=== PATIENT | female | born 1945 | race Caucasian/White ===

== ENCOUNTER → 2019-12-22 15:22 | Outpatient (BNVA) | payer MEDICARE, MEDICAID, SELFPAY | PROVIDERS: Family Provider Nurse Practitioner; PCP Nurse Practitioner; Visit Provider Family Medicine | DX: J44.9 Chronic obstructive pulmonary disease, unspecified (principal); K21.9 Gastro-esophageal reflux disease without esophagitis; R60.1 Generalized edema; E03.9 Hypothyroidism, unspecified; K59.04 Chronic idiopathic constipation; E78.5 Hyperlipidemia, unspecified | CPT/HCPCS: 36415; 80053 ==

== ENCOUNTER → 2019-12-30 08:58 | Outpatient (BNVA) | payer MEDICARE, MEDICAID, SELFPAY | PROVIDERS: Family Provider Nurse Practitioner; PCP Nurse Practitioner; Visit Provider Nurse Practitioner Psychiatric/Mental Health | DX: F33.3 Major depressive disorder, recurrent, severe with psychotic symptoms (principal); F43.12 Post-traumatic stress disorder, chronic; R41.81 Age-related cognitive decline; F17.210 Nicotine dependence, cigarettes, uncomplicated | CPT/HCPCS: 99214 ==

== ENCOUNTER → 2020-01-13 12:44 | Outpatient (BNVA) | payer MEDICARE, MEDICAID, SELFPAY | PROVIDERS: Family Provider Nurse Practitioner; PCP Nurse Practitioner; Visit Provider Social Worker | DX: F33.3 Major depressive disorder, recurrent, severe with psychotic symptoms (principal); F43.12 Post-traumatic stress disorder, chronic; R41.81 Age-related cognitive decline | CPT/HCPCS: 90834 ==

== ENCOUNTER → 2020-01-20 13:22 | Outpatient (BNVA) | payer MEDICARE, MEDICAID, SELFPAY | PROVIDERS: Family Provider Nurse Practitioner; PCP Family Medicine; Visit Provider Nurse Practitioner | DX: M54.41 Lumbago with sciatica, right side (principal); F17.210 Nicotine dependence, cigarettes, uncomplicated; Z79.891 Long term (current) use of opiate analgesic; Z71.6 Tobacco abuse counseling | CPT/HCPCS: 99213; 99214 ==

== ENCOUNTER → 2020-01-22 08:29 | Outpatient (BNVA) | payer MEDICARE, MEDICAID, SELFPAY | PROVIDERS: Family Provider Nurse Practitioner; PCP Family Medicine; Visit Provider Anesthesiology | DX: G89.29 Other chronic pain (principal); M54.5 Low back pain; M53.3 Sacrococcygeal disorders, not elsewhere classified; Z78.9 Other specified health status; M79.651 Pain in right thigh; M79.652 Pain in left thigh; F17.210 Nicotine dependence, cigarettes, uncomplicated; Z79.891 Long term (current) use of opiate analgesic | CPT/HCPCS: 77003; G0260; J1030; J2001; J3490 ==

== ENCOUNTER → 2020-02-04 09:47 | Outpatient (BNVA) | payer MEDICARE, MEDICAID, SELFPAY | PROVIDERS: Family Provider Nurse Practitioner; PCP Family Medicine; Visit Provider Nurse Practitioner Psychiatric/Mental Health | DX: F43.12 Post-traumatic stress disorder, chronic (principal); F17.219 Nicotine dependence, cigarettes, with unspecified nicotine-induced disorders; R41.81 Age-related cognitive decline; F31.32 Bipolar disorder, current episode depressed, moderate | CPT/HCPCS: 80061; 83036; 99214 ==

== ENCOUNTER → 2020-04-21 07:33 | Outpatient (BNVA) | payer MEDICARE, MEDICAID, SELFPAY ==
[2020-02-10 14:00] VITALS: BP 148/91; BMI 28.0
== END ==
PROVIDERS: Family Provider Nurse Practitioner; PCP Family Medicine; Visit Provider Nurse Practitioner Psychiatric/Mental Health
DX: F33.3 Major depressive disorder, recurrent, severe with psychotic symptoms (principal); F43.12 Post-traumatic stress disorder, chronic; F17.219 Nicotine dependence, cigarettes, with unspecified nicotine-induced disorders; R41.81 Age-related cognitive decline; F41.1 Generalized anxiety disorder
CPT/HCPCS: 99214

== ENCOUNTER → 2020-05-10 10:37 | Outpatient (BNVA) | payer MEDICARE, MEDICAID, SELFPAY ==
[2020-02-10 14:00] VITALS: BP 148/91; BMI 28.0
== END ==
PROVIDERS: Family Provider Nurse Practitioner; PCP Family Medicine; Visit Provider Family Medicine
DX: E87.6 Hypokalemia (principal); I10 Essential (primary) hypertension; F17.219 Nicotine dependence, cigarettes, with unspecified nicotine-induced disorders
CPT/HCPCS: 80048

== ENCOUNTER → 2020-05-17 07:21 | Outpatient (BNVA) | payer MEDICARE, MEDICAID, SELFPAY ==
[2020-02-10 14:00] VITALS: BP 148/91; BMI 28.0
== END ==
PROVIDERS: Family Provider Nurse Practitioner; PCP Family Medicine; Visit Provider Nurse Practitioner Psychiatric/Mental Health
DX: F33.3 Major depressive disorder, recurrent, severe with psychotic symptoms (principal); F43.12 Post-traumatic stress disorder, chronic; F17.219 Nicotine dependence, cigarettes, with unspecified nicotine-induced disorders; R41.81 Age-related cognitive decline
CPT/HCPCS: 99214

== ENCOUNTER → 2020-05-27 09:24 | Outpatient (BNVA) | payer MEDICARE, MEDICAID, SELFPAY ==
[2020-02-10 14:00] VITALS: BP 148/91; BMI 28.0
== END ==
PROVIDERS: Family Provider Nurse Practitioner; PCP Family Medicine; Visit Provider Anesthesiology
DX: M79.18 Myalgia, other site (principal); M79.10 Myalgia, unspecified site; M54.2 Cervicalgia; F17.210 Nicotine dependence, cigarettes, uncomplicated; Z79.891 Long term (current) use of opiate analgesic
CPT/HCPCS: 20553; J1030; J3490

== ENCOUNTER → 2020-06-07 10:24 | Outpatient (BNVA) | payer MEDICARE, MEDICAID, SELFPAY ==
[2020-02-10 14:00] VITALS: BP 148/91; BMI 28.0
== END ==
PROVIDERS: Family Provider Nurse Practitioner; PCP Family Medicine; Visit Provider Family Medicine
DX: I10 Essential (primary) hypertension (principal); N26.1 Atrophy of kidney (terminal); E11.9 Type 2 diabetes mellitus without complications; E78.5 Hyperlipidemia, unspecified; E03.9 Hypothyroidism, unspecified; R30.0 Dysuria
CPT/HCPCS: 80053; 80061; 81000; 82044; 84443; 85025

== ENCOUNTER → 2020-06-08 12:47 | Outpatient (BNVA) | payer MEDICARE, MEDICAID, SELFPAY ==
[2020-02-10 14:00] VITALS: BP 148/91; BMI 28.0
== END ==
PROVIDERS: Family Provider Nurse Practitioner; PCP Family Medicine; Visit Provider Anesthesiology
DX: G89.29 Other chronic pain (principal); M54.41 Lumbago with sciatica, right side; M54.42 Lumbago with sciatica, left side; M54.6 Pain in thoracic spine; M53.3 Sacrococcygeal disorders, not elsewhere classified; M54.2 Cervicalgia; F17.219 Nicotine dependence, cigarettes, with unspecified nicotine-induced disorders; Z79.891 Long term (current) use of opiate analgesic
CPT/HCPCS: 99214

== ENCOUNTER → 2020-06-14 07:40 | Outpatient (BNVA) | payer MEDICARE, MEDICAID, SELFPAY ==
[2020-06-08 13:24] VITALS: BP 148/91; BMI 28.0
== END ==
PROVIDERS: Family Provider Nurse Practitioner; PCP Family Medicine; Visit Provider Nurse Practitioner Psychiatric/Mental Health
DX: F33.3 Major depressive disorder, recurrent, severe with psychotic symptoms (principal); F43.12 Post-traumatic stress disorder, chronic; F17.219 Nicotine dependence, cigarettes, with unspecified nicotine-induced disorders; R41.81 Age-related cognitive decline
CPT/HCPCS: 99214

== ENCOUNTER → 2020-06-29 16:45 | Outpatient (BNVA) | payer MEDICARE, MEDICAID, SELFPAY ==
[2020-06-28 09:22] VITALS: BP 148/91; BMI 28.0
== END ==
PROVIDERS: Family Provider Nurse Practitioner; PCP Family Medicine; Visit Provider Family Medicine
DX: J02.9 Acute pharyngitis, unspecified (principal)
CPT/HCPCS: 87880

== ENCOUNTER → 2020-08-11 07:48 | Outpatient (BNVA) | payer MEDICARE, MEDICAID, SELFPAY ==
[2020-06-28 09:22] VITALS: BP 148/91; BMI 28.0
== END ==
PROVIDERS: Family Provider Nurse Practitioner; PCP Family Medicine; Visit Provider Nurse Practitioner Psychiatric/Mental Health
DX: F33.3 Major depressive disorder, recurrent, severe with psychotic symptoms (principal); F43.12 Post-traumatic stress disorder, chronic; F17.219 Nicotine dependence, cigarettes, with unspecified nicotine-induced disorders; R41.81 Age-related cognitive decline; F41.1 Generalized anxiety disorder
CPT/HCPCS: 99214

== ENCOUNTER 2020-08-17 08:54 | Outpatient (CLI) | payer MEDICARE, MEDICAID, SELFPAY ==
[2020-06-28 09:22] VITALS: BP 148/91; BMI 28.0
--- NOTE | 2020-08-17 09:08 | ECG_ITS ---
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 Interpretive Statements NAME OF STUDY: LEXISCAN SESTAMIBI STRESS TEST INDICATION: [Athrosclerotic Heart Disease, ] Procedure: At the baseline, the blood pressure was 122/73 mmHg,with a heart rate of 74 bpm. The electrocardiogram showed normal sinus rhythm with no significant ST T wave changes. Lexiscan was infused over a period of 20 seconds. A total of 0.4 mg of Lexiscan was infused. Stress phase was continued for a total of 5 minutes. Heart rate at the end of stress phase was 96 bpm. Blood pressure was 142/74 mmHg. The EKG at the peak infusion revealed sinus rhythm with no significant changes. Sestamibi was injected 20 seconds after the Lexiscan infusion. Blood pressure at the end of recovery phase was 139/75 mmHg. Heart rate was 93 bpm Conclusion: 1. Normal EKG response to Lexiscan infusion. 2. No Lexiscan induced chest pain or cardiac arrhythmia. 3. Normal heart rate and blood pressure response. 4. Sestamibi/sestamibi perfusion scan pending; see separate report. Electronically Signed On 08-20-2020 17:12:19 CDT by Fred Silverio M.D. [email or web address]
--- NOTE | 2020-08-17 09:08 | NMCV_ITS ---
NM jose martin perf SPECT r/s* [id number] Prisca Hernandez Age: 75 Gender: F : 1945 Exam Date: 08/17/2020 09:08 Ordering Phys: Fred Silverio M.D ([email or web address]) Technologist: LOUISE Guzman Exam Location: [facility] Indications: CORONARY ARTERY DISEASE STRESS TEST Please see separate stress test report in Ephiphany for full findings IMAGE PROTOCOL Rest/Stress 1 Lexiscan Day Radiopharmaceutical Dose (mCi) Administration Site Administered by Rest: Tc-99m 10.9 IV LOUISE Cordoba Sestamibi Stress:Tc-99m 32.4 IV LOUISE Cordoba Sestamibi Rest: 17-Aug-2020 60 Discovery 630 Stress: 17-Aug-2020 30 Discovery 630 0.4mg Lexiscan. Supine position only as patient was unable to lay prone. SPECT RESULTS Technical Quality: Excellent Raw Data Analysis: Normal Image Corrections: No attenuation or motion correction applied Summed Stress Score: 2 Summed Rest Score: 0 Summed Difference Score: 2 PERFUSION FINDINGS There is small in size, apical reversible defect. FUNCTIONAL RESULTS (calculated via Gated SPECT) Stress Image LV EF (%): 89 Stress EDV (mL):38 TID: 1.42 Stress ESV (mL):4 FUNCTIONAL FINDINGS: There is normal left ventricular systolic function. IMPRESSIONS 1. Small apical perfusion defect is noted at stress. This is consistent with ischemia in the apical [id number]. 2. Normal LV systolic function. Fred Silverio MD (Electronically Signed) Final Date: 18 August 2020 12:38 S
[2020-08-17 09:20] VITALS: BMI 27.6
[2020-08-17] MEDS: regadenoson 0.4 Mg/5 ml Syringe IVP (11:15)
[2020-08-17 11:28] VITALS: BP 139/75; PULSE 94
== END 2020-08-17 08:55 | disposition home or self-care (01) ==
LOC: CDL 09:01
PROVIDERS: PCP Family Medicine; Visit Provider Internal Medicine
DX: I25.10 Atherosclerotic heart disease of native coronary artery without angina pectoris (principal)
CPT/HCPCS: 78452; 93017; A9500; J2785

== ENCOUNTER → 2020-08-20 08:09 | Outpatient (BNVA) | payer MEDICARE, MEDICAID, SELFPAY ==
[2020-06-28 09:22] VITALS: BP 148/91; BMI 28.0
== END ==
PROVIDERS: Family Provider Nurse Practitioner; PCP Family Medicine; Visit Provider Anesthesiology
DX: G89.29 Other chronic pain (principal); M54.41 Lumbago with sciatica, right side; M54.6 Pain in thoracic spine; M53.3 Sacrococcygeal disorders, not elsewhere classified; M54.2 Cervicalgia; F17.219 Nicotine dependence, cigarettes, with unspecified nicotine-induced disorders; Z79.891 Long term (current) use of opiate analgesic
CPT/HCPCS: 99214

== ENCOUNTER 2020-08-27 07:39 | Outpatient (CLI) | payer MEDICARE, MEDICAID, SELFPAY ==
[2020-06-28 09:22] VITALS: BP 148/91; BMI 28.0
== END 2020-08-27 07:40 | disposition home or self-care (01) ==
LOC: LAB 07:44
PROVIDERS: Family Provider Nurse Practitioner; PCP Family Medicine; Visit Provider Internal Medicine
DX: Z20.828 Contact with and (suspected) exposure to other viral communicable diseases (principal)
CPT/HCPCS: 87635

== ENCOUNTER 2020-08-31 13:30 | Observation (INO) | payer MEDICARE, MEDICAID, SELFPAY ==
[2020-06-28 09:22] VITALS: BP 148/91; BMI 28.0
[2020-08-27 08:11] LABS: Basophils # 0.1 10^3/uL (0.0-0.1); Eosinophils # 0.3 10^3/uL (0.0-0.8); Eosinophils % 3.2 %; Hematocrit 48.2 % (37.0-47.0); Hemoglobin 15.8 g/dL (11.5-15.3); Lymphocytes % 22.4 %; Mean Corpuscular HGB Conc 32.8 g/dL (30.0-36.0); Mean Corpuscular Hemoglobin 31.9 pg (28.0-34.0); Mean Corpuscular Volume 97.2 fL (81-99); Mean Platelet Volume 10.6 fL (7.4-10.4); Monocytes # 0.8 10^3/uL (0.2-0.9); Neutrophils # 5.81 10^3/uL (1.8-7.7); Neutrophils % 64.2 %; Nucleated Red Blood Cells % 0 %; Platelet Count 263 10^3/cmm (130-400); Red Blood Count 4.96 10^6/uL (4.1-5.3); Red Cell Distribution Width 12.7 % (12.1-15.1); White Blood Count 9.1 10^3/uL (4.0-10.0)
[2020-08-27 08:35] LABS: INR 0.86 (0.8-1.2)
[2020-08-27 08:51] LABS: Anion Gap 14.7 (5-19); Blood Urea Nitrogen 18 mg/dL (8-23); Calcium 9.8 mg/dL (8.5-10.5); Carbon Dioxide 29 mmol/L (22-29); Chloride 102 mmol/L (98-107); Glucose 106 mg/dL (65-115); Osmolality Calculated 296 mOsm/kg (285-295); Potassium 3.7 mmol/L (3.5-5.1); Sodium 142 mmol/L (136-145)
--- NOTE | 2020-08-31 07:30 | XACV_ITS ---
Exam Room: 1 Ht: 150 cm Wt: 62 kg BSA: 1.63 m2 Gender: Female : 1945 Any Known Allergies: Other Exam Priority: Routine Indication(s): - Abnormal nuclear perfusion study - Angina Procedure(s): Procedure Description: Diagnostic procedure Procedure Description: Left Heart Catheterization Procedure Description: Left ventriculography Procedure Description: Coronary Angiography Diagnostic Cath Status: Elective Diagnostic Findings * CX has 85% distal stenosis. It gives rise to a large first OM branch. This OM gives collaterals to LAD.. * RCA has no significant stenosis. It provides right to left collaterals to apical LAD. Competitive flow can be seen in first OM.. * pLAD: Chronic total occlusion of proximal LAD is noted.RADHA: 0 flow. LAD has good collaterals from both OM1 and RCA. No significant stenosis past the proximal occlusion.. * LM has 0% stenosis. * CIRC AV: Severe 85% stenosis, RADHA: 3 flow. * Coronary angiography shows co-dominance. Conclusions 1. There is severe coronary artery disease with two-vessel disease.. 2. Proximal LAD has a MANAGER BANK. However receives excellent collaterals from both RCA and OM1. 3. Distal left circumflex artery has severe 85% stenosis. 4. Normal left ventricular systolic function. Ejection fraction of 55%. Recommendations * Patient has MANAGER BANK of proximal LAD. However LAD receives excellent collaterals both from her right coronary artery and OM1. Distal left circumflex has severe stenosis. We will try to optimize medical therapy to see if chest pain resolves. If medical therapy fails, distal left circumflex can be stented as LAD territory is unlikely cause for chest discomfort given excellent collaterals. This is a short segment MANAGER BANK. If in future revascularization of LAD is needed, discussion regarding CABG versus attempt at opening chronically occluded vessel percutaneously is appropriate.. * Return to clinic in 4 weeks to discuss further course of action. Interventional RX Recommendation: medical therapy and/or counseling Diagnostic RX Recommendation: medical therapy and/or counseling Ventriculography Ejection Fraction: 55.0 % Pressures Phase:Rest AO : 139 / 104 ( 122 ) @ 7:44:00 AM 109 / 77 ( 92 ) @ 7:51:00 AM 142 / 76 ( 105 ) @ 8:03:00 AM 143 / 68 ( 104 ) @ 8:03:00 AM LV : 139 / -5 / @ 8:01:00 AM 144 / -5 / @ 8:02:00 AM 142 / -5 / @ 8:03:00 AM Valves Phase:DefaultPhase AV : 0.0 @ 1:27:50 PM AV Mean Gradient: 0.0 @ 1:27:50 PM Clinical Evaluation EBL: 5mL-10mL Procedural Details Procedure Consent Obtained. Pre-Procedure Time Out. Identified patient by full name and date of as verbalized by the patient/guarantor. Does the consent match the physician's order: Yes. Accurate & Complete Informed Consent: Yes. Inpatient/Outpatient History & Physical on Chart: Yes. If H&P is completed, is and addenduem needed: No; If yes, is the addendum complete: N/A. Visualize and Verify Site with Patient/Guarantor: N/A. Relevant Radiology Images available: N/A. Pre-op teaching completed and patient verbalized understanding. The risks, benefits, and alternatives of sedation and/or procedure were discussed by physician. The patient agrees to continue. Procedure started. [facility] Clinical Fraility Score: 3: Managing Well. Floor Attendant Indications: Worsening Angina. Chest Pain Symptom Assessment: Atypical Angina. Cardiovascular Instability: No. Correct patient, site and procedure confirmed by cath team. PERRLA. Strong, equal hand communications tech bilaterally. Lungs clear x 5 lobes. IV Site on Arrival: 20 gauge in the right anticubital. IV Fluids: 0.9% NaCl at KVO. 0 mL infused prior to slab puller. Pre Procedural Pulses: bilateral dorsalis pedis was 3+. Pre Procedural Pulses: bilateral posterior tibial was 2+. Pre Procedural Pulses: bilateral radial was 3+. Oxygen started at 2liters/min via nasal canula. right groin was prepped with chloroprep then draped in the usual sterile fashion. right radial was prepped with chloroprep then draped in the usual sterile fashion. Physician notified. Baseline sample Acquired. HR: 78 BPM. Patient's family unavailable due to current Covid-19 restrictions. The patient's daughter, Kendal, was updated via telephone at . Equipment: 6F - Radial. Cardiac Cath Pack. ACIST Manifold Kit Model BT 2000. Heparinized Saline (2 units/mL), 1000 mL bag. Physician arrived. Physician scrubbed in. Immediate Pre-Procedure Time Out. Correct Patient: Yes; Correct Procedure: Yes; Correct Site: Yes; Correct Patient Position: Yes; Correct Supplies: Yes; Dried Flammable Prep: Yes; Blood Products Available: N/A. Lidocaine 1% infiltrated to the right radial. Arterial access obtained. A 5 tur[place] ca[place] islander TIG catheter in over the exchange wire. Exchange wire out. Hand injection performed of the right radial artery. Exchange glidewire in. Exchange glidewire out. Runthrough guidewire in. Runthrough guidewire out. Exchange wire in. Exchange wire out. Exchange glidewire in. Exchange glidewire out. Catheter out. Unable to navigate through radial access d/t anatomy. attempting to gain access in the Femoral artery. Lidocaine 1% infiltrated to the right groin. Added inventory: Micropuncture kit, 6fr femoral sheath. Arterial access obtained with micropuncture set. A 5 [place] islander JL4 catheter in over the exchange wire. Multiple views taken of left coronary artery. Patient's family unavailable due to current Covid-19 restrictions. The patient's daughter, Kendal, was updated via telephone at . Catheter removed over the exchange wire. A 5 [place] islander JR4 catheter in over wire. Multiple views taken of right coronary artery. Catheter removed over the exchange wire. A 5 tur[place] and ca[place] islander Angled Pig catheter in over wire. EDP Sample taken: LV 139/-6,19; HR: 79 BPM; SpO2: 92%. LV gram performed in TORO @ 10 mL/second for a total of 30 mL. EDP Sample taken: LV 144/-6,17; HR: 83 BPM; SpO2: 92%. Pullback taken: LV 142/-6,16; AO 142/76(105); Mean: 0mmHg, Peak to Peak: 0mmHg, SEP: 18sec/min; HR: 81 BPM; SpO2: 93%. Aortogram performed in RUSSIAN @ 20 mL/second for a total of 40 mL. Catheter removed over the exchange wire. Dr. Silverio scrubbed out to review cine. Dr. Silverio scrubbed back in. TR band placed. Hemostasis obtained. Mynx Dread Device was successful obtaining hemostatsis at the Right Femoral artery insertion site. Mynx Closure Device placed without complications. No signs or symptoms of hematoma noted. Sterile dressing applied per usual sterile fashion. LOT # [id number]. Dr. Silverio scrubbed out. Post Procedure: Pulses reassessed and unchanged. PERRLA. Strong, equal hand communications tech bilaterally. No VTE prophylaxis required. Medication's Wasted: Nitro = 49.6 mL. Medication's Wasted: Heparin = 1000 Units. Medication's Wasted: Lidocaine 1% = 6 mL. Total IV fluids: 75 mL. A TR Band was successful obtaining hemostatsis at the Right Radial artery insertion site. Post-op diagnosis: MANAGER BANK of the LAD. Complications: none. Estimated blood loss: 5mL-10mL. Procedure completed. Patient transferred by bed to 1st floor. Vital chart was stopped. Patient's family unavailable due to current [employer] restrictions. The patient's daughter, Kendal, was updated via telephone at by Dr. Silverio. Access Site Site: Right Radial artery Sheath Size: 6 Fr Hemostasis Method: TR Band Hemostasis Success: Successful Site: Right Femoral artery Sheath Size: 6 Fr Hemostasis Method: Hemostasis Patch Hemostasis Success: Successful Procedure Medications Start: 12:21 PM Stop: 12:21 PM Medication: Versed Amount: 1 mg Route: I.V. Start: 12:21 PM Stop: 12:21 PM Medication: Fentanyl Amount: 50 mcg Route: I.V. Start: 12:29 PM Stop: 12:29 PM Medication: Fentanyl Amount: 25 mcg Route: I.V. Start: 12:31 PM Stop: 12:31 PM Medication: Nitrogylcerin Amount: 200 mcg Route: I.A. Start: 12:34 PM Stop: 12:34 PM Medication: Versed Amount: 1 mg Route: I.V. Start: 12:40 PM Stop: 12:40 PM Medication: Fentanyl Amount: 25 mcg Route: I.V. I, the attending physician, have reviewed and verified all procedure medications. Yes, all medications given per verbal order History/Risk Factors Hypertension: Yes Dyslipidemia: Yes Peripheral Arterial Disease (PAD): No Myocardial Infarction (PA): No Obesity: No Renal Disease: No Tobacco Use: Current/Recent(w/in 1 year) Prior Interventions PCI: No CABG: No Valve Surgery: No Report Signatures Finalized by Fred Silverio MD on 09/05/2020 06:58 PM
[2020-08-31] MEDS: diphenhydrAMINE 50 mg Capsule PO (08:45)
[2020-08-31 09:06] VITALS: BP 137/79; PULSE 79; RESP 16; TEMP 36.6; O2SAT 98; BMI 27.6
--- NOTE | 2020-08-31 12:06 | PM.HP ---
Providers/Chief Complaint Primary Care Provider: Kaycee Roque DO Chief Complaint: left heart cath History of Present Illness Prisca Hernandez is a 75 year old female with past medical history of hypertension, tobacco abuse, nonobstructive coronary artery disease and COPD is here for left heart cath with possible intervention for worsening chest pain and abnormal stress test. Lexiscan was recently performed that showed apical reversible defect with TID of 1.42. Chest pain has typical and atypical features. However given the risk factors of hypertension and significant smoking history along with abnormal stress test plan is to undergo invasive procedure. She continues to smoke. She smokes half pack a day. She has not been exercising. Review of Systems Narrative: CONSTITUTIONAL: No fever chills weight loss or gain or night sweats. [] HEENT: Normocephalic, atraumatic.[] RESPIRATORY: No cough, sputum, hemoptysis or wheezing.[] CARDIOVASCULAR: No shortness of breath, chest pain, PND, orthopnea, lower extremity edema, presyncope or syncope. [] GI: no nausea vomiting diarrhea. 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 [] MUSCULOSKELETAL: No knee or joint pain or rashes. [] Medications/Allergies Home Medications Medication Instructions Recorded Confirmed Last Taken Type ceramides 1,3,6-11 1 applic TOPICAL BID gm 11/20/19 08/30/20 08/30/20 10:30 History cholecalciferol (vitamin D3) 50 50 mcg PO ONCE 11/20/19 08/30/20 08/30/20 10:30 History mcg (2,000 unit) capsule multivit with 1 tab PO DAILY 11/20/19 08/30/20 08/30/20 10:30 History qtbnhpgh-noul-AC-lutein 8 mg iron-400 mcg-300 mcg tablet triamcinolone acetonide 0.1 % 1 applic TOPICAL BID 11/20/19 08/30/20 08/30/20 10:30 History topical cream valacyclovir 500 mg tablet 500 mg PO DAILY tab 11/20/19 08/30/20 08/30/20 10:30 History furosemide 20 mg tablet 60 mg PO QAM #90 tab 03/30/20 08/30/20 08/30/20 10:30 Rx omeprazole 20 mg capsule,delayed 20 mg PO BID #180 cap 03/31/20 08/30/20 08/30/20 10:30 Rx release polyethylene glycol 3350 17 17 gm PO QDAY #510 gm 04/08/20 08/30/20 08/30/20 10:30 Rx gram/dose oral powder fluticasone fur. 100 mcg-umeclid 1 inh INHALATION DAILY #60 each 05/31/20 08/30/20 08/30/20 10:30 Rx 62.5 mcg-vilant 25 mcg inhalat.powder amlodipine 5 mg tablet 5 mg PO DAILY #90 tab 06/07/20 08/30/20 08/30/20 10:30 Rx fluticasone propionate 50 1 spray INTRANASAL BID #16 gm 06/07/20 08/30/20 08/30/20 10:30 Rx mcg/actuation nasal spray,suspension atorvastatin 20 mg tablet 20 mg PO QDAY #90 tab 06/08/20 08/30/20 08/30/20 21:30 Rx potassium chloride 10 mEq 10 meq PO BID #180 tab 07/27/20 08/30/20 08/30/20 10:30 Rx tablet,extended release quetiapine 25 mg tablet 25 mg PO BID #60 tab 08/11/20 08/30/20 08/30/20 10:30 Rx venlafaxine 75 mg capsule,extended 75 mg PO QAM #30 cap 08/11/20 08/30/20 08/30/20 10:30 Rx release 24 hr hydrocodone 10 mg-acetaminophen 1 tab PO Q8H PRN 30 Days #90 tab 08/20/20 08/30/20 Unknown Rx 325 mg tablet hydrocodone 10 mg-acetaminophen 1 tab PO TID PRN 30 Days #90 tab 08/20/20 08/30/20 Unknown Rx 325 mg tablet levothyroxine 75 mcg PO DAILY 08/30/20 08/30/20 08/31/20 07:30 History lisinopril 40 mg PO DAILY 08/30/20 08/30/20 08/30/20 10:30 History montelukast [Singulair] 10 mg PO DAILY 08/30/20 08/30/20 08/30/20 10:30 History Allergies Allergy/AdvReac Type Severity Reaction Status Date / Time alprazolam [From Xanax] Allergy nausea and Verified 08/31/20 09:22 vomiting baclofen Allergy Unknown Verified 08/31/20 09:22 ciprofloxacin [From Cipro] Allergy ALGY-Rash Verified 08/31/20 09:22 codeine Allergy nausea & Verified 08/31/20 09:22 vomiting morphine Allergy nausea & Verified 08/31/20 09:22 vomiting naproxen [From Aleve] Allergy ALGY-Hives Verified 08/31/20 09:22 Penicillins Allergy vomiting Verified 08/31/20 09:22 propoxyphene [From Darvon] Allergy nausea Verified 08/31/20 09:22 ranitidine [From Zantac] Allergy nausea & Verified 08/31/20 09:22 vomiting fentanyl AdvReac Unknown rash & Verified 08/31/20 09:22 nausea PFSH Acute PFSH: Medical History Age-related cognitive decline Benign essential HTN CAD (coronary artery disease) Chronic constipation Chronic post-traumatic stress disorder Chronic right SI joint pain Chronic right-sided low back pain with right-sided sciatica Cigarette nicotine dependence Cystocele Dyslipidemia Encounter for long-term opiate analgesic use Enrolled in chronic care management Gastro-esophageal reflux disease without esophagitis Generalized edema Hypothyroidism Low back pain of over 3 months duration Major depressive disorder, recurrent episode with mood-congruent psychotic features Microscopic hematuria Mixed incontinence Moderate COPD (chronic obstructive pulmonary disease) Myalgia Neck pain Opioid contract exists Periodontal disease Spinal stenosis, cervical region Surgical History S/P appendectomy S/P cataract surgery S/P hysterectomy S/P tonsillectomy and adenoidectomy Family History Father CAD (coronary artery disease) Family/Other CAD (coronary artery disease) uncle Cancer maternal aunt & maternal uncle Mother CAD (coronary artery disease) Hypertension Cancer Sister Hypertension Cancer Other Chronic post-traumatic stress disorder Social History Smoking and tobacco status: current every day smoker cigarettes Packs smoked per day: 0.75 Quit status (tobacco): not considering quitting Smoking risk assessment/counseling performed?: No Alcohol intake: never Marital status: Single History of recent travel: No Current gender identity: Female Vitals/I&O/Wt Last Vital Signs Temp 97.9 F 08/31/20 09:06 Pulse 79 08/31/20 09:06 Resp 16 08/31/20 09:06 BP 137/79 08/31/20 09:06 Pulse Ox 98 08/31/20 09:06 Weight last 48 hrs Weight 137 lb Physical Exam Narrative: EXAM NARRATIVE: GENERAL: Patient is alert, awake and oriented x3. [] NECK: No jugular vein distension. [] HEENT: No cyanosis. No icterus. No pallor. [] HEART: Regular S1 and S2. No murmur, rub or gallop. [] LUNGS: Clear to auscultate bilaterally. [] ABDOMEN: Soft, nontender and nondistended. Positive bowel sounds. No guarding, rebound or tenderness. [] CENTRAL NERVOUS SYSTEM: Grossly nonfocal. [] EXTREMITIES: Lower extremities with no edema bilaterally. Pulses palpable in the lower extremities, both dorsalis pedis and posterior tibial. [] Data : 08/27/20 08:00 08/27/20 08:00 A&P Assessment and plan (1) Chest pain: Status: Acute (2) Abnormal stress test: Status: Acute Patient has been having worsening chest pain associated with abnormal stress test. Plan is to undergo coronary angiography with possible percutaneous intervention if needed. Risks and benefits of the procedure have been discussed with patient and she wants to proceed with the procedure. Risks including bleeding, infection, abnormal heart rhythm, kidney function worsening, heart attack stroke and were discussed with the patient. She verbalized understanding. Attestations Medical Necessity Statement*: Care not expected to cross 2 midnights. Coding Level of Care Code Acute [place] for Lori Reed Diagnoses Chest pain R07.9 Abnormal stress test R94.39
[2020-08-31 17:00] VITALS: BP 137/79; PULSE 79; RESP 16; TEMP 36.6; O2SAT 98
--- NOTE | 2020-08-31 18:33 | PC.NURSE ---
1530 TR band removed via protocol patient tolerated well.
--- NOTE | 2020-08-31 19:21 | PC.NURSE ---
VS monitored per protocol during TR Band Removal. BP HR RR 1331: 137/77 73 17 1346: 127/73 84 21 1400: 131/89 82 18 1415: 137/81 79 16 1430: 137/81 79 15 1445: 138/68 80 17 1500: 127/70 80 11 1515: 129/71 78 13 1530: 131/74 73 14 1545: 128/74 74 15 1600: 131/76 72 15 1615: 130/75 73 11
--- NOTE | 2020-09-01 09:46 | PC.RESP ---
SMOKING CESSATION AND PULMONARY REHAB INFORMATION SENT TO PATIENT.
== END 2020-08-31 16:30 | disposition home or self-care (01) ==
LOC: CSU 13:30
PROVIDERS: Admitting Provider Internal Medicine; PCP Family Medicine; Visit Provider Internal Medicine
DX: I25.10 Atherosclerotic heart disease of native coronary artery without angina pectoris (principal); I77.1 Stricture of artery; R94.39 Abnormal result of other cardiovascular function study; R07.89 Other chest pain; I10 Essential (primary) hypertension; F17.210 Nicotine dependence, cigarettes, uncomplicated; E78.5 Hyperlipidemia, unspecified; E03.9 Hypothyroidism, unspecified; Z82.49 Family history of ischemic heart disease and other diseases of the circulatory system
CPT/HCPCS: 12345; 36415; 80048; 85025; 85610; 93452; C1760; C1769; C1887; C1894; G0378; J1644; J2250; J3010; J3490; J7030; Q0163; Q9967

== ENCOUNTER → 2020-09-07 11:27 | Outpatient (BNVA) | payer MEDICARE, MEDICAID, SELFPAY ==
[2020-06-28 09:22] VITALS: BP 148/91; BMI 28.0
== END ==
PROVIDERS: PCP Family Medicine; Visit Provider Nurse Practitioner Family
DX: R07.9 Chest pain, unspecified (principal); I25.10 Atherosclerotic heart disease of native coronary artery without angina pectoris
CPT/HCPCS: 80048

== ENCOUNTER → 2020-09-15 07:38 | Outpatient (BNVA) | payer MEDICARE, MEDICAID, SELFPAY ==
[2020-06-28 09:22] VITALS: BP 148/91; BMI 28.0
== END ==
PROVIDERS: PCP Family Medicine; Visit Provider Nurse Practitioner Psychiatric/Mental Health
DX: F33.3 Major depressive disorder, recurrent, severe with psychotic symptoms (principal); F43.12 Post-traumatic stress disorder, chronic; F17.219 Nicotine dependence, cigarettes, with unspecified nicotine-induced disorders; R41.81 Age-related cognitive decline
CPT/HCPCS: 99214

== ENCOUNTER → 2020-09-16 09:14 | Outpatient (BNVA) | payer MEDICARE, MEDICAID, SELFPAY ==
[2020-06-28 09:22] VITALS: BP 148/91; BMI 28.0
== END ==
PROVIDERS: PCP Family Medicine; Visit Provider Anesthesiology
DX: M79.18 Myalgia, other site (principal); M54.2 Cervicalgia; F17.210 Nicotine dependence, cigarettes, uncomplicated; Z79.891 Long term (current) use of opiate analgesic
CPT/HCPCS: 20553; J1030; J3490

== ENCOUNTER → 2020-10-04 07:41 | Outpatient (BNVA) | payer MEDICARE, MEDICAID, SELFPAY ==
[2020-06-28 09:22] VITALS: BP 148/91; BMI 28.0
== END ==
PROVIDERS: PCP Family Medicine; Visit Provider Nurse Practitioner Psychiatric/Mental Health
DX: F33.3 Major depressive disorder, recurrent, severe with psychotic symptoms (principal); F43.12 Post-traumatic stress disorder, chronic; F17.219 Nicotine dependence, cigarettes, with unspecified nicotine-induced disorders; R41.81 Age-related cognitive decline; F41.1 Generalized anxiety disorder
CPT/HCPCS: 99213

== ENCOUNTER → 2020-10-13 13:36 | Outpatient (BNVA) | payer MEDICARE, MEDICAID, SELFPAY ==
[2020-06-28 09:22] VITALS: BP 148/91; BMI 28.0
== END ==
PROVIDERS: PCP Family Medicine; Visit Provider Anesthesiology
DX: M54.6 Pain in thoracic spine (principal); M54.41 Lumbago with sciatica, right side; M54.2 Cervicalgia; F17.210 Nicotine dependence, cigarettes, uncomplicated; Z79.891 Long term (current) use of opiate analgesic
CPT/HCPCS: 99214

== ENCOUNTER → 2020-11-30 10:22 | Outpatient (BNVA) | payer MEDICARE, MEDICAID, SELFPAY ==
[2020-06-28 09:22] VITALS: BP 148/91; BMI 28.0
== END ==
PROVIDERS: PCP Family Medicine; Visit Provider Family Medicine
DX: E78.5 Hyperlipidemia, unspecified (principal); E03.9 Hypothyroidism, unspecified; J44.9 Chronic obstructive pulmonary disease, unspecified; K21.9 Gastro-esophageal reflux disease without esophagitis
CPT/HCPCS: 80053; 80061; 84443

== ENCOUNTER → 2020-12-09 13:00 | Outpatient (BNVA) | payer MEDICARE, MEDICAID, SELFPAY ==
[2020-06-28 09:22] VITALS: BP 148/91; BMI 28.0
== END ==
PROVIDERS: PCP Family Medicine; Visit Provider Anesthesiology
DX: M54.2 Cervicalgia (principal); M54.41 Lumbago with sciatica, right side; M54.6 Pain in thoracic spine; F17.219 Nicotine dependence, cigarettes, with unspecified nicotine-induced disorders; Z79.891 Long term (current) use of opiate analgesic
CPT/HCPCS: 99213

== ENCOUNTER → 2020-12-20 08:17 | Outpatient (BNVA) | payer MEDICARE, MEDICAID, SELFPAY ==
[2020-12-09 13:24] VITALS: BP 148/91; BMI 28.0
== END ==
PROVIDERS: PCP Family Medicine; Visit Provider Nurse Practitioner Psychiatric/Mental Health
DX: F33.3 Major depressive disorder, recurrent, severe with psychotic symptoms (principal); F43.12 Post-traumatic stress disorder, chronic; F17.219 Nicotine dependence, cigarettes, with unspecified nicotine-induced disorders; R41.81 Age-related cognitive decline
CPT/HCPCS: 99214

== ENCOUNTER → 2020-12-29 08:52 | Outpatient (BNVA) | payer MEDICARE, MEDICAID, SELFPAY ==
[2020-12-09 13:24] VITALS: BP 148/91; BMI 28.0
== END ==
PROVIDERS: PCP Family Medicine; Visit Provider Urology
DX: R30.0 Dysuria (principal)
CPT/HCPCS: 81003

== ENCOUNTER → 2020-12-31 12:49 | Outpatient (BNVA) | payer MEDICARE, MEDICAID, SELFPAY ==
[2020-12-09 13:24] VITALS: BP 148/91; BMI 28.0
== END ==
PROVIDERS: PCP Family Medicine; Visit Provider Surgery
DX: Z20.822 Contact with and (suspected) exposure to COVID-19 (principal)
CPT/HCPCS: 87635

== ENCOUNTER 2021-01-05 06:13 | Day surgery (SDC) | payer MEDICARE, MEDICAID, SELFPAY ==
[2020-12-09 13:24] VITALS: BP 148/91; BMI 28.0
[2021-01-03 14:14] VITALS: BMI 28.3
[2021-01-05 06:25] VITALS: BP 109/73; PULSE 98; RESP 16; TEMP 36.5; O2SAT 95
--- NOTE | 2021-01-05 06:33 | W.PM.OPSUD ---
Surgery/Procedure H&P Update DATE OF PROCEDURE: January 05, 2021 DATE H&P PERFORMED: 09/23/20 H&P UPDATE INFORMATION: I have reviewed H&P completed within last 30 days, I have examined patient prior to procedure and No changes to prior documentation PREOP DIAGNOSIS: Bleeding per rectum PRIMARY INDICATION FOR PROCEDURE: The same PLANNED PROCEDURE: Operation Date: 01/05/21 07:00 Proposed Procedures p EGD [id number] [id number] R10.13 K62.5(Not Applicable) - Andriy Aguilar MD s Colonoscopy(Not Applicable) - Andriy Aguilar MD
[2021-01-05] MEDS: sodium chloride 0.9% 1,000 ML 30 ML IV (06:59)
--- NOTE | 2021-01-05 07:58 | ANES.PREANE2 ---
Pre-Anesthetic Assessment Pre-Anesthetic Assessment: Height/Weight: Height 1.5 m Weight 63.503 kg Temp Pulse Resp BP Pulse Ox 97.7 F 98 16 109/73 95 01/05/21 06:25 01/05/21 06:25 01/05/21 06:25 01/05/21 06:25 01/05/21 06:25 Preop Diagnosis: Bleeding per rectum Proposed Procedure: Operation Date: 01/05/21 07:00 Proposed Procedures p EGD [id number] R10.13 K62.5(Not Applicable) - Andriy Aguilar MD s Colonoscopy(Not Applicable) - Andriy Aguilar MD Last intake: Intake Last Liquid Date 01/04/21 Last Liquid Time 20:00 Last Solid Date 01/03/21 Last Solid Time 19:00 Social: Social History: Tobacco and No alcohol Exam: Pre-Anes Outpt Exam: alert, oriented x 3 and regular rate & rhythm Airway: Submandibular: WNL Cervical ROM: WNL MP: 2 Dentition: False Pulmonary: Pulmonary: COPD CV/HEM: CV/HEM: Angina (Stable), CAD and HTN Metabolic: Metabolic: Thyroid Musc/skel: Musc/skel: Lower Back Pain Anesthetic Plan: ASA status: 3 Anesthesia: MAC Risk of > 500 ml blood loss (7ml/kg in children): No Meds/Allergies Current Medications: Current Medications Generic Name Dose Route Start Last Admin Trade Name Freq PRN Reason Stop Dose Admin Sodium Chloride 1,000 mls @ 30 ml s/hr 01/05/21 06:15 01/05/21 06:59 Sodium Chloride 0.9% IV 01/06/21 06:14 30 mls/hr .Q24H PRECIOUS Administration PFSH Anesthesia PFSH: Medical History Age-related cognitive decline Benign essential HTN CAD (coronary artery disease) Chronic constipation Chronic post-traumatic stress disorder Chronic right SI joint pain Chronic right-sided low back pain with right-sided sciatica Cigarette nicotine dependence Cystocele Dyslipidemia Encounter for long-term opiate analgesic use Gastro-esophageal reflux disease without esophagitis Generalized edema Hypothyroidism Low back pain of over 3 months duration Major depressive disorder, recurrent episode with mood-congruent psychotic features Microscopic hematuria Mixed incontinence Moderate COPD (chronic obstructive pulmonary disease) Myalgia Myalgia Neck pain Opioid contract exists Periodontal disease Rectal Hemorrhage Spinal stenosis, cervical region Surgical History S/P appendectomy S/P cataract surgery S/P hysterectomy S/P tonsillectomy and adenoidectomy Family History Father CAD (coronary artery disease) Family/Other CAD (coronary artery disease) uncle Cancer maternal aunt & maternal uncle Mother CAD (coronary artery disease) Hypertension Cancer Sister Hypertension Cancer Other Chronic post-traumatic stress disorder Social History Smoking and tobacco status: current every day smoker cigarettes Packs smoked per day: 0.50 Quit status (tobacco): not considering quitting Smoking risk assessment/counseling performed?: No Alcohol intake: never Marital status: Single History of recent travel: No Current gender identity: Female Data Anesthesia Cardiac Studies: No Data to Display
[2021-01-05 08:38] VITALS: BP 143/90; PULSE 85; RESP 18; TEMP 36.1; O2SAT 97
--- NOTE | 2021-01-05 08:40 | ANE.PACU2 ---
Inpatient post-anesthesia follow up: Airway intact: Yes Vital signs: Temperature 97 F Pulse Rate 85 Respiratory Rate 18 Blood Pressure 143/90 Pulse Oximetry 97 Oxygen Delivery Me thod Room Air Oxygen Flow Rate Fraction of Inspir ed Oxygen Hydration adequate: Yes Nausea and vomiting: No Pain level: 1 Mental status: Baseline
[2021-01-05 08:52] VITALS: BP 141/90; PULSE 80; RESP 18; O2SAT 97
--- NOTE | 2021-01-05 11:59 | ANE.PACU2 ---
Inpatient post-anesthesia follow up: Airway intact: Yes Vital signs: Temperature 97 F Pulse Rate 80 Respiratory Rate 18 Blood Pressure 141/90 Pulse Oximetry 97 Oxygen Delivery Me thod Room Air Oxygen Flow Rate Fraction of Inspir ed Oxygen Hydration adequate: Yes Nausea and vomiting: No Pain level: 1 Mental status: Baseline
[2021-01-06 06:04] LABS: H. Pylori / CLO Test Negative
== END 2021-01-05 09:12 | disposition home or self-care (01) ==
PROVIDERS: PCP Family Medicine; Visit Provider Surgery
PROC: 0DJ08ZZ Inspection of Upper Intestinal Tract, Via Natural or Artificial Opening Endoscopic (ICD-10-PCS; CPT 43235; principal; 2021-01-05 07:00)
PROC: 0DJD8ZZ Inspection of Lower Intestinal Tract, Via Natural or Artificial Opening Endoscopic (ICD-10-PCS; CPT 45378; 2021-01-05 07:00)
DX: K62.5 Hemorrhage of anus and rectum (principal); K57.30 Diverticulosis of large intestine without perforation or abscess without bleeding; D12.8 Benign neoplasm of rectum; K21.9 Gastro-esophageal reflux disease without esophagitis; K29.70 Gastritis, unspecified, without bleeding; I25.10 Atherosclerotic heart disease of native coronary artery without angina pectoris; I10 Essential (primary) hypertension; E78.5 Hyperlipidemia, unspecified; E03.9 Hypothyroidism, unspecified; F17.210 Nicotine dependence, cigarettes, uncomplicated; J44.9 Chronic obstructive pulmonary disease, unspecified
CPT/HCPCS: 12345; 43239; 45380; 87077; 88305; J2704; J7030

== ENCOUNTER → 2021-01-31 07:45 | Outpatient (BNVA) | payer MEDICARE, MEDICAID, SELFPAY ==
[2020-12-09 13:24] VITALS: BP 148/91; BMI 28.0
== END ==
PROVIDERS: PCP Family Medicine; Visit Provider Nurse Practitioner Psychiatric/Mental Health
DX: F33.3 Major depressive disorder, recurrent, severe with psychotic symptoms (principal); F43.12 Post-traumatic stress disorder, chronic; F17.219 Nicotine dependence, cigarettes, with unspecified nicotine-induced disorders; R41.81 Age-related cognitive decline; Z79.899 Other long term (current) drug therapy
CPT/HCPCS: 99214

== ENCOUNTER → 2021-02-04 10:30 | Outpatient (BNVA) | payer MEDICARE, MEDICAID, SELFPAY ==
[2020-12-09 13:24] VITALS: BP 148/91; BMI 28.0
== END ==
PROVIDERS: PCP Family Medicine; Visit Provider Family Medicine
DX: Z01.818 Encounter for other preprocedural examination (principal); Z13.6 Encounter for screening for cardiovascular disorders; K21.9 Gastro-esophageal reflux disease without esophagitis; I10 Essential (primary) hypertension; J30.9 Allergic rhinitis, unspecified; Z68.28 Body mass index [BMI] 28.0-28.9, adult; F17.219 Nicotine dependence, cigarettes, with unspecified nicotine-induced disorders
CPT/HCPCS: 80053; 85025

== ENCOUNTER 2021-02-11 13:46 | Outpatient (CLI) | payer MEDICARE, MEDICAID, SELFPAY ==
[2020-12-09 13:24] VITALS: BP 148/91; BMI 28.0
--- NOTE | 2021-02-11 13:52 | MM_ITS ---
WS: [id number] BILATERAL DIGITAL SCREENING MAMMOGRAPHY WITH CAD CLINICAL INFORMATION: SCREENING HISTORY: Screening mammogram. No current complaints. COMPARISON: TECHNIQUE: Bilateral CC and MLO views. FINDINGS: Scattered fibroglandular densities bilaterally. No suspicious focal mass, asymmetry, calcifications, or architectural distortion. No evidence of malignancy. MM/[id number] IMPRESSION: BI-RADS: 1-Negative FOLLOW UP: 1 Year Follow-up Recommend return to annual screening mammography.
== END 2021-02-11 13:47 | disposition home or self-care (01) ==
PROVIDERS: PCP Family Medicine; Visit Provider Family Medicine
DX: Z12.31 Encounter for screening mammogram for malignant neoplasm of breast (principal); R07.9 Chest pain, unspecified
CPT/HCPCS: 77067; 87635

== ENCOUNTER 2021-02-17 09:08 | Day surgery (SDC) | payer MEDICARE, MEDICAID, SELFPAY ==
[2020-12-09 13:24] VITALS: BP 148/91; BMI 28.0
[2021-02-11 11:49] LABS: Basophils # 0.1 10^3/uL (0.0-0.1); Eosinophils # 0.2 10^3/uL (0.0-0.8); Eosinophils % 1.9 %; Hematocrit 43.1 % (37.0-47.0); Hemoglobin 13.9 g/dL (11.5-15.3); Lymphocytes # 1.9 10^3/uL (0.8-4.8); Lymphocytes % 22.9 %; Mean Corpuscular HGB Conc 32.3 g/dL (30.0-36.0); Mean Platelet Volume 10.3 fL (7.4-10.4); Monocytes # 0.7 10^3/uL (0.2-0.9); Monocytes % 8.2 %; Neutrophils # 5.44 10^3/uL (1.8-7.7); Neutrophils % 65.8 %; Nucleated Red Blood Cells % 0 %; Platelet Count 221 10^3/cmm (130-400); Red Blood Count 4.49 10^6/uL (4.1-5.3); Red Cell Distribution Width 12.9 % (12.1-15.1); White Blood Count 8.3 10^3/uL (4.0-10.0)
[2021-02-11 11:58] LABS: INR 0.96 (0.8-1.2)
[2021-02-11 12:04] LABS: Anion Gap 14.2 (5-19); Blood Urea Nitrogen 23 mg/dL (8-23); Calcium 9.1 mg/dL (8.5-10.5); Carbon Dioxide 28 mmol/L (22-29); Chloride 101 mmol/L (98-107); Glucose 83 mg/dL (65-115); Osmolality Calculated 291 mOsm/kg (285-295); Potassium 4.2 mmol/L (3.5-5.1); Sodium 139 mmol/L (136-145)
[2021-02-17] VITALS (24 sets, daily range): BP systolic 91–157; BP diastolic 60–95; PULSE 70–82; RESP 9–18; TEMP 36.4–36.9; O2SAT 88–98; BMI 29.0
[2021-02-17] MEDS: diphenhydrAMINE 50 mg Capsule PO (09:58)
--- NOTE | 2021-02-17 09:59 | W.PM.OPSUD ---
Surgery/Procedure H&P Update DATE OF PROCEDURE: February 17, 2021 DATE H&P PERFORMED: 01/27/21 H&P UPDATE INFORMATION: I have reviewed H&P completed within last 30 days, I have examined patient prior to procedure and No changes to prior documentation PREOP DIAGNOSIS: Worsening angina/ severe coronary artery disease PRIMARY INDICATION FOR PROCEDURE: Worsening angina/ severe coronary artery disease PLANNED PROCEDURE: Operation Date: 02/17/21 10:00 Proposed Procedures p Cardiac Catheterization with stent [id number](Left) - Fred Silverio M.D Percutaneous coronary intervention PATIENT REASSESSED PRIOR TO SEDATION, WITH NO CHANGE NOTED: Yes PHYSICAL EXAM: alert, oriented x 3 and clear to auscultation bilaterally AIRWAY EVAL/ANESTHESIA PLAN: ASA III, Risks, benefits & alternatives of sedation and/or procedure discussed and Patient agrees to continue as planned
--- NOTE | 2021-02-17 10:00 | XACV_ITS ---
Exam Room: [facility] Ht: 150 cm Wt: 65 kg BSA: 1.67 m2 Gender: Female : 1945 Any Known Allergies: Other Exam Priority: Routine Procedure(s): Procedure Description: Diagnostic procedure Procedure Description: PCI procedure Procedure Description: Drug Eluting Coronary Stent Procedure Description: PTCA Procedure Description: Miscellaneous Procedure Description: ACT Procedure Description: Coronary Angiography Diagnostic Cath Status: Elective Diagnostic Findings * LM has mild luminal irregularities. * RCA has no significant stenosis. It gives rise to collaterals to LAD. * Proximal LAD has CREATIVE WRITING PROFESSOR. pLAD: Severe 100% stenosis, RADHA: 0 flow. * Distal Circumflex Coronary Artery: Severe 90% stenosis, RADHA: 3 flow. * RPDA to dLAD collateralization. * Coronary angiography shows right dominance. PCI Status: Elective PCI Indication: Other Interventional Findings * Procedure detail: We engaged left main artery using XB 3.5 guide catheter. IV heparin was used to maintain an ACT above 250 seconds. A 0.014 run-through guidewire was used to cross the distal LCx stenosis. We predilated the stenosis with 2.5X12 mm semicompliant balloon. This was followed by placement of 2.30Q53uo resolute Francesca drug-eluting stent. We then briefly attempted to cross the LAD CREATIVE WRITING PROFESSOR but was unsuccessful. At this time final angiogram was performed that showed excellent stent expansion, no residual stenosis and RADHA-3 flow. Guidewire and guide catheter were removed. Anioseal was deployed to achieve the hemostasis. Patient left the Candy Dipper Hand in a stable condition. * Distal Circumflex Coronary Artery: 90% stenosis treated with AB TREK 2.50X12 RX BALLOON and MDT R FRANCESCA 2.75X15 ISAÍAS. 0% residual stenosis, RADHA: 3 flow. Conclusions 1. There is severe coronary artery disease with severe distal LCx stenosis and CREATIVE WRITING PROFESSOR of LAD. 2. Distal Circumflex Coronary Artery was treated with Balloon and Drug Eluting Stent. Recommendations * Transfer to [facility]. * Aspirin and Plavix for atleast 1 year. * High intensity statin therapy. * Outpatient cardiology follow up. Interventional RX Recommendation: PCI w/o planned CABG Diagnostic RX Recommendation: PCI w/o planned CABG Anticoagulation: Heparin Pressures Phase:Rest AO : 173 / 90 ( 126 ) @ 5:21:00 AM 83 / 43 ( 56 ) @ 5:27:00 AM 142 / 79 ( 106 ) @ 5:27:00 AM 138 / 81 ( 102 ) @ 5:31:00 AM 145 / 84 ( 110 ) @ 5:41:00 AM Clinical Evaluation EBL: 5mL-10mL Procedural Details Procedure Consent Obtained. Pre-Procedure Time Out. Identified patient by full name and date of as verbalized by the patient/guarantor. Does the consent match the physician's order: Yes. Accurate & Complete Informed Consent: Yes. Inpatient/Outpatient History & Physical on Chart: Yes. If H&P is completed, is and addenduem needed: No; If yes, is the addendum complete: N/A. Visualize and Verify Site with Patient/Guarantor: N/A. Relevant Radiology Images available: N/A. Pre-op teaching completed and patient verbalized understanding. The risks, benefits, and alternatives of sedation and/or procedure were discussed by physician. The patient agrees to continue. Procedure started. Physician arrived. [facility] Clinical Fraility Score: 3: Managing Well. Candy Dipper Hand Indications: Worsening Angina. Chest Pain Symptom Assessment: Typical Angina Symptoms. Cardiovascular Instability: No. IV Site on Arrival: 20 gauge in the right anticubital. IV Fluids: 0.9% NaCl at KVO. 0 mL infused prior to cath lab tech. Pre Procedural Pulses: bilateral dorsalis pedis was Doppled. Pre Procedural Pulses: bilateral posterior tibial was Doppled. Oxygen started at 2liters/min via nasal canula. bilateral groins was prepped with chloroprep then draped in the usual sterile fashion. Baseline sample Acquired. HR: 72 BPM. Equipment: 6F - Femoral. Physician scrubbed in. Immediate Pre-Procedure Time Out. Correct Patient: Yes; Correct Procedure: Yes; Correct Site: Yes; Correct Patient Position: Yes; Correct Supplies: Yes; Dried Flammable Prep: Yes; Blood Products Available: N/A;. PERRLA. Strong, equal hand steam blocker bilaterally. Lungs clear x 5 lobes. Correct patient, site and procedure confirmed by cath team. Lidocaine 1% infiltrated to the right groin. Cardiac Cath Pack. ACIST Manifold Kit Model BT 2000. Heparinized Saline (2 units/mL), 1000 mL bag. Kit, Micropuncture. Arterial access obtained with micropuncture set. A JJ 6F JL4 100cm Diagnostic Catheter was advanced over the wire and used for Left coronary angiography. Catheter removed over the standard wire. A CRD 6F JR4 100cm Diagnostic Catheter was advanced over the wire and used for Right coronary angiography. Catheter removed over the standard wire. 6 setswana XB 3.5 guide catheter was inserted over the wire. Inventory is [facility] 6 FR XB 3.5 GUIDE. Runthrough guidewire was advanced through the guide catheter to lesion in the distal Circ. Inflation number : 1 A AB TREK 2.50X12 RX BALLOON was prepped and advanced across the Dist CX , then inflated to 8 LAUREN for 0:14 seconds. Inflation number: 2 The AB TREK 2.50X12 RX BALLOON was reinflated across the Dist CX, to 14 LAUREN for 0:37 seconds. Balloon out. Inflation Number : 3 A MDT R FRANCESCA 2.75X15 ISAÍAS -Lot Number# [id number] date 09/21/2022 was prepped and advanced across the Dist CX. The stent was deployed at 12 LAUREN for 0:39 seconds. Stent balloon out over wire. ACT drawn. Results 377 seconds. Therapeutic limits - pre-heparin administration 90-150 seconds and monitoring heparin during a vascular procedure >250 seconds. Runthrough repositioned to mid LAD. Wire out. Guide catheter out. Hand injection through the sheath. A Angio-Seal VIP (Lot # [id number] exp date 11/25/2021) was successful obtaining hemostatsis at the Right Femoral artery insertion site. Physician scrubbed out. Post Procedure: Pulses reassessed and unchanged. PERRLA. Strong, equal hand steam blocker bilaterally. No VTE prophylaxis required. Medication's Wasted: Lidocaine 1% = 18 mL. Medication's Wasted: Heparin = 4000 units. Medication's Wasted: Nitro = 49.8 mg. Total IV fluids: 75 mL. Contrast type used: Omnipaque 300 mgI/mL, 500 mL bottle. Post-op diagnosis: severe distal Circ stenosis. Complications: none. Estimated blood loss: 5mL-10mL. Procedure completed. Patient transferred by bed to 1st floor. Vital chart was stopped. Access Site Site: Right Femoral artery Sheath Size: 6 Fr Hemostasis Method: Angio-Seal VIP ([facility]) Hemostasis Success: Successful Procedure Medications Start: 10:04 AM Stop: 10:04 AM Medication: Versed Amount: 1 mg Route: I.V. Start: 10:18 AM Stop: 10:18 AM Medication: Versed Amount: 1 mg Route: I.V. Start: 10:31 AM Stop: 10:31 AM Medication: Heparin Amount: 7000 units Route: I.V. Start: 10:42 AM Stop: 10:42 AM Medication: Nitrogylcerin Amount: 200 mcg Route: I.C. Start: 10:57 AM Stop: 10:57 AM Medication: Versed Amount: 2 mg Route: I.V. I, the attending physician, have reviewed and verified all procedure medications. Yes, all medications given per verbal order History/Risk Factors Hypertension: Yes Dyslipidemia: Yes Peripheral Arterial Disease (PAD): No Myocardial Infarction (CT): No Obesity: No Renal Disease: No Tobacco Use: Current/Recent(w/in 1 year) Prior Interventions PCI: No CABG: No Valve Surgery: No Report Signatures Finalized by Fred Silverio MD on 03/02/2021 06:18 PM
[2021-02-17] MEDS: potassium chloride ER 10 mEq Tablet PO (17:03)
[2021-02-17] MEDS: quetiapine 25 mg Tablet PO (17:03)
[2021-02-17] MEDS: pantoprazole DR 40 mg Tablet PO (17:04)
[2021-02-17] MEDS: fluticasone nasal spray 16gm Btl 1 SPRAY INTRANASAL (17:04)
[2021-02-17] MEDS: isosorbide mononitrate 20 mg Tablet 40 MG PO (17:04)
--- NOTE | 2021-02-17 18:47 | PC.NURSE ---
call to Dr le with concerns of patient feeling nauseous telephone instructions for zofran 4 mg IVP Q6H for nausea
[2021-02-17] MEDS: ondansetron 2 mg/ML SDV 2 mL 4 MG IVP (20:14)
[2021-02-17] MEDS: alum-mag-hydroxide-sime 30 mL UDC PO (20:56)
--- NOTE | 2021-02-17 20:58 | PC.NURSE ---
Dr. Art notified of patient having heartburn, upper abdominal pain, nausea, no relief from Zofran. Ordered to give Maalox x1. Dr. Art also notified of decreased pulse in right wrist compared to left wrist. Cap refill WNL. Will monitor.
--- NOTE | 2021-02-17 22:31 | PC.NURSE ---
Patient is currently resting with eyes closed. Will monitor.
[2021-02-18 00:05] VITALS: BP 128/75; PULSE 71; RESP 18; O2SAT 94
[2021-02-18] MEDS: ondansetron 2 mg/ML SDV 2 mL 4 MG IVP (01:53)
[2021-02-18 04:40] VITALS: BP 104/70; PULSE 83; RESP 16; TEMP 36.7; O2SAT 94
[2021-02-18 05:20] VITALS: PULSE 74
[2021-02-18 05:22] LABS: Basophils # 0.1 10^3/uL (0.0-0.1); Basophils % 0.7 %; Eosinophils # 0.2 10^3/uL (0.0-0.8); Eosinophils % 3.1 %; Hematocrit 40.9 % (37.0-47.0); Hemoglobin 13.2 g/dL (11.5-15.3); Lymphocytes # 1.8 10^3/uL (0.8-4.8); Mean Corpuscular HGB Conc 32.3 g/dL (30.0-36.0); Mean Corpuscular Hemoglobin 30.9 pg (28.0-34.0); Mean Corpuscular Volume 95.8 fL (81-99); Mean Platelet Volume 10.6 fL (7.4-10.4); Monocytes # 0.8 10^3/uL (0.2-0.9); Monocytes % 10.2 %; Neutrophils # 4.59 10^3/uL (1.8-7.7); Neutrophils % 61.9 %; Nucleated Red Blood Cells % 0 %; Platelet Count 193 10^3/cmm (130-400); Red Blood Count 4.27 10^6/uL (4.1-5.3); Red Cell Distribution Width 13.2 % (12.1-15.1); White Blood Count 7.4 10^3/uL (4.0-10.0)
[2021-02-18 05:44] LABS: Anion Gap 11.9 (5-19); Blood Urea Nitrogen 16 mg/dL (8-23); Calcium 8.5 mg/dL (8.5-10.5); Carbon Dioxide 27 mmol/L (22-29); Chloride 106 mmol/L (98-107); Glucose 101 mg/dL (65-115); Osmolality Calculated 293 mOsm/kg (285-295); Potassium 3.9 mmol/L (3.5-5.1); Sodium 141 mmol/L (136-145)
[2021-02-18] MEDS: FUROsemide 20 mg Tablet 60 MG PO (06:06)
--- NOTE | 2021-02-18 06:18 | PC.NURSE ---
Patient's right groin site and dressing WNL. Patient has ambulated with standby assist. VSS.
[2021-02-18 07:44] VITALS: BP 143/86; PULSE 83; RESP 17; TEMP 36.6; O2SAT 94
[2021-02-18] MEDS: clopidogrel 75 mg Tablet PO (08:06)
[2021-02-18] MEDS: polyethylene glycol 3350 Pkt 17 gm PO (08:06)
[2021-02-18] MEDS: quetiapine 25 mg Tablet PO (08:07)
[2021-02-18] MEDS: cholecalciferol (vitamin D3) 1,000 unit Tablet 2000 UNIT PO (08:07)
[2021-02-18] MEDS: potassium chloride ER 10 mEq Tablet PO (08:07)
[2021-02-18] MEDS: atorvastatin 40 mg Tablet 20 MG PO (08:07)
[2021-02-18] MEDS: isosorbide mononitrate 20 mg Tablet 40 MG PO (08:07)
[2021-02-18] MEDS: amlodipine 5 mg Tablet PO (08:07)
[2021-02-18] MEDS: pantoprazole DR 40 mg Tablet PO (08:07)
[2021-02-18] MEDS: levothyroxine 75 mcg Tablet PO (08:07)
[2021-02-18] MEDS: montelukast sodium 10 mg Tablet PO (08:07)
[2021-02-18] MEDS: venlafaxine ER (24HR) 37.5 mg Capsule PO (08:07)
[2021-02-18] MEDS: HYDROcodone-acetaminophen 10-325 mg Tablet 1 TAB PO (08:14)
[2021-02-18] MEDS: valACYclovir 1,000 mg Tablet 500 MG PO (08:15)
[2021-02-18] MEDS: fluticasone nasal spray 16gm Btl 1 SPRAY INTRANASAL (08:22)
--- NOTE | 2021-02-18 08:36 | P.SS_ITS ---
Short Stay Summary Providers Date of Admit/Discharge: 02/22/21 Attending Provider: Fred Silverio M.D Primary Care Provider: Kaycee Roque DO Chief Complaint: left heart cath HPI History of Present Illness Prisca Hernandez is a 75 year old female 75-year-old female with past medical history of hypertension, tobacco abuse, coronary artery disease and COPD is here for follow-up.Patient underwent coronary angiography in August 2020 that showed CHIEF OF FIELD OPERATIONS of LAD with excellent collaterals from RCA and OM, had severe distal LCx disease that was treated medically. Patient continues to have chest pain. She says that pain limits her everyday activities. She feels it substernally that comes with exertion. She also has noted dyspnea with exertion. Review of Systems Const: Reports: change in weight (Up 3 lbs.); Denies: fever(s) Eyes: Denies: blurry vision ENMT: Reports: nasal discharge Card: Reports: chest pain; Denies: edema Resp: Denies: dyspnea GI: Reports: heartburn (Stable.); Denies: nausea, vomiting or diarrhea Skin/Breast: Denies: rash, new lesions or lesions Neuro: Denies: headache(s) Home Meds/Allergies Home Medications and Allergies Home Medications Medication Instructions Recorded Confirmed Type ceramides 1,3,6-II 1 applic TOPICAL BID gm 11/20/19 02/16/21 History cholecalciferol (vitamin D3) 50 50 mcg PO ONCE 11/20/19 02/16/21 History mcg (2,000 unit) capsule multivit with 1 tab PO DAILY 11/20/19 02/16/21 History xvscskls-kdig-HA-lutein 8 mg iron-400 mcg-300 mcg tablet triamcinolone acetonide 0.1 % 1 applic TOPICAL BID 11/20/19 02/16/21 History topical cream latanoprost 0.005 % eye drops 1 drp OPHTHALMIC (EYE) DAILY 02/04/21 02/16/21 History Allergies Allergy/AdvReac Type Severity Reaction Status Date / Time alprazolam [From Xanax] Allergy nausea and Verified 02/04/21 09:51 vomiting baclofen Allergy Unknown Verified 02/04/21 09:51 ciprofloxacin [From Cipro] Allergy ALGY-Rash Verified 02/04/21 09:51 codeine Allergy nausea & Verified 02/04/21 09:51 vomiting morphine Allergy nausea & Verified 02/04/21 09:51 vomiting naproxen [From Aleve] Allergy ALGY-Hives Verified 02/04/21 09:51 Penicillins Allergy vomiting Verified 02/04/21 09:51 propoxyphene [From Darvon] Allergy nausea Verified 02/04/21 09:51 ranitidine [From Zantac] Allergy nausea & Verified 02/04/21 09:51 vomiting fentanyl AdvReac Unknown rash & Verified 02/04/21 09:51 nausea PFSH Acute PFSH: Medical History Age-related cognitive decline Benign essential HTN CAD (coronary artery disease) Chronic constipation Chronic post-traumatic stress disorder Chronic right SI joint pain Chronic right-sided low back pain with right-sided sciatica Cigarette nicotine dependence Cystocele Dyslipidemia Encounter for long-term opiate analgesic use Gastritis Gastro-esophageal reflux disease without esophagitis Generalized edema GERD (gastroesophageal reflux disease) Hypothyroidism Low back pain of over 3 months duration Major depressive disorder, recurrent episode with mood-congruent psychotic features Microscopic hematuria Mixed incontinence Moderate COPD (chronic obstructive pulmonary disease) Myalgia Myalgia Neck pain Opioid contract exists Periodontal disease Rectal Hemorrhage Spinal stenosis, cervical region Surgical History History of colonoscopy (~2017) History of colonoscopy with polypectomy (~12/2020) History of esophagogastroduodenoscopy (EGD) (~12/2020) S/P appendectomy S/P cataract surgery S/P hysterectomy S/P tonsillectomy and adenoidectomy Family History Father CAD (coronary artery disease) Family/Other CAD (coronary artery disease) uncle Cancer maternal aunt & maternal uncle Mother CAD (coronary artery disease) Hypertension Cancer Sister Hypertension Cancer Other Chronic post-traumatic stress disorder Social History Smoking and tobacco status: current every day smoker cigarettes Packs smoked per day: 0.50 Quit status (tobacco): not considering quitting Smoking risk assessment/counseling performed?: No Alcohol intake: never Marital status: Single History of recent travel: No Current gender identity: Female Vitals/I&O/Wt Last Vital Signs Temp 97.8 F 02/18/21 07:44 Pulse 83 02/18/21 07:44 Resp 17 02/18/21 07:44 BP 143/86 02/18/21 07:44 Pulse Ox 94 02/18/21 07:44 02/17/21 02/18/21 02/18/21 22:59 06:59 14:59 Intake Total 760 / 760 200 / 960 Output Total 500 / 1500 550 / 2050 Balance 260 / -740 -350 / -1090 Weight last 48 hrs Weight 144 lb Physical Exam Narrative: EXAM NARRATIVE: GENERAL: Patient is alert, awake and oriented x3. [] NECK: No jugular vein distension. [] HEENT: No cyanosis. No icterus. No pallor. [] HEART: Regular S1 and S2. No murmur, rub or gallop. [] LUNGS: Clear to auscultate bilaterally. [] ABDOMEN: Soft, nontender and nondistended. Positive bowel sounds. No guarding, rebound or tenderness. [] CENTRAL NERVOUS SYSTEM: Grossly nonfocal. [] EXTREMITIES: Lower extremities with no edema bilaterally. Pulses palpable in the lower extremities, both dorsalis pedis and posterior tibial. [] Hospital Course Hospital Course 75-year-old female with past medical history of hypertension, tobacco abuse, coronary artery disease and COPD is here for follow-up.Patient underwent coronary angiography in August 2020 that showed CHIEF OF FIELD OPERATIONS of LAD with excellent collaterals from RCA and OM, had severe distal LCx disease that was treated medically. Patient continues to have chest pain. She says that pain limits her everyday activities. She feels it substernally that comes with exertion. She also has noted dyspnea with exertion. Patient underwent successful revascularization of distal left circumflex artery. We briefly attempted to open LAD CHIEF OF FIELD OPERATIONS however that was not possible. Was discharged in a stable condition. SSS Data Data Completed and Pending: Pending at discharge Category Date Time Status WINDER TENDER request for service Routin e Exams 02/17/21 10:00 Taken Discharge Plan Discharge Patient Disposition: Home Condition: Stable Prescriptions: New clopidogrel 75 mg Tablet 75 mg PO DAILY Qty: 90 RF: 3 aspirin 81 mg tablet,chewable 1 tab PO DAILY Qty: 90 RF: 3 Continued hydrocodone-acetaminophen 10-325 mg tablet 1 tab PO Q8H PRN (Reason: pain) 30 Days Qty: 90 RF: 0 hydrocodone-acetaminophen 10-325 mg tablet 1 tab PO TID PRN (Reason: pain) 30 Days Qty: 90 RF: 0 Trelegy Ellipta 100-62.5-25 mcg blister with device 1 inh inhalation DAILY Qty: 60 RF: 5 CeraVe Cream 1 applic TOPICAL BID RF: 0 triamcinolone acetonide 0.1 % cream 1 applic TOPICAL BID RF: 0 cholecalciferol (vitamin D3) 50 mcg (2,000 unit) capsule 50 mcg PO ONCE RF: 0 Centrum Silver Women 8 mg iron-400 mcg-300 mcg tablet 1 tab PO DAILY RF: 0 polyethylene glycol 3350 [Miralax] 17 gram/dose powder 17 gm PO QDAY Qty: 510 RF: 2 quetiapine [Seroquel] 25 mg tablet 25 mg PO BID Qty: 60 RF: 6 venlafaxine [Effexor XR] 37.5 mg capsule,extended release 24hr 37.5 mg PO .morning Qty: 30 RF: 6 latanoprost 0.005 % drops 1 drp ophthalmic (eye) DAILY RF: 0 atorvastatin [Lipitor] 20 mg tablet 20 mg PO QDAY Qty: 90 RF: 1 albuterol sulfate [Ventolin HFA] 90 mcg/actuation HFA aerosol inhaler 2 puff inhalation Q6H PRN (Reason: shortness of breath or wheezing) Qty: 8.5 RF: 3 amlodipine 5 mg tablet 5 mg PO DAILY Qty: 90 RF: 1 isosorbide mononitrate 20 mg tablet 40 mg PO BID Qty: 180 RF: 1 levothyroxine 75 mcg capsule 75 mcg PO DAILY Qty: 90 RF: 1 valacyclovir 500 mg tablet 500 mg PO DAILY Qty: 30 RF: 4 lisinopril 40 mg tablet 40 mg PO DAILY Qty: 90 RF: 0 potassium chloride [Klor-Con 10] 10 mEq tablet extended release 10 meq PO BID Qty: 180 RF: 1 furosemide 20 mg tablet 60 mg PO QAM Qty: 90 RF: 1 fluticasone propionate 50 mcg/actuation spray,suspension 1 spray INTRANASAL BID Qty: 16 RF: 3 montelukast [Singulair] 10 mg tablet 10 mg PO DAILY Qty: 30 RF: 5 No Action pantoprazole [Protonix] 40 mg tablet,delayed release (DR/EC) 40 mg PO DAILY Qty: 30 RF: 0 Discharge Orders: Discharge Order (Routine); Ordered 02/18/21 Ordered By: Fred Silverio Referrals: Fred Silverio M.D [Physician] - 1 month (YOU HAVE A FOLLOW UP APPOINTMENT WITH DR. SILVERIO ON February AT 3 PM. IF YOU HAVE ANY QUESTIONS OR NEED TO RESCHEDULE PLEASE CALL [phone].) Genet Castro FNP [Nurse Practitioner] - 7-10 days (YOU HAVE A FOLLOW UP APPOINTMENT WITH [facility] ON SundayFebruary AT 10:15 PM. IF YOU HAVE ANY QUESTIONS OR NEED TO RESCHEDULE PLEASE CALL [phone].) Discharge Diet: Cardiac Patient Instructions: Aspirin (By mouth), Clopidogrel (By mouth), Left Heart Catheterization (DC), Coronary Angioplasty (DC), Post Angiogram Home Care Instructions Activity Restrictions/Additional Instructions: Please do not lift more than 5 pounds of weight for the next 5 days Attestations Medical Necessity Statement*: Care not expected to cross 2 midnights Time Spent in Patient Care*: greater than 30 min Quality Metrics Clinical Quality Measures: During this hospital stay, did patient experience: None Coding Level of Care Code Acute Cell Maker for Lori Reed
[2021-02-18] MEDS: aspirin 81 mg Chew Tablet PO (10:06)
--- NOTE | 2021-02-18 10:22 | PC.NURSE ---
Meds to Bed in here Pt gets her meds at [facility].
[2021-02-18 10:39] VITALS: BP 97/50; PULSE 91; RESP 21; TEMP 36.7; O2SAT 91
--- NOTE | 2021-02-18 11:58 | PC.NURSE ---
Discharge to home Discuss to pt her follow-up appointments schedule. Post angiogram home care instructions discuss to pt. New meds educated to pt with inpt pharmacy. Discharge packet provided to pt.
--- NOTE | 2021-02-18 12:02 | PC.CHAP ---
Pastoral Care Encounter/Spiritual Assessment Type of Contact [] Declined block piler visit [] Patient/Family/Request visit [] Outpatient visit [] Follow-up visit [] Physician referral [] Code/Alert [xx] Routine visit [] Staff referral [] Actively dying [] Patient sleeping [] Family support [] [] Out of room [] Palliative care [] [] Receiving care in room [] Pre-surgical visit [] Trauma [] Long length of stay [] ICU visit [] Other: Relational/Emotional Strength [xx] Patient feels connected with others/family/visitors/staff [] Distress [] Loneliness/isolation [] Abandonment Spirituality of Patient [xx] Person of Susan [] Attends Religious of their Susan [xx] Believes in Prayer [] Reads Bible or Yazidi materials [] There are Spiritual issues to be addressed Health Care Marketing Specialist Interventions [xx] Prayer [xx] Active listening [xx] Non-anxious presence [] Spiritual/emotional support [] Crisis/trauma care [] Spiritual counseling [] Bereavement support [] Provided bereavement packet [] Provided Bible/devotional materials [] Provided toy/stuffed animal, coloring book to patient or family member [] Provided Communion [] Anointing/[place] [] Salvation [xx] Completed spiritual assessment [] Other: Impact on Illness or Injury [] Angry [] Fearful [] Anxious [] Often cries [] Exhaustion [] Unable to work [] Unable to attend anabaptist [] Unable to walk/stand [] Unable to read [] Unable to drive [] Unable to eat/drink [] Unable to sleep [] Unable to be with family [] Patient intubated [] Other: Summary Pt was more concerned about health needs of daughter and daughter's difficulty babysitting for patient's great-grandchildren. Health Care Marketing Specialist prayed accordingly. Time spent with patient 5 minutes
--- NOTE | 2021-02-18 12:02 | PC.NURSE ---
Med related Talked to Dr. Silverio and notified him to do an action on pt's omeprazole. Pt stated she was taking omeprazole 40 mg and her PCP lower the dose to 20 mg. [facility] rec updated and informed Dr. Silverio via phone.
== END 2021-02-18 12:01 | disposition home or self-care (01) ==
LOC: CCL 09:09 → CSU 10:02
PROVIDERS: PCP Family Medicine; Visit Provider Internal Medicine
DX: I25.10 Atherosclerotic heart disease of native coronary artery without angina pectoris (principal); I10 Essential (primary) hypertension; E78.5 Hyperlipidemia, unspecified; J44.9 Chronic obstructive pulmonary disease, unspecified; E03.9 Hypothyroidism, unspecified; Z82.49 Family history of ischemic heart disease and other diseases of the circulatory system; F17.210 Nicotine dependence, cigarettes, uncomplicated
CPT/HCPCS: 36415; 80048; 85025; 85347; 85610; 93454; C1725; C1760; C1769; C1874; C1887; C1894; C9600; J1644; J2250; J2405; J3010; J3490; J7030; Q0163; Q9967

== ENCOUNTER → 2021-02-25 11:02 | Outpatient (BNVA) | payer MEDICARE, MEDICAID, SELFPAY ==
[2020-12-09 13:24] VITALS: BP 148/91; BMI 28.0
== END ==
PROVIDERS: PCP Family Medicine; Visit Provider Nurse Practitioner Family
DX: I25.119 Atherosclerotic heart disease of native coronary artery with unspecified angina pectoris (principal); I10 Essential (primary) hypertension; F17.200 Nicotine dependence, unspecified, uncomplicated
CPT/HCPCS: 80048

== ENCOUNTER → 2021-03-02 12:10 | Outpatient (BNVA) | payer OTHER, SELFPAY ==
[2020-12-09 13:24] VITALS: BP 148/91; BMI 28.0
== END ==
PROVIDERS: PCP Family Medicine; Visit Provider Nurse Practitioner Psychiatric/Mental Health
DX: F31.4 Bipolar disorder, current episode depressed, severe, without psychotic features (principal)
CPT/HCPCS: 80061; 83036

== ENCOUNTER → 2021-03-03 10:51 | Outpatient (BNVA) | payer MEDICARE, MEDICAID, SELFPAY ==
[2020-12-09 13:24] VITALS: BP 148/91; BMI 28.0
== END ==
PROVIDERS: PCP Family Medicine; Visit Provider Nurse Practitioner
DX: G89.29 Other chronic pain (principal); M25.551 Pain in right hip; M54.41 Lumbago with sciatica, right side; M54.2 Cervicalgia; M25.511 Pain in right shoulder; M25.512 Pain in left shoulder; M54.6 Pain in thoracic spine; K59.09 Other constipation; F17.219 Nicotine dependence, cigarettes, with unspecified nicotine-induced disorders; Z79.891 Long term (current) use of opiate analgesic
CPT/HCPCS: 99214

== ENCOUNTER 2021-03-14 11:23 | Outpatient (RCR) | payer MEDICARE, MEDICAID, SELFPAY ==
[2020-12-09 13:24] VITALS: BP 148/91; BMI 28.0
== END 2021-03-25 23:59 | disposition home or self-care (01) ==
LOC: SPT 11:23
PROVIDERS: PCP Family Medicine; Referring Provider Nurse Practitioner; Visit Provider Nurse Practitioner
DX: M54.2 Cervicalgia (principal); M25.519 Pain in unspecified shoulder
CPT/HCPCS: 97161

== ENCOUNTER → 2021-04-04 08:05 | Outpatient (BNVA) | payer MEDICARE, MEDICAID, SELFPAY ==
[2021-03-04 14:49] VITALS: BP 126/79; BMI 28.0
== END ==
PROVIDERS: PCP Family Medicine; Visit Provider Nurse Practitioner Psychiatric/Mental Health
DX: F33.3 Major depressive disorder, recurrent, severe with psychotic symptoms (principal); F43.12 Post-traumatic stress disorder, chronic; F17.219 Nicotine dependence, cigarettes, with unspecified nicotine-induced disorders; R41.81 Age-related cognitive decline
CPT/HCPCS: 99214

== ENCOUNTER → 2021-05-03 10:44 | Outpatient (BNVA) | payer MEDICARE, MEDICAID, SELFPAY ==
[2021-03-04 14:49] VITALS: BP 126/79; BMI 28.0
== END ==
PROVIDERS: PCP Family Medicine; Visit Provider Nurse Practitioner
DX: G89.29 Other chronic pain (principal); M54.41 Lumbago with sciatica, right side; M54.6 Pain in thoracic spine; M53.3 Sacrococcygeal disorders, not elsewhere classified; M48.02 Spinal stenosis, cervical region; F17.219 Nicotine dependence, cigarettes, with unspecified nicotine-induced disorders; Z79.891 Long term (current) use of opiate analgesic
CPT/HCPCS: 99213

== ENCOUNTER → 2021-05-31 10:39 | Outpatient (BNVA) | payer MEDICARE, MEDICAID, SELFPAY ==
[2021-03-04 14:49] VITALS: BP 126/79; BMI 28.0
== END ==
PROVIDERS: PCP Family Medicine; Visit Provider Nurse Practitioner Psychiatric/Mental Health
DX: F33.3 Major depressive disorder, recurrent, severe with psychotic symptoms (principal); F43.12 Post-traumatic stress disorder, chronic; F17.219 Nicotine dependence, cigarettes, with unspecified nicotine-induced disorders; R41.81 Age-related cognitive decline
CPT/HCPCS: 99214

== ENCOUNTER → 2021-06-03 11:50 | Outpatient (BNVA) | payer MEDICARE, MEDICAID, SELFPAY ==
[2021-03-04 14:49] VITALS: BP 126/79; BMI 28.0
== END ==
PROVIDERS: PCP Family Medicine; Visit Provider Family Medicine
DX: K59.04 Chronic idiopathic constipation (principal); E03.9 Hypothyroidism, unspecified; F17.219 Nicotine dependence, cigarettes, with unspecified nicotine-induced disorders
CPT/HCPCS: 84443

== ENCOUNTER → 2021-06-13 13:14 | Outpatient (BNVA) | payer MEDICARE, MEDICAID, SELFPAY ==
[2021-03-04 14:49] VITALS: BP 126/79; BMI 28.0
== END ==
PROVIDERS: PCP Family Medicine; Visit Provider Nurse Practitioner Family
DX: Z20.822 Contact with and (suspected) exposure to COVID-19 (principal)
CPT/HCPCS: 87635

== ENCOUNTER → 2021-07-01 10:29 | Outpatient (BNVA) | payer MEDICARE, MEDICAID, SELFPAY ==
[2021-03-04 14:49] VITALS: BP 126/79; BMI 28.0
== END ==
PROVIDERS: PCP Family Medicine; Visit Provider Nurse Practitioner Psychiatric/Mental Health
DX: F33.3 Major depressive disorder, recurrent, severe with psychotic symptoms (principal); F43.12 Post-traumatic stress disorder, chronic; F17.219 Nicotine dependence, cigarettes, with unspecified nicotine-induced disorders; R41.81 Age-related cognitive decline
CPT/HCPCS: 99214

== ENCOUNTER → 2021-07-19 13:56 | Outpatient (BNVA) | payer MEDICARE, MEDICAID, SELFPAY ==
[2021-03-04 14:49] VITALS: BP 126/79; BMI 28.0
== END ==
PROVIDERS: PCP Family Medicine; Visit Provider Anesthesiology
DX: G89.29 Other chronic pain (principal); M54.41 Lumbago with sciatica, right side; M54.6 Pain in thoracic spine; M48.02 Spinal stenosis, cervical region; F17.219 Nicotine dependence, cigarettes, with unspecified nicotine-induced disorders; Z79.891 Long term (current) use of opiate analgesic
CPT/HCPCS: 99213; 99214

== ENCOUNTER → 2021-08-12 11:05 | Outpatient (BNVA) | payer MEDICARE, MEDICAID, SELFPAY ==
[2021-03-04 14:49] VITALS: BP 126/79; BMI 28.0
== END ==
PROVIDERS: PCP Family Medicine; Visit Provider Nurse Practitioner Psychiatric/Mental Health
DX: F33.3 Major depressive disorder, recurrent, severe with psychotic symptoms (principal); F43.12 Post-traumatic stress disorder, chronic; F17.219 Nicotine dependence, cigarettes, with unspecified nicotine-induced disorders; R41.81 Age-related cognitive decline
CPT/HCPCS: 99214

== ENCOUNTER 2021-09-13 11:53 | Emergency (ER) | payer MEDICARE, MEDICAID, SELFPAY ==
[2021-03-04 14:49] VITALS: BP 126/79; BMI 28.0
[2021-09-13 12:22] VITALS: BP 110/69; PULSE 84; RESP 18; TEMP 36.7; O2SAT 94; BMI 27.1
--- NOTE | 2021-09-13 12:29 | CT_ITS ---
WS: [id number] CT HEAD TECHNIQUE: Noncontrast CT of the head obtained from the skullbase to the vertex. CLINICAL INFORMATION: eval mass COMPARISON: CT 6 DLP: 1447.[address] scans at [facility] use at least one of these dose optimization techniques: automated e xposure control; mA and/or kV adjustment per patient size (includes targeted exams where dose is matc hed to clinical indication); or iterative reconstruction. FINDINGS: No evidence of intracranial hemorrhage or mass effect. Ventricular system and basal cisterns are kirk nt. Moderate small vessel changes with moderate parenchymal volume loss. No extra-axial fluid collect ions. No evidence of mass or mass effect. Normal gardiner-white differentiation. Paranasal sinuses and mastoid air cells are well aerated. .Normal visualized soft tissues. CT/CT head wo con* [id number] IMPRESSION: 1. No evidence of intracranial hemorrhage or mass effect. 2. Moderate small vessel changes. Moderate parenchymal volume loss. 3. No acute intracranial findings.
--- NOTE | 2021-09-13 12:49 | CT_ITS ---
WS: [id number] CT FACIAL BONES TECHNIQUE: Noncontrast facial bones with coronal and sagittal reformatted images. CLINICAL INFORMATION: bruises under R eye COMPARISON: None. DLP: 714.[address] scans at [facility] use at least one of these dose optimization techniques: automated e xposure control; mA and/or kV adjustment per patient size (includes targeted exams where dose is matc hed to clinical indication); or iterative reconstruction. FINDINGS: Paranasal sinuses are well aerated. Mild nasal septal deviation. Mastoid air cells are well aerated. Orbits are normal in appearance. Normal lamina papyracea. Normal right orbit. Normal pterygoid plates . Normal lateral orbits. Inferior orbits are normal. Normal zygoma. No evidence of mandibular fractur e dislocation. CT/CT facial bones wo con* [id number] IMPRESSION: 1. No acute facial fractures. 2. Paranasal sinuses and mastoid air cells well aerated.
--- NOTE | 2021-09-13 12:50 | ECG_ITS ---
[facility] Test Date: 2021-09-13 Pat Name: Prisca Hernandez Department: Room: Gender: Female Senior Speech Pathologist: : 1945 Requested By: Fifi Garcia Order Number: [id number] Reading MD: BRENDA MCMANUS Measurements Intervals Deshler Rate: 85 P: 13 WY: 148 QRS: 17 QRSD: 78 T: 46 QT: 365 QTc: 436 Interpretive Statements SINUS RHYTHM NONSPECIFIC T-WAVE ABNORMALITY Compared to ECG 09/29/2019 20:05:32 No significant changes Electronically Signed On 09-13-2021 22:57:09 CDT by BRENDA MCMANUS [id number]
[2021-09-13 12:55] VITALS: BP 116/80; PULSE 90; RESP 18; TEMP 36.6; O2SAT 96
[2021-09-13] MEDS: acetaminophen 500 mg Tablet 1000 MG PO (12:57)
[2021-09-13 12:58] LABS: Basophils # 0.1 10^3/uL (0.0-0.1); Basophils % 0.5 %; Eosinophils # 0.1 10^3/uL (0.0-0.8); Hematocrit 40.3 % (37.0-47.0); Hemoglobin 13.8 g/dL (11.5-15.3); Lymphocytes % 16.8 %; Mean Corpuscular HGB Conc 34.2 g/dL (30.0-36.0); Mean Corpuscular Hemoglobin 32.6 pg (28.0-34.0); Mean Corpuscular Volume 95.3 fl (81-99); Mean Platelet Volume 10.3 fL (7.4-10.4); Monocytes % 8.4 %; Nucleated Red Blood Cells % 0 %; Platelet Count 246 10^3/cmm (130-400); Red Blood Count 4.23 10^6/uL (4.1-5.3); Red Cell Distribution Width 13.4 % (12.1-15.1); White Blood Count 11.7 10^3/uL (4.0-10.0)
[2021-09-13 13:11] LABS: Blood Urea Nitrogen 16 mg/dL (8-23); Calcium 9.3 mg/dL (8.5-10.5); Carbon Dioxide 28 mmol/L (22-29); Chloride 103 mmol/L (98-107); Glucose 80 mg/dL (65-115); Osmolality Calculated 292 mOsm/kg (285-295); Sodium 141 mmol/L (136-145)
[2021-09-13 13:27] LABS: Troponin(5th) Baseline 10 ng/L (0-10)
[2021-09-13 13:54] LABS: Anion Gap 14.2 (5-19); Potassium 4.2 mmol/L (3.5-5.1)
--- NOTE | 2021-09-13 14:50 | ECG_ITS ---
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
--- NOTE | 2021-09-13 15:20 | W.ED.GENADLT ---
HPI - General Adult General: Chief complaint: Eye Problems Stated complaint: PAINS IN HEAD X 2 WEEKS Time Seen by Provider: 09/13/21 12:42 History of Present Illness: HPI narrative: 76-year-old female history of CAD s/p stent x1, smoking who presents emergency room with 2 weeks of worsening right-sided occipital headache and pain palpation. Patient currently lives at home by herself. Patient denies any fall or injury. According to the son, patient was seen with a bruise right eye last week. Patient denies any injury to the eyes similar. Patient does report blurriness of vision x1 week in the right eye. Patient denies any other focal neurological deficit. Earlier today, patient endorsed mild shortness of breath, denies chest pain, nausea/vomiting, abdominal complaints or complaints at this time. Onset: 2 weeks ago Duration:2 weeks Location:home Severity:moderate Review of Systems Narrative: Constitutional: No fever, no chills. HEENT: +r sided bluriness of vision, +R occpital scalp pain CV: No chest pain, no palpitations PULM: no cough, + mild dyspnea. GI: No abdominal pain, no N/V/D. : No dysuria MSKEL: No muscle pain SKIN: No new rashes, no lesions. NEURO: No headache, no focal weakness. HEME: No visible bruises PSYCH: Normal mood PFSH ED PFSH: Medical History Age-related cognitive decline Benign essential HTN CAD (coronary artery disease) Chronic constipation Chronic post-traumatic stress disorder Chronic right SI joint pain Chronic right-sided low back pain with right-sided sciatica Cigarette nicotine dependence Cystocele Dyslipidemia Encounter for long-term opiate analgesic use Gastritis Gastro-esophageal reflux disease without esophagitis Generalized edema GERD (gastroesophageal reflux disease) Hypothyroidism Low back pain of over 3 months duration Major depressive disorder, recurrent episode with mood-congruent psychotic features Microscopic hematuria Mixed incontinence Moderate COPD (chronic obstructive pulmonary disease) Myalgia Myalgia Neck pain Opioid contract exists Periodontal disease Rectal Hemorrhage Spinal stenosis, cervical region Surgical History History of colonoscopy (~2017) History of colonoscopy with polypectomy (~12/2020) History of esophagogastroduodenoscopy (EGD) (~12/2020) Hx of heart artery stent S/P appendectomy S/P cataract surgery S/P hysterectomy S/P tonsillectomy and adenoidectomy Family History Father CAD (coronary artery disease) Family/Other CAD (coronary artery disease) uncle Cancer maternal aunt & maternal uncle Mother CAD (coronary artery disease) Hypertension Cancer Sister Hypertension Cancer Other Chronic post-traumatic stress disorder Social History Smoking and tobacco status: current every day smoker cigarettes Packs smoked per day: 1 Years cigarettes smoked: 61 Quit status (tobacco): not considering quitting Second hand smoke exposure: Yes Smoking risk assessment/counseling performed?: No Alcohol intake: never Adopted: No Caregiver/support person: No Lives independently: No Household members: family Housing: Manufactured/Mobile home Marital status: Marital status details: since the Number of children: 5 Highest education level completed: Associate Degree: Occupational, Technical, Vocational Program Education level details: Clerical training service: No Current occupational status: disabled Current occupational exposures/hazards: No Pets and animals: Yes Pets & animals: cat(s) and dog(s) History of recent travel: Yes (Went to [place]) Details: took family home Out of state: Yes Out of country: No Leisure activites: music and other Leisure activities details: watch TV, do laundry Sexually active: No Current gender identity: Female Susan/Rastafarian: Holiness Special susan needs: No Agree to transfusion: Yes Financial difficulty paying for basics: Not Very Hard Female Reproductive History: Date of last menstrual period: 02/17/21 Para: 5 Spontaneous abortions: No Physical Exam Narrative: EXAM NARRATIVE: Head: Atraumatic, +R occpital tenderness to palpation (no visible bogginess, fluctuance, or erythema) Eyes: PERRL, conjunctiva without injection, 20/40 R eye, 20/20 L eye ENT: Mucous membrane moist NECK: Supple, ROM intact LUNGS: LCTAB, no crackles/rhonchi CV: RRR ABDOMEN: Soft, nontender in all quadrants EXTREMITY: Normal ROM SKIN: No rash or erythema NEURO: Mental status? Awake, alert, and oriented to self, year, month, location, and situation.? Following simple axial and appendicular commands.? Has appropriate fund of knowledge, comprehension, and insight.? Able to recall and understands pertinent aspects of medical history and current treatment status.? ? Language? Speech is fluent without word-finding difficulties.? Intact naming, expression, medical records receptionist, and repetition.? ? Cranial nerves? 2,3,4,6: PERRL, EOMI with no nystagmus. 5: Intact sensation to light touch, symmetric? 7: Smile symmetrical, no facial droop.? 8: Hearing grossly intact.? 9,10: Normal palate movement.? 11: Normal strength in trapezius bilaterally 12: Tongue protrudes midline.? ? Motor examination? Normal bulk & tone. Strength as follows (R/L): Delts (5/5), Biceps (5/5), Triceps (5/5), Wrist ext (5/5), hip flexors (5/5), plantarflexors (5/5), dorsiflexors (5/5). ? Sensation? Light Touch: Grossly intact and equal in upper and lower extremities bilaterally? Romberg: Negative.? Distal joint position sense intact ? Coordination? Aenvki-vu-vfxr-finger movements intact without dysmetria or past-pointing.? Rapid fingertaps: preserved amplitude without decriment.? No tremor, myoclonus or truncal ataxia.? ? Gait/stance? Steady, normal narrow base gait with appropriate arm swing and turning.? Tandem gait without hesitation or loss of balance. PSYCH: Normal mood and affect Course Vital Signs: Vital signs: Vital Signs Temperature 97.8 F 09/13/21 12:55 Pulse Rate 78 09/13/21 17:04 Respiratory Rate 18 09/13/21 12:55 Blood Pressure 122/78 09/13/21 17:04 Pulse Oximetry 93 09/13/21 17:04 MDM - General Adult MDM Narrative: Medical decision making narrative: Patient is a 76-year-old female presenting to the emergency room with complaints of right scapular painx2 weeks. Patient son was noticed right infraorbital bruise. Patient denies any fall or injuries. Exam, patient is hemodynamically stable without any focal neurological deficit. Vision in the right 20/40 left 20/20. No signs of inferior rectus entrapment. Work-up today includes CT face and CT head did not show any signs of acute injuries or bleed. There is no visualization of any hematoma in the right posterior occipital region. EKG is nonischemic, troponin x2 within normal limit. At the present time, I do not suspect that this is ACS. EKG showing regular sinus rhythm at HT of 70. Normal axis. No ST elevations/depressions to suggest coronary occlusion. Normal [place], QRS, QT intervals. It is unclear why patient is having significant scalp pain. Have given patient follow-up with primary care provider for further evaluation of head pain scalp pain. In terms of dyspnea, doubt ACS/PE or other emergent causes of chest pain. No suspicion for aortic dissection given no tearing chest pain, 2+ upper extremity pulses, or tearing pain. No suspicion for PE given no pleuritic chest pain, recent immobilization or surgery hemoptysis, or other VTE risk factors. EKG is non-ischemic. XR normal. I have given patient follow up with our case management social worker to be seen by our PCP for further evaluation of scalp pain and R eye blurriness. Patient aware of a call from our case management social worker to schedule for appointment(s) and verbalizes understanding of the importance of following up. Disposition: Discharge. Patient counseled regarding diagnostic impression, treatment plan. Patient given ED strict return precautions to return for continuation, worsening, or development of new symptoms. Instructed to f/u w/ PCP regarding symptoms today. Patient verbalized understanding. Lab Data: Labs: Lab Results 09/13/21 09/13/21 09/13/21 12:46 12:46 12:46 WBC 11.7 10^3/uL H 10 ^3/uL (4.0-10.0) RBC 4.23 10^6/uL 10^6 /uL (4.1-5.3) Hgb 13.8 g/dL g/dL (11.5-15.3) Hct 40.3 % % (37.0-47.0) MCV 95.3 fl fl (81-99) MCH 32.6 pg pg (28.0-34.0) MCHC 34.2 g/dL g/dL (30.0-36.0) RDW 13.4 % % (12.1-15.1) Plt Count 246 10^3/cmm 10^3 /cmm (130-400) MPV 10.3 fL fL (7.4-10.4) Neut % (Auto) 73.0 % % Lymph % (Auto) 16.8 % % [place] % (Auto) 8.4 % % Eos % (Auto) 1.0 % % Baso % (Auto) 0.5 % % Neut # (Auto) 8.50 10^3/uL H 10 ^3/uL (1.8-7.7) Lymph # (Auto) 2.0 10^3/uL 10^3/ uL (0.8-4.8) [place] # (Auto) 1.0 10^3/uL H 10^ 3/uL (0.2-0.9) Eos # (Auto) 0.1 10^3/uL 10^3/ uL (0.0-0.8) Baso # (Auto) 0.1 10^3/uL 10^3/ uL (0.0-0.1) Nucleated RBC % (a uto) 0 % % Nucleated RBCs # 0.0 /100WBC /100W BC Sodium 141 mmol/L mmol/L (136-145) Potassium 4.2 mmol/L mmol/L (3.5-5.1) Chloride 103 mmol/L mmol/L (98-107) Carbon Dioxide 28 mmol/L mmol/L (22-29) Anion Gap 14.2 (5-19) BUN 16 mg/dL mg/dL (8-23) Creatinine 0.8 mg/dL mg/dL (0.5-0.9) GFR Calculation Not Reportable Glucose 80 mg/dL mg/dL (65-115) Calculated Osmolal ity 292 mOsm/kg mOsm/ kg (285-295) Calcium 9.3 mg/dL mg/dL (8.5-10.5) Troponin T Baselin e 10 ng/L ng/L (0-10) Troponin T 120 Min [place] Delta Troponin T 09/13/21 15:23 WBC RBC Hgb Hct MCV MCH MCHC RDW Plt Count MPV Neut % (Auto) Lymph % (Auto) [place] % (Auto) Eos % (Auto) Baso % (Auto) Neut # (Auto) Lymph # (Auto) [place] # (Auto) Eos # (Auto) Baso # (Auto) Nucleated RBC % (a uto) Nucleated RBCs # Sodium Potassium Chloride Carbon Dioxide Anion Gap BUN Creatinine GFR Calculation Glucose Calculated Osmolal ity Calcium Troponin T Victorina contreras Troponin T 120 Min [place] 10.08 ng/L H ng/L (0-10) Delta Troponin T 0.08 ABS# ABS# (0-10) Imaging Data^: Other Imaging: My impression: [place] [address] [facility] [address], [place] [address]BS Scan ReportSigned Patient: Prisca Hernandez #: [id number]: [id number]#:[id number]/Sex: 76 / FADM Date: 09/13/21Loc: ERRoom/Bed:Attending Dr: Ordering Provider/Ordering MD: Fifi Garcia MD Date of Service: 09/13/21 Procedure(s): CT facial bones wo con* [id number] Accession Number(s): [id number] Report Number: [id number] WS: [id number] CT FACIAL BONES TECHNIQUE: Noncontrast facial bones with coronal and sagittal reformatted images. CLINICAL INFORMATION: bruises under R eye COMPARISON: None. DLP: 714.[address] scans at [facility] use at least one of these dose optimization techniques: automated exposure control; mA and/or kV adjustment per patient size (includes targeted exams where dose is matched to clinical indication); or iterative reconstruction. FINDINGS: Paranasal sinuses are well aerated. Mild nasal septal deviation. Mastoid air cells are well aerated. Orbits are normal in appearance. Normal lamina papyracea. Normal right orbit. Normal pterygoid plates. Normal lateral orbits. Inferior orbits are normal. Normal zygoma. No evidence of mandibular fracture dislocation. CT/CT facial bones wo con* [id number] IMPRESSION: 1. No acute facial fractures. 2. Paranasal sinuses and mastoid air cells well aerated. Dictated By:Derik Workman MDSigned By:Derik Workman MDSigned Date/Time:09/13/21 1349DD/ [address] [place], [place] [address]CB Scan ReportSigned Patient: Prisca Hernandez #: [id number]: [id number]#:[id number]/Sex: 76 / FADM Date: 09/13/21Loc: ERRoom/Bed:Attending Dr: Ordering Provider/Ordering MD: Fifi Garcia MD Date of Service: 09/13/21 Procedure(s): CT head wo con* [id number] Accession Number(s): [id number] Report Number: [id number] WS: [id number] CT HEAD TECHNIQUE: Noncontrast CT of the head obtained from the skullbase to the vertex. CLINICAL INFORMATION: eval mass COMPARISON: CT 6 DLP: 1447.[address] scans at [facility] use at least one of these dose optimization techniques: automated exposure control; mA and/or kV adjustment per patient size (includes targeted exams where dose is matched to clinical indication); or iterative reconstruction. FINDINGS: No evidence of intracranial hemorrhage or mass effect. Ventricular system and basal cisterns are patent. Moderate small vessel changes with moderate parenchymal volume loss. No extra-axial fluid collections. No evidence of mass or mass effect. Normal gardiner-white differentiation. Paranasal sinuses and mastoid air cells are well aerated. .Normal visualized soft tissues. CT/CT head wo con* [id number] IMPRESSION: 1. No evidence of intracranial hemorrhage or mass effect. 2. Moderate small vessel changes. Moderate parenchymal volume loss. 3. No acute intracranial findings. Dictated By:Derik Workman MDSigned By:Derik Workman MDSigned Date/Time:09/13/21 1345DD/ 134[address] [facility] [place] [id number] ReportSigned Patient: Prisca Hernandez #: [id number]: 6Acct#:[id number]/Sex: 76 / FADM Date: 09/13/21Loc: ERRoom/Bed:Attending Dr: Ordering Provider/Ordering MD: Fifi Garcia MD Date of Service: 09/13/21 Procedure(s): XR chest 1V portable [id number] Accession Number(s): [id number] Report Number: [id number] PROCEDURE INFORMATION: Exam: XR Chest Exam date and time: 09/13/2021 3:43 PM Age: 76 years old Clinical indication: Dyspnea TECHNIQUE: Imaging protocol: XR of the chest. Views: 1 view. COMPARISON: CR Chest 2 views* [id number] 09/29/2019 6:43 PM FINDINGS: Lungs: Unremarkable. No consolidation. Pleural spaces: Unremarkable. No pleural effusion. No pneumothorax. Heart/Mediastinum: Unremarkable. No cardiomegaly. Vasculature: Calcification of the thoracic aorta and/or great vessels consistent with atherosclerotic vessel disease. Bones/joints: Unremarkable. XR/XR chest 1V portable [id number] IMPRESSION: No acute findings. Radiation Dose CTDIVOL = (mGy): DLP = (mGy-cm) Dictated By:Yogesh Huynh MDSigned By:Yogesh Huynh MDSigned Date/Time:09/13/21 1642DD/ 1543 Discharge Plan Discharge Patient Disposition: Home Clinical Impression: Acute dyspnea, Scalp pain Condition: Stable Prescriptions: No Action isosorbide mononitrate 60 mg tablet extended release 24 hr 90 mg PO DAILY Qty: 135 RF: 3 quetiapine [Seroquel] 25 mg tablet 25 mg PO .bedtime Qty: 30 RF: 6 venlafaxine [Effexor XR] 37.5 mg capsule,extended release 24hr 37.5 mg PO .morning Qty: 30 RF: 6 polyethylene glycol 3350 [Miralax] 17 gram/dose powder 17 g PO QDAY PRNRF: 0 CeraVe Cream 1 applic TOPICAL BID RF: 0 triamcinolone acetonide 0.1 % cream 1 applic TOPICAL BID RF: 0 Centrum Silver Women 8 mg iron-400 mcg-300 mcg tablet 1 tab PO DAILY RF: 0 cholecalciferol (vitamin D3) 50 mcg (2,000 unit) capsule 50 mcg PO DAILY RF: 0 latanoprost 0.005 % drops 1 drp ophthalmic (eye) DAILY RF: 0 albuterol sulfate [Ventolin HFA] 90 mcg/actuation HFA aerosol inhaler 2 puff inhalation Q6H PRN (Reason: shortness of breath or wheezing) Qty: 8.5 RF: 3 apple cider vinegar as directed RF: 0 diclofenac sodium [Voltaren] 1 % gel 2 g topical QID PRN (Reason: pain) Qty: 200 RF: 1 hydrocodone-acetaminophen 10-325 mg tablet 1 tab PO TID PRN (Reason: pain) 30 Days Qty: 90 RF: 0 hydrocodone-acetaminophen 10-325 mg tablet 1 tab PO Q8H PRN (Reason: pain) 30 Days Qty: 90 RF: 0 fluticasone propionate 50 mcg/actuation spray,suspension 1 spray INTRANASAL BID Qty: 16 RF: 3 Trelegy Ellipta 100-62.5-25 mcg blister with device 1 inh inhalation DAILY Qty: 60 RF: 5 valacyclovir 500 mg tablet 500 mg PO DAILY Qty: 30 RF: 4 levothyroxine 75 mcg capsule 75 mcg PO DAILY Qty: 90 RF: 1 pantoprazole [Protonix] 40 mg tablet,delayed release (DR/EC) 40 mg PO DAILY Qty: 30 RF: 2 lisinopril 20 mg tablet 20 mg PO DAILY Qty: 90 RF: 0 potassium chloride [Klor-Con 10] 10 mEq tablet extended release 10 meq PO BID Qty: 180 RF: 1 atorvastatin [Lipitor] 20 mg tablet 20 mg PO QDAY Qty: 90 RF: 0 montelukast [Singulair] 10 mg tablet 10 mg PO DAILY Qty: 90 RF: 1 furosemide 20 mg tablet 60 mg PO QAM Qty: 90 RF: 0 amlodipine 5 mg tablet 5 mg PO DAILY Qty: 90 RF: 0 clopidogrel 75 mg Tablet 75 mg PO DAILY Qty: 90 RF: 3 aspirin 81 mg tablet,chewable 1 tab PO DAILY Qty: 90 RF: 3 Discharge Orders: Discharge ED (Routine); Ordered 09/13/21 Ordered By: Fifi Garcia Referrals: Kaycee Roque DO [Primary Care Provider] - Discharge Diet: Advance as tolerated Discharge Activity: Resume usual activity Activity Restrictions/Additional Instructions: Our case management social worker will have you follow-up with PCP in the next few days for your blurriness of vision and scalp pain. You would be expected to have a phone call with our case management social worker who will put you on the schedule. Coding Level of Care Code ED Dermatology Nurse for Lori Reed
--- NOTE | 2021-09-13 15:43 | XRR_ITS ---
PROCEDURE INFORMATION: Exam: XR Chest Exam date and time: 09/13/2021 3:43 PM Age: 76 years old Clinical indication: Dyspnea TECHNIQUE: Imaging protocol: XR of the chest. Views: 1 view. COMPARISON: CR Chest 2 views* [id number] 09/29/2019 6:43 PM FINDINGS: Lungs: Unremarkable. No consolidation. Pleural spaces: Unremarkable. No pleural effusion. No pneumothorax. Heart/Mediastinum: Unremarkable. No cardiomegaly. Vasculature: Calcification of the thoracic aorta and/or great vessels consistent with atherosclerotic vessel disease. Bones/joints: Unremarkable. XR/XR chest 1V portable [id number] IMPRESSION: No acute findings. Radiation Dose CTDIVOL = (mGy): DLP = (mGy-cm)
[2021-09-13 16:07] LABS: Troponin 5 2HR 10.08 ng/L (0-10); Troponin 5 2HR Delta 0.08 ABS# (0-10)
[2021-09-13 17:04] VITALS: BP 122/78; PULSE 78; O2SAT 93
--- NOTE | 2021-09-14 14:56 | DCPLANNER ---
Addendum entered by Orly Canela 12/16/21 15:14: Patient had a follow up appointment scheduled at [facility] - patient did attend appointment. Original Note: manager auto had message to schedule a follow up appointment for patient with her primary care physician. manager auto called [facility], spoke with Kaycee, gave clinic patients information. A follow up appointment was scheduled for Monday, September 20, 2021 at 12:[address] Roque. manager auto called patient and gave patient the appointment information.
== END 2021-09-13 17:04 | disposition home or self-care (01) ==
PROVIDERS: Emergency Provider Emergency Medicine; PCP Family Medicine
DX: R51.9 Headache, unspecified (principal); R06.00 Dyspnea, unspecified; Z79.02 Long term (current) use of antithrombotics/antiplatelets; Z79.82 Long term (current) use of aspirin; I25.10 Atherosclerotic heart disease of native coronary artery without angina pectoris; E78.5 Hyperlipidemia, unspecified; I10 Essential (primary) hypertension; J44.9 Chronic obstructive pulmonary disease, unspecified; F17.210 Nicotine dependence, cigarettes, uncomplicated
CPT/HCPCS: 36415; 70450; 70486; 71045; 80048; 84484; 85025; 93005; 99283

== ENCOUNTER → 2021-09-20 09:11 | Outpatient (BNVA) | payer MEDICARE, MEDICAID, SELFPAY ==
[2021-03-04 14:49] VITALS: BP 126/79; BMI 28.0
== END ==
PROVIDERS: PCP Family Medicine; Visit Provider Anesthesiology
DX: G89.29 Other chronic pain (principal); M54.41 Lumbago with sciatica, right side; M54.6 Pain in thoracic spine; M48.02 Spinal stenosis, cervical region; M25.511 Pain in right shoulder; F17.219 Nicotine dependence, cigarettes, with unspecified nicotine-induced disorders; Z79.891 Long term (current) use of opiate analgesic; Z71.6 Tobacco abuse counseling
CPT/HCPCS: 99214

== ENCOUNTER → 2021-10-04 09:55 | Outpatient (BNVA) | payer MEDICARE, MEDICAID, SELFPAY ==
[2021-03-04 14:49] VITALS: BP 126/79; BMI 28.0
== END ==
PROVIDERS: PCP Family Medicine; Visit Provider Family Medicine
DX: Z20.822 Contact with and (suspected) exposure to COVID-19 (principal); R05.9 Cough, unspecified; R09.89 Other specified symptoms and signs involving the circulatory and respiratory systems; J44.1 Chronic obstructive pulmonary disease with (acute) exacerbation
CPT/HCPCS: 87426

== ENCOUNTER → 2021-10-06 10:05 | Outpatient (BNVA) | payer MEDICARE, MEDICAID, SELFPAY ==
[2021-03-04 14:49] VITALS: BP 126/79; BMI 28.0
== END ==
PROVIDERS: PCP Family Medicine; Visit Provider Nurse Practitioner Psychiatric/Mental Health
DX: F33.3 Major depressive disorder, recurrent, severe with psychotic symptoms (principal); F43.12 Post-traumatic stress disorder, chronic; F17.219 Nicotine dependence, cigarettes, with unspecified nicotine-induced disorders; R41.81 Age-related cognitive decline
CPT/HCPCS: 99214

== ENCOUNTER → 2021-11-07 10:46 | Outpatient (BNVA) | payer MEDICARE, MEDICAID, SELFPAY ==
[2021-03-04 14:49] VITALS: BP 126/79; BMI 28.0
== END ==
PROVIDERS: PCP Family Medicine; Visit Provider Nurse Practitioner Psychiatric/Mental Health
DX: F33.3 Major depressive disorder, recurrent, severe with psychotic symptoms (principal); F43.12 Post-traumatic stress disorder, chronic; F17.219 Nicotine dependence, cigarettes, with unspecified nicotine-induced disorders; R41.81 Age-related cognitive decline
CPT/HCPCS: 99214

== ENCOUNTER → 2021-11-29 10:05 | Outpatient (BNVA) | payer MEDICARE, MEDICAID, SELFPAY ==
[2021-03-04 14:49] VITALS: BP 126/79; BMI 28.0
== END ==
PROVIDERS: PCP Family Medicine; Visit Provider Anesthesiology
DX: G89.29 Other chronic pain (principal); M48.02 Spinal stenosis, cervical region; M25.511 Pain in right shoulder; M54.41 Lumbago with sciatica, right side; M54.6 Pain in thoracic spine; F17.219 Nicotine dependence, cigarettes, with unspecified nicotine-induced disorders; Z79.891 Long term (current) use of opiate analgesic
CPT/HCPCS: 99214

== ENCOUNTER → 2021-12-14 15:34 | Outpatient (BNVA) | payer MEDICARE, MEDICAID, SELFPAY ==
[2021-03-04 14:49] VITALS: BP 126/79; BMI 28.0
== END ==
PROVIDERS: PCP Family Medicine; Visit Provider Nurse Practitioner Family
DX: R31.29 Other microscopic hematuria (principal)
CPT/HCPCS: 81003; 87086

== ENCOUNTER → 2022-01-04 10:40 | Outpatient (BNVA) | payer MEDICARE, MEDICAID, SELFPAY ==
[2021-03-04 14:49] VITALS: BP 126/79; BMI 28.0
== END ==
PROVIDERS: PCP Family Medicine; Visit Provider Nurse Practitioner Family
DX: N30.00 Acute cystitis without hematuria (principal)
CPT/HCPCS: 81003

== ENCOUNTER → 2022-01-18 10:32 | Outpatient (BNVA) | payer MEDICARE, MEDICAID, SELFPAY ==
[2021-03-04 14:49] VITALS: BP 126/79; BMI 28.0
== END ==
PROVIDERS: PCP Family Medicine; Visit Provider Nurse Practitioner Family
DX: N30.00 Acute cystitis without hematuria (principal)
CPT/HCPCS: 81003

== ENCOUNTER → 2022-01-30 10:39 | Outpatient (BNVA) | payer MEDICARE, MEDICAID, SELFPAY ==
[2021-03-04 14:49] VITALS: BP 126/79; BMI 28.0
== END ==
PROVIDERS: PCP Family Medicine; Visit Provider Nurse Practitioner Psychiatric/Mental Health
DX: F33.3 Major depressive disorder, recurrent, severe with psychotic symptoms (principal); F43.12 Post-traumatic stress disorder, chronic; F17.219 Nicotine dependence, cigarettes, with unspecified nicotine-induced disorders; R41.81 Age-related cognitive decline
CPT/HCPCS: 99214

== ENCOUNTER → 2022-01-31 10:41 | Outpatient (BNVA) | payer MEDICARE, MEDICAID, SELFPAY ==
[2021-03-04 14:49] VITALS: BP 126/79; BMI 28.0
== END ==
PROVIDERS: PCP Family Medicine; Visit Provider Anesthesiology Pain Medicine
DX: G89.29 Other chronic pain (principal); M54.16 Radiculopathy, lumbar region; M54.6 Pain in thoracic spine; M54.12 Radiculopathy, cervical region; F17.210 Nicotine dependence, cigarettes, uncomplicated; Z79.891 Long term (current) use of opiate analgesic; M79.18 Myalgia, other site
CPT/HCPCS: 20553; 72110; 99205; 99214; J1030; J3490

== ENCOUNTER → 2022-02-15 11:20 | Outpatient (BNVA) | payer MEDICARE, MEDICAID, SELFPAY ==
[2021-03-04 14:49] VITALS: BP 126/79; BMI 28.0
== END ==
PROVIDERS: PCP Family Medicine; Visit Provider Social Worker
DX: F43.12 Post-traumatic stress disorder, chronic (principal); F33.3 Major depressive disorder, recurrent, severe with psychotic symptoms
CPT/HCPCS: 90837; 90834

== ENCOUNTER → 2022-02-22 13:26 | Outpatient (BNVA) | payer MEDICARE, MEDICAID, SELFPAY ==
[2021-03-04 14:49] VITALS: BP 126/79; BMI 28.0
== END ==
PROVIDERS: PCP Family Medicine; Visit Provider Social Worker
DX: F33.3 Major depressive disorder, recurrent, severe with psychotic symptoms (principal)
CPT/HCPCS: 90837; 90834

== ENCOUNTER → 2022-02-23 14:11 | Outpatient (BNVA) | payer MEDICARE, MEDICAID, SELFPAY ==
[2021-03-04 14:49] VITALS: BP 126/79; BMI 28.0
== END ==
PROVIDERS: PCP Family Medicine; Visit Provider Family Medicine
DX: E03.9 Hypothyroidism, unspecified (principal)
CPT/HCPCS: 84439; 84443

== ENCOUNTER → 2022-03-01 10:15 | Outpatient (BNVA) | payer MEDICARE, MEDICAID, SELFPAY ==
[2021-03-04 14:49] VITALS: BP 126/79; BMI 28.0
== END ==
PROVIDERS: PCP Family Medicine; Visit Provider Nurse Practitioner Psychiatric/Mental Health
DX: F33.3 Major depressive disorder, recurrent, severe with psychotic symptoms (principal); F43.12 Post-traumatic stress disorder, chronic; F17.219 Nicotine dependence, cigarettes, with unspecified nicotine-induced disorders; R41.81 Age-related cognitive decline
CPT/HCPCS: 99214

== ENCOUNTER → 2022-03-02 12:37 | Outpatient (BNVA) | payer MEDICARE, MEDICAID, SELFPAY ==
[2021-03-04 14:49] VITALS: BP 126/79; BMI 28.0
== END ==
PROVIDERS: PCP Family Medicine; Visit Provider Social Worker
DX: F33.3 Major depressive disorder, recurrent, severe with psychotic symptoms (principal)
CPT/HCPCS: 90837; 90834

== ENCOUNTER → 2022-03-13 12:21 | Outpatient (BNVA) | payer MEDICARE, MEDICAID, SELFPAY ==
[2021-03-04 14:49] VITALS: BP 126/79; BMI 28.0
== END ==
PROVIDERS: PCP Family Medicine; Visit Provider Social Worker
DX: F31.4 Bipolar disorder, current episode depressed, severe, without psychotic features (principal); Z79.899 Other long term (current) drug therapy
CPT/HCPCS: 90834; 80061; 83036

== ENCOUNTER → 2022-03-14 09:33 | Outpatient (BNVA) | payer MEDICARE, MEDICAID, SELFPAY ==
[2021-03-04 14:49] VITALS: BP 126/79; BMI 28.0
== END ==
PROVIDERS: PCP Family Medicine; Visit Provider Anesthesiology Pain Medicine
DX: G89.29 Other chronic pain (principal); M48.062 Spinal stenosis, lumbar region with neurogenic claudication; M54.6 Pain in thoracic spine; M54.12 Radiculopathy, cervical region; M79.604 Pain in right leg; M79.605 Pain in left leg; F17.210 Nicotine dependence, cigarettes, uncomplicated; Z79.891 Long term (current) use of opiate analgesic
CPT/HCPCS: 99214

== ENCOUNTER → 2022-03-16 14:10 | Outpatient (BNVA) | payer MEDICARE, MEDICAID, SELFPAY ==
[2022-03-14 11:25] VITALS: BP 121/75; BMI 28.3
== END ==
PROVIDERS: PCP Family Medicine; Visit Provider Internal Medicine
DX: I25.119 Atherosclerotic heart disease of native coronary artery with unspecified angina pectoris (principal); I10 Essential (primary) hypertension; R07.9 Chest pain, unspecified; E78.5 Hyperlipidemia, unspecified; F17.210 Nicotine dependence, cigarettes, uncomplicated; Z79.82 Long term (current) use of aspirin
CPT/HCPCS: 99214

== ENCOUNTER → 2022-03-28 09:48 | Outpatient (BNVA) | payer MEDICARE, MEDICAID, SELFPAY ==
[2022-03-14 11:25] VITALS: BP 121/75; BMI 28.3
== END ==
PROVIDERS: PCP Family Medicine; Visit Provider Social Worker
DX: F33.3 Major depressive disorder, recurrent, severe with psychotic symptoms
CPT/HCPCS: 90834

== ENCOUNTER → 2022-04-11 09:00 | Outpatient (BNVA) | payer MEDICARE, MEDICAID, SELFPAY ==
[2022-03-14 11:25] VITALS: BP 121/75; BMI 28.3
== END ==
PROVIDERS: PCP Family Medicine; Visit Provider Anesthesiology Pain Medicine
DX: F33.3 Major depressive disorder, recurrent, severe with psychotic symptoms (principal); F43.12 Post-traumatic stress disorder, chronic; F17.219 Nicotine dependence, cigarettes, with unspecified nicotine-induced disorders; Z79.899 Other long term (current) drug therapy; R41.81 Age-related cognitive decline
CPT/HCPCS: 80053; 99214

== ENCOUNTER → 2022-04-13 08:19 | Outpatient (BNVA) | payer MEDICARE, MEDICAID, SELFPAY ==
[2022-03-14 11:25] VITALS: BP 121/75; BMI 28.3
== END ==
PROVIDERS: PCP Family Medicine; Visit Provider Anesthesiology Pain Medicine
DX: G89.29 Other chronic pain (principal); M79.18 Myalgia, other site; M54.6 Pain in thoracic spine; M54.2 Cervicalgia; M79.604 Pain in right leg; M79.605 Pain in left leg; F17.210 Nicotine dependence, cigarettes, uncomplicated; Z79.891 Long term (current) use of opiate analgesic
CPT/HCPCS: 20553; 99214; J1030; J3490

== ENCOUNTER → 2022-04-27 10:14 | Outpatient (BNVA) | payer MEDICARE, MEDICAID, SELFPAY ==
[2022-03-14 11:25] VITALS: BP 121/75; BMI 28.3
== END ==
PROVIDERS: PCP Family Medicine; Visit Provider Urology
DX: N30.90 Cystitis, unspecified without hematuria (principal)
CPT/HCPCS: 81003; 99213

== ENCOUNTER → 2022-05-03 11:23 | Outpatient (BNVA) | payer MEDICARE, MEDICAID, SELFPAY ==
[2022-03-14 11:25] VITALS: BP 121/75; BMI 28.3
== END ==
PROVIDERS: PCP Family Medicine; Visit Provider Social Worker
DX: F33.3 Major depressive disorder, recurrent, severe with psychotic symptoms (principal)
CPT/HCPCS: 90837; 90834

== ENCOUNTER → 2022-05-23 11:18 | Outpatient (BNVA) | payer MEDICARE, MEDICAID, SELFPAY ==
[2022-05-11 10:38] VITALS: BP 121/75; BMI 28.3
== END ==
PROVIDERS: PCP Family Medicine; Visit Provider Nurse Practitioner Psychiatric/Mental Health
DX: F33.3 Major depressive disorder, recurrent, severe with psychotic symptoms (principal); F43.12 Post-traumatic stress disorder, chronic; F17.219 Nicotine dependence, cigarettes, with unspecified nicotine-induced disorders; R41.81 Age-related cognitive decline; Z79.899 Other long term (current) drug therapy
CPT/HCPCS: 99214

== ENCOUNTER 2022-06-21 09:11 | Outpatient (CLI) | payer MEDICARE, MEDICAID, SELFPAY ==
[2022-03-14 11:25] VITALS: BP 121/75; BMI 28.3
[2022-06-02 16:13] VITALS: BP 121/75; BMI 28.3
--- NOTE | 2022-06-21 | MR_ITS ---
WS: [id number] MRI CERVICAL SPINE NONCONTRAST TECHNIQUE: Sagittal T1, T2 and STIR imaging. Axial T2, gradient, and fiesta imaging. CLINICAL INFORMATION: M54.12 - Radiculopathy, cervical region COMPARISON: MRI November 2017 FINDINGS: Straightening of the normal cervical lordosis. Mild disc bulging C4-C5 with mild central canal stenos is. Cord signal is normal. Mild endplate edema C4-C5 and C6-C7 vertebral bodies likely degenerative or possibly inflammatory. Mi ld concave compression deformity involving the C7 superior endplate may be posttraumatic or degenerat pedrito. Edema is new since 2018. No evidence of ligamentous injury or edema. No prevertebral or epidura l fluid collections. C2-C3: Normal. C3-C4: Mild LEFT and no RIGHT foraminal narrowing. Mild facet arthropathy. Spinal canal is patent. C4-C5: Disc osteophytic ridging with mild LEFT greater than RIGHT bony foraminal narrowing. Moderate facet arthropathy. Mild central canal stenosis. Mild edema in the RIGHT C4-C5 facets. C5-C6: Disc osteophytic ridging. Mild LEFT and no significant RIGHT foraminal narrowing. Moderate fac et arthropathy. Spinal canal is patent. C6-C7: Disc osteophytic ridging. Mild LEFT greater than RIGHT bony foraminal narrowing. Mild central canal stenosis appears slightly progressed. C7-T1: Normal. Visualized brain stem structures: Normal. Prevertebral soft tissues: Normal. MR/MR cervical spin wo con* [id number] IMPRESSION:Spondylitic changes are progressed since 2018 with slightly more dis c space narrowing at C4-C5 and C5-C6. Central canal stenosis at C4-C5 and C6-C7 appears slightly progressed. 1. Straightening of the normal cervical lordosis. Cord signal is normal. 2. Disc osteophyte complex C4-C5 and C6-C7 with mild central canal stenosis an d slight contact of the cervical cord. This is slightly progressed compared to 2018. 3. Mild bilateral C4-C5 foraminal narrowing LEFT greater than RIGHT with moder ate facet arthropathy. 4. Mild LEFT greater than RIGHT C5-C6 and C6-C7 bony foraminal narrowing with moderate facet arthropathy. 5. Mild endplate edema C4-C7 vertebral bodies progressed compared to 2018 like ly degenerative or possibly inflammatory. Slight compression superior endplate C7 appears new from previous. 6. Mild edema in the articulating RIGHT C4-C5 facets likely degenerative or in flammatory. 7. No other significant changes since 2018
== END 2022-06-21 09:12 | disposition home or self-care (01) ==
LOC: RAD 09:12
PROVIDERS: PCP Family Medicine; Visit Provider Anesthesiology Pain Medicine
DX: M54.12 Radiculopathy, cervical region (principal); M25.78 Osteophyte, vertebrae; R60.0 Localized edema; M47.812 Spondylosis without myelopathy or radiculopathy, cervical region; M48.02 Spinal stenosis, cervical region
CPT/HCPCS: 72141

== ENCOUNTER 2022-06-29 09:50 | Outpatient (CLI) | payer MEDICARE, MEDICAID, SELFPAY ==
[2022-06-02 16:13] VITALS: BP 121/75; BMI 28.3
--- NOTE | 2022-06-29 09:54 | MM_ITS ---
WS: [id number] Bilateral screening 3D tomosynthesis digital mammogram, 06/29/2022 Clinical Data: screening mammogram Comparison: 02/11/2021, 11/13/2019, 09/10/2018, 12/10/2015. Findings: The breast parenchymal pattern shows fibroglandular tissue. No spiculated masses or clustered calcifi cations are seen. There are no secondary signs of carcinoma. There are lymph nodes in both axilla. MM/[place] [id number] Impression: 1. Negative bilateral mammogram unchanged. 2. Recommend annual screening mammograms. BIRADS: 1-Negative FOLLOW UP: 1 Year Follow-up The CAD photo checker was used.
== END 2022-06-29 09:51 | disposition home or self-care (01) ==
PROVIDERS: PCP Family Medicine; Visit Provider Family Medicine
DX: L25.9 Unspecified contact dermatitis, unspecified cause (principal); Z12.31 Encounter for screening mammogram for malignant neoplasm of breast
CPT/HCPCS: 77063; 77067

== ENCOUNTER → 2022-07-13 09:07 | Outpatient (BNVA) | payer MEDICARE, MEDICAID, SELFPAY ==
[2022-06-02 16:13] VITALS: BP 121/75; BMI 28.3
== END ==
PROVIDERS: PCP Family Medicine; Visit Provider Anesthesiology Pain Medicine
DX: M79.604 Pain in right leg (principal); M79.605 Pain in left leg; F17.210 Nicotine dependence, cigarettes, uncomplicated; Z79.891 Long term (current) use of opiate analgesic; G89.29 Other chronic pain; M54.50 Low back pain, unspecified; M54.6 Pain in thoracic spine; M54.2 Cervicalgia
CPT/HCPCS: 99214

== ENCOUNTER → 2022-07-27 08:07 | Outpatient (BNVA) | payer MEDICARE, MEDICAID, SELFPAY ==
[2022-07-18 10:56] VITALS: BP 121/75; BMI 28.3
== END ==
PROVIDERS: PCP Family Medicine; Visit Provider Anesthesiology Pain Medicine
DX: G89.29 Other chronic pain (principal); M79.18 Myalgia, other site; M54.6 Pain in thoracic spine; M54.2 Cervicalgia; M54.50 Low back pain, unspecified; M79.604 Pain in right leg; M79.605 Pain in left leg; F17.210 Nicotine dependence, cigarettes, uncomplicated
CPT/HCPCS: 99214

== ENCOUNTER 2022-08-15 10:41 | Observation (INO) | payer MEDICARE, MEDICAID, SELFPAY ==
[2022-08-15] VITALS (7 sets, daily range): BP systolic 77–93; BP diastolic 66–86; PULSE 64–78; RESP 16–24; TEMP 36.8; O2SAT 95–97; BMI 26.2
--- NOTE | 2022-08-15 10:43 | ECG_ITS ---
[facility] Test Date: 2022-08-15 Pat Name: Prisca Chowdary Department: Room: Gender: Female [employer] Supervisor: : 1945 Requested By: Mark Stanley Order Number: [id number] Aye MD: Kylah Cervantes M.D. Measurements Intervals Lilly Rate: 86 P: 9 TN: 140 QRS: 7 QRSD: 77 T: 55 QT: 369 QTc: 442 Interpretive Statements SINUS RHYTHM No previous ECG available for comparison Electronically Signed On 08-15-2022 20:41:35 CDT by Kylah Cervantes M.D. [id number]
--- NOTE | 2022-08-15 10:43 | XRR_ITS ---
PROCEDURE INFORMATION: Exam: XR Chest Exam date and time: 08/15/2022 10:54 AM Age: 77 years old Clinical indication: Pain; Angina pectoris; Additional info: Chest pain TECHNIQUE: Imaging protocol: Radiologic exam of the chest. Views: 1 view. Total images: 1 COMPARISON: No relevant prior studies available. FINDINGS: Lungs: Nonspecific mild left lung base opacity favors atelectasis or pneumonia. Pleural spaces: Unremarkable. No pleural effusion. No pneumothorax. Heart/Mediastinum: Postsurgical changes noted at the GE junction. Bones/joints: Diffuse osteopenia noted. XR/XR chest 1V portable [id number] IMPRESSION: Nonspecific mild left lung base opacity favors atelectasis or pneumonia.
--- NOTE | 2022-08-15 10:53 | ED_ITS ---
HPI - Chest Pain General: Chief Complaint: Chest Pain Stated Complaint: Chest pain Time Seen by Provider: 08/15/22 10:51 Source: patient Mode of arrival: EMS Limitations: no limitations History of Present Illness: This patient was transported by EMS to the emergency department today. Accordingly her history is that she has been having some exertional discomfort in her upper back neck and at times her chest. She states this has been going on for some time perhaps weeks. She states that she does notice it when she goes out and picks up trash around her apartment complex. She is also has some history of chronic back and musculoskeletal pain and she states that she sees a pain clinic for her and that she is also apparently being considered for nerve ablation because of the symptoms. She is also had some nonproductive cough without fever. She has a history of stents placed within the last 2 years. She states that she has been relatively faithful to all her medications but states that sometimes she gets confused and she has a nurse who comes and assists with sorting out her medication. She does live alone. She denies any known exposure to infectious disease and is current on COVID-19 primary series and booster. She still smokes tobacco. She denies any nausea vomiting or diarrhea. She states that sometimes she gets worsening symptoms when she takes a deep breath. No history of thromboembolic disease. Patient received 324 mg of aspirin prior to arrival given by EMS. MD complaint: chest pain and chest discomfort Pertinent past history: coronary artery disease Timing of current episode: episodic Onset: during exertion Pain radiation: none Quality: aching and sharp Exacerbating factors: exertion Associated symptoms: Deny abdominal pain, dyspnea, fever(s), nausea, palpitations, syncope or vomiting Risk Factors: Coronary artery disease risk factors: smoking history Review of Systems Const: Denies: fever(s) or chills Eyes: Denies: change in vision ENMT: Denies: throat pain, odynophagia, nasal discharge or nasal congestion Card: Reports: chest pain; Denies: palpitations, irregular heart rhythm, edema, lightheadedness or syncope Resp: Reports: non-productive cough; Denies: dyspnea or wheezing GI: Denies: abdominal pain, nausea, vomiting or diarrhea : Denies: flank pain, difficulty voiding, dysuria or urinary frequency Musc: Reports: back pain and joint pain; Denies: extremity pain or extremity swelling Skin/Breast: Denies: rash or erythema Neuro: Denies: headache(s), numbness in extremities, weakness in extremities, dizziness or vertigo Psych: Reports: anxiety and sleeping less Endo: Denies: polyuria or polydipsia Physical Exam Narrative: EXAM NARRATIVE: Patient appears healthy. She makes good eye contact. She is somewhat anxious but is able to communicate in full voice. Const: COMMON NORMALS: average body habitus, patient oriented x3 and healthy appearing HENMT: COMMON NORMALS: normocephalic, Normal nasal mucous membranes and turbi nates present and moist oral mucous membranes HEAD & SCALP: normocephalic FACE & SINUS: normal facial exam and face symmetric NOSE: Normal nasal mucous membranes and turbinates present Eye: COMMON NORMALS: Equal, round and reactive pupils present, EOMs intact bilaterally and conjunctivae normal CONJUNCTIVA: Yes conjunctivae normal PUPIL: Yes Equal, round and reactive pupils present Neck/C-Spine: COMMON NORMALS: full ROM, supple, no JVD and No carotid bruits Chest: COMMONS NORMALS: normal inspection of the chest OTHER: Tenderness left anterior and posterior thoracic region. No rashes. No ecchymosis. No subcutaneous emphysema. Inspiration seems to reproduce some of her subjective symptoms. Resp: COMMON NORMALS: normal respiratory effort, No retractions, No use of accessory muscles and clear to auscultation bilaterally EFFORT & INSPECTION: Yes able to speak in complete sentences AUSCULTATION: clear to auscultation bilaterally Cardio: COMMON NORMALS: no JVD, regular rate, regular rhythm, No murmurs present (Cardio) and Peripheral pulses 2+ throughout RATE: regular rate RHYTHM: regular rhythm PERIPHERAL PULSES: Peripheral pulses 2+ throughout GI: COMMON NORMALS: Normal to inspection, nondistended, normoactive bowel sounds present, Soft to palpation, non-tender and no masses PALPATION: Yes Soft to palpation : COMMON NORMALS: Yes no CVA tenderness BLADDER/KIDNEY EXAM: Yes no CVA tenderness Back/Pelvis: COMMON NORMALS: no CVA tenderness, thoracic and lumbar spine normal to inspection and straight leg raise negative bilaterally Extremity: COMMON NORMALS: normal to inspection, full ROM, capillary refill normal, no calf tenderness and no pedal edema Neuro: COMMON NORMALS: patient oriented x3, moves all extremities, no focal motor deficits and no sensory deficits noted Psych: COMMON NORMALS: mental status grossly normal, cooperative, normal affect and speech normal SPEECH: Yes normal speech Skin: COMMON NORMALS: no rashes or lesions noted and no jaundice GENERAL SKIN EXAM: no rashes or lesions noted Course Reevaluation(s): Reevaluation #1: Patient is comfortable at this time. Pressure is much better after IV fluids. No evidence of other findings suggest other potential worrisome etiologies of her initial low blood pressure. Discussed observation. Time: 14:52 Consultations: Consultation #1: Discussed with Dr. Diane hospitalist who agreed to place the patient in observation and additional work-up. Time: 14:58 Vital Signs: Vital signs: Vital Signs Temperature 98.3 F 08/15/22 10:44 Pulse Rate 78 08/15/22 11:07 Respiratory Rate 17 08/15/22 10:50 Blood Pressure 77/66 08/15/22 11:07 Pulse Oximetry 97 08/15/22 11:07 Oxygen Delivery Me thod 08/15/22 11:07 MDM - Chest Pain Medical Decision Making Patient with known history of coronary disease who has had off and on symptoms of left-sided chest pain over the past 5 to 7 days. History is is somewhat constrained but given her known history of coronary disease new symptoms present recently and her initial troponin elevations albeit a negative delta with no available old records I think observation is reasonable as this may be a unstable angina equivalent.. Lab Data I reviewed the patient's lab results. : 08/15/22 10:30 08/15/22 10:30 Radiology Impressions Chest X-Ray 08/15/22 10:43 IMPRESSION: Nonspecific mild left lung base opacity favors atelectasis or pneumonia. Laboratory Results WBC 8.3 10^3/uL (4.0-10.0) 08/15/22 10:30 RBC 4.81 10^6/uL (4.1-5.3) 08/15/22 10:30 Hgb 15.2 g/dL (11.5-15.3) 08/15/22 10:30 Hct 45.5 % (37.0-47.0) 08/15/22 10:30 MCV 94.6 fl (81-99) 08/15/22 10:30 MCH 31.6 pg (28.0-34.0) 08/15/22 10:30 MCHC 33.4 g/dL (30.0-36.0) 08/15/22 10:30 RDW 13.2 % (12.1-15.1) 08/15/22 10:30 Plt Count 245 10^3/cmm (130-400) 08/15/22 10:30 MPV 10.7 fL (7.4-10.4) H 08/15/22 10:30 Neut % (Auto) 58.6 % 08/15/22 10:30 Lymph % (Auto) 29.6 % 08/15/22 10:30 [place] % (Auto) 8.6 % 08/15/22 10:30 Eos % (Auto) 2.3 % 08/15/22 10:30 Baso % (Auto) 0.7 % 08/15/22 10:30 Neut # (Auto) 4.83 10^3/uL (1.8-7.7) 08/15/22 10:30 Lymph # (Auto) 2.4 10^3/uL (0.8-4.8) 08/15/22 10:30 [place] # (Auto) 0.7 10^3/uL (0.2-0.9) 08/15/22 10:30 Eos # (Auto) 0.2 10^3/uL (0.0-0.8) 08/15/22 10:30 Baso # (Auto) 0.1 10^3/uL (0.0-0.1) 08/15/22 10:30 Nucleated RBC % (auto) 0 % 08/15/22 10:30 Nucleated RBCs # 0.0 /100WBC 08/15/22 10:30 D-Dimer 0.36 ug/mIFEU (0-0.59) 08/15/22 10:30 Sodium 137 mmol/L (136-145) 08/15/22 10:30 Potassium 3.4 mmol/L (3.5-5.1) L 08/15/22 10:30 Chloride 97 mmol/L (98-107) L 08/15/22 10:30 Carbon Dioxide 25 mmol/L (22-29) 08/15/22 10:30 Anion Gap 18.4 (5-19) 08/15/22 10:30 BUN 17 mg/dL (8-23) 08/15/22 10:30 Creatinine 1.1 mg/dL (0.5-0.9) H 08/15/22 10:30 GFR Calculation Not Reportable 08/15/22 10:30 Glucose 126 mg/dL (65-115) H 08/15/22 10:30 Calculated Osmolality 287 mOsm/kg (285-295) 08/15/22 10:30 Calcium 10.0 mg/dL (8.5-10.5) 08/15/22 10:30 Total Bilirubin 0.8 mg/dL (0.15-1.2) 08/15/22 10:30 AST 17 U/L (0-32) 08/15/22 10:30 ALT 15 U/L (0-33) 08/15/22 10:30 Alkaline Phosphatase 84 U/L (35-105) 08/15/22 10:30 Troponin T Baseline 28 ng/L (0-10) H 08/15/22 10:30 Troponin T 120 Minute 20.92 ng/L (0-10) H 08/15/22 12:20 Delta Troponin T -7.08 ABS# (0-10) L 08/15/22 12:20 Total Protein 7.4 g/dL (6.6-8.7) 08/15/22 10:30 Albumin 4.6 g/dL (3.5-5.2) 08/15/22 10:30 Globulin 2.8 g/dL (1.3-4.6) 08/15/22 10:30 EKG Data EKG 1: I personally reviewed and interpreted this EKG as follows: EKG interpretation time: 10:53 Interpretation: Resting EKG reveals a ventricular rate of 86 bpm. Consistent with sinus rhythm. TN QRS interval duration and QTc interval are all within normal range. No acute ST-T wave changes noted or other findings at this time. EKG 2: I personally reviewed and interpreted this EKG as follows: Interpretation: Repeat EKG performed this visit reveals a ventricular rate of 61 bpm consistent with sinus rhythm. She had normal intervals, normal axis, normal QTC interval. No acute ST-T wave changes noted and no change from prior tracing this visit. Discharge Plan Discharge Patient Disposition: Admitted As Inpatient Clinical Impression: Chest pain Condition: Stable Prescriptions: No Action latanoprost 0.005 % drops 1 drp ophthalmic (eye) QPM PRN (Reason: unknown) venlafaxine 37.5 mg capsule,extended release 24hr 37.5 mg PO QAM atorvastatin 20 mg tablet 20 mg PO DAILY lisinopril 20 mg tablet 20 mg PO DAILY potassium chloride 10 mEq tablet extended release 10 meq PO BID amlodipine 5 mg tablet 5 mg PO DAILY valacyclovir 500 mg tablet 500 mg PO DAILY hydrocodone-acetaminophen 10-325 mg tablet 1 tab PO TID PRN (Reason: Pain) aspirin 81 mg tablet,delayed release (DR/EC) 81 mg PO QAM levothyroxine 75 mcg tablet 75 mcg PO QAM isosorbide mononitrate 60 mg tablet extended release 24 hr 90 mg PO QAM pantoprazole 40 mg tablet,delayed release (DR/EC) 40 mg PO DAILY montelukast 10 mg tablet 10 mg PO QAM furosemide 20 mg tablet 60 mg PO QAM albuterol sulfate 90 mcg/actuation HFA aerosol inhaler 2 puff INHALATION Q6H PRN (Reason: Shortness Of Breath) fluticasone propionate 50 mcg/actuation spray,suspension 1 spray INTRANASAL BID PRN (Reason: Allergy Symptoms) pregabalin 50 mg capsule 50 mg PO TID Centrum Women 18-400 mg-mcg Tablet 1 tab PO DAILY Trelegy Ellipta 100-62.5-25 mcg blister with device 1 ea INHALATION DAILY Miralax 17 gram Powder In Packet 17 g PO DAILY PRN (Reason: Constipation) Vitamin D3 50 mcg (2,000 unit) Capsule 50 mcg PO DAILY Coding Level of Care Code ED [place] And Former for Chg Fwd Exam Comprehensive
[2022-08-15 10:55] LABS: Basophils # 0.1 10^3/uL (0.0-0.1); Basophils % 0.7 %; Eosinophils # 0.2 10^3/uL (0.0-0.8); Eosinophils % 2.3 %; Hematocrit 45.5 % (37.0-47.0); Hemoglobin 15.2 g/dL (11.5-15.3); Lymphocytes # 2.4 10^3/uL (0.8-4.8); Lymphocytes % 29.6 %; Mean Corpuscular HGB Conc 33.4 g/dL (30.0-36.0); Mean Corpuscular Hemoglobin 31.6 pg (28.0-34.0); Mean Corpuscular Volume 94.6 fl (81-99); Mean Platelet Volume 10.7 fL (7.4-10.4); Monocytes # 0.7 10^3/uL (0.2-0.9); Monocytes % 8.6 %; Neutrophils # 4.83 10^3/uL (1.8-7.7); Neutrophils % 58.6 %; Nucleated Red Blood Cells % 0 %; Platelet Count 245 10^3/cmm (130-400); Red Blood Count 4.81 10^6/uL (4.1-5.3); Red Cell Distribution Width 13.2 % (12.1-15.1); White Blood Count 8.3 10^3/uL (4.0-10.0)
[2022-08-15 11:17] LABS: Troponin(5th) Baseline 28 ng/L (0-10)
[2022-08-15 11:19] LABS: Alanine Aminotransferase 15 U/L (0-33); Albumin Level 4.6 g/dL (3.5-5.2); Alkaline Phosphatase 84 U/L (35-105); Anion Gap 18.4 (5-19); Aspartate Amino Transferase 17 U/L (0-32); Blood Urea Nitrogen 17 mg/dL (8-23); Carbon Dioxide 25 mmol/L (22-29); Chloride 97 mmol/L (98-107); Globulin 2.8 g/dL (1.3-4.6); Glucose 126 mg/dL (65-115); Osmolality Calculated 287 mOsm/kg (285-295); Potassium 3.4 mmol/L (3.5-5.1); Sodium 137 mmol/L (136-145); Total Bilirubin 0.8 mg/dL (0.15-1.2); Total Protein 7.4 g/dL (6.6-8.7)
[2022-08-15 12:16] LABS: D Dimer 0.36 ug/mIFEU (0-0.59)
--- NOTE | 2022-08-15 12:43 | ECG_ITS ---
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 Measurements Intervals [place] Rate: 61 P: 14 ND: 166 QRS: 4 QRSD: 86 T: 54 QT: 445 QTc: 450 Interpretive Statements SINUS RHYTHM Compared to ECG 08/15/2022 10:50:05 No significant changes Electronically Signed On 08-15-2022 20:48:54 CDT by Kylah Cervantes M.D. [email or web address], [id number]
[2022-08-15] MEDS: sodium chloride 0.9% 1,000 ML 999 ML IV (12:45)
--- NOTE | 2022-08-15 12:47 | PC.PHAR ---
pt has [facility] care [phone]-plavix 75mg daily last filled 11/02/21 90d/s not on med list from [facility] and pt states not taking-
[2022-08-15 12:54] LABS: Troponin 5 2HR 20.92 ng/L (0-10)
[2022-08-15 12:58] LABS: Troponin 5 2HR Delta -7.08 ABS# (0-10)
--- NOTE | 2022-08-15 15:43 | P.HP_ITS ---
Providers/Chief Complaint Admitting Physician: Kate Diane MD Chief Complaint: Chest pain History of Present Illness Prisca Chowdary is a 77 year old female with established history of coronary disease with stent, active smoker smokes 1 pack/day presented with chest discomfort. Patient stating that she woke up around 7 AM and went outside to smoke at that point she felt extremely weak and diaphoretic at that point she started experiencing pain which last for about 3 minutes this pain was intermittent which she describing as pressure and stabbing in nature which gets worse on deep breathing. No recent fever she is endorsing chronic cough no recent fever diarrhea. She is vaccinated for COVID-19. In the ER she has been admitted for community-acquired pneumonia pleuritic pain management and stress test in the morning EKG sinus rhythm without ischemic infarction troponin without signal delta She is experiencing pleuritic chest pain she is stating that she has an appointment to see pain clinic [place] 1:20 PM D-dimer unremarkable Review of Systems Const: Reports: chills, body aches, malaise and diaphoresis Eyes: Denies: change in vision ENMT: Denies: throat pain Card: Reports: chest pain Resp: Denies: dyspnea GI: Denies: abdominal pain : Denies: flank pain Musc: Denies: neck pain Skin/Breast: Denies: rash Neuro: Denies: headache(s) Psych: Denies: anxiety Endo: Denies: polyuria Mundo/Lymph: Denies: easy bruising All/Imm: Denies: urticaria Medications/Allergies Home Medications Medication Instructions Recorded Confirmed Last Taken Type albuterol sulfate 90 mcg/actuation 2 puff inhalation Q6H PRN 08/15/22 08/15/22 Unknown History aerosol inhaler Shortness Of Breath amlodipine 5 mg tablet 5 mg PO DAILY 08/15/22 08/15/22 Unknown History aspirin 81 mg tablet,delayed 81 mg PO QAM 08/15/22 08/15/22 08/15/22 History release atorvastatin 20 mg tablet 20 mg PO DAILY 08/15/22 08/15/22 Unknown History cholecalciferol (vitamin D3) 50 50 mcg PO DAILY 08/15/22 08/15/22 Unknown History mcg (2,000 unit) capsule (Vitamin D3) fluticasone fur. 100 mcg-umeclid 1 ea inhalation DAILY 0908/15/22 08/14/22 History 62.5 mcg-vilant 25 mcg inhalat.powder (Trelegy Ellipta) fluticasone propionate 50 1 spray intranasal BID PRN Allergy 08/15/22 08/15/22 Unknown History mcg/actuation nasal Symptoms spray,suspension furosemide 20 mg tablet 60 mg PO QAM 08/15/22 08/15/22 08/15/22 History hydrocodone 10 mg-acetaminophen 1 tab PO TID PRN Pain 08/15/22 08/15/22 08/15/22 History 325 mg tablet isosorbide mononitrate 60 mg 90 mg PO QAM 08/15/22 08/15/22 08/15/22 History tablet,extended release 24 hr latanoprost 0.005 % eye drops 1 drp ophthalmic (eye) QPM PRN 08/15/22 08/15/22 Unknown History unknown levothyroxine 75 mcg tablet 75 mcg PO QAM 08/15/22 08/15/22 08/15/22 History lisinopril 20 mg tablet 20 mg PO DAILY 08/15/22 08/15/22 Unknown History montelukast 10 mg tablet 10 mg PO QAM 08/15/22 08/15/22 08/15/22 History multivitamin-ferrous 1 tab PO DAILY 08/15/22 08/15/22 Unknown History fumarate-folic acid 18 mg-400 mcg tablet (Centrum Women) pantoprazole 40 mg tablet,delayed 40 mg PO DAILY 08/15/22 08/15/22 Unknown History release polyethylene glycol 3350 17 gram 17 g PO DAILY PRN Constipation 08/15/22 08/15/22 Unknown History oral powder packet (Miralax) potassium chloride 10 mEq 10 meq PO BID 08/15/22 08/15/22 08/15/22 History tablet,extended release pregabalin 50 mg capsule 50 mg PO TID 08/15/22 08/15/22 Unknown History valacyclovir 500 mg tablet 500 mg PO DAILY 08/15/22 08/15/22 Unknown History venlafaxine 37.5 mg 37.5 mg PO QAM 08/15/22 08/15/22 08/15/22 History capsule,extended release 24 hr Allergies Allergy/AdvReac Type Severity Reaction Status Date / Time codeine Allergy Unknown Unknown Verified 08/15/22 12:12 morphine Allergy Unknown Unknown Verified 08/15/22 12:12 naproxen Allergy Unknown Unknown Verified 08/15/22 12:12 Penicillins Allergy Unknown Unknown Verified 08/15/22 12:12 Aleve Allergy Unknown Unknown Uncoded 08/15/22 12:12 Alprazelam Allergy Unknown Unknown Uncoded 08/15/22 12:12 PFSH Acute PFSH: Medical History Back pain Coronary disease Hypertension Surgical History History of appendectomy Stented coronary artery Family History Other CAD (coronary artery disease) Cancer Social History Smoking and tobacco status: current every day smoker cigarettes [ Other cigarette details: 84-[id number] smoking history] Alcohol intake: never Substance/Drug Use: never Housing: House Vitals/I&O/Wt Last Vital Signs Temp 98.3 F 08/15/22 10:44 Pulse 78 08/15/22 11:07 Resp 17 08/15/22 10:50 BP 77/66 08/15/22 11:07 Pulse Ox 97 08/15/22 11:07 O2 Del Method 08/15/22 11:07 Weight last 48 hrs Weight 60.781 kg Physical Exam Narrative: Patient is doing well on room air Pleuritic chest pain S1, S2 Bilateral breath sound without adventitious rhonchi or crackles Lean. female No signs of heart failure EOMI, PERRLA Nonfocal neuro exam Appropriate mood and affect Abdomen soft Data : 08/15/22 10:30 08/15/22 10:30 A&P Assessment and plan (1) Chest pain: Status: Acute (2) Pneumonia: Status: Acute Plan Pleuritic chest pain Most likely is related to community-acquired pneumonia Dense consolidation of left lung base Patient is vaccinated for COVID-19 Not requiring oxygen Active smoker We will do DuoNeb every 4 as needed She is not showing any signs of wheezing I will also do echo and stress test in the morning She does have history of coronary disease with a stent in LAD as per the patient Troponin without significant delta, EKG showing sinus rhythm She is full code Cardiac diet N.p.o. after midnight Back pain, neurogenic pain sciatica continue her antidepressant and gabapentin Continue her opioids I will add bowel regimen Active smoker, she is not think about quitting at this point Attestations Medical Necessity Statement*: Discharge within 48 hours will need evaluation for pleuritic chest pain Time Spent in Patient Care: 40 Coding Level of Care Code Acute [employer] for Lori Reed Diagnoses Chest pain R07.9 Pneumonia J18.9
--- NOTE | 2022-08-15 16:38 | NMCV_ITS ---
NM jose martin perf SPECT r/s* [id number] Prisca Chowdary Age: 77 Gender: F : 1945 Exam Date: 08/16/2022 07:27 Ordering Phys: Bertha Mercado MD Technologist: LOUISE Guzman Exam Location: [facility] Indications: CHEST PAIN STRESS TEST Please see separate stress test report in [facility] for full findings IMAGE PROTOCOL Rest/Stress 1 Lexiscan Day Radiopharmaceutical Dose (mCi) Administration Site Administered by Rest: Tc-99m 10.6 IV LOUISE Cordoba Sestamibi Stress:Tc-99m 32.6 IV LOUISE Cordoba Sestamibi Rest: 16-Aug-2022 60 Discovery 630 Stress: 16-Aug-2022 30 Discovery 630 0.4mg Lexiscan. Images obtained in supine and prone position. SPECT RESULTS Technical Quality: Excellent Raw Data Analysis: Normal Image Corrections: No attenuation or motion correction applied Summed Stress Score: 0 Summed Rest Score: 0 Summed Difference Score: 0 PERFUSION FINDINGS SPECT images demonstrate homogeneous tracer distribution throughout the myocardium. FUNCTIONAL RESULTS (calculated via Gated SPECT) Stress Image LV EF (%): 90 Stress EDV (mL):49 TID: 1.35 Stress ESV (mL):5 FUNCTIONAL FINDINGS: The left ventricle is normal in size. Transient Ischemia Dilatation of 1.35. There is hyperdynamic left ventricular global systolic function. The left ventricular ejection fraction is hyperdynamic with a value of 90%. There is hyperdynamic left ventricular wall thickening. IMPRESSIONS 1. Myocardial perfusion imaging is normal. 2. Overall left ventricular systolic function is hyperdynamic without regional wall motion abnormalities, LVEF=90%. 3. Transient ischemic dilation index of 1.35. This may represent hypertensive response/subendocardial ischemia. 4. No EKG changes with Lexiscan infusion. Refer to separate report for details. Vivian Strauss MD (Electronically Signed) Final Date: 16 August 2022 13:04 S
--- NOTE | 2022-08-15 16:38 | USCV_ITS ---
Prisca Chowdary Age: 77 Gender: F : 1945 Exam Date: 08/15/2022 19:36 Ordering Phys: Bertha Mercado MD Technologist: OSIEL Exam Location: [facility] [place] Indication: Recurrent chest pain since cardiac stenting 2019 BP: 77 / 66 HR: 87 Rhythm: Sinus Technical Quality: Adequate MEASUREMENTS (Male / Female) Normal Values 2D ECHO LV Diastolic Diameter PLAX 3.3 cm 4.2 - 5.9 / 3.9 - 5.3 cm LV Systolic Diameter PLAX 2.0 cm IVS Diastolic Thickness 1.5 cm 0.6 - 1.0 / 0.6 - 0.9 cm IVS Systolic Thickness 2.0 cm LVPW Diastolic Thickness 1.1 cm 0.6 - 1.0 / 0.6 - 0.9 cm LVPW Systolic Thickness 1.5 cm LVOT Diameter 1.8 cm LV Ejection Fraction 2D Teich 70.9 % LV Ejection Fraction MOD 2C 64.8 % LV Ejection Fraction 2C AL 65.4 % LA Diameter 4.1 cm LA Width 4.6 cm LA Height 5.5 cm RA Width 2.4 cm RA Height 4.2 cm Aorta at Sinotubular Diameter 3.0 cm IVC Diameter 1.9 cm M-MODE Aortic Annulus Diameter 3.4 cm LA Ao Ratio MM 1.2 MV E Point Septal Separation 0.1 cm DOPPLER AV Peak Velocity 128.0 cm/s LVOT Peak Velocity 134.0 cm/s AV Area Cont Eq vti 2.6 cm squared AV Area Cont Eq pk 2.8 cm squared MV Peak Velocity 107.0 cm/s MV Area PHT 3.1 cm squared Mitral E to A Ratio 1.1 MV E' Velocity 48.0 cm/s Mitral E to MV E' Ratio 9.4 Mitral E to LV E' Lateral Ratio 10.8 Mitral E to LV E' Septal Ratio 8.3 TR Peak Velocity 229.0 cm/s TR Peak Gradient 21.0 mmHg TV Peak E Velocity 58.0 cm/s Right Atrial Pressure 5.0 mmHg Pulmonary Artery Systolic Pressu 26.0 mmHg PV Peak Velocity 83.0 cm/s RV Acceleration Time 0.2 s RV Ejection Time 0.4 s RV AcT/ET 0.4 FINDINGS Left Ventricle Normal left ventricular size, systolic function and wall thickness, with no regional wall motion abnormalities. Left ventricular ejection fraction is estimated at 70 %. Normal diastolic function. Right Ventricle Normal right ventricular size and systolic function. Right ventricular systolic pressure 29 mmHg. Right Atrium Normal right atrial size. Left Atrium Mildly increased left atrial size. Mitral Valve Structurally normal mitral valve. No mitral valve stenosis. No mitral valve regurgitation. Aortic Valve Mildly thickened trileaflet aortic valve. No aortic valve stenosis. Trace aortic valve regurgitation. Tricuspid Valve Structurally normal tricuspid valve. No tricuspid valve stenosis. Trace tricuspid valve regurgitation. Pulmonic Valve Structurally normal pulmonic valve. No pulmonary valve stenosis. Trace pulmonary valve regurgitation. Pericardium No pericardial effusion. Aorta Normal size aortic root and proximal ascending aorta. IVC Normal IVC dimension. CONCLUSIONS 1. Normal left ventricular size, systolic function and wall thickness, with no regional wall motion abnormalities. Left ventricular ejection fraction is estimated at 70 %. Normal diastolic function. 2. Normal right ventricular size and systolic function. 3. Trace aortic valve regurgitation. 4. Pulmonary artery pressure estimated at 29 mmHg. 5. No prior similar studies to compare. Vivian Strauss MD (Electronically Signed) Final Date: 16 August 2022 10:15 S
--- NOTE | 2022-08-15 16:43 | ECG_ITS ---
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 Measurements Intervals [place] Rate: 59 P: 17 NV: 165 QRS: 7 QRSD: 93 T: 53 QT: 450 QTc: 447 Interpretive Statements SINUS BRADYCARDIA Compared to ECG 08/15/2022 13:25:16 Sinus rhythm no longer present Electronically Signed On 08-15-2022 20:50:32 CDT by Kylah Cervantes M.D. [id number]
[2022-08-15 16:44] LABS: Troponin 5 6HR 21.29 ng/L (0-10)
[2022-08-15 17:02] LABS: Troponin 5 6HR Delta -6.71 ng/L (0-12)
[2022-08-15] MEDS: enoxaparin 40 mg/0.4 mL Syringe SUBCUT (18:33)
[2022-08-15] MEDS: pregabalin 50 mg Capsule PO (20:27)
[2022-08-15] MEDS: HYDROcodone-acetaminophen 10-325 mg Tablet 1 TAB PO (20:30)
[2022-08-15] MEDS: ketorolac 30 mg/mL INJ 15 MG IVP (20:40)
[2022-08-16 01:17] VITALS: BP 121/64; PULSE 71; RESP 16; TEMP 36.8; O2SAT 97
[2022-08-16 02:55] LABS: Basophils # 0.1 10^3/uL (0.0-0.1); Basophils % 0.8 %; Eosinophils # 0.3 10^3/uL (0.0-0.8); Hematocrit 38.3 % (37.0-47.0); Hemoglobin 12.5 g/dL (11.5-15.3); Lymphocytes # 2.4 10^3/uL (0.8-4.8); Lymphocytes % 37.6 %; Mean Corpuscular HGB Conc 32.6 g/dL (30.0-36.0); Mean Corpuscular Hemoglobin 31.5 pg (28.0-34.0); Mean Corpuscular Volume 96.5 fl (81-99); Mean Platelet Volume 11.3 fL (7.4-10.4); Monocytes # 0.7 10^3/uL (0.2-0.9); Monocytes % 10.2 %; Neutrophils # 3.07 10^3/uL (1.8-7.7); Neutrophils % 47.2 %; Nucleated Red Blood Cells % 0 %; Platelet Count 176 10^3/cmm (130-400); Red Blood Count 3.97 10^6/uL (4.1-5.3); Red Cell Distribution Width 13.2 % (12.1-15.1); White Blood Count 6.5 10^3/uL (4.0-10.0)
[2022-08-16 03:24] LABS: Blood Urea Nitrogen 14 mg/dL (8-23); Carbon Dioxide 25 mmol/L (22-29); Chloride 108 mmol/L (98-107); Glucose 124 mg/dL (65-115); Magnesium 2.1 mg/dL (1.7-2.3); Osmolality Calculated 296 mOsm/kg (285-295); Phosphorus 3.6 mg/dL (2.5-4.5); Sodium 142 mmol/L (136-145)
[2022-08-16 03:43] LABS: Anion Gap 12.2 (5-19); Potassium 3.2 mmol/L (3.5-5.1)
[2022-08-16 04:54] VITALS: BP 136/75; PULSE 68; RESP 16; TEMP 36.8; O2SAT 95
[2022-08-16] MEDS: levothyroxine 75 mcg Tablet PO (05:25)
[2022-08-16] MEDS: isosorbide mononitrate ER 60 mg Tablet 90 MG PO (05:25)
[2022-08-16] MEDS: venlafaxine ER (24HR) 37.5 mg Capsule PO (05:25)
[2022-08-16] MEDS: aspirin 81 mg EC Tablet PO (05:26)
[2022-08-16] MEDS: HYDROcodone-acetaminophen 10-325 mg Tablet 1 TAB PO (05:27)
[2022-08-16 05:59] VITALS: PULSE 62
--- NOTE | 2022-08-16 06:51 | ECG_ITS ---
[facility] Test Date: 2022-08-16 Pat Name: Prisca Chowdary Department: Room: 260 Gender: Female Multiple Coil Winder: Vilma Agustin : 1945 Requested By: Bertha Mercado Order Number: [id number] Aye MD: Vivian Strauss M.D. Interpretive Statements NAME OF STUDY: LEXISCAN SESTAMIBI STRESS TEST INDICATION: Chest Pain PROCEDURE: At the baseline, the blood pressure was 110/72 mm Hg with a heart rate of 63 bpm. The electrocardiogram showed sinus rhythm, normal axis and normal ST and T's. The Lexiscan was infused over a period of 20 seconds. A total of 0.4 milligrams of Lexiscan was infused. The stress phase was continued for a total of 5 minutes. Heart rate at the end of the stress phase was 97 bpm with a blood pressure of 168/92 mm Hg. The EKG at the peak infusion revealed sinus rhythm with no significant ST-T wave changes. Sestamibi was injected 20 seconds after the Lexiscan infusion. Blood pressure at the end of the recovery phase was 139/73 mm Hg with a heart rate of 77 beats per minute. CONCLUSION: 1. No significant EKG changes with the LexiScan infusion. 2. No LexiScan induced chest pain or cardiac arrhythmia. 3. Normal blood pressure and heart rate response. 4. Sestamibi/sestamibi perfusion scan pending; see separate report. Electronically Signed On 08-18-2022 16:38:22 CDT by Vivian Strauss M.D. [id number]
[2022-08-16] MEDS: regadenoson 0.4 Mg/5 ml Syringe IVP (07:58)
[2022-08-16] MEDS: ondansetron 2 mg/ML SDV 2 mL 4 MG IVP (08:00)
[2022-08-16 08:10] VITALS: BP 139/73; PULSE 74
[2022-08-16] MEDS: valACYclovir 1,000 mg Tablet 500 MG PO (09:39)
[2022-08-16] MEDS: lisinopril 20 mg Tablet PO (09:40)
[2022-08-16] MEDS: sennosides-docusate Tablet 1 TAB PO (09:40)
[2022-08-16] MEDS: amlodipine 5 mg Tablet PO (09:40)
[2022-08-16] MEDS: pantoprazole DR 40 mg Tablet PO (09:40)
[2022-08-16] MEDS: atorvastatin 40 mg Tablet 20 MG PO (09:40)
[2022-08-16] MEDS: azithromycin 250 mg Tablet 500 MG PO (09:40)
[2022-08-16] MEDS: cefTRIAXone 1,000 MG in sodium chloride 0.9% (plus) 50 ML 100 MG IV (09:41)
[2022-08-16] MEDS: ketorolac 30 mg/mL INJ 15 MG IVP (09:41)
[2022-08-16 11:55] VITALS: BP 120/68; PULSE 74; RESP 14; TEMP 36.8; O2SAT 94
--- NOTE | 2022-08-16 12:11 | PM.DCS ---
Discharge Providers Date of Admission: 08/15/22 15:00 Date of Discharge: August 16, 2022 Attending Provider at Admission: Kate Diane MD Attending Provider at Discharge: Bertha Mercado MD Diagnoses at Discharge Discharge Diagnosis (1) Chest pain: Status: Inactive (2) Pneumonia: Status: Inactive Reason for Visit Reason for Visit: Chest pain Hospital Course Hospital Course 77-year-old female who was admitted for management of chest pain. Her chest pain was pleuritic in nature related to community-acquired pneumonia. She did not require any oxygen. She carries history of COPD, active smoker. EKG without ischemic or infarctive changes, troponin with negative delta. Her hypokalemia was repleted during her hospitalization. D-dimer unremarkable. Echo did not show any regional wall motion abnormality it is preserved ejection fraction. Stress test was requested. She was discharged home on 7-day regimen of Levaquin and albuterol Physical Exam Narrative: Awake and alert Pleuritic chest pain S1, S2 Abdomen soft Currently on room air Nonfocal neuro exam No shortness of breath Hemodynamically stable Discharge Data Studies Completed and Pending Completed Studies During Hospitalization Category Date Time Status Sestamibi Stress Test Request Routine Exams 08/16/22 06:51 Draft XR chest 1V portable [id number] Stat Exams 08/15/22 10:43 Completed CV. echo complete* [id number] Routine Ultrasound 08/15/22 16:38 Completed Pending at discharge Category Date Time Status Sestamibi Stress Test Request Routine Exams 08/15/22 16:38 Stop Req MRSA by PCR Stat Lab 08/15/22 20:45 Received NM jose martin perf SPECT r/s* [id number] Routine Nuc Med 08/15/22 16:38 Taken Radiology Impressions Chest X-Ray 08/15/22 10:43 IMPRESSION: Nonspecific mild left lung base opacity favors atelectasis or pneumonia. Laboratory Results WBC 6.5 10^3/uL (4.0-10.0) 08/16/22 02:28 RBC 3.97 10^6/uL (4.1-5.3) L 08/16/22 02:28 Hgb 12.5 g/dL (11.5-15.3) 08/16/22 02:28 Hct 38.3 % (37.0-47.0) 08/16/22 02:28 MCV 96.5 fl (81-99) 08/16/22 02:28 MCH 31.5 pg (28.0-34.0) 08/16/22 02:28 MCHC 32.6 g/dL (30.0-36.0) 08/16/22 02:28 RDW 13.2 % (12.1-15.1) 08/16/22 02:28 Plt Count 176 10^3/cmm (130-400) 08/16/22 02:28 MPV 11.3 fL (7.4-10.4) H 08/16/22 02:28 Neut % (Auto) 47.2 % 08/16/22 02:28 Lymph % (Auto) 37.6 % 08/16/22 02:28 [place] % (Auto) 10.2 % 08/16/22 02:28 Eos % (Auto) 4.0 % 08/16/22 02:28 Baso % (Auto) 0.8 % 08/16/22 02:28 Neut # (Auto) 3.07 10^3/uL (1.8-7.7) 08/16/22 02:28 Lymph # (Auto) 2.4 10^3/uL (0.8-4.8) 08/16/22 02:28 [place] # (Auto) 0.7 10^3/uL (0.2-0.9) 08/16/22 02:28 Eos # (Auto) 0.3 10^3/uL (0.0-0.8) 08/16/22 02:28 Baso # (Auto) 0.1 10^3/uL (0.0-0.1) 08/16/22 02:28 Nucleated RBC % (auto) 0 % 08/16/22 02:28 Nucleated RBCs # 0.0 /100WBC 08/16/22 02:28 D-Dimer 0.36 ug/mIFEU (0-0.59) 08/15/22 10:30 Sodium 142 mmol/L (136-145) 08/16/22 02:28 Potassium 3.2 mmol/L (3.5-5.1) L 08/16/22 02:28 Chloride 108 mmol/L (98-107) H 08/16/22 02:28 Carbon Dioxide 25 mmol/L (22-29) 08/16/22 02:28 Anion Gap 12.2 (5-19) 08/16/22 02:28 BUN 14 mg/dL (8-23) 08/16/22 02:28 Creatinine 0.8 mg/dL (0.5-0.9) 08/16/22 02:28 GFR Calculation Not Reportable 08/16/22 02:28 Glucose 124 mg/dL (65-115) H 08/16/22 02:28 Calculated Osmolality 296 mOsm/kg (285-295) H 08/16/22 02:28 Calcium 9.0 mg/dL (8.5-10.5) 08/16/22 02:28 Phosphorus 3.6 mg/dL (2.5-4.5) 08/16/22 02:28 Magnesium 2.1 mg/dL (1.7-2.3) 08/16/22 02:28 Total Bilirubin 0.8 mg/dL (0.15-1.2) 08/15/22 10:30 AST 17 U/L (0-32) 08/15/22 10:30 ALT 15 U/L (0-33) 08/15/22 10:30 Alkaline Phosphatase 84 U/L (35-105) 08/15/22 10:30 Troponin T Baseline 28 ng/L (0-10) H 08/15/22 10:30 Troponin T 120 Minute 20.92 ng/L (0-10) H 08/15/22 12:20 Delta Troponin T -7.08 ABS# (0-10) L 08/15/22 12:20 Troponin T Hi Sens 6Hr 21.29 ng/L (0-10) H 08/15/22 16:10 Troponin T Hi Sens 6Hr Delta -6.71 ng/L (0-12) L 08/15/22 16:10 Total Protein 7.4 g/dL (6.6-8.7) 08/15/22 10:30 Albumin 4.6 g/dL (3.5-5.2) 08/15/22 10:30 Globulin 2.8 g/dL (1.3-4.6) 08/15/22 10:30 Vitals Last Vital Signs Temp 98.3 F 08/16/22 11:55 Pulse 74 08/16/22 11:55 Resp 14 08/16/22 11:55 BP 120/68 08/16/22 11:55 Pulse Ox 94 08/16/22 11:55 O2 Del Method 08/16/22 11:55 Discharge Plan Discharge Patient Disposition: Home Condition: Stable Prescriptions: New levofloxacin 750 mg tablet 750 mg PO DAILY 7 Days Qty: 7 0RF albuterol sulfate 90 mcg/actuation HFA aerosol inhaler 2 inh inhalation Q8H PRN (Reason: shortness of breath or wheezing) Qty: 8.5 3RF Continued latanoprost 0.005 % drops 1 drp ophthalmic (eye) QPM PRN (Reason: unknown) venlafaxine 37.5 mg capsule,extended release 24hr 37.5 mg PO QAM atorvastatin 20 mg tablet 20 mg PO DAILY lisinopril 20 mg tablet 20 mg PO DAILY potassium chloride 10 mEq tablet extended release 10 meq PO BID amlodipine 5 mg tablet 5 mg PO DAILY valacyclovir 500 mg tablet 500 mg PO DAILY hydrocodone-acetaminophen 10-325 mg tablet 1 tab PO TID PRN (Reason: Pain) aspirin 81 mg tablet,delayed release (DR/EC) 81 mg PO QAM levothyroxine 75 mcg tablet 75 mcg PO QAM isosorbide mononitrate 60 mg tablet extended release 24 hr 90 mg PO QAM pantoprazole 40 mg tablet,delayed release (DR/EC) 40 mg PO DAILY montelukast 10 mg tablet 10 mg PO QAM furosemide 20 mg tablet 60 mg PO QAM albuterol sulfate 90 mcg/actuation HFA aerosol inhaler 2 puff INHALATION Q6H PRN (Reason: Shortness Of Breath) fluticasone propionate 50 mcg/actuation spray,suspension 1 spray INTRANASAL BID PRN (Reason: Allergy Symptoms) pregabalin 50 mg capsule 50 mg PO TID Centrum Women 18-400 mg-mcg Tablet 1 tab PO DAILY Trelegy Ellipta 100-62.5-25 mcg blister with device 1 ea INHALATION DAILY Miralax 17 gram Powder In Packet 17 g PO DAILY PRN (Reason: Constipation) Vitamin D3 50 mcg (2,000 unit) Capsule 50 mcg PO DAILY Discharge Orders: Discharge Order (Routine); Ordered 08/16/22 Ordered By: Bertha Mercado Referrals: Kaycee Roque DO [Physician] - 08/24/22 9:30 am Discharge Diet: Cardiac Discharge Activity: Increase activity as tolerated Patient Instructions: Albuterol (By breathing), Levofloxacin (By mouth), Pneumonitis (DC), Opioid Safety Discharge Attestations Time Spent in Discharge Care*: less than 30 min Quality Metrics Clinical Quality Measures [ No reported AMI, CVA or VTE this stay] Coding Level of Care Code Acute Chg FW DC note Diagnoses Chest pain R07.9 Pneumonia J18.9
[2022-08-16 14:35] VITALS: BP 120/68; PULSE 74; RESP 14; TEMP 36.8; O2SAT 94
--- NOTE | 2022-08-16 14:36 | PC.NURSE ---
Discharge Note Patient discharged to home via private vehicle accompanied by family. Discharge instructions reviewed with patient and/or printing sales representative. Mobile pharmacy medications and/or prescriptions provided. Belongings/home medications returned.
== END 2022-08-16 14:35 | disposition home or self-care (01) ==
LOC: ER 14:59 → MEDSURG 15:30
PROVIDERS: Family Medicine; Admitting Provider Internal Medicine; Emergency Provider Emergency Medicine; Visit Provider Internal Medicine
DX: J18.9 Pneumonia, unspecified organism (principal); J44.9 Chronic obstructive pulmonary disease, unspecified; F17.210 Nicotine dependence, cigarettes, uncomplicated; I25.10 Atherosclerotic heart disease of native coronary artery without angina pectoris; Z95.5 Presence of coronary angioplasty implant and graft; I10 Essential (primary) hypertension
CPT/HCPCS: 36415; 71045; 78452; 80048; 80053; 83735; 84100; 84484; 85025; 85378; 87641; 93005; 93017; 93306; 94664; 96361; 96365; 96372; 96375; 99285; A9500; G0378; J0696; J1650; J1885; J2405; J2785; J7030; Q0144

== ENCOUNTER → 2022-08-24 09:55 | Outpatient (BNVA) | payer MEDICARE, MEDICAID, SELFPAY ==
[2022-07-18 10:56] VITALS: BP 121/75; BMI 28.3
== END ==
PROVIDERS: PCP Family Medicine; Visit Provider Family Medicine
DX: J44.9 Chronic obstructive pulmonary disease, unspecified (principal); E03.9 Hypothyroidism, unspecified
CPT/HCPCS: 84443

== ENCOUNTER → 2022-09-06 14:31 | Outpatient (BNVA) | payer MEDICARE, MEDICAID, SELFPAY ==
[2022-07-18 10:56] VITALS: BP 121/75; BMI 28.3
== END ==
PROVIDERS: PCP Family Medicine; Visit Provider Anesthesiology Pain Medicine
DX: M47.812 Spondylosis without myelopathy or radiculopathy, cervical region (principal); G89.29 Other chronic pain; M54.9 Dorsalgia, unspecified; F17.210 Nicotine dependence, cigarettes, uncomplicated
CPT/HCPCS: 64490; 64491; J3490

== ENCOUNTER → 2022-09-14 15:03 | Outpatient (BNVA) | payer MEDICARE, MEDICAID, SELFPAY ==
[2022-07-18 10:56] VITALS: BP 121/75; BMI 28.3
== END ==
PROVIDERS: PCP Family Medicine; Visit Provider Internal Medicine
DX: R07.9 Chest pain, unspecified (principal); I25.119 Atherosclerotic heart disease of native coronary artery with unspecified angina pectoris; I10 Essential (primary) hypertension; E78.5 Hyperlipidemia, unspecified; F17.210 Nicotine dependence, cigarettes, uncomplicated
CPT/HCPCS: 99214

== ENCOUNTER → 2022-09-20 13:42 | Outpatient (BNVA) | payer MEDICARE, MEDICAID, SELFPAY ==
[2022-07-18 10:56] VITALS: BP 121/75; BMI 28.3
== END ==
PROVIDERS: PCP Family Medicine; Visit Provider Anesthesiology Pain Medicine
DX: G89.29 Other chronic pain (principal); M54.6 Pain in thoracic spine; M54.2 Cervicalgia; M79.604 Pain in right leg; M79.605 Pain in left leg; M79.601 Pain in right arm; M79.602 Pain in left arm; F17.210 Nicotine dependence, cigarettes, uncomplicated
CPT/HCPCS: 99214

== ENCOUNTER → 2022-11-02 11:04 | Outpatient (BNVA) | payer MEDICARE, MEDICAID, SELFPAY ==
[2022-09-25 11:05] VITALS: BP 121/75; BMI 28.3
== END ==
PROVIDERS: PCP Family Medicine; Visit Provider Urology
DX: N30.90 Cystitis, unspecified without hematuria (principal)
CPT/HCPCS: 81003; 99213

== ENCOUNTER → 2022-12-11 13:35 | Outpatient (BNVA) | payer MEDICARE, MEDICAID, SELFPAY ==
[2022-09-25 11:05] VITALS: BP 121/75; BMI 28.3
== END ==
PROVIDERS: PCP Family Medicine; Visit Provider Anesthesiology Pain Medicine
DX: M47.812 Spondylosis without myelopathy or radiculopathy, cervical region (principal); G89.29 Other chronic pain
CPT/HCPCS: 64490; 64491; 64492; J3490

== ENCOUNTER → 2022-12-18 09:59 | Outpatient (BNVA) | payer MEDICARE, MEDICAID, SELFPAY ==
[2022-09-25 11:05] VITALS: BP 121/75; BMI 28.3
== END ==
PROVIDERS: PCP Family Medicine; Visit Provider Podiatrist Foot & Ankle Surgery
DX: B35.1 Tinea unguium (principal); R60.9 Edema, unspecified; M72.2 Plantar fascial fibromatosis
CPT/HCPCS: 11721; 99203

== ENCOUNTER 2023-01-05 17:05 | Observation (INO) | payer MEDICARE, MEDICAID, SELFPAY ==
[2022-12-29 07:52] VITALS: BP 121/75; BMI 28.3
[2023-01-05] VITALS (8 sets, daily range): BP systolic 99–152; BP diastolic 61–101; PULSE 66–81; RESP 14–18; TEMP 36.4–36.9; O2SAT 94–99
--- NOTE | 2023-01-05 17:22 | CTR_ITS ---
PROCEDURE INFORMATION: Exam: CT Head Without Contrast Exam date and time: 01/05/2023 5:45 PM Age: 77 years old Clinical indication: Altered mental status/memory loss; Confusion or disorientation; Additional info: AMS TECHNIQUE: Imaging protocol: Computed tomography of the head without contrast. Radiation optimization: All CT scans at this facility use at least one of these dose optimization techniques: automated exposure control; mA and/or kV adjustment per patient size (includes targeted exams where dose is matched to clinical indication); or iterative reconstruction. Other protocol: This patient has received [address] and 0 known cardiac nuclear medicine studies in the 12 months prior to the current study. COMPARISON: CT head wo con* [id number] 09/13/2021 1:12 PM RADIATION DOSE METRICS: Total DLP (mGy-cm): 985.08 FINDINGS: Brain: No acute infarct. No hemorrhage. Stable involutional changes of the brain. No mass effect. Cerebral ventricles: No ventriculomegaly. Paranasal sinuses: Visualized sinuses are unremarkable. No fluid levels. Mastoid air cells: Visualized mastoid air cells are well aerated. Bones/joints: Unremarkable. No acute fracture. Soft tissues: Unremarkable. CT/CT head wo con* [id number] IMPRESSION: No acute intracranial abnormality.
--- NOTE | 2023-01-05 17:22 | XRR_ITS ---
PROCEDURE INFORMATION: Exam: XR Chest Exam date and time: 01/05/2023 6:06 PM Age: 77 years old Clinical indication: Other: AMS TECHNIQUE: Imaging protocol: Radiologic exam of the chest. Views: 1 view. COMPARISON: CR XR chest 1V portable [id number] 09/13/2021 3:54 PM FINDINGS: Lungs: Unremarkable. No consolidation. Pleural spaces: Unremarkable. No pleural effusion. No pneumothorax. Heart/Mediastinum: Stable heart size. Bones/joints: Stable bones. XR/XR chest 1V portable [id number] IMPRESSION: No acute findings.
--- NOTE | 2023-01-05 17:22 | PC.NURSE ---
PT ASSESSED FOR POSSIBLE STROKE SYMPTOMS. DR VASQUEZ NOTIFIED. DR VASQUEZ PERFORMED ASSESSMENT AND NIH. DR. VASQUEZ DOES NOT SUSPECT A STROKE.
--- NOTE | 2023-01-05 17:24 | ECG_ITS ---
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 Measurements Intervals [place] Rate: 69 P: 36 CT: 170 QRS: 17 QRSD: 90 T: 60 QT: 429 QTc: 462 Interpretive Statements SINUS RHYTHM NONSPECIFIC T-WAVE ABNORMALITY Compared to ECG 09/13/2021 15:35:27 T-wave abnormality now present Electronically Signed On 01-05-2023 21:56:41 REAL ESTATE ASSISTANT by Fred Silverio M.D. [id number]
--- NOTE | 2023-01-05 17:24 | W.ED.SYNCOPE ---
HPI - Syncope General: Chief Complaint: Syncope Stated Complaint: NEAR SYNCOPE/ DIZZY/ WEAK Time Seen by Provider: 01/05/23 17:09 Limitations: altered mental status History of Present Illness: This patient allegedly was transported from home by EMS. History is limited somewhat by the patient's current clinical condition. She will answer some questions but it takes considerable effort to elicit such answers. She appears to give accurate responses as best as 1 can tell at this point. Allegedly she may have suffered a syncopal episode earlier. She denies any pain at this time. MD complaint: almost passed out and collapsed Prodromal symptoms: lightheaded Context: medication non-compliance Review of Systems General: Reports: ROS unobtainable due to medical condition PFSH ED PFSH: Medical History Abnormal stress test Acute cystitis Age-related cognitive decline Back pain Benign essential HTN CAD (coronary artery disease) Chest pain Chronic constipation Chronic post-traumatic stress disorder Chronic right SI joint pain Chronic right-sided low back pain with right-sided sciatica Cigarette nicotine dependence Coronary disease Cystocele Dyslipidemia Encounter for long-term opiate analgesic use Gastritis Gastro-esophageal reflux disease without esophagitis Generalized edema GERD (gastroesophageal reflux disease) History of herpes genitalis Hypertension Hypothyroidism Low back pain of over 3 months duration Major depressive disorder, recurrent episode with mood-congruent psychotic features Microscopic hematuria Mixed incontinence Moderate COPD (chronic obstructive pulmonary disease) Opioid contract exists Periodontal disease Pneumonia Rectal Hemorrhage Spinal stenosis, cervical region Surgical History History of appendectomy History of colonoscopy (~2017) History of colonoscopy with polypectomy (~12/2020) History of esophagogastroduodenoscopy (EGD) (~12/2020) Hx of heart artery stent S/P appendectomy S/P cataract surgery S/P hysterectomy S/P tonsillectomy and adenoidectomy Stented coronary artery Family History Father , at age 93 CAD (coronary artery disease) Family/Other CAD (coronary artery disease) uncle Cancer maternal aunt & maternal uncle Mother , at age 77 CAD (coronary artery disease) Hypertension Cancer Sister Hypertension Cancer Daughter Diabetes Other Chronic post-traumatic stress disorder Social History Smoking and tobacco status: current every day smoker cigarettes Packs smoked per day: 0.75 Years cigarettes smoked: 61 [ Other cigarette details: 70-[id number] smoking history] Quit status (tobacco): not considering quitting Smoking risk assessment/counseling performed?: No Alcohol intake: current Alcohol intake frequency: holidays/special occasions only Adopted: No Caregiver/support person: No Lives independently: No Household members: family Housing: House Marital status: Marital status details: since the Number of children: 5 Highest education level completed: Associate Degree: Occupational, Technical, Vocational Program Education level details: Clerical training service: No Current occupational status: disabled Current occupational exposures/hazards: No Pets and animals: No History of recent travel: No Leisure activites: music, games and other Leisure activities details: watch TV, bingo, dance, visit with others Sexually active: No Current gender identity: Female Susan/Confucianist: Moravian Special susan needs: No Agree to transfusion: Yes Financial difficulty paying for basics: Not Very Hard Female Reproductive History: Para: 5 Spontaneous abortions: No Physical Exam Narrative: EXAM NARRATIVE: To be no evidence of trauma. She is somnolent but will open eyes to command and answer questions with some effort. Const: GENERAL APPEARANCE: lethargic and appears older than stated age ORIENTATION/CONSCIOUSNESS: Yes lethargic HENMT: COMMON NORMALS: normocephalic, moist oral mucous membranes and oropharynx normal HEAD & SCALP: normocephalic FACE & SINUS: normal facial exam Eye: COMMON NORMALS: EOMs intact bilaterally and conjunctivae normal CONJUNCTIVA: Yes conjunctivae normal PUPIL: Yes Pinpoint pupils Neck/C-Spine: COMMON NORMALS: full ROM, no lymphadenopathy, no meningeal signs and no JVD Chest: COMMONS NORMALS: normal inspection of the chest Resp: COMMON NORMALS: normal respiratory effort, No retractions, No use of accessory muscles and clear to auscultation bilaterally AUSCULTATION: clear to auscultation bilaterally Cardio: COMMON NORMALS: no JVD, regular rate, No murmurs present (Cardio) and Peripheral pulses 2+ throughout RATE: regular rate PERIPHERAL PULSES: Peripheral pulses 2+ throughout GI: COMMON NORMALS: Normal to inspection, nondistended, normoactive bowel sounds present and Soft to palpation PALPATION: Yes Soft to palpation Back/Pelvis: COMMON NORMALS: thoracic and lumbar spine normal to inspection and no thoracic nor lumbar tenderness Extremity: COMMON NORMALS: normal to inspection, full ROM, capillary refill normal and no pedal edema Neuro: COMMON NORMALS: moves all extremities and no focal motor deficits SENSORIUM/ORIENTATION: Yes lethargic and Yes somnolent MENINGEAL SIGNS: Yes no meningeal signs OTHER: Repeat examination after returning to baseline revealed no new or focal findings on neurologic examination. Psych: COMMON NORMALS: mental status grossly normal, Normal thought process present, denies hallucinations, denies homicidal ideation and denies suicidal ideation THOUGHT PROCESS: Normal thought process present Skin: COMMON NORMALS: no rashes or lesions noted and no wounds GENERAL SKIN EXAM: no rashes or lesions noted Course Reevaluation(s): Reevaluation #1: Although she was not displaying any signs of significant respiratory depression she was noted to be somnolent with small diameter pupils with a history of opiate prescriptions so she was given 0.4 mg of Narcan. Her pupils widened somewhat and she seemed to be a bit more responsive. Simultaneously she was given 12-1/2 g of glucose given that her fingerstick blood sugar was 60 mg percent. After these 2 interventions she did display more alertness, motor activity etc. Time: 17:45 Reevaluation #2: Patient was reevaluated. Her family is also present. She is alert, very animated, hungry and thirsty. I discussed the likely etiology of her presentation. We are awaiting a few more of her ancillary studies but at that point we will have a discussion about adherence to medications etc. She denies any thoughts of self-harm and I feel like this was not intentional but likely an inadvertent medication misadventure Time: 20:19 Consultations: Consultation #1: Discussed with Dr. Patel of hospitalist service who agreed to place the patient in observation. Time: 20:51 Vital Signs: Vital signs: Vital Signs Temperature 97.6 F 01/05/23 17:09 Pulse Rate 78 01/05/23 19:00 Respiratory Rate 16 01/05/23 19:00 Blood Pressure 131/75 01/05/23 19:00 Pulse Oximetry 94 01/05/23 19:00 Oxygen Delivery Me thod 01/05/23 18:22 MDM - Syncope Medical Decision Making This patient presented to our emergency department via EMS after she had a near syncopal episode at a local establishment. She arrived in the emergency department somewhat somnolent but arousable with loud verbal verbal stimuli. There is no evidence of trauma by EMS history and based upon her clinical examination. She displayed decreased level of mentation with pinpoint pupils suggesting possible misadventure with opiates. Family who arrived later stated that there was no concerned about intended self-harm and that she has never done in the past. She did respond to Narcan and was also discovered that her blood sugar was borderline at 60 mg percent. She was given IV glucose in addition to her the Narcan. A work-up ensued to ensure that there is no evidence of trauma, or other potential etiologies to her presentation. Ultimately she achieved normal mentation and alertness and was eating and drinking. She still had some unsteadiness on feet and family expressed concern about her going home given her current condition. Because of concern about ongoing hypoglycemia, rebound effect of long-acting opiates etc. she is being placed in observation. No evidence of other concerning findings on her clinical exam to include ACS, acute BUDGET MANAGER hemorrhage, not hemorrhagic stroke etc. at this time. Medical Records I reviewed the patient's medical records. Lab Data I reviewed the patient's lab results. 01/05/23 19:20 01/05/23 19:20 Radiology Impressions Chest X-Ray 01/05/23 17:22 IMPRESSION: No acute findings. Head CT 01/05/23 17:22 IMPRESSION: No acute intracranial abnormality. Laboratory Results WBC 12.2 10^3/uL (4.0-10.0) H 01/05/23 19:20 RBC 4.21 10^6/uL (4.1-5.3) 01/05/23 19:20 Hgb 13.0 g/dL (11.5-15.3) 01/05/23 19:20 Hct 41.1 % (37.0-47.0) 01/05/23 19:20 MCV 97.6 fl (81-99) 01/05/23 19:20 MCH 30.9 pg (28.0-34.0) 01/05/23 19:20 MCHC 31.6 g/dL (30.0-36.0) 01/05/23 19:20 RDW 13.2 % (12.1-15.1) 01/05/23 19:20 Plt Count 191 10^3/cmm (130-400) 01/05/23 19:20 MPV 11.1 fL (7.4-10.4) H 01/05/23 19:20 Neut % (Auto) 77.8 % 01/05/23 19:20 Lymph % (Auto) 13.1 % 01/05/23 19:20 [place] % (Auto) 7.0 % 01/05/23 19:20 Eos % (Auto) 1.1 % 01/05/23 19:20 Baso % (Auto) 0.6 % 01/05/23 19:20 Neut # (Auto) 9.51 10^3/uL (1.8-7.7) H 01/05/23 19:20 Lymph # (Auto) 1.6 10^3/uL (0.8-4.8) 01/05/23 19:20 [place] # (Auto) 0.9 10^3/uL (0.2-0.9) 01/05/23 19:20 Eos # (Auto) 0.1 10^3/uL (0.0-0.8) 01/05/23 19:20 Baso # (Auto) 0.1 10^3/uL (0.0-0.1) 01/05/23 19:20 Nucleated RBC % (auto) 0 % 01/05/23 19: Nucleated RBCs # 0.0 /100WBC 01/05/23 19:20 Specimen Type Arterial 01/05/23 17:31 Sample Site Radial, left 01/05/23 17:31 ABG pH 7.39 (7.35-7.45) 01/05/23 17:31 ABG pCO2 45.9 mmHg (35-45) H 01/05/23 17:31 ABG pO2 60.9 mmHg (80.0-100.0) L 01/05/23 17:31 ABG HCO3 27.4 mmol/L (22-26) H 01/05/23 17:31 ABG O2 Saturation 92.7 01/05/23 17:31 ABG Base Excess 1.8 mmol/L (-2.0-2.0) 01/05/23 17:31 Lino Test Pos 01/05/23 17:31 A-a O2 Gradient 4.5 mmHg (5-10) L 01/05/23 17:31 Hematocrit 39.5 % (37-47) 01/05/23 17:31 Hgb O2 Saturation 87.9 % (95-100) L 01/05/23 17:31 Carboxyhemoglobin 4.6 %THgb (0.4-20.1) 01/05/23 17:31 Methemoglobin 0.6 % (0.4-1.5) 01/05/23 17:31 Total Hemoglobin 12.9 g/dL (12-16) 01/05/23 17:31 Sodium 144.0 mmol/L (131-143) H 01/05/23 17:31 Potassium 2.9 mmol/L (3.5-5.0) L 01/05/23 17:31 Glucose 143.0 mg/dL (70-115) H 01/05/23 17:31 Ionized Calcium 1.2 mmol/L (1.1-1.4) 01/05/23 17:31 O2 Delivery Device Room air 01/05/23 17:31 FiO2 21.0 % 01/05/23 17:31 Swiss Type Screw Machine Operator ID [place] 01/05/23 17:31 Sodium 139 mmol/L (136-145) 01/05/23 19:20 Potassium 4.1 mmol/L (3.5-5.1) 01/05/23 19:20 Chloride 103 mmol/L (98-107) 01/05/23 19:20 Carbon Dioxide 29 mmol/L (22-29) 01/05/23 19:20 Anion Gap 11.1 (5-19) 01/05/23 19:20 BUN 11 mg/dL (8-23) 01/05/23 19:20 Creatinine 0.6 mg/dL (0.5-0.9) 01/05/23 19:20 GFR Calculation Not Reportable 01/05/23 19:20 Glucose 90 mg/dL (65-115) 01/05/23 19:20 POC Glucose 59 mg/dL (70-110) L 01/05/23 18:29 Calculated Osmolality 287 mOsm/kg (285-295) 01/05/23 19:20 Calcium 10.6 mg/dL (8.5-10.5) H 01/05/23 19:20 Total Bilirubin 0.2 mg/dL (0.15-1.2) 01/05/23 19:20 AST 13 U/L (0-32) 01/05/23 19:20 ALT 9 U/L (0-33) 01/05/23 19:20 Alkaline Phosphatase 94 U/L (35-105) 01/05/23 19:20 Troponin T Baseline 9 ng/L (0-10) 01/05/23 19:20 Total Protein 6.2 g/dL (6.6-8.7) L 01/05/23 19:20 Albumin 4.3 g/dL (3.5-5.2) 01/05/23 19:20 Globulin 1.9 g/dL (1.3-4.6) 01/05/23 19:20 TSH 2.27 uIU/mL (0.27-4.20) 01/05/23 19:20 Urine Color Colorless (Yellow) 01/05/23 18:22 Urine Appearance Clear (CLEAR) 01/05/23 18:22 Urine pH 7 (5-7) 01/05/23 18:22 Ur Specific [place] 1.005 (1.005-1.030) 01/05/23 18:22 Urine Protein Neg (Negative) 01/05/23 18:22 Urine Glucose (UA) Norm (Normal) 01/05/23 18:22 Urine Ketones Negative (Negative) 01/05/23 18:22 Urine Blood Neg (Negative) 01/05/23 18:22 Urine Nitrate Negative (Negative) 01/05/23 18:22 Urine Bilirubin Neg (Negative) 01/05/23 18:22 Urine Urobilinogen Neg mg/dL (Negative) 01/05/23 18:22 Ur Leukocyte Esterase Negative (Negative) 01/05/23 18:22 Salicylates < 0.3 mg/dL (3-10) L 01/05/23 19:20 Urine Opiates Screen Positive ng/mL (Negative) H 01/05/23 18:22 Acetaminophen < 5.0 ug/mL (10-30) L 01/05/23 19:20 Ur Barbiturates Screen Negative ng/mL (Negative) 01/05/23 18:22 Ur Phencyclidine Scrn Negative ng/mL (Negative) 01/05/23 18:22 Ur Amphetamines Screen Negative ng/mL (Negative) 01/05/23 18:22 U Benzodiazepines Scrn Positive ng/mL (Negative) H 01/05/23 18:22 Urine Cocaine Screen Negative ng/mL (Negative) 01/05/23 18:22 U Marijuana (THC) Screen Negative ng/mL (Negative) 01/05/23 18:22 Ethyl Alcohol < 10 mg/dL (0-10) 01/05/23 19:20 EKG Data EKG 1: I personally reviewed and interpreted this EKG as follows: Interpretation: Resting EKG reveals a ventricular rate of 69 bpm. Normal intervals, normal axis. Consistent with normal sinus rhythm. No acute ST-T wave changes noted at this time. Discharge Plan Discharge Patient Disposition: Placed in Observation Clinical Impression: Medication adverse effect, Hypoglycemia, Chronic pain Condition: Stable Prescriptions: No Action CeraVe Cream 1 applic topical QID PRN cholecalciferol (vitamin D3) 50 mcg (2,000 unit) capsule 50 mcg PO DAILY albuterol sulfate [Ventolin HFA] 90 mcg/actuation HFA aerosol inhaler 2 puff inhalation Q6H PRN (Reason: shortness of breath or wheezing) Qty: 8.5 3RF methylprednisolone acetate [Depo-Medrol] 40 mg/mL suspension 40 mg intra-articular ONCE Qty: 1 0RF bupivacaine (PF) 0.25 % (2.5 mg/mL) solution 1 ml intra-articular ONCE Qty: 1 0RF sulfamethoxazole-trimethoprim 800-160 mg tablet 1 tab PO BID Qty: 28 1RF venlafaxine [Effexor XR] 37.5 mg capsule,extended release 24hr 37.5 mg PO .morning Qty: 30 6RF Rx Instructions: Take one capsule every morning albuterol sulfate 2.5 mg /3 mL (0.083 %) solution for nebulization 2.5 mg inhalation Q6H PRN (Reason: shortness of breath or wheezing) Qty: 180 0RF bupivacaine (PF) 0.25 % (2.5 mg/mL) solution 1 ml intra-articular ONCE Qty: 1 0RF fluticasone propionate 50 mcg/actuation spray,suspension See Rx Instructions .ROUTE .COMPLEX Qty: 16 3RF Dose Instruction: USE 1 SPRAY IN EACH NOSTRIL TWICE DAILY Rx Instructions: USE 1 SPRAY IN EACH NOSTRIL TWICE DAILY isosorbide mononitrate 60 mg tablet extended release 24 hr 90 mg PO DAILY Qty: 135 3RF Trelegy Ellipta 100-62.5-25 mcg blister with device 1 inh inhalation DAILY Qty: 60 5RF pantoprazole 40 mg tablet,delayed release (DR/EC) See Rx Instructions .ROUTE .COMPLEX Qty: 90 1RF Dose Instruction: TAKE 1 TABLET BY MOUTH EVERY DAY Rx Instructions: TAKE 1 TABLET BY MOUTH EVERY DAY levothyroxine 75 mcg tablet See Rx Instructions .ROUTE .COMPLEX Qty: 90 1RF Dose Instruction: TAKE 1 TABLET BY MOUTH EVERY DAY Rx Instructions: TAKE 1 TABLET BY MOUTH EVERY DAY pregabalin 50 mg capsule 50 mg PO TID Qty: 90 5RF montelukast 10 mg tablet See Rx Instructions .ROUTE .COMPLEX Qty: 90 0RF Dose Instruction: TAKE 1 TABLET BY MOUTH EVERY DAY Rx Instructions: TAKE 1 TABLET BY MOUTH EVERY DAY atorvastatin 20 mg tablet 20 mg PO DAILY Qty: 90 1RF polyethylene glycol 3350 17 gram/dose powder See Rx Instructions .ROUTE .COMPLEX Qty: 510 1RF Dose Instruction: DISSOLVE 17 GRAMS BY MOUTH 1-2 TIMES PER DAY NEEDED FOR CONSTIPATION NEEDED Rx Instructions: DISSOLVE 17 GRAMS BY MOUTH 1-2 TIMES PER DAY NEEDED FOR CONSTIPATION NEEDED guaifenesin [Mucinex] 600 mg tablet extended release 12hr 600 mg PO BID PRN (Reason: congestion) Qty: 20 0RF furosemide 20 mg tablet See Rx Instructions .ROUTE .COMPLEX Qty: 270 0RF Dose Instruction: TAKE 3 TABLETS BY MOUTH EVERY MORNING Rx Instructions: TAKE 3 TABLETS BY MOUTH EVERY MORNING aspirin [Adult Low Dose Aspirin] 81 mg tablet,delayed release (DR/EC) 81 mg PO DAILY Qty: 90 3RF hydrocodone-acetaminophen 10-325 mg tablet 1 tab PO TID PRN (Reason: pain) 30 Days Qty: 90 0RF Rx Instructions: may fill 30 days after previous refill lisinopril 20 mg tablet See Rx Instructions .ROUTE .COMPLEX Qty: 90 0RF Dose Instruction: TAKE 1 TABLET BY MOUTH EVERY DAY Rx Instructions: TAKE 1 TABLET BY MOUTH EVERY DAY amlodipine 5 mg tablet See Rx Instructions .ROUTE .COMPLEX Qty: 90 0RF Dose Instruction: TAKE 1 TABLET BY MOUTH EVERY DAY Rx Instructions: TAKE 1 TABLET BY MOUTH EVERY DAY valacyclovir 500 mg tablet See Rx Instructions .ROUTE .COMPLEX Qty: 90 0RF Dose Instruction: TAKE ONE TABLET BY MOUTH EVERY DAY Rx Instructions: TAKE ONE TABLET BY MOUTH EVERY DAY potassium chloride 10 mEq tablet extended release See Rx Instructions .ROUTE .COMPLEX Qty: 180 0RF Dose Instruction: TAKE ONE TABLET BY MOUTH TWICE DAILY Rx Instructions: TAKE ONE TABLET BY MOUTH TWICE DAILY latanoprost 0.005 % drops 1 drp ophthalmic (eye) QPM PRN (Reason: unknown) Centrum Women 18-400 mg-mcg Tablet 1 tab PO DAILY Vitamin D3 50 mcg (2,000 unit) Capsule 50 mcg PO DAILY albuterol sulfate 90 mcg/actuation HFA aerosol inhaler 2 inh inhalation Q8H PRN (Reason: shortness of breath or wheezing) Qty: 8.5 3RF Referrals: Kaycee Roque DO [Primary Care Provider] - Coding Level of Care Code ED Patch Driller for Lori Reed
[2023-01-05 17:27] LABS: Glucose Point of Care 60 mg/dL (70-110)
[2023-01-05 17:44] LABS: ABG PCO2 45.9 mmHg (35-45); ABG PH Result 7.39 (7.35-7.45); Alveolar-Arterial Oxygen Gradi 4.5 mmHg (5-10); Arterial Blood Gas Hematocrit 39.5 % (37-47); Base Excess ABG 1.8 mmol/L (-2.0-2.0); Blood Gas Allen Test Pos; Blood Gas Operator Identificat MONRO; Blood Gas Sample Site Radial, left; Blood Gas Sample Type Arterial; Carboxyhemoglobin 4.6 %THgb (0.4-20.1); HCO3 ABG 27.4 mmol/L (22-26); HGB O2 Sat 87.9 % (95-100); Ionized Calcium Level - ABG 1.2 mmol/L (1.1-1.4); Methemoglobin 0.6 % (0.4-1.5); Oxygen Device ROOM AIR; Oxygen Saturation ABG 92.7; PO2 ABG 60.9 mmHg (80.0-100.0); Potassium Level - ABG 2.9 mmol/L (3.5-5.0); Total Hemoglobin 12.9 g/dL (12-16)
--- NOTE | 2023-01-05 18:01 | PC.NURSE ---
Dr. Robison pulled Narcan and gave 0.4mg it to patient via IV at 1730.
[2023-01-05] MEDS: dextrose 50% syringe 50 mL 25 ML IVP (18:02)
[2023-01-05 18:32] LABS: Glucose Point of Care 59 mg/dL (70-110)
--- NOTE | 2023-01-05 19:10 | PC.NURSE ---
FEMALE SPECI-CATH USED BY THIS RN TO OBTAIN URINE SPECIMEN ON PATIENT. AFTER CATHETER REMOVED, PT STATED SHE HAD TO VOID. BEDPAN WAS PLACED PT CONTINUES TO FALL ASLEEP AND SLOUCH OVER. PT SATURATED SHEETS - SHEETS CHANGED AND PT CLEANED UP AND PLACED IN GOWN. BELONGINGS PLACED IN CHAIR.
--- NOTE | 2023-01-05 19:24 | ECG_ITS ---
[facility] Test Date: 2023-01-05 Pat Name: Prisca Hernandez Department: Room: Gender: Female Animal Cruelty Investigator: : 1945 Requested By: Arjun Robison Order Number: [id number] Aye MD: Fred Silverio M.D. Measurements Intervals [place] Rate: 72 P: 22 MN: 169 QRS: 8 QRSD: 88 T: 65 QT: 430 QTc: 473 Interpretive Statements SINUS RHYTHM LOW QRS VOLTAGE IN PRECORDIAL LEADS [QRS DEFLECTION < 1.0 mV IN CHEST LEADS] Compared to ECG 01/05/2023 17:36:45 Low QRS voltage now present T-wave abnormality no longer present Electronically Signed On 01-05-2023 21:56:58 HOUSEKEEPING DIRECTOR by Fred Silverio M.D. [id number]
[2023-01-05 19:26] LABS: Add Urine Microscopic? NO
[2023-01-05 19:28] LABS: Charge for UA Resulting for Rev
[2023-01-05 19:38] LABS: Basophils # 0.1 10^3/uL (0.0-0.1); Basophils % 0.6 %; Eosinophils # 0.1 10^3/uL (0.0-0.8); Eosinophils % 1.1 %; Hematocrit 41.1 % (37.0-47.0); Lymphocytes # 1.6 10^3/uL (0.8-4.8); Lymphocytes % 13.1 %; Mean Corpuscular HGB Conc 31.6 g/dL (30.0-36.0); Mean Corpuscular Hemoglobin 30.9 pg (28.0-34.0); Mean Corpuscular Volume 97.6 fl (81-99); Mean Platelet Volume 11.1 fL (7.4-10.4); Monocytes # 0.9 10^3/uL (0.2-0.9); Neutrophils # 9.51 10^3/uL (1.8-7.7); Neutrophils % 77.8 %; Nucleated Red Blood Cells % 0 %; Platelet Count 191 10^3/cmm (130-400); Red Blood Count 4.21 10^6/uL (4.1-5.3); Red Cell Distribution Width 13.2 % (12.1-15.1); White Blood Count 12.2 10^3/uL (4.0-10.0)
[2023-01-05 19:49] LABS: Bilirubin Urine Neg (Negative); Blood Urine Neg (Negative); Glucose Urine UA Norm (Normal); Ketones Urine Negative (Negative); Leukocyte Esterase Urine Negative (Negative); Nitrate Urine Negative (Negative); Protein Urine Neg (Negative); Specific Gravity, Urine 1.005 (1.005-1.030); Urine Appearance Clear (CLEAR); Urine Color Colorless (Yellow); Urobilinogen Urine Neg (Negative); pH Urine 7 (5-7)
[2023-01-05 20:11] LABS: Amphetamines Screen Urine Negative (Negative); Barbiturates Screen Urine Negative (Negative); Benzodiazepines Screen Urine Positive (Negative); Cocaine Screen Urine Negative (Negative); Opiate Screen Urine Positive (Negative); PCP Screen Urine Negative (Negative); THC Screen Urine Negative (Negative)
[2023-01-05 20:12] LABS: Troponin(5th) Baseline 9 ng/L (0-10)
[2023-01-05 20:20] LABS: Alanine Aminotransferase 9 U/L (0-33); Albumin Level 4.3 g/dL (3.5-5.2); Alkaline Phosphatase 94 U/L (35-105); Anion Gap 11.1 (5-19); Aspartate Amino Transferase 13 U/L (0-32); Blood Urea Nitrogen 11 mg/dL (8-23); Calcium 10.6 mg/dL (8.5-10.5); Carbon Dioxide 29 mmol/L (22-29); Chloride 103 mmol/L (98-107); Globulin 1.9 g/dL (1.3-4.6); Glucose 90 mg/dL (65-115); Osmolality Calculated 287 mOsm/kg (285-295); Potassium 4.1 mmol/L (3.5-5.1); Sodium 139 mmol/L (136-145); Thyroid Stimulating Hormone 2.27 uIU/mL (0.27-4.20); Total Bilirubin 0.2 mg/dL (0.15-1.2); Total Protein 6.2 g/dL (6.6-8.7)
[2023-01-05 20:30] LABS: Acetaminophen < 5.0 ug/mL (10-30); Alcohol Level < 10 mg/dL (0-10); Salicylate < 0.3 mg/dL (3-10)
--- NOTE | 2023-01-05 20:34 | PC.NURSE ---
Patient requested to use the bathroom, I ambulated the patient and they needed a moderate one person assist to and from the bathroom as they were very wobbly and easily lost balance, doctor was informed.
[2023-01-05 20:43] LABS: Glucose Point of Care 87 mg/dL (70-110)
--- NOTE | 2023-01-05 23:23 | P.HP_ITS ---
Providers/Chief Complaint Admitting Physician: Anais Patel MD Primary Care Provider: Kaycee Roque DO Chief Complaint: NEAR SYNCOPE/ DIZZY/ WEAK History of Present Illness Prisca Hernandez is a 77 year old female brought to the emergency room for altered mental status. History is obtained mainly by talking to ER physician as patient does not recall events leading up to hospitalization. Reportedly patient was found to have altered mental status by family this evening. When EMS arrived she had pinpoint pupils and was initially hypoglycemic upon ER arrival with a blood sugar of 59. She received pushes of IV dextrose, also received Narcan following which her pupils began to dilate. Patient started become more alert and awake. On reassessment after being given dextrose and Narcan, patient was awake alert oriented. Complains of generalized weakness but denies any recent fever chills. Patient has a home health nurse involved in her care who usually sets up her pillbox, however today nurses found her opiates to be mixed with Imdur, patient does have access to her own medications and accidental overdose on opiates as a possibility. Denies any suicidal ideation. Currently she appears to be back to her baseline. Review of Systems General: Reports: 10 or more systems reviewed and unremarkable except in HPI and below Const: Denies: fever(s), chills or body aches Eyes: Denies: change in vision, blurry vision or photophobia ENMT: Reports: hoarseness; Denies: throat pain, enlarged tonsils, odynophagia or nasal congestion Card: Denies: chest pain, palpitations, irregular heart rhythm, edema, swelling of feet/ankles, lightheadedness, pre-syncope, dyspnea on exertion or orthopnea Resp: Denies: dyspnea, productive cough, non-productive cough, wheezing, stridor, pain on inspiration, change in phlegm color, hemoptysis or chest con gestion GI: Denies: abdominal pain, nausea, vomiting, hematemesis, coffee ground emesis, dysphagia, heartburn, diarrhea, constipation, GI cramping, change in stool character, hematochezia or melena : Denies: flank pain, difficulty voiding, dysuria, urinary frequency, urinary urgency, urinary hesitancy or hematuria Musc: Denies: neck pain, back pain, extremity pain, joint swelling, joint warmth or deformity Neuro: Denies: headache(s), numbness in extremities, weakness in extremities, sensory changes, difficulty walking, frequent falls, dizziness, vertigo, behavioral changes, Slurred speech present or seizure-like activity Psych: Denies: anxiety, depression, suicidal ideation or homicidal ideation Endo: Denies: polyuria, polydipsia, tired all the time, cold intolerance or hot flashes Mundo/Lymph: Denies: easy bruising or easy bleeding Medications/Allergies Home Medications Medication Instructions Recorded Confirmed Last Taken Type cholecalciferol (vitamin D3) 50 50 mcg PO DAILY 03/21/21 12/18/22 Unknown Hist ory mcg (2,000 unit) capsule albuterol sulfate 90 mcg/actuation 2 puff inhalation Q6H PRN 02/23/22 12/18/22 Unknown Rx aerosol inhaler (Ventolin HFA) shortness of breath or wheezing #8.5 grams ceramides 1,3,6-II (CeraVe topical 1 applic topical QID PRN 04/27/22 12/18/22 Unknown History cream) fluticasone propionate 50 See Rx Instructions .Route 05/12/22 12/18/22 Unknown Rx mcg/actuation nasal .COMPLEX #16 grams spray,suspension isosorbide mononitrate 60 mg 90 mg PO DAILY #135 tabs 07/24/22 12/18/22 Unknown Rx tablet,extended release 24 hr fluticasone fur. 100 mcg-umeclid 1 inh inhalation DAILY #60 ea 07/27/22 12/18/22 Unknown Rx 62.5 mcg-vilant 25 mcg inhalat.powder (Trelegy Ellipta) cholecalciferol (vitamin D3) 50 50 mcg PO DAILY 08/15/22 12/18/22 Unknown History mcg (2,000 unit) capsule (Vitamin D3) latanoprost 0.005 % eye drops 1 drp ophthalmic (eye) QPM PRN 08/15/22 12/18/22 Unknown History unknown multivitamin-ferrous 1 tab PO DAILY 08/15/22 12/18/22 Unknown History fumarate-folic acid 18 mg-400 mcg tablet (Centrum Women) pantoprazole 40 mg tablet,delayed See Rx Instructions .Route 08/15/22 12/18/22 Unknown Rx release .COMPLEX #90 tabs albuterol sulfate 90 mcg/actuation 2 inh inhalation Q8H PRN shortness 08/16/22 12/18/22 Unknown Rx aerosol inhaler of breath or wheezing #8.5 grams albuterol sulfate 2.5 mg/3 mL 2.5 mg (3 mL) inhalation Q6H PRN 08/24/22 12/18/22 Unknown Rx (0.083 %) solution for nebulization shortness of breath or wheezing #180 mL levothyroxine 75 mcg tablet See Rx Instructions .Route 09/06/22 12/18/22 Unknown Rx .COMPLEX #90 tabs pregabalin 50 mg capsule 50 mg PO TID #90 caps 09/07/22 12/18/22 Unknown Rx montelukast 10 mg tablet See Rx Instructions .Route 10/20/22 12/18/22 Unknown Rx .COMPLEX #90 tabs sulfamethoxazole 800 1 tab PO BID #28 tabs 11/02/22 12/18/22 Unknown Rx mg-trimethoprim 160 mg tablet atorvastatin 20 mg tablet 20 mg PO DAILY #90 tabs 11/03/22 12/18/22 Unknown Rx polyethylene glycol 3350 17 See Rx Instructions .Route 11/07/22 12/18/22 Unknown Rx gram/dose oral powder .COMPLEX #510 grams guaifenesin 600 mg tablet, 600 mg PO BID PRN congestion #20 11/12/22 12/18/22 U nknown Rx extended release 12 hr (Mucinex) tabs furosemide 20 mg tablet See Rx Instructions .Route 11/29/22 12/18/22 Unknown Rx .COMPLEX #270 tabs aspirin 81 mg tablet,delayed 81 mg PO DAILY #90 tabs 12/04/22 12/18/22 Unknown Rx release (Adult Low Dose Aspirin) hydrocodone 10 mg-acetaminophen 1 tab PO TID PRN pain 30 days #90 12/06/22 12/18/22 Unknown Rx 325 mg tablet tabs lisinopril 20 mg tablet See Rx Instructions .Route 12/08/22 12/18/22 Unknown Rx .COMPLEX #90 tabs venlafaxine 37.5 mg 37.5 mg PO .morning #30 caps 12/14/22 12/18/22 Unknown Rx capsule,extended release 24 hr (Effexor XR) amlodipine 5 mg tablet See Rx Instructions .Route 12/20/22 Unknown Rx .COMPLEX #90 tabs potassium chloride 10 mEq See Rx Instructions .Route 01/05/23 Unknown Rx tablet,extended release .COMPLEX #180 tabs valacyclovir 500 mg tablet See Rx Instructions .Route 01/05/23 Unknown Rx .COMPLEX #90 tabs Allergies Allergy/AdvReac Type Severity Reaction Status Date / Time alprazolam [From Xanax] Allergy nausea and Verified 12/18/22 10:07 vomiting baclofen Allergy Unknown Verified 12/18/22 10:07 ciprofloxacin [From Cipro] Allergy ALGY-Rash Verified 12/18/22 10:07 codeine Allergy nausea & Verified 12/18/22 10:07 vomiting morphine Allergy nausea & Verified 12/18/22 10:07 vomiting naproxen [From Aleve] Allergy ALGY-Hives Verified 12/18/22 10:07 Penicillins Allergy vomiting Verified 12/18/22 10:07 propoxyphene [From Darvon] Allergy nausea Verified 12/18/22 10:07 ranitidine [From Zantac] Allergy nausea & Verified 12/18/22 10:07 vomiting fentanyl AdvReac Unknown rash & Verified 12/18/22 10:07 nausea Aleve Allergy Unknown Unknown Uncoded 12/18/22 10:07 Alprazelam Allergy Unknown Unknown Uncoded 12/18/22 10:07 fentanyl AdvReac lethargic Uncoded 12/18/22 10:07 PFSH Acute PFSH: Medical History Abnormal stress test Acute cystitis Age-related cognitive decline Back pain Benign essential HTN CAD (coronary artery disease) Chest pain Chronic constipation Chronic post-traumatic stress disorder Chronic right SI joint pain Chronic right-sided low back pain with right-sided sciatica Cigarette nicotine dependence Coronary disease Cystocele Dyslipidemia Encounter for long-term opiate analgesic use Gastritis Gastro-esophageal reflux disease without esophagitis Generalized edema GERD (gastroesophageal reflux disease) History of herpes genitalis Hypertension Hypothyroidism Low back pain of over 3 months duration Major depressive disorder, recurrent episode with mood-congruent psychotic features Microscopic hematuria Mixed incontinence Moderate COPD (chronic obstructive pulmonary disease) Opioid contract exists Periodontal disease Pneumonia Rectal Hemorrhage Spinal stenosis, cervical region Surgical History History of appendectomy History of colonoscopy (~2017) History of colonoscopy with polypectomy (~12/2020) History of esophagogastroduodenoscopy (EGD) (~12/2020) Hx of heart artery stent S/P appendectomy S/P cataract surgery S/P hysterectomy S/P tonsillectomy and adenoidectomy Stented coronary artery Family History Father , at age 93 CAD (coronary artery disease) Family/Other CAD (coronary artery disease) uncle Cancer maternal aunt & maternal uncle Mother , at age 77 CAD (coronary artery disease) Hypertension Cancer Sister Hypertension Cancer Daughter Diabetes Other Chronic post-traumatic stress disorder Social History Smoking and tobacco status: current every day smoker cigarettes Packs smoked per day: 0.75 Years cigarettes smoked: 61 [ Other cigarette details: 03-cmwb-alsy smoking history] Quit status (tobacco): not considering quitting Smoking risk assessment/counseling performed?: No Alcohol intake: current Alcohol intake frequency: holidays/special occasions only Adopted: No Caregiver/support person: No Lives independently: No Household members: family Housing: House Marital status: Marital status details: since the Number of children: 5 Highest education level completed: Associate Degree: Occupational, Technical, Vocational Program Education level details: Clerical training service: No Current occupational status: disabled Current occupational exposures/hazards: No Pets and animals: No History of recent travel: No Leisure activites: music, games and other Leisure activities details: watch TV, bingo, dance, visit with others Sexually active: No Current gender identity: Female Susan/Shinto: Faith Special susan needs: No Agree to transfusion: Yes Financial difficulty paying for basics: Not Very Hard Female Reproductive History: Para: 5 Spontaneous abortions: No Vitals/I&O/Wt Last Vital Signs Temp 97.6 F 01/05/23 17:09 Pulse 81 01/05/23 21:00 Resp 16 01/05/23 21:00 BP 109/82 01/05/23 21:00 Pulse Ox 94 01/05/23 21:00 O2 Del Method 01/05/23 21:57 01/05/23 01/05/23 01/06/23 14:59 22:59 06:59 Intake Total 240 / 240 Balance 240 / 240 Physical Exam Narrative: General: No acute distress, AO x3 HEENT: PERRLA, pupils bilaterally equal and reactive, pallors not present Chest: Normal vesicular breath sounds, no added sounds, equal good air entry bilaterally CVS: S1-S2 regular, no murmurs, no tachycardia, no gallops, no rubs Abdomen: Soft, nontender, no organomegaly, bowel sounds present Neuro: No focal deficits, no facial deformity, AO x3, power 5/5 in all limbs Data 01/05/23 19:20 01/05/23 19:20 A&P Assessment and plan (1) Altered mental status: Patient brought to the emergency room with altered mental status, found to have hypoglycemia and pinpoint pupils upon arrival for which she received IV dextrose and Narcan following which her mental status is now appearing to be back to baseline. CT of the head does not show any acute intracranial abnormality. No focal motor deficits, less likely CVA Chest x-ray without any acute findings. TSH is normal ABG on room air within normal range except for PO2 of 60. Electrolytes including sodium and potassium within normal range. Calcium slightly elevated at 10.6, unlikely to explain her altered mental status. U tox positive for opiates and benzodiazepines. Patient may have had her altered mental status related to opiate overdose given improvement with Narcan. She does have home health and her pillboxes mostly set up by the nurse, however today nurse on the floors did find medications mixed with each other. Will check orthostatics plan to monitor overnight for any significant mental status changes Attestations Medical Necessity Statement*: anticipate less than 2 midnight stay for above defined care Coding Level of Care Code Acute Code for Chg Fwd Moderate MDM includes number and complexity of problems actively addressed during encounter and amount and/or complexity of data reviewed/ordered as documented Diagnoses Altered mental status R41.82
--- NOTE | 2023-01-05 23:26 | ECG_ITS ---
[facility] Test Date: 2023-01-05 Pat Name: Prisca Hernandez Department: Room: 253 Gender: Female [employer]: : 1945 Requested By: Arjun Robison Order Number: [id number] Aye MD: Fred Silverio M.D. Measurements Intervals [place] Rate: 81 P: -11 DE: 143 QRS: -21 QRSD: 85 T: 149 QT: 350 QTc: 406 Interpretive Statements SINUS RHYTHM BORDERLINE LEFT AXIS DEVIATION [QRS AXIS < -20] ST DEVIATION AND MODERATE T-WAVE ABNORMALITY, CONSIDER LATERAL ISCHEMIA [-0.1+ mV T-WAVE IN I/aVL/V5/V6] Compared to ECG 01/05/2023 20:00:08 T-wave abnormality now present Possible ischemia now present Electronically Signed On 01-06-2023 4:41:38 APPLIED EXERCISE PHYSIOLOGIST by Fred Silverio M.D. [email or web address]
[2023-01-06] VITALS (9 sets, daily range): BP systolic 119–163; BP diastolic 67–85; PULSE 72–79; RESP 14–18; TEMP 36.1–37.2; O2SAT 92–96
[2023-01-06 01:59] LABS: Basophils # 0.1 10^3/uL (0.0-0.1); Basophils % 0.6 %; Eosinophils # 0.2 10^3/uL (0.0-0.8); Eosinophils % 2.2 %; Hematocrit 40.8 % (37.0-47.0); Hemoglobin 13.4 g/dL (11.5-15.3); Lymphocytes # 2.1 10^3/uL (0.8-4.8); Lymphocytes % 25.7 %; Mean Corpuscular HGB Conc 32.8 g/dL (30.0-36.0); Mean Corpuscular Hemoglobin 30.9 pg (28.0-34.0); Mean Platelet Volume 10.8 fL (7.4-10.4); Monocytes # 0.8 10^3/uL (0.2-0.9); Monocytes % 9.3 %; Neutrophils # 5.09 10^3/uL (1.8-7.7); Neutrophils % 62.1 %; Nucleated Red Blood Cells % 0 %; Platelet Count 207 10^3/cmm (130-400); Red Blood Count 4.34 10^6/uL (4.1-5.3); Red Cell Distribution Width 13.2 % (12.1-15.1); White Blood Count 8.2 10^3/uL (4.0-10.0)
[2023-01-06 02:22] LABS: Alanine Aminotransferase 14 U/L (0-33); Albumin Level 4.4 g/dL (3.5-5.2); Alkaline Phosphatase 74 U/L (35-105); Anion Gap 13.4 (5-19); Aspartate Amino Transferase 16 U/L (0-32); Blood Urea Nitrogen 16 mg/dL (8-23); Calcium 9.2 mg/dL (8.5-10.5); Carbon Dioxide 27 mmol/L (22-29); Chloride 111 mmol/L (98-107); Globulin 1.9 g/dL (1.3-4.6); Glucose 84 mg/dL (65-115); Osmolality Calculated 306 mOsm/kg (285-295); Potassium 3.4 mmol/L (3.5-5.1); Sodium 148 mmol/L (136-145); Total Bilirubin 0.3 mg/dL (0.15-1.2); Total Protein 6.3 g/dL (6.6-8.7)
[2023-01-06] MEDS: levothyroxine 75 mcg Tablet PO (06:38)
[2023-01-06] MEDS: D5-NS 0.45% + KCL 20 mEq 20 MEQ/1,000 ML BAG 75 MEQ IV ×2 (06:39→20:10)
[2023-01-06 06:45] LABS: Glucose Point of Care 100 mg/dL (70-110)
--- NOTE | 2023-01-06 08:48 | PC.PHAR ---
PT UNABLE TO VERIFY- UNABLE TO REACH HOME HEALTH NURSE- VERIFIED BY CALLING PTS PHARMACY AND EXTERNAL MED LIST LAST FILLED
[2023-01-06] MEDS: pantoprazole DR 40 mg Tablet PO (09:34)
[2023-01-06] MEDS: amlodipine 5 mg Tablet PO (09:34)
[2023-01-06] MEDS: isosorbide mononitrate ER 30 mg Tablet 90 MG PO (09:34)
[2023-01-06] MEDS: atorvastatin 40 mg Tablet 20 MG PO (09:34)
[2023-01-06] MEDS: aspirin 81 mg EC Tablet PO (09:34)
--- NOTE | 2023-01-06 14:25 | P.PN_ITS ---
Vitals/I&O/Wt Last Vital Signs Temp 98.6 F 01/06/23 11:54 Pulse 73 01/06/23 11:54 Resp 15 01/06/23 11:54 BP 119/70 01/06/23 11:54 Pulse Ox 95 01/06/23 11:54 O2 Del Method 01/06/23 11:54 01/05/23 01/06/23 01/06/23 22:59 06:59 14:59 Intake Total 240 / 240 120 / 360 480 / 480 Output Total 900 / 900 1500 / 1500 Balance 240 / 240 -780 / -540 -1020 / -1020 Weight last 48 hrs Weight 74.344 kg Physical Exam Narrative: General: No acute distress, AO x3 HEENT: PERRLA, pupils bilaterally equal and reactive, pallors not present Chest: Normal vesicular breath sounds, no added sounds, equal good air entry bilaterally CVS: S1-S2 regular, no murmurs, no tachycardia, no gallops, no rubs Abdomen: Soft, nontender, no organomegaly, bowel sounds present Neuro: No focal deficits, no facial deformity, AO x3, power 5/5 in all limbs Data 01/06/23 01:39 01/06/23 01:39 A&P Assessment and plan (1) Altered mental status: Patient brought to the emergency room with altered mental status, found to have hypoglycemia and pinpoint pupils upon arrival for which she received IV dextrose and Narcan following which her mental status is now appearing to be back to baseline. CT of the head negative for acute abnormality. Unlikely CVA. Does not show any acute intracranial abnormality. No focal motor deficits, less likely CVA Orthostatic negative. Chest x-ray without any acute findings. TSH is normal ABG on room air within normal range except for PO2 of 60. Electrolytes including sodium and potassium within normal range. U tox positive for opiates and benzodiazepines. On review of pillboxes it seems there is medication mixup. Heart blocks of pain pills also has Imdur At and vice versa. Altered mental status on admission most likely secondary to medication mishap in setting of opiate overdose leading to hypoglycemia. Check CPK. (2) Medication adverse effect: As above. Patient states she takes 1 [place] a day for pain. Restart [place] 5 mg to 12 hourly as needed to avoid withdrawals. (3) Hypoglycemia: No history of diabetes mellitus. Check A1c. (4) Moderate COPD (chronic obstructive pulmonary disease): No active exacerbation. DuoNebs every 6 hour, budesonide twice daily. Patient uses Trelegy at home. (5) Major depressive disorder, recurrent episode with mood-congruent psychotic features: Continue home medications including Effexor 37.5 mg daily. Avoid sedating medications. Continue with home pregabalin 50 mg but change it from 3 times daily to twice daily. (6) Opioid contract exists: (7) Hypernatremia: Most likely in setting of dehydration. Start on D5 half NS at 75 cc/h. Recheck BMP in afternoon. Monitor and treat accordingly. Plan Hypertension: Goal blood pressure less than 140 over 90 mmHg with mean over 65. Continue with home dose of amlodipine 5 mg, Imdur 90 mg. Hold off on lisinopril. Will uptitrate or restart as per blood pressures at goal. Check orthostatic. Check CPK, folate level, A1c, lipid panel, TIBC, B12 level. Full code. Protonix for PUD prophylaxis Heparin 5000 every 12 hourly for DVT prophylaxis Discharge planning: Patient lives by herself. Does not have any social support. Does have home health who comes in 3 times a week to set up her medications. Patient admitted this time because of medication mishap. Discussed in detail with patient for possible discharge to SNF for further rehabilitation and safe discharge for a short while. Patient is agreeable. PT evaluation. Case management alerted. Attestations Medical Necessity Statement*: Prisca Hernandez is being changed to inpatient status as stay will now exceed 2 midnights. Ongoing hospital care is necessary for management of hypernatremia secondary to dehydration, altered mental status in setting of medication mishap and hypoglycemia and High Time for a total of 50 minutes, includes reviewing past or interval history, examining/interviewing patient, placing orders, counseling patient/family/other support, updating patient/family/other support, discussing plan of care with staff, communicating with other healthcare providers, documenting encounter and coordinating care Diagnoses Altered mental status R41.82 Medication adverse effect T50.905A Hypoglycemia E16.2 Moderate COPD (chronic obstructive pulmonary disease) J44.9 Major depressive disorder, recurrent episode with mood-congruent psychotic f eatures F33.3 Opioid contract exists Z79.891 Hypernatremia E87.0
[2023-01-06 14:52] LABS: Anion Gap 14.9 (5-19); Blood Urea Nitrogen 14 mg/dL (8-23); Calcium 8.9 mg/dL (8.5-10.5); Carbon Dioxide 22 mmol/L (22-29); Chloride 108 mmol/L (98-107); Glucose 144 mg/dL (65-115); Osmolality Calculated 295 mOsm/kg (285-295); Potassium 3.9 mmol/L (3.5-5.1); Sodium 141 mmol/L (136-145)
[2023-01-06 15:40] LABS: Chol HDL Ratio 3.78 mg/dL (0.0-4.40); Cholesterol 155 mg/dL (0-200); Creatine Phosphokinase 52 U/L (26-192); HDL Cholesterol 41 mg/dL (60-100); Iron 105 ug/dL (37-145); LDL Cholesterol Calculated 72 mg/dL (50-129); Percent Saturation 37.5 % (20-50); Total Iron Binding Capacity 280 mcg/dl; Triglycerides 210 mg/dL (0-150); Unsaturated Iron Binding 175 ug/dL (112-347); VLDL Cholestrol Calculation 42 mg/dL (0-30)
[2023-01-06 15:55] LABS: Procalcitonin 0.02 ng/mL (0-0.5); Vitamin B12 648 pg/mL (232-1245)
[2023-01-06] MEDS: heparin 5,000 unit/mL INJ 1 mL 5000 UNIT SUBCUT (16:21)
[2023-01-06 16:31] LABS: Estmated Average Glucose 117; Hemoglobin A1C 5.7 % (4.0-6.0)
[2023-01-06] MEDS: fluticasone nasal spray 16gm Btl 1 SPRAY INTRANASAL (17:45)
[2023-01-06] MEDS: pregabalin 50 mg Capsule PO (17:45)
[2023-01-06 22:04] LABS: Glucose Point of Care 131 mg/dL (70-110)
[2023-01-07] VITALS: BP 134/77; PULSE 73; RESP 19; TEMP 36.9; O2SAT 97
[2023-01-07] MEDS: heparin 5,000 unit/mL INJ 1 mL 5000 UNIT SUBCUT (02:49)
[2023-01-07 03:14] VITALS: BP 134/77; PULSE 73; RESP 19; TEMP 36.9
[2023-01-07 04:00] VITALS: BP 164/91; PULSE 75; RESP 18; TEMP 36.9; O2SAT 96
[2023-01-07 05:22] LABS: Basophils # 0.1 10^3/uL (0.0-0.1); Basophils % 1.1 %; Eosinophils # 0.3 10^3/uL (0.0-0.8); Hematocrit 43.1 % (37.0-47.0); Hemoglobin 14.1 g/dL (11.5-15.3); Lymphocytes # 2.4 10^3/uL (0.8-4.8); Lymphocytes % 32.9 %; Mean Corpuscular HGB Conc 32.7 g/dL (30.0-36.0); Mean Corpuscular Hemoglobin 31.1 pg (28.0-34.0); Mean Corpuscular Volume 94.9 fl (81-99); Monocytes # 0.9 10^3/uL (0.2-0.9); Monocytes % 12.4 %; Neutrophils % 49.5 %; Nucleated Red Blood Cells % 0 %; Platelet Count 180 10^3/cmm (130-400); Red Blood Count 4.54 10^6/uL (4.1-5.3); Red Cell Distribution Width 13.1 % (12.1-15.1); White Blood Count 7.3 10^3/uL (4.0-10.0)
[2023-01-07 05:49] LABS: Alanine Aminotransferase 14 U/L (0-33); Albumin Level 3.9 g/dL (3.5-5.2); Alkaline Phosphatase 73 U/L (35-105); Blood Urea Nitrogen 17 mg/dL (8-23); Calcium 9.3 mg/dL (8.5-10.5); Carbon Dioxide 24 mmol/L (22-29); Chloride 110 mmol/L (98-107); Globulin 2.4 g/dL (1.3-4.6); Glucose 109 mg/dL (65-115); Osmolality Calculated 302 mOsm/kg (285-295); Sodium 145 mmol/L (136-145); Total Bilirubin 0.3 mg/dL (0.15-1.2); Total Protein 6.3 g/dL (6.6-8.7)
[2023-01-07 05:51] LABS: Anion Gap 14.7 (5-19); Aspartate Amino Transferase 19 U/L (0-32)
[2023-01-07 05:52] LABS: Potassium 3.7 mmol/L (3.5-5.1)
[2023-01-07] MEDS: levothyroxine 75 mcg Tablet PO (06:02)
[2023-01-07 07:37] LABS: Glucose Point of Care 102 mg/dL (70-110)
[2023-01-07 08:00] VITALS: BP 169/96; PULSE 70; PULSE 81; RESP 17; RESP 18; TEMP 37; O2SAT 96; O2SAT 97
--- NOTE | 2023-01-07 09:56 | PM.DCS ---
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 History is obtained mainly by talking to ER physician as patient does not recall events leading up to hospitalization. Reportedly patient was found to have altered mental status by family this evening.? When EMS arrived she had pinpoint pupils and was initially hypoglycemic upon ER arrival with a blood sugar of 59.? She received pushes of IV dextrose, also received Narcan following which her pupils began to dilate.? Patient started become more alert and awake.? On reassessment after being given dextrose and Narcan, patient was awake alert oriented. Complains of generalized weakness but denies any recent fever chills.? Patient has a home health nurse involved in her care who usually sets up her pillbox, however today nurses found her opiates to be mixed with Imdur, patient does have access to her own medications and accidental overdose on opiates as a possibility. Denies any suicidal ideation.? Currently she appears to be back to her baseline. Hospital Course Hospital Course Patient was roomed to the hospital further evaluation and management of altered mental status in setting of medication midstance. She did not have any recurrence of symptoms during hospitalization. Patient was also found to have mild hypernatremia secondary to dehydration for which she was treated with IV hydration and her sodium levels have remained stable. It is believed his symptoms are most likely secondary to overdose of opiates as her other medications and opiate got mixed up. On review of her medication pill it was seen that in her painful box of her pain pills and Imdur and pain pills were out of the boxes as well. Patient states her medication box is set up by nurse who comes in once every week to set up her medications. Safe discharge plan were discussed in detail with patient with possibility of transfer to SNF. Patient was not interested in going to SNF and would like to go home. Patient did well with physical therapy. He has been discharged hemodynamically stable condition to home with home health. Care has been discussed with home health nurse as well and has been advised to put pain pill and other medications in separate boxes. Her dose of amlodipine has been increased to 10 mg oral daily. Pregabalin has been changed to 50 mg twice daily. Lisinopril, Lasix and potassium has been stopped. Physical Exam Narrative: General: No acute distress, AO x3 HEENT: PERRLA, pupils bilaterally equal and reactive, pallors not present Chest: Normal vesicular breath sounds, no added sounds, equal good air entry bilaterally CVS: S1-S2 regular, no murmurs, no tachycardia, no gallops, no rubs Abdomen: Soft, nontender, no organomegaly, bowel sounds present Neuro: No focal deficits, no facial deformity, AO x3, power 5/5 in all limbs Discharge Data Studies Completed and Pending Completed Studies During Hospitalization Category Date Time Status CT head wo con* [id number] Stat Cat Scan 01/05/23 17:22 Completed XR chest 1V portable [id number] Stat Exams 01/05/23 17:22 Completed Radiology Impressions Chest X-Ray 01/05/23 17:22 IMPRESSION: No acute findings. Head CT 01/05/23 17:22 IMPRESSION: No acute intracranial abnormality. Laboratory Results WBC 7.3 10^3/uL (4.0-10.0) 01/07/23 04:40 RBC 4.54 10^6/uL (4.1-5.3) 01/07/23 04:40 Hgb 14.1 g/dL (11.5-15.3) 01/07/23 04:40 Hct 43.1 % (37.0-47.0) 01/07/23 04:40 MCV 94.9 fl (81-99) 01/07/23 04:40 MCH 31.1 pg (28.0-34.0) 01/07/23 04:40 MCHC 32.7 g/dL (30.0-36.0) 01/07/23 04:40 RDW 13.1 % (12.1-15.1) 01/07/23 04:40 Plt Count 180 10^3/cmm (130-400) 01/07/23 04:40 MPV 11.0 fL (7.4-10.4) H 01/07/23 04:40 Neut % (Auto) 49.5 % 01/07/23 04:40 Lymph % (Auto) 32.9 % 01/07/23 04:40 [place] % (Auto) 12.4 % 01/07/23 04:40 Eos % (Auto) 4.0 % 01/07/23 04:40 Baso % (Auto) 1.1 % 01/07/23 04:40 Neut # (Auto) 3.60 10^3/uL (1.8-7.7) 01/07/23 04:40 Lymph # (Auto) 2.4 10^3/uL (0.8-4.8) 01/07/23 04:40 [place] # (Auto) 0.9 10^3/uL (0.2-0.9) 01/07/23 04:40 Eos # (Auto) 0.3 10^3/uL (0.0-0.8) 01/07/23 04:40 Baso # (Auto) 0.1 10^3/uL (0.0-0.1) 01/07/23 04:40 Nucleated RBC % (auto) 0 % 01/07/23 04:40 Nucleated RBCs # 0.0 /100WBC 01/07/23 04:40 Specimen Type Arterial 01/05/23 17:31 Sample Site Radial, left 01/05/23 17:31 ABG pH 7.39 (7.35-7.45) 01/05/23 17:31 ABG pCO2 45.9 mmHg (35-45) H 01/05/23 17:31 ABG pO2 60.9 mmHg (80.0-100.0) L 01/05/23 17:31 ABG HCO3 27.4 mmol/L (22-26) H 01/05/23 17:31 ABG O2 Saturation 92.7 01/05/23 17:31 ABG Base Excess 1.8 mmol/L (-2.0-2.0) 01/05/23 17:31 Lino Test Pos 01/05/23 17:31 A-a O2 Gradient 4.5 mmHg (5-10) L 01/05/23 17:31 Hematocrit 39.5 % (37-47) 01/05/23 17:31 Hgb O2 Saturation 87.9 % (95-100) L 01/05/23 17:31 Carboxyhemoglobin 4.6 %THgb (0.4-20.1) 01/05/23 17:31 Methemoglobin 0.6 % (0.4-1.5) 01/05/23 17:31 Total Hemoglobin 12.9 g/dL (12-16) 01/05/23 17:31 Sodium 144.0 mmol/L (131-143) H 01/05/23 17:31 Potassium 2.9 mmol/L (3.5-5.0) L 01/05/23 17:31 Glucose 143.0 mg/dL (70-115) H 01/05/23 17:31 Ionized Calcium 1.2 mmol/L (1.1-1.4) 01/05/23 17:31 O2 Delivery Device Room air 01/05/23 17:31 FiO2 21.0 % 01/05/23 17:31 Photographic Process Attendant ID [place] 01/05/23 17:31 Sodium 145 mmol/L (136-145) 01/07/23 04:40 Potassium 3.7 mmol/L (3.5-5.1) 01/07/23 04:40 Chloride 110 mmol/L (98-107) H 01/07/23 04:40 Carbon Dioxide 24 mmol/L (22-29) 01/07/23 04:40 Anion Gap 14.7 (5-19) 01/07/23 04:40 BUN 17 mg/dL (8-23) 01/07/23 04:40 Creatinine 0.7 mg/dL (0.5-0.9) 01/07/23 04:40 GFR Calculation Not Reportable 01/07/23 04:40 Glucose 109 mg/dL (65-115) 01/07/23 04:40 POC Glucose 102 mg/dL (70-110) 01/07/23 07:19 Estimat Average Glucose 117 01/06/23 15:21 Hemoglobin A1c 5.7 % (4.0-6.0) 01/06/23 15:21 Calculated Osmolality 302 mOsm/kg (285-295) H 01/07/23 04:40 Calcium 9.3 mg/dL (8.5-10.5) 01/07/23 04:40 Iron 105 ug/dL (37-145) 01/06/23 14:20 TIBC 280 mcg/dl 01/06/23 14:20 % Saturation 37.5 % (20-50) 01/06/23 14:20 Unsat Iron Binding 175 ug/dL (112-347) 01/06/23 14:20 Total Bilirubin 0.3 mg/dL (0.15-1.2) 01/07/23 04:40 AST 19 U/L (0-32) 01/07/23 04:40 ALT 14 U/L (0-33) 01/07/23 04:40 Alkaline Phosphatase 73 U/L (35-105) 01/07/23 04:40 Creatine Kinase 52 U/L (26-192) 01/06/23 14:20 Troponin T Baseline 9 ng/L (0-10) 01/05/23 19:20 Troponin T 120 Minute 9.90 ng/L (0-10) 01/05/23 21:30 Delta Troponin T 0.90 ABS# (0-10) 01/05/23 21:30 Total Protein 6.3 g/dL (6.6-8.7) L 01/07/23 04:40 Albumin 3.9 g/dL (3.5-5.2) 01/07/23 04:40 Globulin 2.4 g/dL (1.3-4.6) 01/07/23 04:40 Triglycerides 210 mg/dL (0-150) H 01/06/23 14:20 Cholesterol 155 mg/dL (0-200) 01/06/23 14:20 LDL Cholesterol, Calc 72 mg/dL (50-129) 01/06/23 14:20 Total VLDL Cholesterol 42 mg/dL (0-30) H 01/06/23 14:20 HDL Cholesterol 41 mg/dL (60-100) L 01/06/23 14:20 Cholesterol/HDL Ratio 3.78 mg/dL (0.0-4.40) 01/06/23 14:20 Vitamin B12 648 pg/mL (232-1245) 01/06/23 14:20 Folate 18.0 ng/mL (4.8-37.3) 01/06/23 15:21 Procalcitonin 0.02 ng/mL (0-0.5) 01/06/23 14:20 TSH 2.27 uIU/mL (0.27-4.20) 01/05/23 19:20 Urine Color Colorless (Yellow) 01/05/23 18:22 Urine Appearance Clear (CLEAR) 01/05/23 18:22 Urine pH 7 (5-7) 01/05/23 18:22 Ur Specific [place] 1.005 (1.005-1.030) 01/05/23 18:22 Urine Protein Neg (Negative) 01/05/23 18:22 Urine Glucose (UA) Norm (Normal) 01/05/23 18:22 Urine Ketones Negative (Negative) 01/05/23 18:22 Urine Blood Neg (Negative) 01/05/23 18:22 Urine Nitrate Negative (Negative) 01/05/23 18:22 Urine Bilirubin Neg (Negative) 01/05/23 18:22 Urine Urobilinogen Neg mg/dL (Negative) 01/05/23 18:22 Ur Leukocyte Esterase Negative (Negative) 01/05/23 18:22 Salicylates < 0.3 mg/dL (3-10) L 01/05/23 19:20 Urine Opiates Screen Positive ng/mL (Negative) H 01/05/23 18:22 Acetaminophen < 5.0 ug/mL (10-30) L 01/05/23 19:20 Ur Barbiturates Screen Negative ng/mL (Negative) 01/05/23 18:22 Ur Phencyclidine Scrn Negative ng/mL (Negative) 01/05/23 18:22 Ur Amphetamines Screen Negative ng/mL (Negative) 01/05/23 18:22 U Benzodiazepines Scrn Positive ng/mL (Negative) H 01/05/23 18:22 Urine Cocaine Screen Negative ng/mL (Negative) 01/05/23 18:22 U Marijuana (THC) Screen Negative ng/mL (Negative) 01/05/23 18:22 Ethyl Alcohol < 10 mg/dL (0-10) 01/05/23 19:20 Vitals Last Vital Signs Temp 98.6 F 01/07/23 08:00 Pulse 81 01/07/23 08:00 Resp 17 01/07/23 08:00 BP 169/96 01/07/23 08:00 Pulse Ox 97 01/07/23 08:00 O2 Del Method 01/07/23 08:00 Discharge Plan Discharge Patient Disposition: Home Health Service Condition: Stable Prescriptions: Continued CeraVe Cream 1 applic topical QID PRN (Reason: Rash) venlafaxine [Effexor XR] 37.5 mg capsule,extended release 24hr 37.5 mg PO .morning Qty: 30 6RF Rx Instructions: Take one capsule every morning albuterol sulfate 2.5 mg /3 mL (0.083 %) solution for nebulization 2.5 mg inhalation Q6H PRN (Reason: shortness of breath or wheezing) Qty: 180 0RF fluticasone propionate 50 mcg/actuation spray,suspension See Rx Instructions .ROUTE .COMPLEX Qty: 16 3RF Dose Instruction: USE 1 SPRAY IN EACH NOSTRIL TWICE DAILY Rx Instructions: USE 1 SPRAY IN EACH NOSTRIL TWICE DAILY isosorbide mononitrate 60 mg tablet extended release 24 hr 90 mg PO DAILY Qty: 135 3RF Trelegy Ellipta 100-62.5-25 mcg blister with device 1 inh inhalation DAILY Qty: 60 5RF pantoprazole 40 mg tablet,delayed release (DR/EC) See Rx Instructions .ROUTE .COMPLEX Qty: 90 1RF Dose Instruction: TAKE 1 TABLET BY MOUTH EVERY DAY Rx Instructions: TAKE 1 TABLET BY MOUTH EVERY DAY levothyroxine 75 mcg tablet See Rx Instructions .ROUTE .COMPLEX Qty: 90 1RF Dose Instruction: TAKE 1 TABLET BY MOUTH EVERY DAY Rx Instructions: TAKE 1 TABLET BY MOUTH EVERY DAY montelukast 10 mg tablet See Rx Instructions .ROUTE .COMPLEX Qty: 90 0RF Dose Instruction: TAKE 1 TABLET BY MOUTH EVERY DAY Rx Instructions: TAKE 1 TABLET BY MOUTH EVERY DAY polyethylene glycol 3350 17 gram/dose powder See Rx Instructions .ROUTE .COMPLEX Qty: 510 1RF Dose Instruction: DISSOLVE 17 GRAMS BY MOUTH 1-2 TIMES PER DAY NEEDED FOR CONSTIPATION NEEDED Rx Instructions: DISSOLVE 17 GRAMS BY MOUTH 1-2 TIMES PER DAY NEEDED FOR CONSTIPATION NEEDED aspirin [Adult Low Dose Aspirin] 81 mg tablet,delayed release (DR/EC) 81 mg PO DAILY Qty: 90 3RF hydrocodone-acetaminophen 10-325 mg tablet 1 tab PO TID PRN (Reason: pain) 30 Days Qty: 90 0RF Rx Instructions: may fill 30 days after previous refill valacyclovir 500 mg tablet See Rx Instructions .ROUTE .COMPLEX Qty: 90 0RF Dose Instruction: TAKE ONE TABLET BY MOUTH EVERY DAY Rx Instructions: TAKE ONE TABLET BY MOUTH EVERY DAY latanoprost 0.005 % drops 1 drp ophthalmic (eye) QPM PRN (Reason: unknown) Centrum Women 18-400 mg-mcg Tablet 1 tab PO DAILY cholecalciferol (vitamin D3) [Vitamin D3] 50 mcg (2,000 unit) Capsule 50 mcg PO DAILY albuterol sulfate 90 mcg/actuation HFA aerosol inhaler 2 inh inhalation Q8H PRN (Reason: shortness of breath or wheezing) Qty: 8.5 3RF Changed atorvastatin 20 mg tablet 40 mg PO DAILY Qty: 90 1RF amlodipine 5 mg tablet 10 mg PO DAILY Qty: 90 0RF Dose Instruction: TAKE 1 TABLET BY MOUTH EVERY DAY pregabalin 50 mg capsule 50 mg PO BID Qty: 90 5RF Discontinued furosemide 20 mg tablet See Rx Instructions .ROUTE .COMPLEX Qty: 270 0RF Dose Instruction: TAKE 3 TABLETS BY MOUTH EVERY MORNING Rx Instructions: TAKE 3 TABLETS BY MOUTH EVERY MORNING lisinopril 20 mg tablet See Rx Instructions .ROUTE .COMPLEX Qty: 90 0RF Dose Instruction: TAKE 1 TABLET BY MOUTH EVERY DAY Rx Instructions: TAKE 1 TABLET BY MOUTH EVERY DAY potassium chloride 10 mEq tablet extended release See Rx Instructions .ROUTE .COMPLEX Qty: 180 0RF Dose Instruction: TAKE ONE TABLET BY MOUTH TWICE DAILY Rx Instructions: TAKE ONE TABLET BY MOUTH TWICE DAILY Discharge Orders: Discharge Order (Routine); Ordered 01/07/23 Ordered By: Benito Hair Referrals: Kaycee Roque DO [Primary Care Provider] - 7-10 days Discharge Diet: Cardiac Discharge Activity: Resume usual activity and Increase activity as tolerated Patient Instructions: Fall Prevention for Older Adults (DC), Hypernatremia (DC), Medication Monitoring at Home (DC), Opioid Safety Activity Restrictions/Additional Instructions: Please follow-up with a primary care provider within next 1 week for repeat BMP. Home dose of Lasix, lisinopril and potassium has been stopped. Dose of amlodipine has been increased to 10 mg oral daily. Discharge Attestations Time Spent in Discharge Care*: greater than 30 min Specific Discharge Activities: educating patient, discussing with pcp/other providers, discussing with nurse outreach case manager/social workers/dc planners, documenting/other paperwork and evaluating patient/reviewing data Status at Discharge: Cognitive status at discharge: mildly impaired cognition, Behavioral status at discharge: cooperative, Functional status at discharge: uses cane/walker, Overall status at discharge: patient is back to baseline Quality Metrics Clinical Quality Measures [ No reported AMI, CVA or VTE this stay] Coding Level of Care Code 66971 Diagnoses Altered mental status R41.82 Medication adverse effect T50.905A Hypoglycemia E16.2 Moderate COPD (chronic obstructive pulmonary disease) J44.9 Major depressive disorder, recurrent episode with mood-congruent psychotic features F33.3 Opioid contract exists Z79.891 Hypernatremia E87.0
[2023-01-07] MEDS: isosorbide mononitrate ER 30 mg Tablet 90 MG PO (10:13)
[2023-01-07] MEDS: pantoprazole DR 40 mg Tablet PO (10:14)
[2023-01-07] MEDS: atorvastatin 40 mg Tablet 20 MG PO (10:14)
[2023-01-07] MEDS: aspirin 81 mg EC Tablet PO (10:14)
[2023-01-07] MEDS: amlodipine 5 mg Tablet PO (10:14)
[2023-01-07] MEDS: pregabalin 50 mg Capsule PO (10:14)
[2023-01-07] MEDS: venlafaxine ER (24HR) 37.5 mg Capsule PO (10:14)
== END 2023-01-07 12:49 | disposition home health service (06) ==
LOC: ER 20:54 → MEDSURG 20:56
PROVIDERS: Admitting Provider Student in an Organized Health Care Education/Training Program; Emergency Provider Emergency Medicine; PCP Family Medicine; Visit Provider Student in an Organized Health Care Education/Training Program
DX: R41.82 Altered mental status, unspecified (principal); T50.905A Adverse effect of unspecified drugs, medicaments and biological substances, initial encounter; E16.2 Hypoglycemia, unspecified; J44.9 Chronic obstructive pulmonary disease, unspecified; F33.3 Major depressive disorder, recurrent, severe with psychotic symptoms; Z79.891 Long term (current) use of opiate analgesic; E87.0 Hyperosmolality and hypernatremia; I10 Essential (primary) hypertension; I25.10 Atherosclerotic heart disease of native coronary artery without angina pectoris; E78.5 Hyperlipidemia, unspecified; E03.9 Hypothyroidism, unspecified; F17.210 Nicotine dependence, cigarettes, uncomplicated
CPT/HCPCS: 36415; 36416; 36600; 70450; 71045; 80048; 80051; 80053; 80061; 80306; 80307; 81003; 82330; 82550; 82607; 82746; 82805; 82962; 83036; 83540; 83550; 84145; 84443; 84484; 85025; 93005; 96372; 97161; 99285; G0378; J1644

== ENCOUNTER → 2023-01-10 10:45 | Outpatient (BNVA) | payer MEDICARE, MEDICAID, SELFPAY ==
[2022-12-29 07:52] VITALS: BP 121/75; BMI 28.3
== END ==
PROVIDERS: PCP Family Medicine; Visit Provider Anesthesiology Pain Medicine
DX: G89.29 Other chronic pain (principal); M54.2 Cervicalgia; M54.50 Low back pain, unspecified; M79.604 Pain in right leg; M79.605 Pain in left leg
CPT/HCPCS: 99214

== ENCOUNTER → 2023-01-29 11:49 | Outpatient (BNVA) | payer MEDICARE, MEDICAID, SELFPAY ==
[2022-12-29 07:52] VITALS: BP 121/75; BMI 28.3
== END ==
PROVIDERS: PCP Family Medicine; Visit Provider Anesthesiology Pain Medicine
DX: M54.12 Radiculopathy, cervical region (principal); G89.29 Other chronic pain
CPT/HCPCS: 64633; 64634; J1030

== ENCOUNTER 2023-02-01 11:32 | Emergency (ER) | payer MEDICARE, MEDICAID, SELFPAY ==
[2022-12-29 07:52] VITALS: BP 121/75; BMI 28.3
[2023-02-01 11:36] VITALS: BP 113/73; PULSE 77; RESP 18; TEMP 36.6; O2SAT 95
--- NOTE | 2023-02-01 12:28 | XR_ITS ---
WS: [id number] Portable AP upright chest, 02/01/2023 Clinical Data: r chest pain, sob, cough Comparison: Portable chest, 01/05/2023 Findings: No nodules, masses or effusions are seen. The heart is normal. The pulmonary vascularity is not increased. No pneumonia or pneumothorax is seen. The aortic arch and descending thoracic aorta s how calcification and tortuosity. XR/XR chest 1V portable [id number] Impression: Atherosclerosis.
[2023-02-01 13:42] VITALS: PULSE 85; RESP 16; O2SAT 92
--- NOTE | 2023-02-01 13:43 | PC.NURSE ---
Pt sleeping in wheelchair in waiting room, awoke easily, denies needs or complaints at this time. Denies chest pain at this time
--- NOTE | 2023-02-01 14:24 | ED_ITS ---
HPI - Chest Pain General: Chief Complaint: Chest Pain Stated Complaint: CHEST PAIN Time Seen by Provider: 02/01/23 14:24 History of Present Illness: Ms. Hernandez is a 77-year-old lady with history of age-related cognitive decline, hypertension, thyroid disorder, CAD, COPD presenting to the emergency department for intermittent chest pressure. She describes 1 week history of intermittent symptoms which are not particularly correlated with exertion. Right parasternal pressure which radiates sometimes to the back. She notes associated shortness of breath with these events. Denies other infectious symptoms. Intensity when present is moderate. Overall course has been intermittent. No other specific changes in health, exacerbating, or alleviating factors identified. Onset (ago): day(s) Timing of current episode: episodic Prior episodes: Yes Onset: during exertion Pain location: substernal and right chest Pain radiation: back Severity: moderate Quality: aching and heaviness Relieving factors: nothing Exacerbating factors: nothing Associated symptoms: Reports dyspnea and nausea Review of Systems General: Reports: 10 or more systems reviewed and unremarkable except in HPI and below Resp: Reports: dyspnea GI: Reports: nausea PFSH ED PFSH: Medical History Abnormal stress test Acute cystitis Age-related cognitive decline Back pain Benign essential HTN CAD (coronary artery disease) Chest pain Chronic constipation Chronic post-traumatic stress disorder Chronic right SI joint pain Chronic right-sided low back pain with right-sided sciatica Cigarette nicotine dependence Coronary disease Cystocele Dyslipidemia Encounter for long-term opiate analgesic use Gastritis Gastro-esophageal reflux disease without esophagitis Generalized edema GERD (gastroesophageal reflux disease) History of herpes genitalis Hypertension Hypothyroidism Low back pain of over 3 months duration Major depressive disorder, recurrent episode with mood-congruent psychotic features Microscopic hematuria Mixed incontinence Moderate COPD (chronic obstructive pulmonary disease) Opioid contract exists Periodontal disease Pneumonia Rectal Hemorrhage Spinal stenosis, cervical region Surgical History History of appendectomy History of colonoscopy (~2017) History of colonoscopy with polypectomy (~12/2020) History of esophagogastroduodenoscopy (EGD) (~12/2020) Hx of heart artery stent S/P appendectomy S/P cataract surgery S/P hysterectomy S/P tonsillectomy and adenoidectomy Stented coronary artery Family History Father , at age 93 CAD (coronary artery disease) Family/Other CAD (coronary artery disease) uncle Cancer maternal aunt & maternal uncle Mother , at age 77 CAD (coronary artery disease) Hypertension Cancer Sister Hypertension Cancer Daughter Diabetes Other Chronic post-traumatic stress disorder Social History Smoking and tobacco status: current every day smoker cigarettes Packs smoked per day: 0.75 Years cigarettes smoked: 61 [ Other cigarette details: [id number] smoking history] Quit status (tobacco): not considering quitting Smoking risk assessment/counseling performed?: No Alcohol intake: current Alcohol intake frequency: holidays/special occasions only Adopted: No Caregiver/support person: No Lives independently: No Household members: family Housing: House Marital status: Marital status details: since the Number of children: 5 Highest education level completed: Associate Degree: Occupational, Technical, Vocational Program Education level details: Clerical training service: No Current occupational status: disabled Current occupational exposures/hazards: No Pets and animals: No Leisure activites: music, games and other Leisure activities details: watch TV, bingo, dance, visit with others Sexually active: No Current gender identity: Female Susan/Jewish: Jehovah'S Witness Special susan needs: No Agree to transfusion: Yes Financial difficulty paying for basics: Not Very Hard Female Reproductive History: Para: 5 Spontaneous abortions: No Physical Exam Const: COMMON NORMALS: patient oriented x3 and alert GENERAL APPEARANCE: cooperative and well developed HENMT: COMMON NORMALS: normocephalic and atraumatic HEAD & SCALP: normocephalic and atraumatic Eye: COMMON NORMALS: conjunctivae normal CONJUNCTIVA: Yes conjunctivae normal SCLERA: sclerae normal Neck/C-Spine: COMMON NORMALS: supple GENERAL: Yes trachea midline Resp: COMMON NORMALS: clear to auscultation bilaterally EFFORT & INSPECTION: Yes able to speak in complete sentences AUSCULTATION: clear to auscultation bilaterally Cardio: COMMON NORMALS: regular rate and regular rhythm RATE: regular rate RHYTHM: regular rhythm GI: COMMON NORMALS: Soft to palpation PALPATION: Yes Soft to palpation and No Tenderness to palpation present (GI) Extremity: GENERAL: Yes normal exam except as noted and No edema Neuro: COMMON NORMALS: patient oriented x3, CN's II-XII intact bilaterally and moves all extremities SENSORIUM/ORIENTATION: Yes alert and No Orientation impaired Psych: COMMON NORMALS: mental status grossly normal and Normal thought process present THOUGHT PROCESS: Normal thought process present Course Vital Signs: Vital signs: Vital Signs Temperature 97.8 F 02/01/23 11:36 Pulse Rate 78 02/01/23 18:25 Respiratory Rate 18 02/01/23 17:59 Blood Pressure 155/81 02/01/23 18:25 Pulse Oximetry 96 02/01/23 18:25 Oxygen Delivery Me thod 02/01/23 13:42 MDM - Chest Pain Medical Decision Making 77-year-old lady presenting due to intermittent chest discomfort. Currently denies symptoms. Patient is nontoxic and exam otherwise as above. EKG notable for sinus rhythm, borderline left axis deviation, normal intervals, no STEMI. Labs with no significant hematologic or metabolic abnormalities. Negative range 2-hour delta troponin. Chest x-ray with no lobar consolidation or pneumothorax. Patient had nuc med study on 08/15/2022 and has had a cardiology visit since that time. I believe given prior work-up and ED evaluation she does not require inpatient cardiac testing at this time. Most likely etiology of symptoms is unspecified chest pain. The results of ED evaluation were discussed with the patient including prescriptions and/or symptomatic cares (if applicable) including appropriate and responsible use, followup plan, and return precautions. The patient verbalized understanding and felt safe for discharge. Medical Records I reviewed the patient's medical records. Lab Data I reviewed the patient's lab results. 02/01/23 15:09 02/01/23 15:09 Radiology Impressions Chest X-Ray 02/01/23 12:28 Impression: Atherosclerosis. Laboratory Results WBC 7.4 10^3/uL (4.0-10.0) 02/01/23 15: RBC 4.64 10^6/uL (4.1-5.3) 02/01/23 15:09 Hgb 14.4 g/dL (11.5-15.3) 02/01/23 15:09 Hct 44.2 % (37.0-47.0) 02/01/23 15:09 MCV 95.3 fl (81-99) 02/01/23 15:09 MCH 31.0 pg (28.0-34.0) 02/01/23 15:09 MCHC 32.6 g/dL (30.0-36.0) 02/01/23 15:09 RDW 13.4 % (12.1-15.1) 02/01/23 15:09 Plt Count 236 10^3/cmm (130-400) 02/01/23 15:09 MPV 10.3 fL (7.4-10.4) 02/01/23 15:09 Neut % (Auto) 60.0 % 02/01/23 15:09 Lymph % (Auto) 27.6 % 02/01/23 15:09 [place] % (Auto) 8.6 % 02/01/23 15:09 Eos % (Auto) 2.7 % 02/01/23 15:09 Baso % (Auto) 1.0 % 02/01/23 15:09 Neut # (Auto) 4.41 10^3/uL (1.8-7.7) 02/01/23 15:09 Lymph # (Auto) 2.0 10^3/uL (0.8-4.8) 02/01/23 15:09 [place] # (Auto) 0.6 10^3/uL (0.2-0.9) 02/01/23 15:09 Eos # (Auto) 0.2 10^3/uL (0.0-0.8) 02/01/23 15:09 Baso # (Auto) 0.1 10^3/uL (0.0-0.1) 02/01/23 15:09 Nucleated RBC % (auto) 0 % 02/01/23 15:09 Nucleated RBCs # 0.0 /100WBC 02/01/23 15:09 Sodium 141 mmol/L (136-145) 02/01/23 15:09 Potassium 3.8 mmol/L (3.5-5.1) 02/01/23 15:09 Chloride 103 mmol/L (98-107) 02/01/23 15:09 Carbon Dioxide 27 mmol/L (22-29) 02/01/23 15:09 Anion Gap 14.8 (5-19) 02/01/23 15:09 BUN 21 mg/dL (8-23) 02/01/23 15:09 Creatinine 0.8 mg/dL (0.5-0.9) 02/01/23 15:09 GFR Calculation Not Reportable 02/01/23 15:09 Glucose 86 mg/dL (65-115) 02/01/23 15:09 Calculated Osmolality 294 mOsm/kg (285-295) 02/01/23 15:09 Calcium 9.4 mg/dL (8.5-10.5) 02/01/23 15:09 Total Bilirubin 0.2 mg/dL (0.15-1.2) 02/01/23 15:09 AST 17 U/L (0-32) 02/01/23 15:09 ALT 17 U/L (0-33) 02/01/23 15:09 Alkaline Phosphatase 85 U/L (35-105) 02/01/23 15:09 Troponin T Baseline 9 ng/L (0-10) 02/01/23 15:09 Troponin T 120 Minute 8.11 ng/L (0-10) 02/01/23 17:15 Delta Troponin T -0.89 ABS# (0-10) L 02/01/23 17:15 NT-Pro-B Natriuret Pep 543 pg/mL (0-450) H 02/01/23 15:09 Total Protein 6.8 g/dL (6.6-8.7) 02/01/23 15:09 Albumin 4.4 g/dL (3.5-5.2) 02/01/23 15:09 Globulin 2.4 g/dL (1.3-4.6) 02/01/23 15:09 Lipase 49 U/L (13-60) 02/01/23 15:09 Discharge Plan Discharge Patient Disposition: Home Clinical Impression: Chest pain Condition: Stable Prescriptions: No Action CeraVe Cream 1 applic topical QID PRN (Reason: Rash) venlafaxine [Effexor XR] 37.5 mg capsule,extended release 24hr 37.5 mg PO .morning Qty: 30 6RF Rx Instructions: Take one capsule every morning albuterol sulfate 2.5 mg /3 mL (0.083 %) solution for nebulization 2.5 mg inhalation Q6H PRN (Reason: shortness of breath or wheezing) Qty: 180 0RF amlodipine 10 mg tablet 10 mg PO DAILY Qty: 90 0RF Dose Instruction: TAKE 1 TABLET BY MOUTH EVERY DAY pantoprazole 40 mg tablet,delayed release (DR/EC) See Rx Instructions .ROUTE .COMPLEX Qty: 90 1RF Dose Instruction: TAKE 1 TABLET BY MOUTH EVERY DAY Rx Instructions: TAKE 1 TABLET BY MOUTH EVERY DAY fluticasone propionate 50 mcg/actuation spray,suspension See Rx Instructions .ROUTE .COMPLEX Qty: 16 3RF Dose Instruction: USE 1 SPRAY IN EACH NOSTRIL TWICE DAILY Rx Instructions: USE 1 SPRAY IN EACH NOSTRIL TWICE DAILY isosorbide mononitrate 60 mg tablet extended release 24 hr 90 mg PO DAILY Qty: 135 3RF polyethylene glycol 3350 17 gram/dose powder See Rx Instructions .ROUTE .COMPLEX Qty: 510 1RF Dose Instruction: DISSOLVE 17 GRAMS BY MOUTH 1-2 TIMES PER DAY NEEDED FOR CONSTIPATION NEEDED Rx Instructions: DISSOLVE 17 GRAMS BY MOUTH 1-2 TIMES PER DAY NEEDED FOR CONSTIPATION NEEDED aspirin [Adult Low Dose Aspirin] 81 mg tablet,delayed release (DR/EC) 81 mg PO DAILY Qty: 90 3RF hydrocodone-acetaminophen 10-325 mg tablet 1 tab PO TID PRN (Reason: pain) 30 Days Qty: 90 0RF Rx Instructions: may fill 30 days after previous refill valacyclovir 500 mg tablet See Rx Instructions .ROUTE .COMPLEX Qty: 90 0RF Dose Instruction: TAKE ONE TABLET BY MOUTH EVERY DAY Rx Instructions: TAKE ONE TABLET BY MOUTH EVERY DAY montelukast 10 mg tablet See Rx Instructions .ROUTE .COMPLEX Qty: 90 0RF Dose Instruction: TAKE ONE TABLET BY MOUTH EVERY DAY Rx Instructions: TAKE ONE TABLET BY MOUTH EVERY DAY Trelegy Ellipta 100-62.5-25 mcg blister with device 1 inh inhalation DAILY Qty: 60 5RF levothyroxine 75 mcg tablet See Rx Instructions .ROUTE .COMPLEX Qty: 90 1RF Dose Instruction: TAKE ONE TABLET BY MOUTH EVERY DAY Rx Instructions: TAKE ONE TABLET BY MOUTH EVERY DAY latanoprost 0.005 % drops 1 drp ophthalmic (eye) QPM PRN (Reason: unknown) Centrum Women 18-400 mg-mcg Tablet 1 tab PO DAILY cholecalciferol (vitamin D3) [Vitamin D3] 50 mcg (2,000 unit) Capsule 50 mcg PO DAILY albuterol sulfate 90 mcg/actuation HFA aerosol inhaler 2 inh inhalation Q8H PRN (Reason: shortness of breath or wheezing) Qty: 8.5 3RF atorvastatin 20 mg tablet 40 mg PO DAILY Qty: 90 1RF pregabalin 50 mg capsule 50 mg PO BID Qty: 90 5RF Discharge Orders: Discharge ED (Routine); Ordered 02/01/23 Ordered By: Gerard Boyd Referrals: Kaycee Roque DO [Primary Care Provider] - Discharge Diet: Usual diet Discharge Activity: Resume usual activity Patient Instructions: Chest Pain (ED) Activity Restrictions/Additional Instructions: Thank you for visiting the emergency department. You were seen and evaluated for chest pain. The exact cause of your symptoms is unclear though based on prior cardiac evaluation within the past year does not appear to need hospitalization at this time. I will message case management for cardiology follow-up. Please follow-up with your primary care provider. Return to the emergency department for anything that you are concerned about and feel needs emergency department evaluation. Coding Level of Care Code ED Flying Teacher for Lori Reed
--- NOTE | 2023-02-01 14:31 | ECG_ITS ---
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 Measurements Intervals [place] Rate: 76 P: 10 TX: 156 QRS: 5 QRSD: 86 T: 51 QT: 378 QTc: 428 Interpretive Statements SINUS RHYTHM Compared to ECG 01/05/2023 23:26:28 T-wave abnormality no longer present Possible ischemia no longer present Electronically Signed On 02-01-2023 23:38:35 SUPERINTENDENT OF SCHOOLS by Kylah Cervantes M.D. [id number] f
[2023-02-01 15:22] LABS: Basophils # 0.1 10^3/uL (0.0-0.1); Eosinophils # 0.2 10^3/uL (0.0-0.8); Eosinophils % 2.7 %; Hematocrit 44.2 % (37.0-47.0); Hemoglobin 14.4 g/dL (11.5-15.3); Lymphocytes % 27.6 %; Mean Corpuscular HGB Conc 32.6 g/dL (30.0-36.0); Mean Corpuscular Volume 95.3 fl (81-99); Mean Platelet Volume 10.3 fL (7.4-10.4); Monocytes # 0.6 10^3/uL (0.2-0.9); Monocytes % 8.6 %; Neutrophils # 4.41 10^3/uL (1.8-7.7); Nucleated Red Blood Cells % 0 %; Platelet Count 236 10^3/cmm (130-400); Red Blood Count 4.64 10^6/uL (4.1-5.3); Red Cell Distribution Width 13.4 % (12.1-15.1); White Blood Count 7.4 10^3/uL (4.0-10.0)
[2023-02-01 15:44] LABS: Troponin(5th) Baseline 9 ng/L (0-10)
[2023-02-01 16:04] LABS: Alanine Aminotransferase 17 U/L (0-33); Albumin Level 4.4 g/dL (3.5-5.2); Alkaline Phosphatase 85 U/L (35-105); Anion Gap 14.8 (5-19); Aspartate Amino Transferase 17 U/L (0-32); Blood Urea Nitrogen 21 mg/dL (8-23); Calcium 9.4 mg/dL (8.5-10.5); Carbon Dioxide 27 mmol/L (22-29); Chloride 103 mmol/L (98-107); Globulin 2.4 g/dL (1.3-4.6); Glucose 86 mg/dL (65-115); Lipase 49 U/L (13-60); NT Pro B Type Natriuretic Pept 543 pg/mL (0-450); Osmolality Calculated 294 mOsm/kg (285-295); Potassium 3.8 mmol/L (3.5-5.1); Sodium 141 mmol/L (136-145); Total Bilirubin 0.2 mg/dL (0.15-1.2); Total Protein 6.8 g/dL (6.6-8.7)
--- NOTE | 2023-02-01 16:48 | ECG_ITS ---
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 Measurements Intervals [place] Rate: P: 0 [place]: 0 QRS: 0 QRSD: 0 T: 0 QT: 0 QTc: 0 Interpretive Statements NO FURTHER INTERPRETATION POSSIBLE ATYPICAL ECG WARNING: DATA QUALITY MAY AFFECT INTERPRETATION Compared to ECG 02/01/2023 11:45:58 Sinus rhythm no longer present Electronically Signed On 02-01-2023 23:55:01 CHILD CARE ATTENDANT by Kylah Cervantes M.D. [id number]
[2023-02-01 17:40] LABS: Troponin 5 2HR 8.11 ng/L (0-10)
[2023-02-01 17:49] LABS: Troponin 5 2HR Delta -0.89 ABS# (0-10)
[2023-02-01 17:59] VITALS: BP 144/84; PULSE 78; RESP 18; O2SAT 96
[2023-02-01 18:25] VITALS: BP 155/81; PULSE 78; O2SAT 96
--- NOTE | 2023-02-02 09:51 | DCPLANNER ---
Addendum entered by Orly Canela 02/23/23 09:35: Patient had a follow up appointment scheduled with [facility] - patient did attend appointment. Addendum entered by Orly Canela 02/05/23 08:02: Patient has a follow up appointment scheduled for January at 9:00 with Genet Castro at [facility]. Clinic will call patient with appointment information. Original Note: manager development had message to schedule a followup appointment for patient with cardiology. manager development sent patients information to the front office staff at [facility]. Patients information will be printed and reviewed. Clinic will call patient with appointment information.
== END 2023-02-01 18:27 | disposition home or self-care (01) ==
PROVIDERS: Emergency Provider Emergency Medicine; PCP Family Medicine
DX: R07.9 Chest pain, unspecified (principal); Z79.82 Long term (current) use of aspirin; I70.90 Unspecified atherosclerosis; F17.210 Nicotine dependence, cigarettes, uncomplicated; I10 Essential (primary) hypertension; I25.10 Atherosclerotic heart disease of native coronary artery without angina pectoris; E78.5 Hyperlipidemia, unspecified; J44.9 Chronic obstructive pulmonary disease, unspecified
CPT/HCPCS: 36415; 71045; 80053; 83690; 83880; 84484; 85025; 93005; 99285

== ENCOUNTER → 2023-02-02 12:18 | Outpatient (BNVA) | payer MEDICARE, MEDICAID, SELFPAY ==
[2022-12-29 07:52] VITALS: BP 121/75; BMI 28.3
== END ==
PROVIDERS: PCP Family Medicine; Visit Provider Family Medicine
DX: Z78.0 Asymptomatic menopausal state (principal); Z11.59 Encounter for screening for other viral diseases; Z13.6 Encounter for screening for cardiovascular disorders
CPT/HCPCS: 82043; 86803

== ENCOUNTER 2023-02-15 12:33 | Outpatient (CLI) | payer MEDICARE, MEDICAID, SELFPAY ==
[2022-12-29 07:52] VITALS: BP 121/75; BMI 28.3
--- NOTE | 2023-02-15 13:00 | XR_ITS ---
WS: [id number] SCREENING DEXA SCAN [place] CLINICAL INFORMATION: post-menopausal COMPARISON: None. FINDINGS: The L1-L4 bone mineral density measures 0.990 g/cm2. This corresponds to a T score score of -1.6 and Z score of 0.2. Left femoral neck bone mineral density measures 0.801 g/cm2. This corresponds to a T score of -1.6 an d Z score of 0.2. Right femoral neck bone mineral density measures 0.808 g/cm2. This corresponds to a T score -1.6of an d Z score of 0.2. Mean femoral neck bone mineral density measures 0.804 g/cm2. This corresponds to a T score of -1.6 an d Z score of 0.2. XR/XR DEXA axial skeleton* [id number] IMPRESSION: Osteopenia lumbar spine. Osteopenia femoral necks. Patient's FRAX calculated 10 year probability for major osteoporotic fracture i s 32.5 % and osteoporotic hip fracture is 24.5%.
== END 2023-02-15 12:34 | disposition home or self-care (01) ==
LOC: RAD 12:34
PROVIDERS: PCP Family Medicine; Visit Provider Family Medicine
DX: Z78.0 Asymptomatic menopausal state (principal); M85.89 Other specified disorders of bone density and structure, multiple sites
CPT/HCPCS: 77080

== ENCOUNTER → 2023-02-19 09:13 | Outpatient (BNVA) | payer MEDICARE, MEDICAID, SELFPAY ==
[2022-12-29 07:52] VITALS: BP 121/75; BMI 28.3
== END ==
PROVIDERS: PCP Family Medicine; Visit Provider Anesthesiology Pain Medicine
DX: G89.29 Other chronic pain (principal); M54.2 Cervicalgia; M54.50 Low back pain, unspecified; M79.604 Pain in right leg; M79.605 Pain in left leg; M79.644 Pain in right finger(s); I73.9 Peripheral vascular disease, unspecified; R60.9 Edema, unspecified; B35.1 Tinea unguium
CPT/HCPCS: 11721; 99214

== ENCOUNTER → 2023-02-21 14:46 | Outpatient (BNVA) | payer MEDICARE, MEDICAID, SELFPAY ==
[2022-12-29 07:52] VITALS: BP 121/75; BMI 28.3
== END ==
PROVIDERS: PCP Family Medicine; Visit Provider Nurse Practitioner Family
DX: I25.119 Atherosclerotic heart disease of native coronary artery with unspecified angina pectoris (principal); I73.9 Peripheral vascular disease, unspecified; I10 Essential (primary) hypertension; F17.210 Nicotine dependence, cigarettes, uncomplicated; Z79.82 Long term (current) use of aspirin
CPT/HCPCS: 99214

== ENCOUNTER → 2023-03-01 08:51 | Outpatient (BNVA) | payer MEDICARE, MEDICAID, SELFPAY ==
[2022-12-29 07:52] VITALS: BP 121/75; BMI 28.3
== END ==
PROVIDERS: PCP Family Medicine; Visit Provider Anesthesiology Pain Medicine
DX: G89.29 Other chronic pain (principal); M54.2 Cervicalgia; M54.50 Low back pain, unspecified; M79.18 Myalgia, other site
CPT/HCPCS: 20553; 99213

== ENCOUNTER → 2023-03-15 14:48 | Outpatient (BNVA) | payer MEDICARE, MEDICAID, SELFPAY ==
[2022-12-29 07:52] VITALS: BP 121/75; BMI 28.3
== END ==
PROVIDERS: PCP Family Medicine; Visit Provider Internal Medicine
DX: R07.9 Chest pain, unspecified (principal); I25.119 Atherosclerotic heart disease of native coronary artery with unspecified angina pectoris; I10 Essential (primary) hypertension; E78.5 Hyperlipidemia, unspecified; F17.210 Nicotine dependence, cigarettes, uncomplicated; Z79.82 Long term (current) use of aspirin
CPT/HCPCS: 36415; 80048; 83880; 99214

== ENCOUNTER → 2023-03-19 11:28 | Outpatient (BNVA) | payer MEDICARE, MEDICAID, SELFPAY ==
[2022-12-29 07:52] VITALS: BP 121/75; BMI 28.3
== END ==
PROVIDERS: PCP Family Medicine; Referring Provider Anesthesiology Pain Medicine; Visit Provider Student in an Organized Health Care Education/Training Program
DX: M65.311 Trigger thumb, right thumb (principal)
CPT/HCPCS: 20600; 20610; 73130; 99203; J3301

== ENCOUNTER → 2023-03-27 11:39 | Outpatient (BNVA) | payer MEDICARE, MEDICAID, SELFPAY ==
[2022-12-29 07:52] VITALS: BP 121/75; BMI 28.3
== END ==
PROVIDERS: PCP Family Medicine; Visit Provider Family Medicine
DX: E78.5 Hyperlipidemia, unspecified (principal); E03.9 Hypothyroidism, unspecified; I10 Essential (primary) hypertension
CPT/HCPCS: 80048; 80061; 83880; 84443

== ENCOUNTER → 2023-03-29 09:26 | Outpatient (BNVA) | payer MEDICARE, MEDICAID, SELFPAY ==
[2022-12-29 07:52] VITALS: BP 121/75; BMI 28.3
== END ==
PROVIDERS: PCP Family Medicine; Visit Provider Anesthesiology Pain Medicine
DX: G89.29 Other chronic pain (principal); M54.2 Cervicalgia; M54.50 Low back pain, unspecified
CPT/HCPCS: 99213; 99214

== ENCOUNTER → 2023-04-26 09:19 | Outpatient (BNVA) | payer MEDICARE, MEDICAID, SELFPAY ==
[2023-04-05 16:44] VITALS: BP 116/68; BMI 28.9
== END ==
PROVIDERS: PCP Family Medicine; Visit Provider Anesthesiology Pain Medicine
DX: G89.29 Other chronic pain (principal); M54.6 Pain in thoracic spine; M54.2 Cervicalgia
CPT/HCPCS: 99214

== ENCOUNTER → 2023-04-27 08:40 | Outpatient (BNVA) | payer MEDICARE, MEDICAID, SELFPAY ==
[2023-04-05 16:44] VITALS: BP 116/68; BMI 28.9
== END ==
PROVIDERS: PCP Family Medicine; Visit Provider Nurse Practitioner Family
DX: I25.119 Atherosclerotic heart disease of native coronary artery with unspecified angina pectoris (principal); I10 Essential (primary) hypertension; I73.9 Peripheral vascular disease, unspecified; F17.210 Nicotine dependence, cigarettes, uncomplicated
CPT/HCPCS: 99214

== ENCOUNTER → 2023-05-10 12:09 | Outpatient (BNVA) | payer MEDICARE, MEDICAID, SELFPAY ==
[2023-04-05 16:44] VITALS: BP 116/68; BMI 28.9
== END ==
PROVIDERS: PCP Family Medicine; Visit Provider Anesthesiology Pain Medicine
DX: G89.29 Other chronic pain (principal); M79.18 Myalgia, other site; M54.2 Cervicalgia; M54.9 Dorsalgia, unspecified
CPT/HCPCS: 20553; J1030; J3490

== ENCOUNTER 2023-05-14 13:35 | Outpatient (CLI) | payer MEDICARE, MEDICAID, SELFPAY ==
[2023-04-05 16:44] VITALS: BP 116/68; BMI 28.9
== END 2023-05-14 13:36 | disposition home or self-care (01) ==
LOC: SPT 13:36
PROVIDERS: PCP Family Medicine; Visit Provider Student in an Organized Health Care Education/Training Program
DX: Z46.89 Encounter for fitting and adjustment of other specified devices (principal); M20.42 Other hammer toe(s) (acquired), left foot; E11.8 Type 2 diabetes mellitus with unspecified complications; M65.311 Trigger thumb, right thumb; M18.11 Unilateral primary osteoarthritis of first carpometacarpal joint, right hand
CPT/HCPCS: 97760; 99213; L3924

== ENCOUNTER → 2023-06-06 10:32 | Outpatient (BNVA) | payer MEDICARE, MEDICAID, SELFPAY ==
[2023-04-05 16:44] VITALS: BP 116/68; BMI 28.9
== END ==
PROVIDERS: PCP Family Medicine; Visit Provider Anesthesiology Pain Medicine
DX: G89.29 Other chronic pain (principal); M54.2 Cervicalgia; M54.50 Low back pain, unspecified; M79.601 Pain in right arm; M79.602 Pain in left arm; M79.604 Pain in right leg; M79.605 Pain in left leg
CPT/HCPCS: 99214

== ENCOUNTER → 2023-06-25 12:05 | Outpatient (BNVA) | payer MEDICARE, MEDICAID, SELFPAY ==
[2023-04-05 16:44] VITALS: BP 116/68; BMI 28.9
== END ==
PROVIDERS: PCP Family Medicine; Visit Provider Podiatrist Foot & Ankle Surgery
DX: B35.1 Tinea unguium (principal); R60.9 Edema, unspecified; I73.9 Peripheral vascular disease, unspecified
CPT/HCPCS: 11721

== ENCOUNTER → 2023-07-09 13:32 | Outpatient (BNVA) | payer MEDICARE, MEDICAID, SELFPAY ==
[2023-04-05 16:44] VITALS: BP 116/68; BMI 28.9
== END ==
PROVIDERS: PCP Family Medicine; Visit Provider Anesthesiology Pain Medicine
DX: M54.16 Radiculopathy, lumbar region (principal); M54.2 Cervicalgia; G89.29 Other chronic pain
CPT/HCPCS: 64483; 64484; J1100; J3490

== ENCOUNTER → 2023-07-18 13:36 | Outpatient (BNVA) | payer MEDICARE, MEDICAID, OTHER, SELFPAY ==
[2023-04-05 16:44] VITALS: BP 116/68; BMI 28.9
== END ==
PROVIDERS: PCP Family Medicine; Visit Provider Anesthesiology Pain Medicine
DX: M54.16 Radiculopathy, lumbar region (principal); M54.2 Cervicalgia; G89.29 Other chronic pain
CPT/HCPCS: 64483; 64484; J1100; J3490

== ENCOUNTER 2023-07-30 15:08 | Emergency (ER) | payer MEDICARE, MEDICAID, SELFPAY ==
[2023-07-25 09:29] VITALS: BP 116/68; BMI 28.9
[2023-07-30 15:10] VITALS: BP 118/81; PULSE 90; RESP 20; TEMP 36.2; O2SAT 98
--- NOTE | 2023-07-30 15:10 | XRR_ITS ---
PROCEDURE INFORMATION: Exam: XR Right Hip Exam date and time: 07/30/2023 3:13 PM Age: 77 years old Clinical indication: Hip pain; Right hip; Additional info: Pain no recent trauma TECHNIQUE: Imaging protocol: Radiologic exam of the right hip. Views: 1 view hip with pelvis when performed. COMPARISON: CT abdomen pelvis wo/w [id number] 09/23/2019 3:38 PM FINDINGS: Bones/joints: Mild degenerative changes right hip joint consisting of mild joint space narrowing and subchondral sclerosis. No fracture or malalignment. Degenerative changes at the pubic symphysis partially visualized, chronic. Soft tissues: Unremarkable. XR/XR hip RT 2-3V wo/w pel* [id number] IMPRESSION: Mild degenerative changes right hip joint. No acute bony abnormalities.
--- NOTE | 2023-07-30 15:41 | CTR_ITS ---
PROCEDURE INFORMATION: Exam: CT Lumbar Spine Without Contrast Exam date and time: 07/30/2023 3:53 PM Age: 77 years old Clinical indication: Low back pain TECHNIQUE: Imaging protocol: Computed tomography of the lumbar spine without contrast. Radiation optimization: All CT scans at this facility use at least one of these dose optimization techniques: automated exposure control; mA and/or kV adjustment per patient size (includes targeted exams where dose is matched to clinical indication); or iterative reconstruction. REPORTING DATA: Count of CT and Cardiac NM exams in prior 12 months: This patient has received 2 known CTs and 0 known cardiac nuclear medicine studies in the 12 months prior to the current study. COMPARISON: CR XR lumbar spine min 4V [id number] 01/31/2022 1:15 PM RADIATION DOSE METRICS: Total DLP (mGy-cm): 581.82 FINDINGS: Bones/joints: Lumbar curvature and alignment is unremarkable. There is a severe chronic wedge compression fracture of T12 with mild retropulsion of the posterior vertebral margin that was evident on earlier plain film. Lumbar vertebral bodies are intact. No acute fracture, spondylolysis or spondylolisthesis. Disc heights are maintained. Mild degenerative facet joint changes lower lumbar spine most pronounced at L5-S1. No significant bony stenosis of the spinal canal or neural foramina. No obvious disc herniation. Soft tissues: No prevertebral or paraspinal soft tissues swelling. Abdominal aorta is diffusely calcified. CT/CT lumbar spine wo con* [id number] IMPRESSION: Severe chronic compression fracture T12, stable. No acute bony abnormalities.
[2023-07-30 16:31] LABS: Basophils # 0.1 10^3/uL (0.0-0.1); Basophils % 0.6 %; Eosinophils # 0.1 10^3/uL (0.0-0.8); Eosinophils % 0.9 %; Hematocrit 37.7 % (36-47); Lymphocytes # 1.7 10^3/uL (0.8-4.8); Lymphocytes % 12.7 %; Mean Corpuscular Hemoglobin 31.1 pg (27-33); Mean Corpuscular Volume 91.7 fl (85-98); Mean Platelet Volume 10.3 fL (7.4-10.4); Monocytes % 7.5 %; Neutrophils # 10.72 10^3/uL (1.8-7.7); Neutrophils % 77.9 %; Nucleated Red Blood Cells % 0 %; Platelet Count 258 10^3/cmm (157-399); Red Blood Count 4.11 10^6/uL (3.85-5.65); Red Cell Distribution Width 13.4 % (12.1-15.1); White Blood Count 13.74 10^3/uL (3.29-11.43)
[2023-07-30] MEDS: orphenadrine 30 mg/mL Inj 2 mL 60 MG IVP (16:38)
[2023-07-30] MEDS: promethazine 25 mg/mL SDV 1 mL IM (16:39)
[2023-07-30] MEDS: ketorolac 30 mg/mL INJ IVP (16:39)
[2023-07-30] MEDS: morphine 4 mg/mL SDV 1 mL 2 MG IVP (16:39)
[2023-07-30] MEDS: dexamethasone 10 mg/mL INJ IVP (16:39)
--- NOTE | 2023-07-30 16:41 | W.ED.EXTPRO ---
HPI - Extremity Problem General: Chief complaint: Extremity Problem,Nontraumatic Stated complaint: hip pain right Time Seen by Provider: 07/30/23 15:10 Source: patient Mode of arrival: EMS History of Present Illness: 77-year-old female presents emergency room via EMS with complaints of pain in her right hip radiating down her leg. She is sees the pain clinic for chronic back pain and has had procedures at [place] within the last 10 days. Multiple allergies. She has osteoporosis. Pain is irregular in nature spasm point. MD Complaint: extremity pain Onset (ago): day(s) Pain Consistency: constant Location: right and lower extremity Quality: sharp Relieving factors: rest Exacerbating factors: range of motion and walking Associated symptoms: Deny arthralgias, chest pain, fever(s), myalgias, rash or short of breath Review of Systems Const: Denies: fever(s) or chills ENMT: Denies: throat pain, ear or mastoid pain, nasal discharge or nasal congestion Card: Denies: chest pain Resp: Denies: dyspnea, productive cough or non-productive cough GI: Denies: abdominal pain, nausea, vomiting, hematemesis, coffee ground emesis, diarrhea, constipation, bloating, hematochezia or melena : Denies: flank pain, difficulty voiding, dysuria, urinary frequency or urinary urgency Skin/Breast: Denies: rash PFSH ED PFSH: Medical History Abnormal stress test Acute cystitis Age-related cognitive decline Back pain Benign essential HTN CAD (coronary artery disease) Chest pain Chronic constipation Chronic post-traumatic stress disorder Chronic right SI joint pain Chronic right-sided low back pain with right-sided sciatica Cigarette nicotine dependence Coronary disease Cystocele Dyslipidemia Encounter for long-term opiate analgesic use Gastritis Gastro-esophageal reflux disease without esophagitis Generalized edema GERD (gastroesophageal reflux disease) History of herpes genitalis Hypertension Hypothyroidism Low back pain of over 3 months duration Major depressive disorder, recurrent episode with mood-congruent psychotic features Microscopic hematuria Mixed incontinence Moderate COPD (chronic obstructive pulmonary disease) Opioid contract exists Periodontal disease Pneumonia Rectal Hemorrhage Spinal stenosis, cervical region Surgical History History of appendectomy History of colonoscopy (~2017) History of colonoscopy with polypectomy (~12/2020) History of esophagogastroduodenoscopy (EGD) (~12/2020) Hx of heart artery stent S/P appendectomy S/P cataract surgery S/P hysterectomy S/P tonsillectomy and adenoidectomy Stented coronary artery Family History Father , at age 93 CAD (coronary artery disease) Family/Other CAD (coronary artery disease) uncle Cancer maternal aunt & maternal uncle Mother , at age 77 CAD (coronary artery disease) Hypertension Cancer Sister Hypertension Cancer Daughter Diabetes Other Chronic post-traumatic stress disorder Social History Smoking and tobacco status: current every day smoker cigarettes Packs smoked per day: 0.75 Years cigarettes smoked: 61 [ Other cigarette details: 11-rpoa-ijwj smoking history] Quit status (tobacco): not considering quitting Smoking risk assessment/counseling performed?: No Alcohol intake: current Alcohol intake frequency: holidays/special occasions only Substance/Drug Use: never Adopted: No Caregiver/support person: No Lives independently: No Household members: family Housing: House Marital status: Marital status details: since the Number of children: 5 Highest education level completed: Associate Degree: Occupational, Technical, Vocational Program Education level details: Clerical training service: No Current occupational status: disabled Current occupational exposures/hazards: No Pets and animals: No Leisure activites: music, games and other Leisure activities details: watch TV, bingo, dance, visit with others Sexually active: No Do you think of yourself as: Straight/Heterosexual Current gender identity: Female Susan/Taoism: Mu-Ism Special susan needs: No Agree to transfusion: Yes Financial difficulty paying for basics: Not Very Hard Female Reproductive History: Para: 5 Spontaneous abortions: No Physical Exam Const: ORIENTATION/CONSCIOUSNESS: Yes awake, Yes oriented to person, Yes oriented to place and Yes oriented to time HENMT: COMMON NORMALS: normocephalic, atraumatic and hearing grossly normal bilaterally HEAD & SCALP: normocephalic and atraumatic Resp: COMMON NORMALS: normal respiratory effort, No retractions, No use of accessory muscles and clear to auscultation bilaterally AUSCULTATION: clear to auscultation bilaterally Cardio: COMMON NORMALS: regular rate, regular rhythm and No murmurs present (Cardio) RATE: regular rate RHYTHM: regular rhythm GI: COMMON NORMALS: Soft to palpation and No hepatosplenomegaly present AUSCULTATION: Yes normoactive bowel sounds PALPATION: Yes Soft to palpation, No Tenderness to palpation present (GI), No Guarding due to palpation present (GI) and Yes No hepatosplenomegaly present Extremity: COMMON NORMALS: normal to inspection, capillary refill normal, no clubbing, cyanosis or edema, no calf tenderness and no pedal edema OTHER: Straight leg raising positive on the right deep tendon reflexes +1 of 4 bilaterally patellar tendons dorsal and plantar flex strength 5 of 5 on the left dorsiflexion is slightly diminished on the right compared to the left plantarflexion is 5 of 5 on the right sensation lower extremities equal bilaterally no swelling in the lower extremities Neuro: SENSORIUM/ORIENTATION: Yes oriented to person, Yes oriented to place and Yes oriented to time Skin: COMMON NORMALS: no rashes or lesions noted GENERAL SKIN EXAM: no rashes or lesions noted Course Vital Signs: Vital signs: Vital Signs Temperature 97.2 F L 07/30/23 15:10 Pulse Rate 82 07/30/23 16:48 Respiratory Rate 18 07/30/23 16:48 Blood Pressure 123/70 07/30/23 16:48 Pulse Oximetry 95 07/30/23 16:48 Oxygen Delivery Me thod Room Air 07/30/23 16:48 MDM - Extremity (Nontraumatic) Medical Decision Making Patient has chronic back pain recently had a procedure with pain clinic. No red flag symptoms at this time. We will increase her tizanidine started on prednisone and change her to a stronger anti-inflammatory. Follow-up with Dr. Leon or primary care doctor. Medical Records I reviewed the patient's medical records. Lab Data I reviewed the patient's lab results. 07/30/23 16:22 07/30/23 16:22 Radiology Impressions Hip/Pelvis X-Ray 07/30/23 15:10 IMPRESSION: Mild degenerative changes right hip joint. No acute bony abnormalities. Lumbar Spine CT 07/30/23 15:41 IMPRESSION: Severe chronic compression fracture T12, stable. No acute bony abnormalities. Laboratory Results WBC 13.74 10^3/uL (3.29-11.43) H 07/30/23 16:22 RBC 4.11 10^6/uL (3.85-5.65) 07/30/23 16:22 Hgb 12.80 g/dL (11.27-16.99) 07/30/23 16:22 Hct 37.7 % (36-47) 07/30/23 16:22 MCV 91.7 fl (85-98) 07/30/23 16:22 MCH 31.1 pg (27-33) 07/30/23 16:22 MCHC 34.0 g/dL (30-55) 07/30/23 16:22 RDW 13.4 % (12.1-15.1) 07/30/23 16:22 Plt Count 258 10^3/cmm (157-399) 07/30/23 16:22 MPV 10.3 fL (7.4-10.4) 07/30/23 16:22 Neut % (Auto) 77.9 % 07/30/23 16:22 Lymph % (Auto) 12.7 % 07/30/23 16:22 [place] % (Auto) 7.5 % 07/30/23 16:22 Eos % (Auto) 0.9 % 07/30/23 16:22 Baso % (Auto) 0.6 % 07/30/23 16:22 Neut # (Auto) 10.72 10^3/uL (1.8-7.7) H 07/30/23 16:22 Lymph # (Auto) 1.7 10^3/uL (0.8-4.8) 07/30/23 16:22 [place] # (Auto) 1.0 10^3/uL (0.2-0.9) H 07/30/23 16:22 Eos # (Auto) 0.1 10^3/uL (0.0-0.8) 07/30/23 16:22 Baso # (Auto) 0.1 10^3/uL (0.0-0.1) 07/30/23 16:22 Nucleated RBC % (auto) 0 % 07/30/23 16:22 Nucleated RBCs # 0.0 /100WBC 07/30/23 16:22 Sodium 140 mmol/L (136-145) 07/30/23 16:22 Potassium 3.4 mmol/L (3.5-5.1) L 07/30/23 16:22 Chloride 105 mmol/L (98-107) 07/30/23 16:22 Carbon Dioxide 24 mmol/L (22-29) 07/30/23 16:22 Anion Gap 14.4 (5-19) 07/30/23 16:22 BUN 16 mg/dL (8-23) 07/30/23 16:22 Creatinine 0.8 mg/dL (0.5-0.9) 07/30/23 16:22 GFR Calculation Not Reportable 07/30/23 16:22 Glucose 117 mg/dL (65-115) H 07/30/23 16:22 Calculated Osmolality 292 mOsm/kg (285-295) 07/30/23 16:22 Calcium 9.0 mg/dL (8.5-10.5) 07/30/23 16:22 Total Bilirubin 0.4 mg/dL (0.15-1.2) 07/30/23 16:22 AST 14 U/L (0-32) 07/30/23 16:22 ALT 13 U/L (0-33) 07/30/23 16:22 Alkaline Phosphatase 87 U/L (35-105) 07/30/23 16:22 Total Protein 6.7 g/dL (6.6-8.7) 07/30/23 16:22 Albumin 4.2 g/dL (3.5-5.2) 07/30/23 16:22 Globulin 2.5 g/dL (1.3-4.6) 07/30/23 16:22 Discharge Plan Discharge Patient Disposition: Home Clinical Impression: Back pain, chronic, Compression fracture of T12 vertebra Condition: Stable Prescriptions: New tizanidine 4 mg tablet 4 mg PO Q6H PRN (Reason: muscle spasticity) Qty: 20 0RF Rx Instructions: do not exceed 3 doses per 24 hrs prednisone 20 mg tablet 20 mg PO TID Qty: 15 0RF Rx Instructions: 1 p.o. 3 times daily x3 days, 1 p.o. twice daily x2 days, 1 p.o. daily x2 days diclofenac sodium 75 mg tablet,delayed release (DR/EC) 75 mg PO Q12H PRN (Reason: pain) Qty: 20 0RF Discontinued pregabalin 50 mg capsule 50 mg PO BID Qty: 60 2RF No Action CeraVe Cream 1 applic topical QID PRN (Reason: Rash) methylprednisolone acetate [Depo-Medrol] 40 mg/mL suspension 40 mg intra-articular ONCE Qty: 1 0RF bupivacaine (PF) 0.25 % (2.5 mg/mL) solution 9 ml intra-articular ONCE Qty: 1 0RF (DME) [facility] Thumb Brace See Rx Instructions .Route .MEDSUPPLY Qty: 1 0RF Rx Instructions: As directed tizanidine 2 mg tablet 2 mg PO BID PRN (Reason: muscle spasticity) Qty: 60 0RF venlafaxine [Effexor XR] 37.5 mg capsule,extended release 24hr 37.5 mg PO .morning Qty: 30 6RF Rx Instructions: Take one capsule every morning (DME) rolling walker with seat See Rx Instructions .Route .MEDSUPPLY Qty: 1 0RF Rx Instructions: As directed albuterol sulfate 2.5 mg /3 mL (0.083 %) solution for nebulization 2.5 mg inhalation Q6H PRN (Reason: shortness of breath or wheezing) Qty: 180 0RF pantoprazole 40 mg tablet,delayed release (DR/EC) See Rx Instructions .ROUTE .COMPLEX Qty: 90 1RF Dose Instruction: TAKE 1 TABLET BY MOUTH EVERY DAY Rx Instructions: TAKE 1 TABLET BY MOUTH EVERY DAY amlodipine 10 mg tablet 10 mg PO DAILY Qty: 90 1RF Dose Instruction: TAKE 1 TABLET BY MOUTH EVERY DAY furosemide 20 mg tablet 20 mg PO DAILY Qty: 90 2RF polyethylene glycol 3350 17 gram/dose powder See Rx Instructions .ROUTE .COMPLEX Qty: 510 1RF Dose Instruction: DISSOLVE 17 GRAMS BY MOUTH 1-2 TIMES PER DAY NEEDED FOR CONSTIPATION NEEDED Rx Instructions: DISSOLVE 17 GRAMS BY MOUTH 1-2 TIMES PER DAY NEEDED FOR CONSTIPATION NEEDED aspirin [Adult Low Dose Aspirin] 81 mg tablet,delayed release (DR/EC) 81 mg PO DAILY Qty: 90 3RF levothyroxine 75 mcg tablet See Rx Instructions .ROUTE .COMPLEX Qty: 90 1RF Dose Instruction: TAKE ONE TABLET BY MOUTH EVERY DAY Rx Instructions: TAKE ONE TABLET BY MOUTH EVERY DAY valacyclovir 500 mg tablet See Rx Instructions .ROUTE .COMPLEX Qty: 90 0RF Dose Instruction: TAKE ONE TABLET BY MOUTH EVERY DAY Rx Instructions: TAKE ONE TABLET BY MOUTH EVERY DAY isosorbide mononitrate 60 mg tablet extended release 24 hr See Rx Instructions .ROUTE .COMPLEX Qty: 135 3RF Dose Instruction: TAKE ONE AND ONE-HALF TABLET BY MOUTH DAILY Rx Instructions: TAKE ONE AND ONE-HALF TABLET BY MOUTH DAILY alendronate 70 mg tablet See Rx Instructions .ROUTE .COMPLEX Qty: 10 0RF Dose Instruction: TAKE 1 TABLET BY MOUTH every week Rx Instructions: TAKE 1 TABLET BY MOUTH every week hydrocodone-acetaminophen 10-325 mg tablet 1 tab PO TID PRN (Reason: pain) 30 Days Qty: 90 0RF Rx Instructions: may fill 30 days after previous refill Trelegy Ellipta 100-62.5-25 mcg blister with device 1 inh inhalation DAILY Qty: 60 5RF fluticasone propionate 50 mcg/actuation spray,suspension See Rx Instructions .ROUTE .COMPLEX Qty: 16 3RF Dose Instruction: USE 1 SPRAY IN EACH NOSTRIL TWICE DAILY Rx Instructions: USE 1 SPRAY IN EACH NOSTRIL TWICE DAILY montelukast 10 mg tablet See Rx Instructions .ROUTE .COMPLEX Qty: 90 3RF Dose Instruction: TAKE ONE TABLET BY MOUTH EVERY DAY Rx Instructions: TAKE ONE TABLET BY MOUTH EVERY DAY guaifenesin [Mucinex] 600 mg tablet extended release 12hr 600 mg PO Q12H PRN (Reason: congestion) Qty: 20 0RF latanoprost 0.005 % drops 1 drp ophthalmic (eye) QPM PRN (Reason: unknown) Centrum Women 18-400 mg-mcg Tablet 1 tab PO DAILY cholecalciferol (vitamin D3) [Vitamin D3] 50 mcg (2,000 unit) Capsule 50 mcg PO DAILY albuterol sulfate 90 mcg/actuation HFA aerosol inhaler 2 inh inhalation Q8H PRN (Reason: shortness of breath or wheezing) Qty: 8.5 3RF atorvastatin 40 mg tablet 40 mg PO DAILY Qty: 90 3RF Discharge Orders: Discharge ED (Routine); Ordered 07/30/23 Ordered By: Mark Henderson Referrals: Kaycee Roque DO [Primary Care Provider] - Discharge Diet: Usual diet Discharge Activity: Increase activity as tolerated Patient Instructions: Opioid Safety, Pain Management Activity Restrictions/Additional Instructions: Follow-up with your primary care doctor or pain management as previously scheduled. Coding Level of Care Code ED [facility] Tender for Lori Reed
[2023-07-30 16:48] VITALS: BP 123/70; PULSE 82; RESP 18; O2SAT 95
[2023-07-30 16:49] LABS: Alanine Aminotransferase 13 U/L (0-33); Albumin Level 4.2 g/dL (3.5-5.2); Alkaline Phosphatase 87 U/L (35-105); Anion Gap 14.4 (5-19); Aspartate Amino Transferase 14 U/L (0-32); Blood Urea Nitrogen 16 mg/dL (8-23); Carbon Dioxide 24 mmol/L (22-29); Chloride 105 mmol/L (98-107); Globulin 2.5 g/dL (1.3-4.6); Glucose 117 mg/dL (65-115); Osmolality Calculated 292 mOsm/kg (285-295); Potassium 3.4 mmol/L (3.5-5.1); Sodium 140 mmol/L (136-145); Total Bilirubin 0.4 mg/dL (0.15-1.2); Total Protein 6.7 g/dL (6.6-8.7)
== END 2023-07-30 17:41 | disposition home or self-care (01) ==
PROVIDERS: Emergency Provider Family Medicine; PCP Family Medicine
DX: G89.29 Other chronic pain (principal); M54.6 Pain in thoracic spine; S22.080A Wedge compression fracture of T11-T12 vertebra, initial encounter for closed fracture; Z79.82 Long term (current) use of aspirin; F17.210 Nicotine dependence, cigarettes, uncomplicated; I25.10 Atherosclerotic heart disease of native coronary artery without angina pectoris; I10 Essential (primary) hypertension; E78.5 Hyperlipidemia, unspecified; J44.9 Chronic obstructive pulmonary disease, unspecified; X58.XXXA Exposure to other specified factors, initial encounter
CPT/HCPCS: 72131; 73502; 80053; 85025; 96372; 96374; 96375; 99285; J1100; J1885; J2270; J2360; J2550

== ENCOUNTER 2023-08-01 11:39 | Outpatient (CLI) | payer MEDICARE, MEDICAID, SELFPAY ==
[2023-04-05 16:44] VITALS: BP 116/68; BMI 28.9
[2023-07-25 09:29] VITALS: BP 116/68; BMI 28.9
--- NOTE | 2023-08-01 11:50 | MM_ITS ---
WS: [id number] Bilateral screening 3D tomosynthesis digital mammogram, 08/01/2023 Clinical Data: screening mammogram Comparison: 06/29/2022, 02/11/2021, 11/13/2019, 09/10/2018, 12/10/2015. Findings: The breast parenchymal pattern shows fibroglandular tissue. No spiculated masses or clustered calcifi cations are seen. There are no secondary signs of carcinoma. Impression: 1. Negative bilateral mammogram unchanged. 2. Recommend annual screening mammograms. MM/[place] [id number] BIRADS: 1-Negative FOLLOW UP: 1 Year Follow-up The CAD sample checker was used.
== END 2023-08-01 11:40 | disposition home or self-care (01) ==
PROVIDERS: PCP Family Medicine; Visit Provider Family Medicine
DX: Z12.31 Encounter for screening mammogram for malignant neoplasm of breast (principal); G89.29 Other chronic pain; M54.50 Low back pain, unspecified; M54.2 Cervicalgia
CPT/HCPCS: 77063; 77067; 99214

== ENCOUNTER 2023-09-01 00:22 | Emergency (ER) | payer MEDICARE, MEDICAID, SELFPAY ==
[2023-08-02 11:25] VITALS: BP 116/68; BMI 28.9
[2023-09-01 00:27] VITALS: BP 141/78; PULSE 83; RESP 18; TEMP 36.6; O2SAT 95; BMI 35.2
--- NOTE | 2023-09-01 00:59 | CTR_ITS ---
PROCEDURE INFORMATION: Exam: CT Abdomen And Pelvis Without Contrast Exam date and time: 09/01/2023 1:07 AM Age: 78 years old Clinical indication: Abdominal pain; Localized; Prior surgery; Surgery date: 6+ months; Surgery type: Coronary stent. Appy. Hysterecomy; Patient HX: Lower abd pain with hematuria. History of t12 compression fracture. ; Additional info: Abdominal pain hematuria TECHNIQUE: Imaging protocol: Computed tomography of the abdomen and pelvis without contrast. Radiation optimization: All CT scans at this facility use at least one of these dose optimization techniques: automated exposure control; mA and/or kV adjustment per patient size (includes targeted exams where dose is matched to clinical indication); or iterative reconstruction. REPORTING DATA: Count of CT and Cardiac NM exams in prior 12 months: This patient has received 2 known CTs and 0 known cardiac nuclear medicine studies in the 12 months prior to the current study. COMPARISON: 1. CT abdomen pelvis wo/w 09/23/2019 3:[address] lumbar spine wo con 07/30/2023 3:53 PM RADIATION DOSE METRICS: Total DLP (mGy-cm): 457.16 FINDINGS: Lungs: small calcified granuloma in the right lower lobe. Lung bases are otherwise clear. Liver: Normal liver. Gallbladder and bile ducts: Normal gallbladder. No calcified stones. No ductal dilation. Pancreas: Normal pancreas. No ductal dilation. Spleen: A few small calcified granulomas in the spleen. No splenomegaly. Adrenal glands: Adrenal glands are normal. Kidneys and ureters: No hydronephrosis or obstructive calculus. A punctate nonobstructive right renal calculus. Stomach and bowel: No acute bowel abnormality. No obstruction. No mucosal thickening. Appendix: Status post appendectomy. Intraperitoneal space: Surgical clips in the epigastric region. No free fluid or free air. Vasculature: Slight ectasia of the infrarenal abdominal aorta, but no significant aneurysm. Extensive atherosclerotic calcifications. Lymph nodes: No adenopathy. Urinary bladder: Urinary bladder is partially decompressed, limiting evaluation. Questionable mild bladder wall thickening. Reproductive: Status post hysterectomy. A 3.8 cm left adnexal cyst. Bones/joints: Stable old severe T12 compression fracture. No acute fracture. Soft tissues: Small fat containing umbilical and bilateral inguinal hernias. CT/CT kidney stone [id number] IMPRESSION: 1. Questionable mild bladder wall thickening, though the urinary bladder is partially decompressed, limiting evaluation. Could represent cystitis. 2. No hydronephrosis or obstructive calculus. 3. A punctate nonobstructive right renal calculus. 4. Surgical clips in the epigastric region. Correlate with surgical history. 5. Status post appendectomy. 6. Status post hysterectomy. 7. A 3.8 cm left adnexal cyst. Mildly increased in comparison to 2019, when it measured about 3 cm, but still most likely a benign finding. Consider ultrasound follow-up in 6-12 months. (Reference: [employer]qu[employer]) 8. Small fat containing umbilical and bilateral inguinal hernias. 9. Stable old severe T12 compression fracture. REFERENCES: Taqueria et al. Management of Incidental Adnexal Findings on CT and MRI: A White Paper of the ACR Incidental Findings Committee, J Am [employer]el Radiol. 2020 b;17(2):248-254.
--- NOTE | 2023-09-01 01:13 | W.ED.FEMALGU ---
HPI - Female Genitourinary General: Chief complaint: Urogenital-Female Stated complaint: ABD PAIN Time Seen by Provider: 09/01/23 00:28 Source: patient History of Present Illness: 78-year-old female complaining of suprapubic abdominal pain, nausea, and blood in her urine. She believes this happened 1 time previously a few years ago. She denies fever. She does have some chills. No vomiting. She is not bleeding from any other area. She does not take anticoagulants. MD elicited complaint: dysuria Associated symptoms: Reports abdominal pain and nausea Review of Systems Const: Reports: chills; Denies: fever(s) Card: Denies: chest pain Resp: Denies: dyspnea GI: Reports: abdominal pain and nausea; Denies: vomiting, diarrhea or hematochezia : Reports: difficulty voiding, dysuria and hematuria Musc: Reports: back pain PFSH ED PFSH: Medical History Abnormal stress test Age-related cognitive decline Back pain Benign essential HTN CAD (coronary artery disease) Chest pain Chronic constipation Chronic post-traumatic stress disorder Chronic right SI joint pain Chronic right-sided low back pain with right-sided sciatica Cigarette nicotine dependence Coronary disease Cystocele Dyslipidemia Encounter for long-term opiate analgesic use Gastritis Gastro-esophageal reflux disease without esophagitis Generalized edema GERD (gastroesophageal reflux disease) History of herpes genitalis Hypertension Hypothyroidism Low back pain of over 3 months duration Major depressive disorder, recurrent episode with mood-congruent psychotic features Microscopic hematuria Mixed incontinence Moderate COPD (chronic obstructive pulmonary disease) Opioid contract exists Periodontal disease Pneumonia Rectal Hemorrhage Spinal stenosis, cervical region Surgical History History of appendectomy History of colonoscopy (~2017) History of colonoscopy with polypectomy (~12/2020) History of esophagogastroduodenoscopy (EGD) (~12/2020) Hx of heart artery stent S/P appendectomy S/P cataract surgery S/P hysterectomy S/P tonsillectomy and adenoidectomy Stented coronary artery Family History Father , at age 93 CAD (coronary artery disease) Family/Other CAD (coronary artery disease) uncle Cancer maternal aunt & maternal uncle Mother , at age 77 CAD (coronary artery disease) Hypertension Cancer Sister Hypertension Cancer Daughter Diabetes Other Chronic post-traumatic stress disorder Social History Smoking and tobacco status: current every day smoker cigarettes Packs smoked per day: 0.75 Years cigarettes smoked: 61 [ Other cigarette details: 52-[id number] smoking history] Quit status (tobacco): not considering quitting Smoking risk assessment/counseling performed?: No Alcohol intake: former Former alcohol use details: occasionally Substance/Drug Use: never Adopted: No Caregiver/support person: Yes (5 days a week- OIL) Lives independently: No Household members: none Housing: House Marital status: Marital status details: since the Number of children: 5 Highest education level completed: Associate Degree: Occupational, Technical, Vocational Program Education level details: Clerical training service: No Current occupational status: disabled Current occupational exposures/hazards: No Pets and animals: No Leisure activites: music, games and other Leisure activities details: watch TV, bingo, dance, visit with others, pickler 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 trash and clean Sexually active: No Do you think of yourself as: Straight/Heterosexual Current gender identity: Female Susan/Jain: Confucianist Special susan needs: No Agree to transfusion: Yes Financial difficulty paying for basics: Not Very Hard Female Reproductive History: Para: 5 Spontaneous abortions: No Physical Exam Const: COMMON NORMALS: no acute distress GENERAL APPEARANCE: cooperative; not frail appearing HENMT: COMMON NORMALS: normocephalic, atraumatic and Normal external nose present HEAD & SCALP: normocephalic and atraumatic FACE & SINUS: normal facial exam and face symmetric NOSE: Normal external nose present Eye: COMMON NORMALS: Equal, round and reactive pupils present and EOMs intact bilaterally PUPIL: Yes Equal, round and reactive pupils present Neck/C-Spine: GENERAL: Yes trachea midline Chest: CHEST: Yes Symmetrical chest wall rise Resp: COMMON NORMALS: normal respiratory effort, No retractions, No use of accessory muscles and clear to auscultation bilaterally AUSCULTATION: clear to auscultation bilaterally Cardio: COMMON NORMALS: regular rate and regular rhythm RATE: regular rate RHYTHM: regular rhythm GI: COMMON NORMALS: Normal to inspection, nondistended, normoactive bowel sounds present PALPATION: Yes Tenderness to palpation present (GI) (Suprapubic) Extremity: COMMON NORMALS: no pedal edema Neuro: JEAN CLAUDE COMA SCALE: document GCS findings [place] coma scale eye opening: Spontaneous [place] coma scale verbal response: Orientated [place] coma scale motor response: Obey commands Jean Claude coma scale total score: 15 SENSORY EXAM: Yes extremities (intact) Psych: COMMON NORMALS: speech normal SPEECH: Yes normal speech Skin: COMMON NORMALS: no rashes or lesions noted GENERAL SKIN EXAM: no rashes or lesions noted Course Vital Signs: Vital signs: Vital Signs Temperature 98 F 09/01/23 00:27 Pulse Rate 90 09/01/23 03:38 Respiratory Rate 18 09/01/23 00:27 Blood Pressure 146/87 09/01/23 03:38 Pulse Oximetry 93 09/01/23 03:38 Oxygen Delivery Me thod Room Air 09/01/23 03:38 MDM - Female Medical Decision Making 78-year-old female with abdominal pain and hematuria. Pain is improved after bladder decompression with Esquivel catheter. She has passed 800 mL of bloody urine. No large clots. White blood cell count is 9.9. Potassium is 3.0 and is repleted. Creatinine is 1. Lactic acid is 1.1. Patient has a 2+ leukocyte esterase urinalysis with 40-55 white blood cells, and many red blood cells. She is not anticoagulated. She will be given antibiotics for hemorrhagic urinary tract infection. She will keep the Esquivel for at least 48 hours for bladder decompression. To be pulled as an outpatient. To return for worsening symptoms. Lab Data 09/01/23 01:55 09/01/23 01:55 Radiology Impressions Abdomen/Pelvis CT 09/01/23 00:59 IMPRESSION: 1. Questionable mild bladder wall thickening, though the urinary bladder is partially decompressed, limiting evaluation. Could represent cystitis. 2. No hydronephrosis or obstructive calculus. 3. A punctate nonobstructive right renal calculus. 4. Surgical clips in the epigastric region. Correlate with surgical history. 5. Status post appendectomy. 6. Status post hysterectomy. 7. A 3.8 cm left adnexal cyst. Mildly increased in comparison to 2019, when it measured about 3 cm, but still most likely a benign finding. Consider ultrasound follow-up in 6-12 months. (Reference: Taqueria) 8. Small fat containing umbilical and bilateral inguinal hernias. 9. Stable old severe T12 compression fracture. REFERENCES: Taqueria et al. Management of Incidental Adnexal Findings on CT and MRI: A White Paper of the ACR Incidental Findings Committee, J Am Jewel Radiol. 2019;17(2):248-254. Laboratory Results WBC 9.87 10^3/uL (3.29-11.43) 09/01/23 01:55 RBC 4.55 10^6/uL (3.85-5.65) 09/01/23 01:55 Hgb 14.10 g/dL (11.27-16.99) 09/01/23 01:55 Hct 42.4 % (36-47) 09/01/23 01:55 MCV 93.2 fl (85-98) 09/01/23 01:55 MCH 31.0 pg (27-33) 09/01/23 01:55 MCHC 33.3 g/dL (30-55) 09/01/23 01:55 RDW 13.7 % (12.1-15.1) 09/01/23 01:55 Plt Count 237 10^3/cmm (157-399) 09/01/23 01:55 MPV 9.9 fL (7.4-10.4) 09/01/23 01:55 Neut % (Auto) 79.8 % 09/01/23 01:55 Lymph % (Auto) 8.7 % 09/01/23 01:55 Bryan % (Auto) 8.7 % 09/01/23 01:55 Eos % (Auto) 1.9 % 09/01/23 01:55 Baso % (Auto) 0.6 % 09/01/23 01:55 Neut # (Auto) 7.87 10^3/uL (1.8-7.7) H 09/01/23 01:55 Lymph # (Auto) 0.9 10^3/uL (0.8-4.8) 09/01/23 01:55 Bryan # (Auto) 0.9 10^3/uL (0.2-0.9) 09/01/23 01:55 Eos # (Auto) 0.2 10^3/uL (0.0-0.8) 09/01/23 01:55 Baso # (Auto) 0.1 10^3/uL (0.0-0.1) 09/01/23 01:55 Nucleated RBC % (auto) 0 % 09/01/23 01:55 Nucleated RBCs # 0.0 /100WBC 09/01/23 01:55 Sodium 142 mmol/L (136-145) 09/01/23 01:55 Potassium 3.0 mmol/L (3.5-5.1) L 09/01/23 01:55 Chloride 102 mmol/L (98-107) 09/01/23 01:55 Carbon Dioxide 27 mmol/L (22-29) 09/01/23 01:55 Anion Gap 16.0 (5-19) 09/01/23 01:55 BUN 20 mg/dL (8-23) 09/01/23 01:55 Creatinine 1.0 mg/dL (0.5-0.9) H 09/01/23 01:55 GFR Calculation Not Reportable 09/01/23 01:55 Glucose 101 mg/dL (65-115) 09/01/23 01:55 Calculated Osmolality 297 mOsm/kg (285-295) H 09/01/23 01:55 Lactic Acid 1.1 mmol/L (0.5-2.2) 09/01/23 01:55 Calcium 9.3 mg/dL (8.5-10.5) 09/01/23 01:55 Total Bilirubin 0.5 mg/dL (0.15-1.2) 09/01/23 01:55 AST 15 U/L (0-32) 09/01/23 01:55 ALT 15 U/L (0-33) 09/01/23 01:55 Alkaline Phosphatase 89 U/L (35-105) 09/01/23 01:55 C-Reactive Protein 10.2 mg/L (0.0-4.9) H 09/01/23 01:55 Total Protein 7.2 g/dL (6.6-8.7) 09/01/23 01:55 Albumin 4.5 g/dL (3.5-5.2) 09/01/23 01:55 Globulin 2.7 g/dL (1.3-4.6) 09/01/23 01:55 Lipase 30 U/L (13-60) 09/01/23 01:55 Urine Color Red (Yellow) A 09/01/23 00:44 Urine Appearance Turbid (CLEAR) A 09/01/23 00:44 Urine pH 6 (5-7) 09/01/23 00:44 Ur Specific [place] 1.020 (1.005-1.030) 09/01/23 00:44 Urine Protein 3+ (Negative) H 09/01/23 00:44 Urine Glucose (UA) Norm (Normal) 09/01/23 00:44 Urine Ketones Negative (Negative) 09/01/23 00:44 Urine Blood 3+ (Negative) H 09/01/23 00:44 Urine Nitrate Negative (Negative) 09/01/23 00:44 Urine Bilirubin Neg (Negative) 09/01/23 00:44 Urine Urobilinogen Neg mg/dL (Negative) 09/01/23 00:44 Ur Leukocyte Esterase 2+ (Negative) H 09/01/23 00:44 Urine RBC Too numerous to cnt /hpf (0-2) H 09/01/23 00:44 Urine WBC 40-55 /hpf (0-5) H 09/01/23 00:44 Ur Squamous Epith Cells 0-4 /hpf (0-5) H 09/01/23 00:44 Amorphous Sediment Not Reportable 09/01/23 00:44 Urine Bacteria 2+ /hpf (NONE) H 09/01/23 00:44 All radiology interpretation(s) finalized by discharge Discharge Plan Discharge Patient Disposition: Home Clinical Impression: Urinary tract infection, Acute urinary retention, Hematuria due to acute cystitis Condition: Stable Prescriptions: New cefdinir 300 mg capsule 300 mg PO BID 10 Days Qty: 20 0RF No Action CeraVe Cream 1 applic topical QID PRN (Reason: Rash) methylprednisolone acetate [Depo-Medrol] 40 mg/mL suspension 40 mg intra-articular ONCE Qty: 1 0RF bupivacaine (PF) 0.25 % (2.5 mg/mL) solution 9 ml intra-articular ONCE Qty: 1 0RF (DME) [facility] Thumb Brace See Rx Instructions .Route .MEDSUPPLY Qty: 1 0RF Rx Instructions: As directed venlafaxine [Effexor XR] 37.5 mg capsule,extended release 24hr 37.5 mg PO .morning Qty: 30 6RF Rx Instructions: Take one capsule every morning (DME) rolling walker with seat See Rx Instructions .Route .MEDSUPPLY Qty: 1 0RF Rx Instructions: As directed pregabalin 50 mg capsule 50 mg PO BID amlodipine 10 mg tablet 10 mg PO DAILY Qty: 90 1RF Dose Instruction: TAKE 1 TABLET BY MOUTH EVERY DAY isosorbide mononitrate 60 mg tablet extended release 24 hr See Rx Instructions .ROUTE .COMPLEX Qty: 135 3RF Dose Instruction: TAKE ONE AND ONE-HALF TABLET BY MOUTH DAILY Rx Instructions: TAKE ONE AND ONE-HALF TABLET BY MOUTH DAILY alendronate 70 mg tablet See Rx Instructions .ROUTE .COMPLEX Qty: 12 1RF Dose Instruction: TAKE 1 TABLET BY MOUTH every week Rx Instructions: TAKE 1 TABLET BY MOUTH every week pantoprazole 40 mg tablet,delayed release (DR/EC) See Rx Instructions .ROUTE .COMPLEX Qty: 90 1RF Dose Instruction: TAKE 1 TABLET BY MOUTH EVERY DAY Rx Instructions: TAKE 1 TABLET BY MOUTH EVERY DAY albuterol sulfate 2.5 mg /3 mL (0.083 %) solution for nebulization 2.5 mg inhalation Q6H PRN (Reason: shortness of breath or wheezing) Qty: 180 0RF furosemide 20 mg tablet 20 mg PO DAILY Qty: 90 2RF polyethylene glycol 3350 17 gram/dose powder See Rx Instructions .ROUTE .COMPLEX Qty: 510 1RF Dose Instruction: DISSOLVE 17 GRAMS BY MOUTH 1-2 TIMES PER DAY NEEDED FOR CONSTIPATION NEEDED Rx Instructions: DISSOLVE 17 GRAMS BY MOUTH 1-2 TIMES PER DAY NEEDED FOR CONSTIPATION NEEDED aspirin [Adult Low Dose Aspirin] 81 mg tablet,delayed release (DR/EC) 81 mg PO DAILY Qty: 90 3RF hydrocodone-acetaminophen 10-325 mg tablet 1 tab PO TID PRN (Reason: pain) 30 Days Qty: 90 0RF Rx Instructions: may fill 30 days after previous refill fluticasone propionate 50 mcg/actuation spray,suspension See Rx Instructions .ROUTE .COMPLEX Qty: 16 3RF Dose Instruction: USE 1 SPRAY IN EACH NOSTRIL TWICE DAILY Rx Instructions: USE 1 SPRAY IN EACH NOSTRIL TWICE DAILY montelukast 10 mg tablet See Rx Instructions .ROUTE .COMPLEX Qty: 90 3RF Dose Instruction: TAKE ONE TABLET BY MOUTH EVERY DAY Rx Instructions: TAKE ONE TABLET BY MOUTH EVERY DAY levothyroxine 75 mcg tablet See Rx Instructions .ROUTE .COMPLEX Qty: 90 0RF Dose Instruction: TAKE 1 TABLET BY MOUTH EVERY DAY Rx Instructions: TAKE 1 TABLET BY MOUTH EVERY DAY valacyclovir 500 mg tablet See Rx Instructions .ROUTE .COMPLEX Qty: 90 0RF Dose Instruction: TAKE ONE TABLET BY MOUTH EVERY DAY Rx Instructions: TAKE ONE TABLET BY MOUTH EVERY DAY Joaquin Ellipta 100-62.5-25 mcg blister with device 1 inh inhalation DAILY Qty: 60 5RF tizanidine 4 mg tablet 4 mg PO Q6H PRN (Reason: muscle spasticity) Qty: 20 0RF Rx Instructions: do not exceed 3 doses per 24 hrs diclofenac sodium 75 mg tablet,delayed release (DR/EC) 75 mg PO Q12H PRN (Reason: pain) Qty: 20 0RF latanoprost 0.005 % drops 1 drp ophthalmic (eye) QPM PRN (Reason: unknown) Centrum Women 18-400 mg-mcg Tablet 1 tab PO DAILY cholecalciferol (vitamin D3) [Vitamin D3] 50 mcg (2,000 unit) Capsule 50 mcg PO DAILY albuterol sulfate 90 mcg/actuation HFA aerosol inhaler 2 inh inhalation Q8H PRN (Reason: shortness of breath or wheezing) Qty: 8.5 3RF atorvastatin 40 mg tablet 40 mg PO DAILY Qty: 90 3RF Discharge Orders: Discharge ED (Routine); Ordered 09/01/23 Ordered By: Brandon Escobar Referrals: Kaycee Roque DO [Primary Care Provider] - 1-3 days Patient Instructions: Esquivel Catheter Placement and Care (ED), Hematuria (ED), Urinary Tract Infection in Older Adults (ED) Activity Restrictions/Additional Instructions: Keep the catheter in for least 48 hours. See your doctor at the beginning of the week, and this can be removed there as long as bleeding is clearing up significantly. Return for fever despite 2-3 doses of antibiotics, worsening pain, worsening blood in the urine with passage of blood clots, other concerning symptoms. Coding Level of Care Code ED Environmental Analyst for Lori Reed
[2023-09-01 01:27] LABS: Urine Appearance Turbid (CLEAR); Urine Color Red (Yellow)
[2023-09-01 01:28] LABS: Add Urine Microscopic? YES; Bilirubin Urine Neg (Negative); Blood Urine 3+ (Negative); Glucose Urine UA Norm (Normal); Ketones Urine Negative (Negative); Leukocyte Esterase Urine 2+ (Negative); Nitrate Urine Negative (Negative); Protein Urine 3+ (Negative); RBC Urine TOO NUMEROUS TO CNT /hpf (0-2); Squamous Epithelial Cell Urine 0-4 /hpf (0-5); Urobilinogen Urine Neg (Negative); WBC Urine 40-55 /hpf (0-5); pH Urine 6 (5-7)
[2023-09-01 01:29] LABS: Add Urine Culture? Yes; Bacteria Urine 2+ /hpf
[2023-09-01 02:06] LABS: Basophils # 0.1 10^3/uL (0.0-0.1); Basophils % 0.6 %; Eosinophils # 0.2 10^3/uL (0.0-0.8); Eosinophils % 1.9 %; Hematocrit 42.4 % (36-47); Lymphocytes # 0.9 10^3/uL (0.8-4.8); Lymphocytes % 8.7 %; Mean Corpuscular HGB Conc 33.3 g/dL (30-55); Mean Corpuscular Volume 93.2 fl (85-98); Mean Platelet Volume 9.9 fL (7.4-10.4); Monocytes # 0.9 10^3/uL (0.2-0.9); Monocytes % 8.7 %; Neutrophils # 7.87 10^3/uL (1.8-7.7); Neutrophils % 79.8 %; Nucleated Red Blood Cells % 0 %; Platelet Count 237 10^3/cmm (157-399); Red Blood Count 4.55 10^6/uL (3.85-5.65); Red Cell Distribution Width 13.7 % (12.1-15.1); White Blood Count 9.87 10^3/uL (3.29-11.43)
[2023-09-01 02:20] LABS: Alanine Aminotransferase 15 U/L (0-33); Albumin Level 4.5 g/dL (3.5-5.2); Alkaline Phosphatase 89 U/L (35-105); Aspartate Amino Transferase 15 U/L (0-32); Blood Urea Nitrogen 20 mg/dL (8-23); C Reactive Protein 10.2 mg/L (0.0-4.9); Calcium 9.3 mg/dL (8.5-10.5); Carbon Dioxide 27 mmol/L (22-29); Chloride 102 mmol/L (98-107); Globulin 2.7 g/dL (1.3-4.6); Glucose 101 mg/dL (65-115); Lipase 30 U/L (13-60); Osmolality Calculated 297 mOsm/kg (285-295); Sodium 142 mmol/L (136-145); Total Bilirubin 0.5 mg/dL (0.15-1.2); Total Protein 7.2 g/dL (6.6-8.7)
[2023-09-01 02:21] LABS: Lactic Sepsis W/Reflex 1.1 mmol/L (0.5-2.2)
[2023-09-01] MEDS: cefdinir 300 MG CAPSULE PO (03:31)
[2023-09-01] MEDS: potassium chloride oral liq 20 mEq/15 mL UDC 40 MEQ PO (03:32)
[2023-09-01 03:38] VITALS: BP 146/87; PULSE 90; O2SAT 93
== END 2023-09-01 03:53 | disposition home or self-care (01) ==
PROVIDERS: Emergency Provider Emergency Medicine; PCP Family Medicine
DX: N30.01 Acute cystitis with hematuria (principal); R33.9 Retention of urine, unspecified; Z79.82 Long term (current) use of aspirin; N20.0 Calculus of kidney; K40.20 Bilateral inguinal hernia, without obstruction or gangrene, not specified as recurrent; K42.9 Umbilical hernia without obstruction or gangrene; F17.210 Nicotine dependence, cigarettes, uncomplicated; I25.10 Atherosclerotic heart disease of native coronary artery without angina pectoris; E78.5 Hyperlipidemia, unspecified; I10 Essential (primary) hypertension; J44.9 Chronic obstructive pulmonary disease, unspecified
CPT/HCPCS: 36415; 51702; 74176; 80053; 81001; 83605; 83690; 85025; 86140; 87077; 87086; 87186; 99284

== ENCOUNTER 2023-09-04 22:38 | Emergency (ER) | payer MEDICARE, MEDICAID, SELFPAY ==
[2023-08-02 11:25] VITALS: BP 116/68; BMI 28.9
[2023-09-04 23:03] VITALS: BP 131/84; PULSE 83; RESP 18; TEMP 37.1; O2SAT 97; BMI 28.3
--- NOTE | 2023-09-04 23:13 | W.ED.FEMALGU ---
HPI - Female Genitourinary General: Chief complaint: Urogenital-Female Stated complaint: Cath issue Time Seen by Provider: 09/04/23 22:58 History of Present Illness: Patient presents here to have a Esquivel catheter removed. This catheter was placed in this ER about 2 days ago for urinary retention. Patient's not had any problems since then she is putting out clear urine today and could not make an appointment with her family doc so she decided to come here for removal. Patient has no complaints at this time. Review of Systems General: Reports: 10 or more systems reviewed and unremarkable except in HPI and below PFSH ED PFSH: Medical History Abnormal stress test Age-related cognitive decline Back pain Benign essential HTN CAD (coronary artery disease) Chest pain Chronic constipation Chronic post-traumatic stress disorder Chronic right SI joint pain Chronic right-sided low back pain with right-sided sciatica Cigarette nicotine dependence Coronary disease Cystocele Dyslipidemia Encounter for long-term opiate analgesic use Gastritis Gastro-esophageal reflux disease without esophagitis Generalized edema GERD (gastroesophageal reflux disease) History of herpes genitalis Hypertension Hypothyroidism Low back pain of over 3 months duration Major depressive disorder, recurrent episode with mood-congruent psychotic features Microscopic hematuria Mixed incontinence Moderate COPD (chronic obstructive pulmonary disease) Opioid contract exists Periodontal disease Pneumonia Rectal Hemorrhage Spinal stenosis, cervical region Surgical History History of appendectomy History of colonoscopy (~2017) History of colonoscopy with polypectomy (~12/2020) History of esophagogastroduodenoscopy (EGD) (~12/2020) Hx of heart artery stent S/P appendectomy S/P cataract surgery S/P hysterectomy S/P tonsillectomy and adenoidectomy Stented coronary artery Family History Father , at age 93 CAD (coronary artery disease) Family/Other CAD (coronary artery disease) uncle Cancer maternal aunt & maternal uncle Mother , at age 77 CAD (coronary artery disease) Hypertension Cancer Sister Hypertension Cancer Daughter Diabetes Other Chronic post-traumatic stress disorder Social History Smoking and tobacco status: current every day smoker cigarettes Packs smoked per day: 0.75 Years cigarettes smoked: 61 [ Other cigarette details: 87-[id number] smoking history] Quit status (tobacco): not considering quitting Smoking risk assessment/counseling performed?: No Alcohol intake: former Former alcohol use details: occasionally Substance/Drug Use: never Adopted: No Caregiver/support person: Yes (5 days a week- OIL) Lives independently: No Household members: none Housing: House Marital status: Marital status details: since the ' Number of children: 5 Highest education level completed: Associate Degree: Occupational, Technical, Vocational Program Education level details: Clerical training service: No Current occupational status: disabled Current occupational exposures/hazards: No Pets and animals: No Leisure activites: music, games and other Leisure activities details: watch TV, bingo, dance, visit with others, belt picker trash and clean Sexually active: No Do you think of yourself as: Straight/Heterosexual Current gender identity: Female Susan/Nondenominational: Restorationism Special susan needs: No Agree to transfusion: Yes Financial difficulty paying for basics: Not Very Hard Female Reproductive History: Para: 5 Spontaneous abortions: No Physical Exam Const: COMMON NORMALS: no acute distress, patient oriented x3, no limitations, healthy appearing, alert and well nourished Neck/C-Spine: COMMON NORMALS: no JVD Chest: COMMONS NORMALS: normal inspection of the chest and normal palpation of entire chest wall Resp: COMMON NORMALS: normal respiratory effort, No retractions, No use of accessory muscles and clear to auscultation bilaterally AUSCULTATION: clear to auscultation bilaterally Cardio: COMMON NORMALS: no JVD, regular rate, regular rhythm, S1 normal heart sound present, S2 normal heart sound present, No gallops present (Cardio), No clicks present (Cardio), No murmurs present (Cardio) and No rub (Cardio) RATE: regular rate RHYTHM: regular rhythm HEART SOUNDS: S1 normal heart sound present and S2 normal heart sound present GI: COMMON NORMALS: Normal to inspection, nondistended, normoactive bowel sounds present, Soft to palpation, non-tender, No hepatosplenomegaly present and no masses PALPATION: Yes Soft to palpation and Yes No hepatosplenomegaly present Neuro: COMMON NORMALS: patient oriented x3 SENSORIUM/ORIENTATION: Yes alert Course Vital Signs: Vital signs: Vital Signs Temperature 98.7 F 09/04/23 23:03 Pulse Rate 83 09/04/23 23:03 Respiratory Rate 18 09/04/23 23:03 Blood Pressure 131/84 09/04/23 23:03 Pulse Oximetry 97 09/04/23 23:03 MDM - Female Medical Decision Making Patient presents to the ER to have her Esquivel cath removed because she could not get in with her family doctor. Patient has no otherwise complaints. Patient is Esquivel catheter will be removed and will be discharged home. Differential Diagnosis Unlikely abdominal pain, acute appendicitis, calculus of kidney, constipation, diverticulitis, endometriosis, gastroenteritis, pancreatitis or small bowel obstruction Medical Records I reviewed the patient's medical records. Lab Data I reviewed the patient's lab results. No radiology studies performed this visit Discharge Plan Discharge Patient Disposition: Home Clinical Impression: Encounter for Esquivel catheter removal Condition: Stable Prescriptions: No Action CeraVe Cream 1 applic topical QID PRN (Reason: Rash) methylprednisolone acetate [Depo-Medrol] 40 mg/mL suspension 40 mg intra-articular ONCE Qty: 1 0RF bupivacaine (PF) 0.25 % (2.5 mg/mL) solution 9 ml intra-articular ONCE Qty: 1 0RF (DME) [facility] Thumb Brace See Rx Instructions .Route .MEDSUPPLY Qty: 1 0RF Rx Instructions: As directed venlafaxine [Effexor XR] 37.5 mg capsule,extended release 24hr 37.5 mg PO .morning Qty: 30 6RF Rx Instructions: Take one capsule every morning (DME) rolling walker with seat See Rx Instructions .Route .MEDSUPPLY Qty: 1 0RF Rx Instructions: As directed pregabalin 50 mg capsule 50 mg PO BID amlodipine 10 mg tablet 10 mg PO DAILY Qty: 90 1RF Dose Instruction: TAKE 1 TABLET BY MOUTH EVERY DAY isosorbide mononitrate 60 mg tablet extended release 24 hr See Rx Instructions .ROUTE .COMPLEX Qty: 135 3RF Dose Instruction: TAKE ONE AND ONE-HALF TABLET BY MOUTH DAILY Rx Instructions: TAKE ONE AND ONE-HALF TABLET BY MOUTH DAILY alendronate 70 mg tablet See Rx Instructions .ROUTE .COMPLEX Qty: 12 1RF Dose Instruction: TAKE 1 TABLET BY MOUTH every week Rx Instructions: TAKE 1 TABLET BY MOUTH every week pantoprazole 40 mg tablet,delayed release (DR/EC) See Rx Instructions .ROUTE .COMPLEX Qty: 90 1RF Dose Instruction: TAKE 1 TABLET BY MOUTH EVERY DAY Rx Instructions: TAKE 1 TABLET BY MOUTH EVERY DAY albuterol sulfate 2.5 mg /3 mL (0.083 %) solution for nebulization 2.5 mg inhalation Q6H PRN (Reason: shortness of breath or wheezing) Qty: 180 0RF furosemide 20 mg tablet 20 mg PO DAILY Qty: 90 2RF polyethylene glycol 3350 17 gram/dose powder See Rx Instructions .ROUTE .COMPLEX Qty: 510 1RF Dose Instruction: DISSOLVE 17 GRAMS BY MOUTH 1-2 TIMES PER DAY NEEDED FOR CONSTIPATION NEEDED Rx Instructions: DISSOLVE 17 GRAMS BY MOUTH 1-2 TIMES PER DAY NEEDED FOR CONSTIPATION NEEDED aspirin [Adult Low Dose Aspirin] 81 mg tablet,delayed release (DR/EC) 81 mg PO DAILY Qty: 90 3RF hydrocodone-acetaminophen 10-325 mg tablet 1 tab PO TID PRN (Reason: pain) 30 Days Qty: 90 0RF Rx Instructions: may fill 30 days after previous refill fluticasone propionate 50 mcg/actuation spray,suspension See Rx Instructions .ROUTE .COMPLEX Qty: 16 3RF Dose Instruction: USE 1 SPRAY IN EACH NOSTRIL TWICE DAILY Rx Instructions: USE 1 SPRAY IN EACH NOSTRIL TWICE DAILY montelukast 10 mg tablet See Rx Instructions .ROUTE .COMPLEX Qty: 90 3RF Dose Instruction: TAKE ONE TABLET BY MOUTH EVERY DAY Rx Instructions: TAKE ONE TABLET BY MOUTH EVERY DAY levothyroxine 75 mcg tablet See Rx Instructions .ROUTE .COMPLEX Qty: 90 0RF Dose Instruction: TAKE 1 TABLET BY MOUTH EVERY DAY Rx Instructions: TAKE 1 TABLET BY MOUTH EVERY DAY valacyclovir 500 mg tablet See Rx Instructions .ROUTE .COMPLEX Qty: 90 0RF Dose Instruction: TAKE ONE TABLET BY MOUTH EVERY DAY Rx Instructions: TAKE ONE TABLET BY MOUTH EVERY DAY Trelegy Ellipta 100-62.5-25 mcg blister with device 1 inh inhalation DAILY Qty: 60 5RF tizanidine 4 mg tablet 4 mg PO Q6H PRN (Reason: muscle spasticity) Qty: 20 0RF Rx Instructions: do not exceed 3 doses per 24 hrs diclofenac sodium 75 mg tablet,delayed release (DR/EC) 75 mg PO Q12H PRN (Reason: pain) Qty: 20 0RF cefdinir 300 mg capsule 300 mg PO BID 10 Days Qty: 20 0RF latanoprost 0.005 % drops 1 drp ophthalmic (eye) QPM PRN (Reason: unknown) Centrum Women 18-400 mg-mcg Tablet 1 tab PO DAILY cholecalciferol (vitamin D3) [Vitamin D3] 50 mcg (2,000 unit) Capsule 50 mcg PO DAILY albuterol sulfate 90 mcg/actuation HFA aerosol inhaler 2 inh inhalation Q8H PRN (Reason: shortness of breath or wheezing) Qty: 8.5 3RF atorvastatin 40 mg tablet 40 mg PO DAILY Qty: 90 3RF Discharge Orders: Discharge ED (Routine); Ordered 09/04/23 Ordered By: Jace Miller Referrals: Kaycee Roque DO [Primary Care Provider] - 1 week Patient Instructions: Esquivel Catheter Removal (DC) Coding Level of Care Code ED Varnish Blender for Lori Reed
[2023-09-04 23:32] VITALS: BP 131/84; PULSE 83; RESP 18; TEMP 37.1; O2SAT 97
== END 2023-09-04 23:33 | disposition home or self-care (01) ==
PROVIDERS: Emergency Provider Emergency Medicine; PCP Family Medicine
DX: Z46.6 Encounter for fitting and adjustment of urinary device (principal); Z79.82 Long term (current) use of aspirin; I25.10 Atherosclerotic heart disease of native coronary artery without angina pectoris; E78.5 Hyperlipidemia, unspecified; I10 Essential (primary) hypertension; J44.9 Chronic obstructive pulmonary disease, unspecified; F17.210 Nicotine dependence, cigarettes, uncomplicated
CPT/HCPCS: 99282

== ENCOUNTER → 2023-09-10 11:30 | Outpatient (BNVA) | payer MEDICARE, MEDICAID, SELFPAY ==
[2023-08-02 11:25] VITALS: BP 116/68; BMI 28.9
== END ==
PROVIDERS: PCP Family Medicine; Visit Provider Anesthesiology Pain Medicine
DX: M54.6 Pain in thoracic spine (principal); G89.29 Other chronic pain; M54.2 Cervicalgia
CPT/HCPCS: 72072; 99214

== ENCOUNTER → 2023-09-18 09:10 | Outpatient (BNVA) | payer MEDICARE, MEDICAID, SELFPAY ==
[2023-09-14 07:45] VITALS: BP 116/68; BMI 28.9
== END ==
PROVIDERS: PCP Family Medicine; Visit Provider Podiatrist Foot & Ankle Surgery
DX: B35.1 Tinea unguium (principal); R60.9 Edema, unspecified; I73.9 Peripheral vascular disease, unspecified
CPT/HCPCS: 11721

== ENCOUNTER → 2023-09-20 14:09 | Outpatient (BNVA) | payer MEDICARE, MEDICAID, SELFPAY ==
[2023-09-14 07:45] VITALS: BP 116/68; BMI 28.9
== END ==
PROVIDERS: PCP Family Medicine; Visit Provider Internal Medicine
DX: I25.119 Atherosclerotic heart disease of native coronary artery with unspecified angina pectoris (principal); I10 Essential (primary) hypertension; E78.5 Hyperlipidemia, unspecified; F17.210 Nicotine dependence, cigarettes, uncomplicated
CPT/HCPCS: 99214

== ENCOUNTER → 2023-10-12 11:54 | Outpatient (BNVA) | payer MEDICARE, MEDICAID, SELFPAY ==
[2023-09-14 07:45] VITALS: BP 116/68; BMI 28.9
== END ==
PROVIDERS: PCP Family Medicine; Visit Provider Family Medicine
DX: I10 Essential (primary) hypertension (principal); M48.02 Spinal stenosis, cervical region; E03.9 Hypothyroidism, unspecified; R39.9 Unspecified symptoms and signs involving the genitourinary system
CPT/HCPCS: 81000; 84443

== ENCOUNTER → 2023-11-07 10:43 | Outpatient (BNVA) | payer MEDICARE, MEDICAID, SELFPAY ==
[2023-09-14 07:45] VITALS: BP 116/68; BMI 28.9
== END ==
PROVIDERS: PCP Family Medicine; Visit Provider Anesthesiology Pain Medicine
DX: M79.18 Myalgia, other site (principal); G89.29 Other chronic pain; M48.02 Spinal stenosis, cervical region; M47.812 Spondylosis without myelopathy or radiculopathy, cervical region; M51.36 Other intervertebral disc degeneration, lumbar region; S22.000A Wedge compression fracture of unspecified thoracic vertebra, initial encounter for closed fracture; X58.XXXA Exposure to other specified factors, initial encounter
CPT/HCPCS: 20553; 99213; J1030; J3490

== ENCOUNTER 2023-11-22 13:23 | Outpatient (CLI) | payer MEDICARE, MEDICAID, SELFPAY ==
[2023-09-14 07:45] VITALS: BP 116/68; BMI 28.9
--- NOTE | 2023-11-22 | USR_ITS ---
PROCEDURE INFORMATION: Exam: US Retroperitoneal; Complete; Kidneys and Bladder Exam date and time: 11/22/2023 2:03 PM Age: 78 years old Clinical indication: Abnormal findings; Abnormal lab test; Other: Hematuria; Additional info: Microscopic hematuria TECHNIQUE: Imaging protocol: Real-time ultrasound of the retroperitoneum with image documentation. Complete exam focused on the kidneys and bladder. COMPARISON: CT kidney stone [id number] 09/01/2023 1:07 AM FINDINGS: Right kidney: Normal. No stones. No hydronephrosis. Echogenic nonshadowing structures probably represent vessels. Left kidney: Normal. No stones. No hydronephrosis. Echogenic nonshadowing structures probably represent vessels. Presents true Urinary bladder: Unremarkable. US/US renal BI* [id number] IMPRESSION: Unremarkable kidneys and bladder.
== END 2023-11-22 13:24 | disposition home or self-care (01) ==
LOC: RAD 13:23
PROVIDERS: PCP Family Medicine; Visit Provider Family Medicine
DX: R31.29 Other microscopic hematuria (principal)
CPT/HCPCS: 76770

== ENCOUNTER → 2024-01-11 09:13 | Outpatient (BNVA) | payer MEDICARE, MEDICAID, SELFPAY ==
[2023-09-14 07:45] VITALS: BP 116/68; BMI 28.9
== END ==
PROVIDERS: PCP Family Medicine; Visit Provider Podiatrist Foot & Ankle Surgery
DX: B35.1 Tinea unguium (principal); R60.9 Edema, unspecified; I73.9 Peripheral vascular disease, unspecified
CPT/HCPCS: 11721

== ENCOUNTER → 2024-01-29 09:44 | Outpatient (BNVA) | payer MEDICARE, MEDICAID, SELFPAY ==
[2023-09-14 07:45] VITALS: BP 116/68; BMI 28.9
== END ==
PROVIDERS: PCP Family Medicine; Visit Provider Anesthesiology Pain Medicine
DX: M54.6 Pain in thoracic spine (principal); G89.29 Other chronic pain; S22.000A Wedge compression fracture of unspecified thoracic vertebra, initial encounter for closed fracture; M48.02 Spinal stenosis, cervical region; M47.812 Spondylosis without myelopathy or radiculopathy, cervical region; X58.XXXA Exposure to other specified factors, initial encounter; M54.50 Low back pain, unspecified
CPT/HCPCS: 99213; 99214

== ENCOUNTER → 2024-02-12 10:29 | Outpatient (BNVA) | payer MEDICARE, OTHER, SELFPAY ==
[2023-09-14 07:45] VITALS: BP 116/68; BMI 28.9
== END ==
PROVIDERS: PCP Family Medicine; Visit Provider Nurse Practitioner Psychiatric/Mental Health
DX: F31.4 Bipolar disorder, current episode depressed, severe, without psychotic features (principal); Z79.899 Other long term (current) drug therapy
CPT/HCPCS: 80061; 83036

== ENCOUNTER → 2024-02-28 12:46 | Outpatient (BNVA) | payer MEDICARE, MEDICAID, SELFPAY ==
[2024-02-15 15:43] VITALS: BP 105/65; BMI 31.4
== END ==
PROVIDERS: PCP Family Medicine; Visit Provider Anesthesiology Pain Medicine
DX: M79.18 Myalgia, other site (principal)
CPT/HCPCS: 20553; 99214; J1010; J3490

== ENCOUNTER → 2024-03-14 09:46 | Outpatient (BNVA) | payer MEDICARE, MEDICAID, SELFPAY ==
[2024-02-15 15:43] VITALS: BP 105/65; BMI 31.4
== END ==
PROVIDERS: PCP Family Medicine; Visit Provider Podiatrist Foot & Ankle Surgery
DX: B35.1 Tinea unguium (principal); M79.671 Pain in right foot; M79.672 Pain in left foot; R60.9 Edema, unspecified; I73.9 Peripheral vascular disease, unspecified
CPT/HCPCS: 11721

== ENCOUNTER → 2024-03-20 10:40 | Outpatient (BNVA) | payer MEDICARE, MEDICAID, SELFPAY ==
[2024-02-15 15:43] VITALS: BP 105/65; BMI 31.4
== END ==
PROVIDERS: PCP Family Medicine; Visit Provider Nurse Practitioner Family
DX: I25.119 Atherosclerotic heart disease of native coronary artery with unspecified angina pectoris (principal); I10 Essential (primary) hypertension; F17.210 Nicotine dependence, cigarettes, uncomplicated
CPT/HCPCS: 99214

== ENCOUNTER → 2024-04-07 13:44 | Outpatient (BNVA) | payer MEDICARE, MEDICAID, SELFPAY ==
[2024-03-31 07:52] VITALS: BP 105/65; BMI 31.4
== END ==
PROVIDERS: PCP Family Medicine; Visit Provider Anesthesiology Pain Medicine
DX: M79.18 Myalgia, other site (principal); G89.29 Other chronic pain; M54.6 Pain in thoracic spine; M48.02 Spinal stenosis, cervical region; M54.50 Low back pain, unspecified; S22.000A Wedge compression fracture of unspecified thoracic vertebra, initial encounter for closed fracture; X58.XXXA Exposure to other specified factors, initial encounter
CPT/HCPCS: 20553; 99214; J1010; J3490

== ENCOUNTER → 2024-04-24 13:13 | Outpatient (BNVA) | payer SELFPAY ==
[2024-03-31 07:52] VITALS: BP 105/65; BMI 31.4
== END ==
PROVIDERS: PCP Family Medicine; Visit Provider Family Medicine
DX: I10 Essential (primary) hypertension (principal); E03.9 Hypothyroidism, unspecified
CPT/HCPCS: 80053; 84443

== ENCOUNTER 2024-06-03 09:36 | Outpatient (CLI) | payer MEDICARE, MEDICAID, SELFPAY ==
[2024-03-31 07:52] VITALS: BP 105/65; BMI 31.4
--- NOTE | 2024-06-03 10:15 | USCV_ITS ---
Prisca Hernandez Age: 78 Gender: F : 1945 Exam Date: 06/03/2024 09:58 Ordering Phys: Fred Silverio M.D ([email or web address]) Technologist: [place] [facility] [place]: sob,copd BP: 124 / 70 HR: 77 Rhythm: Sinus Technical Quality: Adequate MEASUREMENTS (Male / Female) Normal Values 2D ECHO LVOT Diameter 2.0 cm LV Ejection Fraction MOD 4C 63.2 % LV Ejection Fraction MOD 2C 58.8 % LV Ejection Fraction 2C AL 59.1 % LA Diameter 3.9 cm RA Systolic Volume 4C AL 16.0 ml RA Systolic Volume 4C MOD 16.2 ml LA Sys Volume AL 37.5 cm cubed LA Sys Volume Index AL 22.2 cm cubed/m squared Aorta at Sinotubular Diameter 2.2 cm IVC Diameter 2.2 cm M-MODE LA Ao Ratio MM 1.3 AV Cusp Separation MM 2.3 cm DOPPLER AV Peak Velocity 141.0 cm/s LVOT Peak Velocity 123.0 cm/s AV Area Cont Eq vti 2.9 cm squared AV Area Cont Eq pk 2.8 cm squared MV Peak Velocity 106.0 cm/s MV Area PHT 3.3 cm squared Mitral E to A Ratio 0.8 TV Peak Velocity 229.5 cm/s TR Peak Velocity 251.0 cm/s TR Peak Gradient 25.2 mmHg TV Peak E Velocity 82.0 cm/s Right Atrial Pressure 3.0 mmHg Pulmonary Artery Systolic Pressu 28.2 mmHg PV Peak Velocity 98.0 cm/s FINDINGS Left Ventricle Left ventricle is normal in size. LV systolic function is normal with EF of 55 to 60%. No regional wall motion abnormalities are seen. Grade 1 diastolic dysfunction. Right Ventricle Normal in size and function Right Atrium Nromal in size Left Atrium Normal in size Mitral Valve Mild mitral annular calcification. Mild mitral regurgitation. Aortic Valve Aortic valve is thickened. No significant stenosis or regurgitation. Tricuspid Valve Mild tricuspid regurgitation. Insufficient TR jet to calculate RVSP Pulmonic Valve Not well visualized Pericardium Normal Aorta Normal in size IVC Not well visualized CONCLUSIONS LV systolic function is normal with EF of 55 to 60%. Grade 1 diastolic dysfunction. Mild mitral regurgitation. Mild tricuspid regurgitation Compared to prior echocardiogram from 2022, no significant changes are seen Fred Silverio MD (Electronically Signed) Final Date: 19 June 2024 08:02 S
== END 2024-06-03 09:37 | disposition home or self-care (01) ==
LOC: RAD 09:37
PROVIDERS: PCP Family Medicine; Visit Provider Internal Medicine
DX: I08.1 Rheumatic disorders of both mitral and tricuspid valves (principal); R06.02 Shortness of breath
CPT/HCPCS: 93306

== ENCOUNTER → 2024-06-06 09:42 | Outpatient (BNVA) | payer MEDICARE, MEDICAID, SELFPAY ==
[2024-03-31 07:52] VITALS: BP 105/65; BMI 31.4
== END ==
PROVIDERS: PCP Family Medicine; Visit Provider Podiatrist Foot & Ankle Surgery
DX: B35.1 Tinea unguium (principal); M79.671 Pain in right foot; M79.672 Pain in left foot; R60.9 Edema, unspecified; I73.9 Peripheral vascular disease, unspecified
CPT/HCPCS: 11721

== ENCOUNTER → 2024-06-20 10:47 | Outpatient (BNVA) | payer MEDICAID, SELFPAY ==
[2024-03-31 07:52] VITALS: BP 105/65; BMI 31.4
== END ==
PROVIDERS: PCP Family Medicine; Visit Provider Family Medicine Adult Medicine
DX: I10 Essential (primary) hypertension (principal); E78.5 Hyperlipidemia, unspecified; I25.119 Atherosclerotic heart disease of native coronary artery with unspecified angina pectoris
CPT/HCPCS: 80053; 80061; 84443; 85025

== ENCOUNTER 2024-07-17 13:35 | Emergency (ER) | payer MEDICARE, MEDICAID, SELFPAY ==
[2024-03-31 07:52] VITALS: BP 105/65; BMI 31.4
--- NOTE | 2024-07-17 13:41 | XR_ITS ---
WS: [id number] Portable AP upright chest, 07/17/2024 Clinical Data: Shortness of breath Comparison: Portable chest, 02/01/2023 Findings: No nodules, masses or effusions are seen. The heart is normal. The pulmonary vascularity is not increased. No pneumonia or pneumothorax is seen. The aortic arch and descending thoracic aorta s how calcification and tortuosity. XR/XR chest 1V portable [id number] Impression: Atherosclerosis.
[2024-07-17 13:44] VITALS: BP 92/66; PULSE 81; RESP 18; TEMP 36.5; O2SAT 95
[2024-07-17 14:06] LABS: Basophils # 0.1 10^3/uL (0.0-0.1); Basophils % 1.1 %; Eosinophils # 0.1 10^3/uL (0.0-0.8); Eosinophils % 1.8 %; Hematocrit 37.6 % (36-47); Lymphocytes # 1.9 10^3/uL (0.8-4.8); Lymphocytes % 26.8 %; Mean Corpuscular HGB Conc 33.5 g/dL (30-55); Mean Corpuscular Hemoglobin 32.1 pg (27-33); Mean Corpuscular Volume 95.7 fl (85-98); Mean Platelet Volume 10.5 fL (7.4-10.4); Monocytes # 0.7 10^3/uL (0.2-0.9); Monocytes % 10.4 %; Neutrophils # 4.24 10^3/uL (1.8-7.7); Neutrophils % 59.6 %; Nucleated Red Blood Cells % 0 %; Platelet Count 215 10^3/cmm (157-399); Red Blood Count 3.93 10^6/uL (3.85-5.65); Red Cell Distribution Width 13.8 % (12.1-15.1); White Blood Count 7.12 10^3/uL (3.29-11.43)
--- NOTE | 2024-07-17 14:10 | W.ED.WEAKNES ---
HPI - Weakness General: Chief complaint: Weakness Stated complaint: weakness Time Seen by Provider: 07/17/24 13:38 History of Present Illness: 78-year-old female with a history of dementia, tobacco dependence, COPD hypertension, depression and coronary artery disease who presents to the emergency room by ambulance from an assisted living with weakness and some slight confusion. Apparently she was sitting out in front of her apartment and neighbors felt she seemed confused compared to her baseline. At this point she is fairly alert and oriented. She says she does feel very weak. No known fevers. No nausea or vomiting. No abdominal pain. No chest pain. No focal motor deficits. Review of Systems Narrative: Constitutional symptoms: Negative except as documented in HPI. Skin symptoms: Negative except as documented in HPI. Eye symptoms: Negative except as documented in HPI. ENMT symptoms: Negative except as documented in HPI. Respiratory symptoms: Negative except as documented in HPI. Cardiovascular symptoms: Negative except as documented in HPI. Gastrointestinal symptoms: Negative except as documented in HPI. Genitourinary symptoms: Negative except as documented in HPI. Musculoskeletal symptoms: Negative except as documented in HPI. Neurologic symptoms: Negative except as documented in HPI. Psychiatric symptoms: Negative except as documented in HPI. Endocrine symptoms: Negative except as documented in HPI. PFSH ED PFSH: Medical History Bereavement Loss of youngest son, who was caregiver to Prisca, on 10/26/23 Psychiatric care Alzheimer's dementia Hypertension History of herpes genitalis Opioid contract exists Cigarette nicotine dependence Age-related cognitive decline Chronic post-traumatic stress disorder Major depressive disorder, recurrent episode with mood-congruent psychotic features Benign essential HTN Gastro-esophageal reflux disease without esophagitis Hypothyroidism CAD (coronary artery disease) Cystocele Moderate COPD (chronic obstructive pulmonary disease) Surgical History Stented coronary artery History of appendectomy Hx of heart artery stent History of colonoscopy (~2017) History of colonoscopy with polypectomy (~12/2020) History of esophagogastroduodenoscopy (EGD) (~12/2020) S/P tonsillectomy and adenoidectomy S/P appendectomy S/P hysterectomy S/P cataract surgery Family History Father , at age 93 CAD (coronary artery disease) Family/Other CAD (coronary artery disease) uncle Cancer maternal aunt & maternal uncle Mother , at age 77 CAD (coronary artery disease) Hypertension Cancer Sister Hypertension Cancer Daughter Diabetes Other Chronic post-traumatic stress disorder Social History Smoking and tobacco/nicotine status: current every day tobacco/nicotine user cigarettes Packs smoked per day: 0.75 Years cigarettes smoked: 61 [ Other cigarette details: [id number] smoking history] Quit status (tobacco/nicotine): not considering quitting Alcohol intake: former Former alcohol use details: occasionally Substance/Drug Use: never Adopted: No Caregiver/support person: Yes (5 days a week- OIL) Lives independently: No Household members: none Housing: House Marital status: Marital status details: since the Number of children: 5 Highest education level completed: Associate Degree: Occupational, Technical, Vocational Program Education level details: Clerical training service: No Current occupational status: disabled Current occupational exposures/hazards: No Pets and animals: No Leisure activites: music, games and other Leisure activities details: watch TV, bingo, dance, visit with others, package pick up trash and clean Sexually active: No Do you think of yourself as: Straight/Heterosexual Current gender identity: Female Susan/Lutheran: Baptism Special susan needs: No Agree to transfusion: Yes Female Reproductive History: Para: 5 Spontaneous abortions: No Physical Exam Narrative: EXAM NARRATIVE: General: Alert, no acute distress. Skin: Warm, dry. Head: Normocephalic, atraumatic. Neck: Supple, trachea midline. Eye: Extraocular movements are intact. Ears, nose, mouth and throat: mucosa moist. Cardiovascular: Regular, Normal peripheral perfusion. Respiratory: Lungs are clear to auscultation, respirations are non-labored, breath sounds are equal, Symmetrical chest wall expansion. Gastrointestinal: Soft, Nontender, Non distended Musculoskeletal: Normal ROM, no deformity. Neurological: Alert and oriented, No focal neurological deficit observed. Psychiatric: Cooperative, appropriate mood & affect. Course Vital Signs: Vital signs: Vital Signs Temperature 97.7 F 07/17/24 13:44 Pulse Rate 74 07/17/24 14:49 Respiratory Rate 12 07/17/24 14:49 Blood Pressure 113/74 08/22/24 14:49 Pulse Oximetry 96 07/17/24 14:49 Oxygen Delivery Me thod Room Air 07/17/24 14:49 MDM - Weakness Medical Decision Making Medical decision making: Differential diagnosis for patient presenting with generalized weakness including but not limited to and based on the above HPI, review of systems and physical exam: Sepsis. Dehydration. Renal failure. Electrolyte abnormalities. Anemia. Congestive heart failure. Hypotension. Coronary syndrome. Hepatitis. Cirrhosis. Infections such as pneumonia, urinary tract infection, Tick bourne illness, Cellulitis, Viral infections including influenza and Covid-19. Workup: labwork and lab/exam driven imaging ordered to evaluate, rule in and rule out above pathologies. Chest x-ray: No acute process. No infiltrate. No pneumothorax. This was reviewed and interpreted by myself the ER physician. Lab Review: Laboratory results were reviewed and interpreted by myself the emergency room physician. Lab work is fairly unremarkable. Her BUN is slightly elevated with a normal creatinine. This might indicate some dehydration and she is borderline hypotensive so fluids are being given. No evidence of infection. No leukocytosis. No urinary tract infection. Chest x-ray is negative for pneumonia. I reviewed the patient's medical record. Reexamination: Patient remained stable. No increased work of breathing. No altered mental status. No focal motor deficits. Assessment and plan: Weakness Dehydration Dementia ?Fluids given in the emergency room. - Discharged home - Discussed findings and plan with patient. Answered any questions. - All laboratory values were reviewed and interpreted personally by myself, the ER physician - All imaging was reviewed and interpreted personally by myself, the ER physician. - Evaluation and treatment of this problem were appropriate in the emergency setting Lab Data 07/17/24 13:52 07/17/24 13:52 Radiology Impressions Chest X-Ray 07/17/24 13:41 Impression: Atherosclerosis. Laboratory Results WBC 7.12 10^3/uL (3.29-11.43) 07/17/24 13:52 RBC 3.93 10^6/uL (3.85-5.65) 07/17/24 13:52 Hgb 12.60 g/dL (11.27-16.99) 07/17/24 13:52 Hct 37.6 % (36-47) 07/17/24 13:52 MCV 95.7 fl (85-98) 07/17/24 13:52 MCH 32.1 pg (27-33) 07/17/24 13:52 MCHC 33.5 g/dL (30-55) 07/17/24 13:52 RDW 13.8 % (12.1-15.1) 07/17/24 13:52 Plt Count 215 10^3/cmm (157-399) 07/17/24 13:52 MPV 10.5 fL (7.4-10.4) H 07/17/24 13:52 Neut % (Auto) 59.6 % 07/17/24 13:52 Lymph % (Auto) 26.8 % 07/17/24 13:52 [place] % (Auto) 10.4 % 07/17/24 13:52 Eos % (Auto) 1.8 % 07/17/24 13:52 Baso % (Auto) 1.1 % 07/17/24 13:52 Neut # (Auto) 4.24 10^3/uL (1.8-7.7) 07/17/24 13:52 Lymph # (Auto) 1.9 10^3/uL (0.8-4.8) 07/17/24 13:52 [place] # (Auto) 0.7 10^3/uL (0.2-0.9) 07/17/24 13:52 Eos # (Auto) 0.1 10^3/uL (0.0-0.8) 07/17/24 13:52 Baso # (Auto) 0.1 10^3/uL (0.0-0.1) 07/17/24 13:52 Nucleated RBC % (auto) 0 % 07/17/24 13:52 Nucleated RBCs # 0.0 /100WBC 07/17/24 13:52 Sodium 141 mmol/L (136-145) 07/17/24 13:52 Potassium 3.5 mmol/L (3.5-5.1) 07/17/24 13:52 Chloride 105 mmol/L (98-107) 07/17/24 13:52 Carbon Dioxide 22 mmol/L (22-29) 07/17/24 13:52 Anion Gap 17.5 (5-19) 07/17/24 13:52 BUN 22 mg/dL (8-23) 07/17/24 13:52 Creatinine 0.8 mg/dL (0.5-0.9) 07/17/24 13:52 GFR Calculation Not Reportable 07/17/24 13:52 Glucose 100 mg/dL (65-115) 07/17/24 13:52 Calculated Osmolality 295 mOsm/kg (285-295) 07/17/24 13:52 Lactic Acid 1.2 mmol/L (0.5-2.2) 07/17/24 13:52 Calcium 9.2 mg/dL (8.5-10.5) 07/17/24 13:52 Total Bilirubin 0.3 mg/dL (0.15-1.2) 07/17/24 13:52 AST 20 U/L (0-32) 07/17/24 13:52 ALT 20 U/L (0-33) 07/17/24 13:52 Alkaline Phosphatase 80 U/L (35-105) 07/17/24 13:52 Ammonia 31 umol/L (11-51) 07/17/24 13:52 C-Reactive Protein 10.8 mg/L (0.0-4.9) H 07/17/24 13:52 Total Protein 6.6 g/dL (6.6-8.7) 07/17/24 13:52 Albumin 4.1 g/dL (3.5-5.2) 07/17/24 13:52 Globulin 2.5 g/dL (1.3-4.6) 07/17/24 13:52 Urine Color Yellow (Yellow) 07/17/24 14:01 Urine Appearance Clear (CLEAR) 07/17/24 14:01 Urine pH 5.5 (5-7) 07/17/24 14:01 Ur Specific [place] 1.008 (1.005-1.030) 07/17/24 14:01 Urine Protein Negative (Negative) 07/17/24 14:01 Urine Glucose (UA) Negative (Normal) 07/17/24 14:01 Urine Ketones Negative (Negative) 07/17/24 14:01 Urine Blood Negative (Negative) 07/17/24 14:01 Urine Nitrate Negative (Negative) 07/17/24 14:01 Urine Bilirubin Negative (Negative) 07/17/24 14:01 Urine Urobilinogen 0.2 mg/dL (Negative) 07/17/24 14:01 Ur Leukocyte Esterase Negative (Negative) 07/17/24 14:01 Urine RBC 0-2 /hpf (0-2) 07/17/24 14:01 Urine WBC 0-5 /hpf (0-5) 07/17/24 14:01 Ur Squamous Epith Cells 0-5 /hpf (0-5) 07/17/24 14:01 Amorphous Sediment Not Reportable 07/17/24 14:01 Urine Bacteria None seen /hpf (NONE) 07/17/24 14:01 Hyaline Casts 2.05 /lpf 07/17/24 14:01 Ethyl Alcohol < 10 mg/dL (0-10) 07/17/24 13:52 SARS-CoV-2 Ag (Rapid) Negative (Negative) 07/17/24 13:55 All radiology interpretation(s) finalized by discharge Discharge Plan Discharge Patient Disposition: Home Clinical Impression: Dehydration, Dementia Condition: Stable Prescriptions: No Action CeraVe Cream 1 applic topical QID PRN (Reason: Rash) (DME) [facility] Thumb Brace See Rx Instructions .Route .MEDSUPPLY Qty: 1 0RF Rx Instructions: As directed (DME) rolling walker with seat See Rx Instructions .Route .MEDSUPPLY Qty: 1 0RF Rx Instructions: As directed valacyclovir 500 mg tablet See Rx Instructions .ROUTE .COMPLEX Qty: 90 3RF Dose Instruction: TAKE ONE TABLET BY MOUTH EVERY DAY Rx Instructions: TAKE ONE TABLET BY MOUTH EVERY DAY isosorbide mononitrate 60 mg tablet extended release 24 hr See Rx Instructions .ROUTE .COMPLEX Qty: 135 3RF Dose Instruction: TAKE ONE AND ONE-HALF TABLET BY MOUTH DAILY Rx Instructions: TAKE ONE AND ONE-HALF TABLET BY MOUTH DAILY aspirin [Adult Low Dose Aspirin] 81 mg tablet,delayed release (DR/EC) 81 mg PO DAILY Qty: 90 3RF diclofenac sodium 3 % gel 1 applic topical BID PRN (Reason: for hand pain) Qty: 100 0RF Rx Instructions: To bilateral hands Trelegy Ellipta 100-62.5-25 mcg blister with device 1 inh inhalation DAILY Qty: 60 5RF albuterol sulfate 90 mcg/actuation HFA aerosol inhaler 2 inh inhalation Q8H PRN (Reason: shortness of breath or wheezing) Qty: 8.5 3RF amlodipine 10 mg tablet 10 mg PO DAILY Qty: 90 1RF Dose Instruction: TAKE 1 TABLET BY MOUTH EVERY DAY venlafaxine [Effexor XR] 150 mg capsule,extended release 24hr 150 mg PO QAM Qty: 30 6RF Rx Instructions: Take one capsule every morning albuterol sulfate 2.5 mg /3 mL (0.083 %) solution for nebulization 2.5 mg inhalation Q6H PRN (Reason: shortness of breath or wheezing) Qty: 180 0RF hydrocodone-acetaminophen 10-325 mg tablet 1 tab PO TID PRN (Reason: pain) 30 Days Qty: 90 0RF Rx Instructions: may fill 30 days after previous refill ferrous sulfate 325 mg (65 mg iron) tablet 650 mg PO DAILY memantine 5 mg tablet 5 mg PO BID Qty: 60 3RF Rx Instructions: Take one tablet twice per day levothyroxine 100 mcg tablet 100 mcg PO DAILY Qty: 90 0RF montelukast 10 mg tablet See Rx Instructions .ROUTE .COMPLEX Qty: 90 3RF Dose Instruction: TAKE ONE TABLET BY MOUTH EVERY DAY Rx Instructions: TAKE ONE TABLET BY MOUTH EVERY DAY alendronate 70 mg tablet See Rx Instructions .ROUTE .COMPLEX Qty: 12 1RF Dose Instruction: TAKE 1 TABLET BY MOUTH every week Rx Instructions: TAKE 1 TABLET BY MOUTH every week pantoprazole 40 mg tablet,delayed release (DR/EC) See Rx Instructions .ROUTE .COMPLEX Qty: 90 1RF Dose Instruction: TAKE ONE TABLET BY MOUTH EVERY DAY Rx Instructions: TAKE ONE TABLET BY MOUTH EVERY DAY fluticasone propionate 50 mcg/actuation spray,suspension See Rx Instructions .ROUTE .COMPLEX Qty: 16 3RF Dose Instruction: USE 1 SPRAY IN EACH NOSTRIL TWICE DAILY Rx Instructions: USE 1 SPRAY IN EACH NOSTRIL TWICE DAILY pregabalin 50 mg capsule 50 mg PO BID Qty: 60 2RF furosemide 20 mg tablet 20 mg PO DAILY Qty: 90 2RF latanoprost 0.005 % drops 1 drp ophthalmic (eye) QPM PRN (Reason: unknown) Centrum Women 18-400 mg-mcg Tablet 1 tab PO DAILY cholecalciferol (vitamin D3) [Vitamin D3] 50 mcg (2,000 unit) Capsule 50 mcg PO DAILY atorvastatin 40 mg tablet 40 mg PO DAILY Qty: 90 3RF Discharge Orders: Discharge ED (Routine); Ordered 07/17/24 Ordered By: Rae Martinez Referrals: David Zimmerman MD [Primary Care Provider] - Discharge Diet: Usual diet Discharge Activity: Increase activity as tolerated Patient Instructions: Dehydration (ED) Activity Restrictions/Additional Instructions: Thank you for choosing [facility] for your healthcare needs today. Please realize this is an emergency room and that we are providing you with a medical screening exam and this may not be complete and all inclusive of all the testing and or work up that you may need to determine your ailment or severity of your illness. You have been screened and evaluated and felt safe for discharge. Health conditions do change or evolve sometimes and as such it is important that you follow up with your Primary Doctor to be re checked, 3-5 days is a general good time frame for follow up. You are always welcome to return to the ED for re assessment if your symptoms are worsening or you have new concerns Coding Level of Care Code ED Sugar Laboratory Assistant for g Fwd Related Data Home Medications Medication Instructions Recorded Confirmed ceramides 1,3,6-II (CeraVe topical 1 applic topical QID PRN Rash 04/27/22 07/08/24 cream) cholecalciferol (vitamin D3) 50 50 mcg PO DAILY 08/15/22 07/08/24 mcg (2,000 unit) capsule (Vitamin D3) latanoprost 0.005 % eye drops 1 drp ophthalmic (eye) QPM PRN 08/15/22 07/08/24 unknown multivitamin-ferrous 1 tab PO DAILY 08/15/22 07/08/24 fumarate-folic acid 18 mg-400 mcg tablet (Centrum Women) ferrous sulfate 325 mg (65 mg 650 mg PO DAILY 04/22/24 07/08/24 iron) tablet Previous Rx's Medication Instructions Recorded albuterol sulfate 2.5 mg/3 mL 2.5 mg (3 mL) inhalation Q6H PRN 08/24/22 (0.083 %) solution for nebulization shortness of breath or wheezing #180 mL [facility] Thumb Brace #1 ea 05/14/23 atorvastatin 40 mg tablet 40 mg PO DAILY #90 tabs 07/10/23 montelukast 10 mg tablet See Rx Instructions .Route 07/10/23 .COMPLEX #90 tabs rolling walker with seat #1 ea 07/10/23 isosorbide mononitrate 60 mg See Rx Instructions .Route 08/23/23 tablet,extended release 24 hr .COMPLEX #135 tabs aspirin 81 mg tablet,delayed 81 mg PO DAILY #90 tabs 10/12/23 release (Adult Low Dose Aspirin) valacyclovir 500 mg tablet See Rx Instructions .Route 11/05/23 .COMPLEX #90 tabs alendronate 70 mg tablet See Rx Instructions .Route 01/23/24 .COMPLEX #12 tabs albuterol sulfate 90 mcg/actuation 2 inh inhalation Q8H PRN shortness 02/04/24 aerosol inhaler of breath or wheezing #8.5 grams amlodipine 10 mg tablet 10 mg PO DAILY #90 tabs 02/04/24 diclofenac sodium 3 % topical gel 1 applic topical BID PRN for hand 02/04/24 pain #100 grams fluticasone fur. 100 mcg-umeclid 1 inh inhalation DAILY #60 ea 02/04/24 62.5 mcg-vilant 25 mcg inhalat.powder (Trelegy Ellipta) venlafaxine 150 mg 150 mg PO QAM #30 caps 02/12/24 capsule,extended release 24 hr (Effexor XR) pantoprazole 40 mg tablet,delayed See Rx Instructions .Route 02/29/24 release .COMPLEX #90 tabs hydrocodone 10 mg-acetaminophen 1 tab PO TID PRN pain 30 days #90 04/07/24 325 mg tablet tabs memantine 5 mg tablet 5 mg PO BID #60 tabs 04/22/24 fluticasone propionate 50 See Rx Instructions .Route 05/23/24 mcg/actuation nasal .COMPLEX #16 grams spray,suspension pregabalin 50 mg capsule 50 mg PO BID #60 caps 06/24/24 furosemide 20 mg tablet 20 mg PO DAILY #90 tabs 07/01/24 levothyroxine 100 mcg tablet 100 mcg PO DAILY #90 tabs 07/04/24 Allergies Allergy/AdvReac Type Severity Reaction Status Date / Time fentanyl Allergy Unknown lethargic,rash Verified 07/17/24 13:48 nausea alprazolam [From Xanax] Allergy nausea and Verified 07/17/24 13:48 vomiting baclofen Allergy Unknown Verified 07/17/24 13:48 ciprofloxacin [From Cipro] Allergy ALGY-Rash Verified 07/17/24 13:48 codeine Allergy nausea & Verified 07/17/24 13:48 vomiting morphine Allergy nausea & Verified 07/17/24 13:48 vomiting naproxen [From Aleve] Allergy ALGY-Hives Verified 07/17/24 13:48 Penicillins Allergy vomiting Verified 07/17/24 13:48 propoxyphene [From Darvon] Allergy nausea Verified 07/17/24 13:48 ranitidine [From Zantac] Allergy nausea & Verified 07/17/24 13:48 vomiting Aleve Allergy Unknown Unknown Uncoded 07/17/24 13:48 Alprazelam Allergy Unknown Unknown Uncoded 07/17/24 13:48 fentanyl AdvReac lethargic Uncoded 07/17/24 13:48
[2024-07-17 14:18] LABS: Ammonia 31 umol/L (11-51); Lactic Sepsis W/Reflex 1.2 mmol/L (0.5-2.2)
[2024-07-17 14:19] LABS: Alanine Aminotransferase 20 U/L (0-33); Albumin Level 4.1 g/dL (3.5-5.2); Alkaline Phosphatase 80 U/L (35-105); Anion Gap 17.5 (5-19); Aspartate Amino Transferase 20 U/L (0-32); Blood Urea Nitrogen 22 mg/dL (8-23); C Reactive Protein 10.8 mg/L (0.0-4.9); Calcium 9.2 mg/dL (8.5-10.5); Carbon Dioxide 22 mmol/L (22-29); Chloride 105 mmol/L (98-107); Creatinine Clr Calc Pharmacy 55.8143; Globulin 2.5 g/dL (1.3-4.6); Glucose 100 mg/dL (65-115); Osmolality Calculated 295 mOsm/kg (285-295); Potassium 3.5 mmol/L (3.5-5.1); Sodium 141 mmol/L (136-145); Total Bilirubin 0.3 mg/dL (0.15-1.2); Total Protein 6.6 g/dL (6.6-8.7)
[2024-07-17 14:26] LABS: Alcohol Level < 10 mg/dL (0-10)
[2024-07-17] MEDS: sodium chloride 0.9% 1,000 ML 999 ML IV (14:48)
[2024-07-17 14:49] VITALS: BP 113/74; PULSE 74; RESP 12; O2SAT 96
[2024-07-17 14:53] LABS: Bilirubin Urine Negative (Negative); Blood Urine Negative (Negative); Glucose Urine UA Negative (Normal); Ketones Urine Negative (Negative); Leukocyte Esterase Urine Negative (Negative); Nitrate Urine Negative (Negative); Protein Urine Negative (Negative); Specific Gravity, Urine 1.008 (1.005-1.030); Urine Appearance Clear (CLEAR); Urine Color Yellow (Yellow); Urobilinogen Urine 0.2 mg/dL (Negative); pH Urine 5.5 (5-7)
[2024-07-17 14:56] LABS: Bacteria Urine None Seen /hpf; Hyaline Casts Urine 2.05 /lpf; RBC Urine 0-2 /hpf (0-2); Squamous Epithelial Cell Urine 0-5 /hpf (0-5); WBC Urine 0-5 /hpf (0-5)
[2024-07-17 15:01] LABS: SARS Covid-2 Antigen Negative (Negative)
[2024-07-17 15:26] VITALS: BP 120/71; PULSE 71; RESP 16; O2SAT 91
== END 2024-07-17 15:42 | disposition home or self-care (01) ==
PROVIDERS: Emergency Provider Emergency Medicine; PCP Family Medicine Adult Medicine
DX: E86.0 Dehydration (principal); Z11.52 Encounter for screening for COVID-19; Z79.82 Long term (current) use of aspirin; F17.210 Nicotine dependence, cigarettes, uncomplicated; G30.9 Alzheimer's disease, unspecified; F02.80 Dementia in other diseases classified elsewhere, unspecified severity, without behavioral disturbance, psychotic disturbance, mood disturbance, and anxiety; I10 Essential (primary) hypertension; I25.10 Atherosclerotic heart disease of native coronary artery without angina pectoris; J44.9 Chronic obstructive pulmonary disease, unspecified
CPT/HCPCS: 36415; 71045; 80053; 80307; 81001; 82140; 83605; 85025; 86140; 87040; 87426; 99284; J7030

== ENCOUNTER → 2024-08-26 13:26 | Outpatient (BNVA) | payer MEDICARE, MEDICAID, SELFPAY ==
[2024-03-31 07:52] VITALS: BP 105/65; BMI 31.4
== END ==
PROVIDERS: PCP Family Medicine Adult Medicine; Visit Provider Podiatrist Foot & Ankle Surgery
DX: B35.1 Tinea unguium (principal); R60.9 Edema, unspecified; I73.9 Peripheral vascular disease, unspecified
CPT/HCPCS: 11721

== ENCOUNTER → 2024-09-05 11:29 | Outpatient (BNVA) | payer MEDICARE, MEDICAID, SELFPAY ==
[2024-03-31 07:52] VITALS: BP 105/65; BMI 31.4
== END ==
PROVIDERS: PCP Family Medicine Adult Medicine; Visit Provider Nurse Practitioner Family
DX: I25.119 Atherosclerotic heart disease of native coronary artery with unspecified angina pectoris (principal)
CPT/HCPCS: 36415; 80048; 83880

== ENCOUNTER 2024-09-26 09:12 | Outpatient (CLI) | payer MEDICARE, MEDICAID, SELFPAY ==
[2024-03-31 07:52] VITALS: BP 105/65; BMI 31.4
[2024-09-26 09:18] VITALS: BMI 27.9
--- NOTE | 2024-09-26 09:18 | ECG_ITS ---
[facility]: 2024[facility]26 Pat Name: Prisca Chowdary Department: Room: Gender: Female Angle Roll Operator: : 1945 Requested By: Genet Castro Order Number: [id number] Aye MD: Fred Silverio M.D. Interpretive Statements LEXISCAN SESTAMIBI STRESS TEST Procedure: At the baseline, the blood pressure was 138/82 mmHg with a heart rate of 77 bpm. The electrocardiogram showed normal sinus rhythm, normal axis with normal ST and T's. The Lexiscan was infused over a period of 20 seconds. A total of 0.4 mg of Lexiscan was infused. The stress phase was continued for a total of 5 minutes. Heart rate was at the end of stress phase was 93 bpm and a blood pressure of 139/78 mmHg. The EKG at the peak infusion revealed normal sinus rhythm with no significant ST-T wave changes. Sestamibi was injected 20 seconds after the Lexiscan infusion. Conclusion: 1. Normal EKG response to Lexiscan infusion 2. No Lexiscan induced chest pain or cardiac arrhythmia. 3. Normal blood pressure and heart rate response. 4. Sestamibi/sestamibi perfusion scan pending; see separate report. Electronically Signed On 10-29-2024 19:07:42 CREDIT CARD ASSOCIATE by Fred Silverio M.D. [email or web address]
--- NOTE | 2024-09-26 09:19 | NMCV_ITS ---
NM jose martin perf SPECT r/s* [id number] Prisca Chowdary Age: 79 Gender: F : 1945 Exam Date: 09/26/2024 10:03 Ordering Phys: Genet Castro Technologist: LOUISE Cordoba Exam Location: [facility] Indications: CP STRESS TEST [facility] IMAGE PROTOCOL Rest/Stress 1 Dobutamine Day Radiopharmaceutical Dose (mCi) Administration Site Administered by Rest: Tc-99m 8.7 IV - right Radha Danyel, ANNEALING TORCH OPERATOR Sestamibi antecubital Stress:Tc-99m 25.9 IV Radha Danyel, ANNEALING TORCH OPERATOR Sestamibi Rest: 26-Sep-2024 60 Discovery 630 Stress: 26-Sep-2024 30 Discovery 630 0.4mg Lexiscan. Supine position only as patient was unable to lay prone. SPECT RESULTS Technical Quality: Good Raw Data Analysis: Subdiaphragmatic activity Image Corrections: No attenuation or motion correction applied Summed Stress Score: 0 Summed Rest Score: 0 Summed Difference Score: 0 PERFUSION FINDINGS SPECT images demonstrate homogeneous tracer distribution throughout the myocardium. FUNCTIONAL RESULTS (calculated via Gated SPECT) Stress Image LV EF (%): 84 Stress EDV (mL):38 TID: 1.18 Stress ESV (mL):6 FUNCTIONAL FINDINGS: There is normal left ventricular systolic function. TID ratio is elevated which could be secondary to left ventricle hypertrophy/subendocardial ischemia IMPRESSIONS Myocardial perfusion imaging is normal. EKG segment will be documented separately. Bertha Peterson MD (Electronically Signed) Final Date: 30 September 2024 19:31 S
[2024-09-26] MEDS: regadenoson 0.4 Mg/5 ml Syringe IVP (11:32)
[2024-09-26 11:53] VITALS: BP 154/87; PULSE 66
== END 2024-09-26 09:13 | disposition home or self-care (01) ==
PROVIDERS: PCP Family Medicine Adult Medicine; Visit Provider Nurse Practitioner Family
DX: I25.119 Atherosclerotic heart disease of native coronary artery with unspecified angina pectoris (principal); R06.02 Shortness of breath
CPT/HCPCS: 36415; 78452; 93017; 96374; A9500; J2785

== ENCOUNTER → 2024-10-29 10:36 | Outpatient (BNVA) | payer MEDICARE, SELFPAY ==
[2024-10-13 09:46] VITALS: BP 105/65; BMI 31.4
== END ==
PROVIDERS: PCP Family Medicine Adult Medicine; Visit Provider Podiatrist Foot & Ankle Surgery
DX: B35.1 Tinea unguium (principal); R60.9 Edema, unspecified; I73.9 Peripheral vascular disease, unspecified
CPT/HCPCS: 11721

== ENCOUNTER 2024-11-20 12:19 | Outpatient (CLI) | payer MEDICARE, MEDICAID, SELFPAY ==
[2024-10-13 09:46] VITALS: BP 105/65; BMI 31.4
--- NOTE | 2024-11-20 12:27 | MM_ITS ---
WS: [id number] BILATERAL SCREENING DIGITAL TOMOSYNTHESIS MAMMOGRAM WITH CAD HISTORY: SCREENING COMPARISON: 08/01/2023, 06/29/2022 Bilateral CC and MLO views with tomosynthesis and synthetic mammography submitted. Computer aided det ection analyzed. Breast composition: There are scattered areas of fibroglandular density. No suspicious masses, microc alcifications or architectural distortion. MM/MM scr BI tomosynthesis [id number] IMPRESSION: BI-RADS: 2 - Benign. FOLLOW UP: 1 Year Follow-up
== END 2024-11-20 12:20 | disposition home or self-care (01) ==
LOC: RAD 12:22
PROVIDERS: PCP Electrodiagnostic Medicine; Visit Provider Electrodiagnostic Medicine
DX: Z12.31 Encounter for screening mammogram for malignant neoplasm of breast (principal); R92.323 Mammographic fibroglandular density, bilateral breasts
CPT/HCPCS: 77063; 77067

== ENCOUNTER → 2024-12-15 12:58 | Outpatient (BNVA) | payer MEDICARE, MEDICAID, SELFPAY ==
[2024-10-13 09:46] VITALS: BP 105/65; BMI 31.4
== END ==
PROVIDERS: PCP Electrodiagnostic Medicine; Visit Provider Anesthesiology Pain Medicine
DX: M54.9 Dorsalgia, unspecified; G89.29 Other chronic pain; M54.2 Cervicalgia; S22.000D Wedge compression fracture of unspecified thoracic vertebra, subsequent encounter for fracture with routine healing; X58.XXXD Exposure to other specified factors, subsequent encounter
CPT/HCPCS: 20553; 99214; J1010; J3490

== ENCOUNTER 2024-12-30 06:31 | Outpatient (CLI) | payer MEDICARE, MEDICAID, SELFPAY ==
[2024-10-13 09:46] VITALS: BP 105/65; BMI 31.4
--- NOTE | 2024-12-30 06:41 | USCV_ITS ---
Prisca Strickland Age: 79 Gender: F : 1945 Exam Date: 12/30/2024 06:54 Ordering Phys: Star Claudio DO Technologist: [place] [facility] [place]: as BP: / HR: 68 Rhythm: Sinus Technical Quality: Adequate MEASUREMENTS (Male / Female) Normal Values 2D ECHO LV Diastolic Diameter PLAX 3.4 cm 4.2 - 5.9 / 3.9 - 5.3 cm IVS Diastolic Thickness 1.4 cm 0.6 - 1.0 / 0.6 - 0.9 cm IVS Systolic Thickness 1.7 cm LVPW Diastolic Thickness 1.3 cm 0.6 - 1.0 / 0.6 - 0.9 cm LVPW Systolic Thickness 1.7 cm LVOT Diameter 2.0 cm LV Ejection Fraction 2D Teich 61.9 % LV Ejection Fraction MOD 4C 62.2 % LV Ejection Fraction MOD 2C 74.4 % LV Ejection Fraction 2C AL 73.9 % LA Diameter 3.2 cm RA Systolic Volume 4C AL 20.1 ml RA Systolic Volume 4C MOD 19.4 ml LA Sys Volume AL 35.5 cm cubed LA Sys Volume Index AL 21.0 cm cubed/m squared Aorta at Sinotubular Diameter 2.7 cm IVC Diameter 2.0 cm M-MODE LA Ao Ratio MM 1.0 AV Cusp Separation MM 2.1 cm DOPPLER AV Peak Velocity 96.0 cm/s LVOT Peak Velocity 117.0 cm/s AV Area Cont Eq vti 3.3 cm squared AV Area Cont Eq pk 3.8 cm squared MV Peak Velocity 91.0 cm/s MV Area PHT 4.5 cm squared Mitral E to A Ratio 1.3 TV Peak Velocity 185.5 cm/s TR Peak Velocity 231.0 cm/s TR Peak Gradient 21.3 mmHg TV Peak E Velocity 85.0 cm/s PV Peak Velocity 88.0 cm/s FINDINGS Left Ventricle Left ventricle is normal in size. LV systolic function is normal with EF of 60 to 65%. No regional wall motion abnormalities are seen. Right Ventricle Normal in size and function Right Atrium Normal in size Left Atrium Normal in size Mitral Valve Structurally normal mitral valve. Mild mitral regurgitation. Aortic Valve Structurally normal aortic valve. No significant stenosis or regurgitation. Tricuspid Valve Mild tricuspid regurgitation. Insufficient TR jet to calculate RVSP Pulmonic Valve Not well visualized Pericardium Normal Aorta Normal in size IVC Appears to be normal CONCLUSIONS LV systolic function is normal with EF of 60- 65%. Mild mitral regurgitation Mild tricuspid regurgitation Compared to prior echocardiogram from 2023, no significant changes are seen. Fred Silverio MD (Electronically Signed) Final Date: 31 December 2024 08:56 S
== END 2024-12-30 06:32 | disposition home or self-care (01) ==
LOC: RAD 06:33
PROVIDERS: PCP Electrodiagnostic Medicine; Visit Provider Electrodiagnostic Medicine
DX: R01.1 Cardiac murmur, unspecified (principal); I34.0 Nonrheumatic mitral (valve) insufficiency; I07.1 Rheumatic tricuspid insufficiency
CPT/HCPCS: 93306

== ENCOUNTER → 2025-01-08 10:35 | Outpatient (BNVA) | payer MEDICARE, SELFPAY ==
[2024-10-13 09:46] VITALS: BP 105/65; BMI 31.4
== END ==
PROVIDERS: PCP Electrodiagnostic Medicine; Visit Provider Podiatrist Foot & Ankle Surgery
DX: I73.9 Peripheral vascular disease, unspecified (principal); B35.1 Tinea unguium; M79.671 Pain in right foot; M79.672 Pain in left foot; R60.9 Edema, unspecified
CPT/HCPCS: 11721

== ENCOUNTER → 2025-03-05 11:49 | Outpatient (BNVA) | payer MEDICARE, OTHER, SELFPAY ==
[2024-10-13 09:46] VITALS: BP 105/65; BMI 31.4
== END ==
PROVIDERS: PCP Electrodiagnostic Medicine; Visit Provider Nurse Practitioner Psychiatric/Mental Health
DX: Z79.899 Other long term (current) drug therapy (principal); F33.3 Major depressive disorder, recurrent, severe with psychotic symptoms; F31.4 Bipolar disorder, current episode depressed, severe, without psychotic features
CPT/HCPCS: 80053; 80061; 83036

== ENCOUNTER → 2025-03-10 10:24 | Outpatient (BNVA) | payer MEDICARE, SELFPAY ==
[2025-03-06 12:03] VITALS: BP 118/77; BMI 28.3
== END ==
PROVIDERS: PCP Electrodiagnostic Medicine; Visit Provider Podiatrist Foot & Ankle Surgery
DX: I73.9 Peripheral vascular disease, unspecified (principal); B35.1 Tinea unguium
CPT/HCPCS: 11721

== ENCOUNTER 2025-03-17 11:41 | Outpatient (CLI) | payer MEDICARE, MEDICAID, SELFPAY ==
[2024-10-13 09:46] VITALS: BP 105/65; BMI 31.4
[2025-03-06 12:03] VITALS: BP 118/77; BMI 28.3
== END 2025-03-17 11:42 | disposition home or self-care (01) ==
LOC: RT 11:45
PROVIDERS: PCP Electrodiagnostic Medicine; Visit Provider Electrodiagnostic Medicine
DX: J44.9 Chronic obstructive pulmonary disease, unspecified (principal); R94.2 Abnormal results of pulmonary function studies
CPT/HCPCS: 94010; 94729

== ENCOUNTER → 2025-03-18 12:15 | Outpatient (BNVA) | payer MEDICARE, MEDICAID, SELFPAY ==
[2025-03-06 12:03] VITALS: BP 118/77; BMI 28.3
== END ==
PROVIDERS: PCP Electrodiagnostic Medicine; Visit Provider Internal Medicine
DX: I25.10 Atherosclerotic heart disease of native coronary artery without angina pectoris (principal); I10 Essential (primary) hypertension; E78.2 Mixed hyperlipidemia; F17.210 Nicotine dependence, cigarettes, uncomplicated
CPT/HCPCS: 99213

== ENCOUNTER → 2025-05-11 12:41 | Outpatient (BNVA) | payer MEDICARE, MEDICAID, SELFPAY ==
[2025-03-06 12:03] VITALS: BP 118/77; BMI 28.3
== END ==
PROVIDERS: PCP Electrodiagnostic Medicine; Visit Provider Nurse Practitioner Family
DX: M54.2 Cervicalgia (principal); M54.9 Dorsalgia, unspecified; G89.29 Other chronic pain; M48.02 Spinal stenosis, cervical region
CPT/HCPCS: 99214

== ENCOUNTER → 2025-05-20 08:38 | Outpatient (BNVA) | payer OTHER, MEDICAID, SELFPAY ==
[2025-03-06 12:03] VITALS: BP 118/77; BMI 28.3
== END ==
PROVIDERS: PCP Electrodiagnostic Medicine; Visit Provider Podiatrist Foot & Ankle Surgery
DX: I73.9 Peripheral vascular disease, unspecified (principal); B35.1 Tinea unguium
CPT/HCPCS: 11721

== ENCOUNTER → 2025-06-24 10:47 | Outpatient (BNVA) | payer MEDICARE, MEDICAID, SELFPAY ==
[2025-03-06 12:03] VITALS: BP 118/77; BMI 28.3
== END ==
PROVIDERS: PCP Electrodiagnostic Medicine; Visit Provider Nurse Practitioner Family
DX: M48.02 Spinal stenosis, cervical region (principal); M54.9 Dorsalgia, unspecified; G89.29 Other chronic pain
CPT/HCPCS: 99214

== ENCOUNTER → 2025-07-22 08:25 | Outpatient (BNVA) | payer OTHER, MEDICAID, SELFPAY ==
[2025-03-06 12:03] VITALS: BP 118/77; BMI 28.3
== END ==
PROVIDERS: PCP Electrodiagnostic Medicine; Visit Provider Podiatrist Foot & Ankle Surgery
DX: I73.9 Peripheral vascular disease, unspecified (principal); B35.1 Tinea unguium
CPT/HCPCS: 11721; 99213

== ENCOUNTER → 2025-09-07 11:03 | Outpatient (BNVA) | payer MEDICARE, MEDICAID, SELFPAY ==
[2025-09-07 11:50] VITALS: BP 118/77; BMI 28.3
== END ==
PROVIDERS: PCP Electrodiagnostic Medicine; Visit Provider Nurse Practitioner Family
DX: M48.02 Spinal stenosis, cervical region (principal); M54.9 Dorsalgia, unspecified; G89.29 Other chronic pain
CPT/HCPCS: 99214

== ENCOUNTER → 2025-09-14 10:56 | Outpatient (BNVA) | payer MEDICARE, MEDICAID, SELFPAY ==
[2025-09-07 11:50] VITALS: BP 118/77; BMI 28.3
== END ==
PROVIDERS: PCP Electrodiagnostic Medicine; Visit Provider Nurse Practitioner Family
DX: M79.18 Myalgia, other site (principal); M48.02 Spinal stenosis, cervical region; M54.9 Dorsalgia, unspecified; G89.29 Other chronic pain
CPT/HCPCS: 20553; 99214; J1010; J3490

== ENCOUNTER → 2025-09-23 08:09 | Outpatient (BNVA) | payer MEDICARE, MEDICAID, SELFPAY ==
[2025-09-07 11:50] VITALS: BP 118/77; BMI 28.3
== END ==
PROVIDERS: PCP Electrodiagnostic Medicine; Visit Provider Podiatrist Foot & Ankle Surgery
DX: I73.9 Peripheral vascular disease, unspecified (principal); B35.1 Tinea unguium; L85.3 Xerosis cutis; L60.8 Other nail disorders
CPT/HCPCS: 11721; 99213

== ENCOUNTER → 2025-09-28 10:53 | Outpatient (BNVA) | payer MEDICARE, MEDICAID, SELFPAY ==
[2025-09-07 11:50] VITALS: BP 118/77; BMI 28.3
== END ==
PROVIDERS: PCP Electrodiagnostic Medicine; Visit Provider Nurse Practitioner Family
DX: M48.02 Spinal stenosis, cervical region (principal); M79.18 Myalgia, other site; M54.9 Dorsalgia, unspecified; G89.29 Other chronic pain
CPT/HCPCS: 99214

== ENCOUNTER → 2025-10-15 14:19 | Outpatient (BNVA) | payer MEDICARE, MEDICAID, SELFPAY ==
[2025-09-07 11:50] VITALS: BP 118/77; BMI 28.3
== END ==
PROVIDERS: PCP Electrodiagnostic Medicine; Visit Provider Nurse Practitioner Family
DX: R07.9 Chest pain, unspecified (principal); I25.10 Atherosclerotic heart disease of native coronary artery without angina pectoris; I10 Essential (primary) hypertension; E78.5 Hyperlipidemia, unspecified; R60.9 Edema, unspecified; I83.899 Varicose veins of unspecified lower extremity with other complications; L81.8 Other specified disorders of pigmentation; Z95.5 Presence of coronary angioplasty implant and graft; F17.210 Nicotine dependence, cigarettes, uncomplicated; M79.89 Other specified soft tissue disorders
CPT/HCPCS: 99214